=== PATIENT | male | born 1955 | race Caucasian/White ===

== ENCOUNTER 2023-08-02 19:08 | Emergency (ER) | payer MEDICARE, MEDICAID, SELFPAY ==
[2023-08-02 19:20] VITALS: BP 143/66; PULSE 67; O2SAT 97; BMI 25.7
[2023-08-02 19:24] VITALS: BP 115/59; PULSE 75; RESP 17; TEMP 36.8; O2SAT 98
--- NOTE | 2023-08-02 19:38 | ED.GENADULT ---
HPI - General Adult General Chief complaint: General Medical Stated complaint: DISLODGED G TUBE NON VERBAL Time Seen by Provider: 08/02/23 19:37 Source: EMS Mode of arrival: EMS Limitations: other ( nonverbal) History of Present Illness HPI narrative: patient comes to the emergency room from a assisted facility. Patient dislodged his G-tube. Patient has history of cerebral palsy, nonverbal at baseline. Related Data Allergies Allergy/AdvReac Type Severity Reaction Status Date / Time Cephalosporins Allergy Unknown UNKNOWN Unverified 06/10/20 14:53 nitrofurantoin Allergy Unknown UNKNOWN Unverified 06/10/20 14:53 [From MACROBID] NSAIDS (Non-Steroidal Allergy Unknown UNKNOWN Unverified 06/10/20 14:53 Anti-Inflamma [Nsaids] Penicillins Allergy Unknown UNKNOWN Unverified 06/10/20 14:53 pneumococcal vaccine Allergy Unknown UNKNOWN Unverified 06/10/20 14:53 [From PNEUMOVAX 23] From Augmentin Allergy Unknown UNKNOWN Uncoded 06/10/20 14:53 From Tricor Allergy Unknown UNKNOWN Uncoded 06/10/20 14:53 Review of Systems Review of Systems: Yes Unobtainable due to mental condition [facility] Past Medical History Medical History Cerebral palsy Social History Social History Advance Directives: No Advance Directives Information Provided: No Physical Exam ED Vital Signs: Vital Signs - 24 hr 08/02/23 19:24 Temperature 98.3 F Pulse Rate 75 Respiratory Rate 17 Blood Pressure 115/59 L Pulse Oximetry 98 Oxygen Delivery Method Room Air BMI result Body Mass Index 25.7 Const Other: Appearance: Alert. Eyes: Pupils equal, round and reactive to light. ENT: Pharynx normal. Neck: Normal inspection. Neck supple. No lymph nodes noted. No crepitus CVS: Normal heart rate and rhythm. Pulses normal. Normal S1 and S2 Respiratory: No respiratory distress. Breath sounds normal. No Wheezing. No rales Abdomen: Soft and nontender. No rigidity. No distention. G tube dislodged, colostomy bag in place, no obvious signs of infection /cellulitis Skin: Skin warm and dry. Normal skin color. Normal skin turgor. Extremities: No lower extremity edema. No Lacerations. No Rash Neuro: unable to participate in cranial nerve assessment Psych: calm, restless Course Course Course Narrative: - patient has a 16 [place]bour[place] G-tube which was pulled out. We will go ahead and look for a 6 Luxembour[place] and reinserted. Medical Decision Making Medical Decision Making MDM Narrative: - patient's G-tube was replaced with a 16 [place], same size as he had. Patient tolerated well the G-tube insertion. Critical Care Time Critical Care Time Critical Care Time: Yes Total Critical Care Time: 30 Attestation: I have personally provided critical care time. Time includes review of lab data, radiology results, discussion with consultants, and monitoring for potential decompensation. Intervention performed as documented. Discharge Plan Discharge Clinical Impression: Gastrojejunostomy tube dislodgement Patient Disposition: Home, Self-Care Additional Instructions: Please follow-up with your primary care physician tomorrow. If you have any worsening or new symptoms, please return to the emergency room or call 911
--- NOTE | 2023-08-03 00:18 | PC.NURSE ---
UNABLE TO COMPLETE FULL WORKLIST PT IS NON VERBAL
== END 2023-08-03 00:21 | disposition home or self-care (01) ==
PROVIDERS: Emergency Provider Emergency Medicine; PCP Internal Medicine
DX: K94.23 Gastrostomy malfunction (principal); G80.9 Cerebral palsy, unspecified
CPT/HCPCS: 43762; 99284

== ENCOUNTER 2025-01-01 12:03 | Observation (INO) | payer MEDICARE, MEDICAID, SELFPAY ==
--- NOTE | 2025-01-01 | ECG_ITS ---
Test Reason : weakness Blood Pressure : */* mmHG Vent. Rate : 76 BPM Atrial Rate : 76 BPM P-R Int : 142 ms QRS Dur : 76 ms QT Int : 370 ms P-R-T Axes : 61 8 73 degrees QTcB Int : 416 ms Normal sinus rhythm Normal ECG When compared with ECG of 30-Dec-2016 08:53, No significant change was found Referred By: Generic ED Physician Electronically Signed By: Issac Calvert
--- NOTE | ~2025-01-01 | XR_ITS ---
EXAMINATION: XR CHEST 1 VIEW HISTORY: sob COMPARISON: There are no prior studies for comparison. FINDINGS: A single AP portable view of the chest performed at 2:54 PM is submitted. The lungs are expanded and clear. There is no pleural effusion, pneumothorax, or pulmonary vascular congestion. The heart is normal in size. There is degenerative disc disease of the spine. XR/XR chest 1V IMPRESSION: Clear lungs. Electronically signed by: Clay Sung MD 01/01/2025 03:02 PM EDT
[2025-01-01 12:31] VITALS: BP 109/63; BP 70/50; PULSE 80; PULSE 83; RESP 17; TEMP 36.8; O2SAT 98; BMI 22.1
[2025-01-01 13:02] LABS: MANUAL DIFF FLAG NO
[2025-01-01 13:04] LABS: Basophils Percent Auto 0.3 % (0-2); Eosinophils Absolute Auto 0.1 X10*3/uL (0.0-0.4); Eosinophils Percent Auto 0.7 % (0-4); Hematocrit 26.6 % (42.0-52.0); Hemoglobin 9.4 g/dl (14.0-18.0); Imm Gran Abs Auto 0.01 X10*3/uL (0.00-0.03); Imm Gran Pct Auto 0.1 % (0.0-0.4); Lymphocytes Absolute Auto 2.6 X10*3/uL (1.2-4.9); Lymphocytes Percent Auto 34.4 % (20-40); Mean Corpuscular HGB Conc 35.3 g/dl (31.0-36.0); Mean Corpuscular Hemoglobin 28.7 pg (27.0-33.0); Mean Corpuscular Volume 81.1 fL (80.0-98.0); Mean Platelet Volume 8.2 fL (9.4-12.4); Monocytes Absolute Auto 1.1 X10*3/uL (0.1-1.2); Monocytes Percent Auto 14.6 % (2-11); Neutrophils Absolute Auto 3.8 x10*3/uL (2.0-8.3); Neutrophils Percent Auto 49.9 % (45-73); Platelet Count 232 X10*3/uL (160-400); Red Blood Count 3.28 X10*6/uL (4.60-5.80); Red Cell Distribution Width 14.8 % (11.0-16.0); White Blood Count 7.7 X10*3/uL (4.8-10.8)
[2025-01-01 13:26] LABS: Alanine Aminotransferase 7 U/L (0-40); Albumin Level 2.9 g/dL (3.5-5.0); Alkaline Phosphatase 89 U/L (39-117); Anion Gap 14 (12-20); Aspartate Amino Transferase 22 U/L (5-37); Bilirubin Total 0.2 mg/dL (0.0-1.0); Blood Urea Nitrogen 9 mg/dL (9-16); Carbon Dioxide 21 mmol/L (22-29); Chloride 98 mmol/L (96-108); Creatinine Clr Calc Pharmacy 54.7; Estimated Glomerular Filt Rate > 60; Glucose Random 167 mg/dL (60-115); Potassium 4.2 mmol/L (3.3-5.1); Sodium 129 mmol/L (135-145); Total Protein 7.6 g/dL (6.5-8.0)
[2025-01-01 13:45] LABS: Appearance Urine Turbid; Color Urine Yellow; Glucose Urine UA Negative (Negative); Nitrite Urine Negative (Negative); Specific Gravity - Urine >= 1.030 (1.005-1.025); UMIC TRIGGER UACC YES; Urine Blood Moderate (2+) (Negative); Urine Ketones Negative (Negative); Urine Protein 100 (2+) mg/dL (Neg-Trace)
[2025-01-01 13:46] LABS: Leukocyte Esterase Urine Moderate (2+) (Negative)
[2025-01-01 13:56] LABS: Bacteria Urine 4+ (None Seen); Hyaline Casts Urine 0-2 /LPF (0-2); RBC Urine 0-2 /HPF (0-2); UACC Culture Trigger YES; WBC Urine >50 /HPF (0-5)
--- NOTE | 2025-01-01 14:00 | ED.GENADULT ---
HPI - General Adult General Chief complaint: General Medical Stated complaint: LOW BP 80/50 PER EMS Time Seen by Provider: 01/01/25 13:33 History of Present Illness HPI narrative: patient is a 69-year-old male from a [facility]. Full code. History of being blind. Chronically nonverbal. Patient was noted to have a low blood pressure yesterday was in the 60s and 70s. Patient reports patient is slightly more pale than usual. Blood pressure EN route was 70s over 50s. Patient did not have any fever over the week. Did not have any change in behavior. [facility] from [facility]. As a history of psychogenic polydipsia causing low sodium and is on a fluid restriction of 1500 cc. Related Data Allergies Allergy/AdvReac Type Severity Reaction Status Date / Time Cephalosporins Allergy Unknown UNKNOWN Verified 01/01/25 12:34 nitrofurantoin Allergy Unknown UNKNOWN Verified 01/01/25 12:34 [From MACROBID] NSAIDS (Non-Steroidal Allergy Unknown UNKNOWN Verified 01/01/25 12:34 Anti-Inflamma [Nsaids] Penicillins Allergy Unknown UNKNOWN Verified 01/01/25 12:34 pneumococcal vaccine Allergy Unknown UNKNOWN Verified 01/01/25 12:34 [From PNEUMOVAX 23] From Augmentin Allergy Unknown UNKNOWN Uncoded 01/01/25 12:34 From Tricor Allergy Unknown UNKNOWN Uncoded 01/01/25 12:34 Review of Systems Review of Systems: unable to obtain review of systems secondary to patient's condition [facility] Past Medical History Medical History Neurogenic bladder Legally blind Cerebral palsy Surgical History S/P colostomy Social History Social History Unable to assess alcohol history related to: Unable to respond Patient Tobacco Use Status: Never used Tobacco Smoked in Last 30 Days: No Use of substances other than those prescribed or required for medical reasons: Unable to respond Advance Directives: No Advance Directives Information Provided: No Do you have a plan to hurt others: No Plan Nutrition Risks: No Nutritional Risk Physical Exam ED Vital Signs: Vital Signs - 24 hr 01/01/25 12:31 01/01/25 14:13 01/01/25 16:12 Temperature 98.2 F Pulse Rate 83 80 85 Respiratory Rate 17 16 18 Blood Pressure 109/63 96/54 L 139/73 Pulse Oximetry 98 99 97 Oxygen Delivery Method Room Air Room Air Room Air Oxygen Flow Rate 01/01/25 18:57 Temperature 98.2 F Pulse Rate 85 Respiratory Rate 18 Blood Pressure 156/86 H Pulse Oximetry 97 Oxygen Delivery Method Room Air Oxygen Flow Rate 98 BMI result Body Mass Index 22.1 Appearance: lethargic nonverbal Eyes: baseline blind ENT: Pharynx normal. Neck: Normal inspection. CVS: Normal heart rate and rhythm. Pulses normal. Normal S1 and S2 Respiratory: positive breath sounds bilaterally Abdomen: soft nontender nondistended. Good output from the ostomy site Skin: contracted skin has good turgor Extremities: No lower extremity edema. Neurovascular intact to all extremities. No Lacerations. No Rash Neuro: oriented times 0 contracted Medications Administered Discontinued Medications Generic Name Dose Route Start Last Admin Trade Name Freq PRN Reason Stop Dose Admin Sodium Chloride 1,000 mls @ 999 mls/hr 01/01/25 14:15 01/01/25 16:32 Ns IV 01/01/25 15:15 Infused .Q1H1M SHUBHAM Infusion Levofloxacin 500 mg in 100 mls @ 100 mls/hr 01/01/25 15:39 01/01/25 17:44 Levaquin IV 01/01/25 16:38 100 mls/hr ONCE ONE Administration Sodium Chloride 1,641 mls @ 1,641 mls/hr 01/01/25 17:36 01/01/25 17:45 Ns 30 ml/kg infuse over 1 hr (1641 ml) 01/01/25 18:35 1,641 mls/hr IV Administration .Q1H STA Medical Decision Making Medical Decision Making MDM Narrative: Patient is 69 years old presents today with having history of chronic suprapubic Graff. History of ostomy. Patient had episodes of [facility] at the [facility] but there was no fever. In the emergency department patient had a full workup including electrolytes. Patient's urine did show signs of colonization versus infection. Patient had a mildly elevated lactate. IV fluid was given. Will admit patient for further evaluation after IV fluids repeat exam showed patient well-appearing no distress. Patient given Levaquin as he had a question allergy to penicillin. Currently in stable condition hospitalist team was consulted will admit for further evaluation Differential Diagnosis Differential Diagnoses: The differential diagnosis associated with the presentation includes urinary tract infection, pneumonia, flu, RSV Admission/Observation Consideration of admission/observation: Escalation of care including admission/observation considered Consult Healthcare Provider Management of the patient was discussed with: Hospitalist Lab Data [facility] Lab Attestation statement: I reviewed the patient's lab results. 01/01/25 12:56 01/01/25 12:56 Labs: Lab Results 01/01/25 01/01/25 01/01/25 Range/Units 12:56 13:35 14:16 WBC 7.7 (4.8-10.8) X10*3/uL RBC 3.28 L (4.60-5.80) X10*6/uL Hgb 9.4 L (14.0-18.0) g/dl Hct 26.6 L (42.0-52.0) % MCV 81.1 (80.0-98.0) fL MCH 28.7 (27.0-33.0) pg MCHC 35.3 (31.0-36.0) g/dl RDW 14.8 (11.0-16.0) % Plt Count 232 (160-400) X10*3/uL MPV 8.2 L (9.4-12.4) fL Immature Gran % (Auto) 0.1 (0.0-0.4) % Neut % (Auto) 49.9 (45-73) % Lymph % (Auto) 34.4 (20-40) % Wise % (Auto) 14.6 H (2-11) % Eos % (Auto) 0.7 (0-4) % Baso % (Auto) 0.3 (0-2) % Lymph # (Auto) 2.6 (1.2-4.9) X10*3/uL Wise # (Auto) 1.1 (0.1-1.2) X10*3/uL Eos # (Auto) 0.1 (0.0-0.4) X10*3/uL Baso # (Auto) 0.0 (0.0-0.2) X10*3/uL Abs Immat Gran (auto) 0.01 (0.00-0.03) X10*3/uL Absolute Neuts (auto) 3.8 (2.0-8.3) x10*3/uL Absolute Nucleated RBC 0.000 (0.0-0.012) X10*3/uL Nucleated RBC % (auto) 0.0 (0.0-0.2) /100WBC Sodium 129 L (135-145) mmol/L Potassium 4.2 (3.3-5.1) mmol/L Chloride 98 (96-108) mmol/L Carbon Dioxide 21 L (22-29) mmol/L Anion Gap 14 (12-20) BUN 9 (9-16) mg/dL Creatinine 0.97 (0.5-1.4) mg/dL Estim Creat Clear Calc 54.7 Estimated GFR > 60 Random Glucose 167 H (60-115) mg/dL Lactic Acid (0.5-2.0) mmol/L Calcium 9.0 (8.4-10.2) mg/dL Total Bilirubin 0.2 (0.0-1.0) mg/dL AST 22 (5-37) U/L ALT 7 (0-40) U/L Alkaline Phosphatase 89 (39-117) U/L Total Protein 7.6 (6.5-8.0) g/dL Albumin 2.9 L (3.5-5.0) g/dL Urine Color Yellow Urine Appearance Turbid Urine pH 6.0 (5.0-9.0) Ur Specific [place] >= 1.030 H (1.005-1.025) Urine Protein 100 (2+) H (Neg-Trace) mg/dL Urine Glucose (UA) Negative (Negative) mg/dL Urine Ketones Negative (Negative) mg/dL Urine Blood Moderate (2+) H (Negative) Urine Nitrite Negative (Negative) Ur Leukocyte Esterase Moderate (2+) H (Negative) Urine RBC 0-2 (0-2) /HPF Urine WBC >50 H (0-5) /HPF Ur Squamous Epith Cells 6-10 (0-2) /HPF Urine Bacteria 4+ (None Seen) Hyaline Casts 0-2 (0-2) /LPF Influenza Type A (PCR) NEGATIVE (Negative) Influenza Type B (PCR) NEGATIVE (Negative) RSV RNA Qual (PCR) NEGATIVE (Negative) SARS-CoV-2 RNA (RT-PCR) NEGATIVE (Negative) 04/10/25 Range/Units 16:51 WBC (4.8-10.8) X10*3/uL RBC (4.60-5.80) X10*6/uL Hgb (14.0-18.0) g/dl Hct (42.0-52.0) % MCV (80.0-98.0) fL MCH (27.0-33.0) pg MCHC (31.0-36.0) g/dl RDW (11.0-16.0) % Plt Count (160-400) X10*3/uL MPV (9.4-12.4) fL Immature Gran % (Auto) (0.0-0.4) % Neut % (Auto) (45-73) % Lymph % (Auto) (20-40) % Wise % (Auto) (2-11) % Eos % (Auto) (0-4) % Baso % (Auto) (0-2) % Lymph # (Auto) (1.2-4.9) X10*3/uL Wise # (Auto) (0.1-1.2) X10*3/uL Eos # (Auto) (0.0-0.4) X10*3/uL Baso # (Auto) (0.0-0.2) X10*3/uL Abs Immat Gran (auto) (0.00-0.03) X10*3/uL Absolute Neuts (auto) (2.0-8.3) x10*3/uL Absolute Nucleated RBC (0.0-0.012) X10*3/uL Nucleated RBC % (auto) (0.0-0.2) /100WBC Sodium (135-145) mmol/L Potassium (3.3-5.1) mmol/L Chloride (96-108) mmol/L Carbon Dioxide (22-29) mmol/L Anion Gap (12-20) BUN (9-16) mg/dL Creatinine (0.5-1.4) mg/dL Estim Creat Clear Calc Estimated GFR Random Glucose (60-115) mg/dL Lactic Acid 2.6 H* (0.5-2.0) mmol/L Calcium (8.4-10.2) mg/dL Total Bilirubin (0.0-1.0) mg/dL AST (5-37) U/L ALT (0-40) U/L Alkaline Phosphatase (39-117) U/L Total Protein (6.5-8.0) g/dL Albumin (3.5-5.0) g/dL Urine Color Urine Appearance Urine pH (5.0-9.0) Ur Specific [place] (1.005-1.025) Urine Protein (Neg-Trace) mg/dL Urine Glucose (UA) (Negative) mg/dL Urine Ketones (Negative) mg/dL Urine Blood (Negative) Urine Nitrite (Negative) Ur Leukocyte Esterase (Negative) Urine RBC (0-2) /HPF Urine WBC (0-5) /HPF Ur Squamous Epith Cells (0-2) /HPF Urine Bacteria (None Seen) Hyaline Casts (0-2) /LPF Influenza Type A (PCR) (Negative) Influenza Type B (PCR) (Negative) RSV RNA Qual (PCR) (Negative) SARS-CoV-2 RNA (RT-PCR) (Negative) Radiology Impression Discussion of test interpretation with radiology: I have reviewed the radiologist's reading. External Record Review outpatient record reviewed Social Determinants Patient?s care significantly limited by Social Determinants of Health including: Problems related to primary support group Critical Care Time Critical Care Time Critical Care Time: Yes Total Critical Care Time: 40 Attestation: I have personally provided 40 minutes of critical care time exclusive of time spent on separately billable procedures. Time includes review of lab data, radiology results, discussion with consultants, and monitoring for potential decompensation. Interventions were performed as documented above Discharge Plan Discharge Clinical Impression: Urinary tract infection Patient Disposition: Admitted As Inpatient Print Language: Cymro
[2025-01-01] MEDS: 0.9 % Sodium Chloride 1,000 ML 999 ML IV (14:12)
[2025-01-01 14:13] VITALS: BP 96/54; PULSE 80; RESP 16; O2SAT 99
[2025-01-01 15:04] LABS: Influenza A PCR NEGATIVE (Negative); Influenza B PCR NEGATIVE (Negative); Resp Syncy Virus RNA Qual PCR NEGATIVE (Negative); SARS COV2 PCR INHOUSE NEGATIVE (Negative)
[2025-01-01 16:12] VITALS: BP 139/73; PULSE 85; RESP 18; O2SAT 97
--- OUTSIDE RECORDS SUMMARY | 2025-01-01 16:14 | XMS_ITS | Patient Health Record ---
Author Organization [facility] Address [address] [place] [address] Care Team Providers Care Industrial Cook Name Role Phone Oni Alvarez MD Primary Care Provider Viri Jack Unavailable [phone] Allergies Allergen (clinical drug ingredient) Drug/Non Drug Allergy documented on EMR Reaction Allergy Type Onset Date Status aspirin Aspirin Unknown Drug Allergy Active amoxicillin / clavulanate Augmentin Unknown Drug Allergy Active nitrofurantoin, macrocrystals / nitrofurantoin, monohydrate Macrobid Unknown Drug Allergy Active Streptococcus pneumoniae type 1 capsular polysaccharide antigen / Streptococcus pneumoniae type 10A capsular polysaccharide antigen / Streptococcus pneumoniae type 11A capsular polysaccharide antigen / Streptococcus pneumoniae type 12F capsular polysaccharide antigen / Streptococcus pneumoniae type 14 capsular polysaccharide antigen / Streptococcus pneumoniae type 15B capsular polysaccharide antigen / Streptococcus pneumoniae type 17F capsular polysaccharide antigen / Streptococcus pneumoniae type 18C capsular polysaccharide antigen / Streptococcus pneumoniae type 19A capsular polysaccharide antigen / Streptococcus pneumoniae type 19F capsular polysaccharide antigen / Streptococcus pneumoniae type 2 capsular polysaccharide antigen / Streptococcus pneumoniae type 20 capsular polysaccharide antigen / Streptococcus pneumoniae type 22F capsular polysaccharide antigen / Streptococcus pneumoniae type 23F capsular polysaccharide antigen / Streptococcus pneumoniae type 3 capsular polysaccharide antigen / Streptococcus pneumoniae type 33F capsular polysaccharide antigen / Streptococcus pneumoniae type 4 capsular polysaccharide antigen / Streptococcus pneumoniae type 5 capsular polysaccharide antigen / Streptococcus pneumoniae type 6B capsular polysaccharide antigen / Streptococcus pneumoniae type 7F capsular polysaccharide antigen / Streptococcus pneumoniae type 8 capsular polysaccharide antigen / Streptococcus pneumoniae type 9N capsular polysaccharide antigen / Streptococcus pneumoniae type 9V capsular polysaccharide antigen Pneumovax 23 Unknown Drug Allergy Active fenofibrate Tricor Unknown Drug Allergy Activ e Medicinal cephalosporin and acting as antibacterial agent (FN) Cephalosporins Unknown Drug Allergy Active Dog dander Dog Dander Unknown Allergy Active Mold Unknown Allergy Active Non-steroidal anti-inflammatory agent (FN) NSAIDs Unknown Drug Allergy Active Penicillin Unknown Drug Allergy Active Reason For Referral No Information Medications Medication SIG (Take, Route, Fr equency, Duration) Notes Start Date End Date Status Omeprazole 40 MG 1 capsule 1/2 to 1 h our before morning meal Orally Once a day Active Ketoconazole Active Zinc Oxide Active Glucosamine Active Loperamide HCl Activ e GNP Fish Oil Active Cetirizine HCl Activ e Tylenol Childrens Ac tive diazePAM Active QUEtiapine Fumarate Active LORazepam Active Cystex Active Tussin DM Active Vitamin D2 Active Pravastatin Sodium A ctive Valproic Acid Active Boost Smoothie Activ e tiZANidine HCl 4 MG 1 tablet at bedtime as needed Orally Once a day Active tiZANidine HCl 2 MG 1 tablet at bedtime as needed Orally Once a day Active Bacitracin Active Fluticasone Propionate Active Ear Drops Active Aspirin 81 MG 1 tablet Orally Once a day Active Social History Tobacco Use: Social History Observation Description Date Details (start date - stop date) Never Smoker NA - NA Tobacco Use/Smoking Question Answer Notes Are you a: nonsmoker Additional Findings: Tobacco Non-User Current no n-smoker Alcohol Screen Question Answer Notes Did you have a drink containing alcohol in the p ast year? No Points 0 Interpretation Negative Tobacco use other than smoking: Question Answer Notes Are you an other tobacco user? No Vital Signs Height 5 ft in 08/07/2024 Weight 131 lbs 08/07/2024 BMI 25.58 kg/m2 08/07/2024 Encounters Encounter Location Date Provider Diagnosis [facility] [address] 08/07/2024 Viri Landis Pain in right toe(s) M79.674 ; Onychomycosis B35.1 ; Pain in left toe(s) M79.675 ; Nonverbal R47.01 and Wheelchair dependent Z99.[address] [facility] [address] 07/17/2024 Viri Landis Assessments Encounter Date Diagnosis (ICD Code) Assessment Notes Treatment Notes Treatment Clinical Notes Section Notes 08/07/2024 Pain in right toe(s) (ICD-10 - M79.674) 08/07/2024 Onychomycosis (ICD-10 - B35.1) 08/07/2024 Pain in left toe(s) (ICD-10 - M79.675) 08/07/2024 Nonverbal (ICD-10 - R47.01) 08/07/2024 Wheelchair dependent (ICD-10 - Z99.3) Plan Of Treatment Next Appt Details Provider Name:Viri hollins, 01/22/2025 01:15:00 PM, [address] [place] [address], [id number], Insurance Providers Payer Name Payer Address Payer Phone Subscriber Number Group Number Insured Name Patient Relationship to Insured Coverage Start Date Coverage End Date Medicare [facility] Govt [facility] [address] [place] [address] [id number] Clay Ross Self - patient is the insured Medical (General) History Medical History History ICD Code cerebral palsey Cervical and Lumbar spondylosis S/P Posterior Cervical Decompression and Laminectomy Other- Venous Stasis Dysphagia 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
--- OUTSIDE RECORDS SUMMARY | 2025-01-01 16:14 | XMS_ITS | Encounter Summary ---
Author Organization [facility] Address [address] [place] [address] Phone Care Team Providers Care Insulation Mechanic Name Role Phone Jaime Navarro MD Primary Care Provider [phone] Encounter Details Date Type Department Care Team (Late st Contact Info) Description 01/25/2024 Orders Only [facility] [address] [place] [address] Jaime Navarro MD [address] [place] [address] Hypo-osmolality and hyponatremia Social History Tobacco Use Types Packs/Day Years Used Date Smoking Tobacco: Never Smokeless Tobacco: Never Sex and Gender Information Value Date Recorded Sex Assigned at Not on file Legal Sex Male 5:01 PM EST Gender Identity Not on file Sexual Orientation Not on file documented as of this encounter Progress Notes * Jaime Navarro MD - 01/25/2024 2:17 AM EDT Pls call retirement and ask them to decrease fluid restriction to 1000 ml daily and repeat labs next week thank you. If they need a written order, plsease ask them to fax an order to send back with above fluid restriction thank you documented in this encounter Plan of Treatment Not on file documented as of this encounter Procedures Procedure Name Priority Date/Time Associated Diagnosis Comments SODIUM, URINE, RANDOM Routine 01/29/2024 2:43 PM EDT Hypo-osmolality and hyponatremia OSMOLALITY, URINE Routine 01/29/2024 2:4 3 PM EDT Hypo-osmolality and hyponatremia OSMOLALITY (SERUM) STAT 01/29/2024 2: 43 PM EDT Hypo-osmolality and hyponatremia RENAL FUNCTION PANEL STAT 01/29/2024 2:43 PM EDT Hypo-osmolality and hyponatremia documented in this encounter Results * Urine, sodium,random (01/29/2024 2:43 PM EDT) Sodium, 24H Ur <20 Not Estab. mmol/L See order comments Urine (Urine, Clean Catch) 01/29/2024 2:43 PM EDT 01/29/2024 Narrative [facility] - 02/02/2024 7:06 PM EDT Performed at: ??01 - [facility] [address] ??[id number] Floor Care Specialist: Beatriz Cm MD, Phone: ??[phone] us Jaime Navarro MD LAB URINE ORDERABLES Final Resul t [facility] See order comments [place] [address] * Urine Osmolality (01/29/2024 2:43 PM EDT) Osmolality, Ur 348 mOsmol/kg See o rder comments Comment: ?24 hr : ?? 300 - ??900 ?Random: ?50 - 1400 ?After 12hr fluid ?restriction: ?>850 Urine (Urine, Clean Catch) 01/29/2024 2:43 PM EDT 01/29/2024 Narrative [facility] - 02/02/2024 7:06 PM EDT Performed at: ??02 - [facility] ??[id number] Floor Care Specialist: Fahad Pelletier MD, Phone: ??[phone] us Jaime Navarro MD LAB URINE ORDERABLES Final Resul t Performing Organization Address [facility] Phone Number [facility] See order comments [place] [address] * (ABNORMAL) Osmolality (01/29/2024 2:43 PM EDT) Pathologist [facility] Osmolality Calc 273(L) 280 - 301 mOsmol/kg See order comments Blood (Blood, Venous) 01/29/2024 2:43 PM EDT 01/29/2024 Narrative [facility] - 02/02/2024 7:06 PM EDT Performed at: ??[address] ??[id number] Floor Care Specialist: Fahad Pelletier MD, Phone: ??[phone] us Jaime Navarro MD LAB BLOOD ORDERABLES Final Resul t Performing Organization Address [facility] Phone Number [facility] See order comments [place] [address] * (ABNORMAL) Renal Function Panel (01/29/2024 2:43 PM EDT) Glucose 145(H) 70 - 99 mg/dL See order comments BUN 11 8 - 27 mg/dL See order comments Creatinine 0.87 0.76 - 1.27 mg/dL See order comments eGFR CKD-EPI CR 2020 93 >59 mL/min/1.7 3 See order comments BUN/Creatinine Ratio 13 10 - 24 See order comments Sodium 130(L) 134 - 144 mmol/L See order comments Potassium 3.9 3.5 - 5.2 mmol/L See order comments Chloride 95(L) 96 - 106 mmol/L See order comments Bicarbonate (CO2) 20 20 - 29 mmol/L See order comments Calcium 9.2 8.6 - 10.2 mg/dL See order comments Albumin 3.8(L) 3.9 - 4.9 g/dL See order comments Phosphorus 2.8 2.8 - 4.1 mg/dL See order comments Blood (Blood, Venous) 01/29/2024 2:43 PM EDT 01/29/2024 Narrative [facility] - 02/02/2024 7:06 PM EDT Performed at: ??01 - [facility] [address] ??[id number] Floor Care Specialist: Beatriz Cm MD, Phone: ??[phone] us Jaime Navarro MD LAB BLOOD ORDERABLES Final Resul t [facility] See order comments [place] [address] documented in this encounter Visit Diagnoses Diagnosis Hypo-osmolality and hyponatremia documented in this encounter Care Teams Insulation Mechanic Relationship Specialty Start Date End Date Jaime Navarro MD [address] [place] [address] [place] [address] PCP - General Nephrology 12/24/23 documented as of this encounter
--- OUTSIDE RECORDS SUMMARY | 2025-01-01 16:14 | XMS_ITS | Encounter Summary ---
Author Organization [facility] Address [address] [place] [address] Phone Care Team Providers Care Pyrotechnic Mixer Name Role Phone Jaime Navarro MD Primary Care Provider Encounter Details Date Type Department Care Team (Late st Contact Info) Description 12/28/2023 Orders Only [facility] [address] [place] [address] Jaime Navarro MD [address] [facility] [address] [place] [address] Hypo-osmolality and hyponatremia Social History Tobacco Use Types Packs/Day Years Used Date Smoking Tobacco: Never Smokeless Tobacco: Never Sex and Gender Information Value Date Recorded Sex Assigned at Not on file Legal Sex Male 5:01 PM EST Gender Identity Not on file Sexual Orientation Not on file documented as of this encounter Plan of Treatment Not on file documented as of this encounter Procedures Procedure Name Priority Date/Time Associated Diagnosis Comments SODIUM, URINE, RANDOM Routine 01/17/2024 10:05 AM EDT Hypo-osmolality and hyponatremia OSMOLALITY, URINE Routine 01/17/2024 10: 05 AM EDT Hypo-osmolality and hyponatremia documented in this encounter Results * Urine, sodium,random (01/17/2024 10:05 AM EDT) Sodium, 24H Ur 20 Not Estab. mmol/L See order comments Urine (Urine, Clean Catch) 01/17/2024 10:05 AM EDT 01/17/2024 Narrative [facility] - 01/20/2024 12:05 AM EDT Performed at: ??02 - [facility] [place] [address] [place], [place] ??[id number] Yarn Carrier: Beatriz Cm MD, Phone: ??[phone] Jaime Navarro MD LAB URINE ORDERABLES Final Resul t Performing Organization Address [facility] de Phone Number [facility] See order comments [place] [address] * Urine Osmolality (01/17/2024 10:05 AM EDT) Osmolality, Ur 270 mOsmol/kg See o rder comments Comment: ?24 hr : ?? 300 - ??900 ?Random: ?50 - 1400 ?After 12hr fluid ?restriction: ?>850 Urine (Urine, Clean Catch) 01/17/2024 10:05 AM EDT 01/17/2024 Narrative [facility] - 01/20/2024 12:05 AM EDT Performed at: ??01 - [facility] [address] ??[id number] Yarn Carrier: Fahad Pelletier MD, Phone: ??[phone] us Jaime Navarro MD LAB URINE ORDERABLES Final Resul t Performing Organization Address [facility] Co de Phone Number [facility] See order comments [place] [address] documented in this encounter Visit Diagnoses Diagnosis Hypo-osmolality and hyponatremia documented in this encounter Care Teams Pyrotechnic Mixer Relationship Specialty Start Date End Date Jaime Navarro MD [address] [place] [address] [place] [address] PCP - General Nephrology 12/24/23 documented as of this encounter
--- OUTSIDE RECORDS SUMMARY | 2025-01-01 16:14 | XMS_ITS | Encounter Summary ---
Author Organization [facility] Address [address] [place] [address] Phone Care Team Providers Care Senior Salesforce Developer Name Role Phone Jaime Navarro MD Primary Care Provider [phone] Encounter Details Date Type Department Care Team (Late st Contact Info) Description 01/11/2024 Orders Only [facility] [address] [place] [address] Jaime Navarro MD [address] [facility] [place] [address] Hypo-osmolality and hyponatremia Social History Tobacco Use Types Packs/Day Years Used Date Smoking Tobacco: Never Smokeless Tobacco: Never Sex and Gender Information Value Date Recorded Sex Assigned at Not on file Legal Sex Male 5:01 PM EST Gender Identity Not on file Sexual Orientation Not on file documented as of this encounter Plan of Treatment Pending Results Name Type Priority Associated Diagnoses Date /Time Urine Osmolality Lab Routine Hypo-osmolality and hyponatremia 01/16/2024 12:10 PM EDT Urine, sodium,random Lab Routine Hypo-osmolality and hyponatremia 01/16/2024 12:10 PM EDT documented as of this encounter Procedures Procedure Name Priority Date/Time Associated Diagnosis Comments SPECIMEN STATUS REPORT Routine 01/16/2024 12:10 PM EDT SODIUM, URINE, RANDOM Routine 01/16/2024 12:10 PM EDT Hypo-osmolality and hyponatremia OSMOLALITY, URINE Routine 01/16/2024 12: 10 PM EDT Hypo-osmolality and hyponatremia OSMOLALITY (SERUM) STAT 01/16/2024 12 :10 PM EDT Hypo-osmolality and hyponatremia RENAL FUNCTION PANEL STAT 01/16/2024 12:10 PM EDT Hypo-osmolality and hyponatremia documented in this encounter Results * SPECIMEN STATUS REPORT (01/16/2024 12:10 PM EDT) Specimen Status Comment See order comments Comment: No Urine Received No Urine Received Test not performed. No urine specimen received. ?TEST: ??[id number] ??Osmolality, Urine 01/16/2024 12:1 0 PM EDT 01/16/2024 Narrative [facility] - 01/21/2024 2:07 PM EDT Performed at: ??01 - [facility] [address] ??[id number] Etl Application Developer: Beatriz Cm MD, Phone: ??[phone] Jaime Navarro MD LAB BLOOD ORDERABLES Final Resul t Performing Organization Address [facility] [place] [facility] de Phone Number [facility] See order comments [place] [address] * Osmolality (01/16/2024 12:10 PM EDT) Pathologist [facility] Osmolality Calc 290 280 - 301 mOsmol/kg See order comments Blood (Blood, Venous) 01/16/2024 12:10 PM EDT 01/16/2024 Narrative [facility] - 01/21/2024 2:07 PM EDT Performed at: ??02 - [facility] [address] ??[id number] Etl Application Developer: Fahad Pelletier MD, Phone: ??[phone] us Jaime Navarro MD LAB BLOOD ORDERABLES Final Resul t Performing Organization Address [facility] de Phone Number [facility] See order comments [place] [address] * (ABNORMAL) Renal Function Panel (01/16/2024 12:10 PM EDT) Glucose 98 70 - 99 mg/dL See order comments BUN 18 8 - 27 mg/dL See order comments Creatinine 1.05 0.76 - 1.27 mg/dL See order comments eGFR CKD-EPI CR 2020 77 >59 mL/min/1.7 3 See order comments BUN/Creatinine Ratio 17 - See order comments Sodium 137 134 - 144 mmol/L See order comments Potassium 4.2 3.5 - 5.2 mmol/L See order comments Chloride 101 96 - 106 mmol/L See order comments Bicarbonate (CO2) 21 20 - 29 mmol/L See order comments Calcium 9.8 8.6 - 10.2 mg/dL See order comments Phosphorus 3.5 2.8 - 4.1 mg/dL See order comments Albumin 3.8(L) 3.9 - 4.9 g/dL See order comments Blood (Blood, Venous) 01/16/2024 12:10 PM EDT 01/16/2024 Narrative [facility] - 01/21/2024 2:07 PM EDT Performed at: ??01 - [facility] [address] ??[id number] Etl Application Developer: Beatriz Cm MD, Phone: ??[phone] us Jaime Navarro MD LAB BLOOD ORDERABLES Final Resul t [facility] See order comments [place] [address] documented in this encounter Visit Diagnoses Diagnosis Hypo-osmolality and hyponatremia documented in this encounter Care Teams Senior Salesforce Developer Relationship Specialty Start Date End Date Jaime Navarro MD [address] [place] [address] [place] [id number] PCP - General Nephrology 12/24/23 documented as of this encounter
--- OUTSIDE RECORDS SUMMARY | 2025-01-01 16:14 | XMS_ITS | Encounter Summary ---
Author Organization [facility] Address [address] [place] [address] Phone Care Team Providers Care Glass Belt Sander Name Role Phone Jaime Navarro MD Primary Care Provider [phone] Encounter Details Date Type Department Care Team (Late st Contact Info) Description 01/04/2024 Orders Only [facility] [address] [place] [address] Jaime aNvarro MD [address] [facility] [place] [address] Hypo-osmolality and hyponatremia Social History Tobacco Use Types Packs/Day Years Used Date Smoking Tobacco: Never Smokeless Tobacco: Never Sex and Gender Information Value Date Recorded Sex Assigned at Not on file Legal Sex Male 5:01 PM EST Gender Identity Not on file Sexual Orientation Not on file documented as of this encounter Progress Notes * Jaime Navarro MD - 01/04/2024 2:16 AM EDT Please ask staff at alf to make sure he has repeat labs again in 1 week, so far all good no change in fluid restriction order than kyou documented in this encounter Plan of Treatment Not on file documented as of this encounter Procedures Procedure Name Priority Date/Time Associated Diagnosis Comments SODIUM, URINE, RANDOM Routine 01/08/2024 12:25 PM EDT Hypo-osmolality and hyponatremia OSMOLALITY, URINE Routine 01/08/2024 12: 25 PM EDT Hypo-osmolality and hyponatremia OSMOLALITY (SERUM) STAT 01/08/2024 12 :25 PM EDT Hypo-osmolality and hyponatremia RENAL FUNCTION PANEL STAT 01/08/2024 12:25 PM EDT Hypo-osmolality and hyponatremia documented in this encounter Results * Urine, sodium,random (01/08/2024 12:25 PM EDT) Sodium, 24H Ur 25 Not Estab. mmol/L See order comments Urine (Urine, Clean Catch) 01/08/2024 12:25 PM EDT 01/08/2024 Narrative [facility] - 01/10/2024 2:08 PM EDT Performed at: ??01 - [facility] [address] ??[id number] Kindergarten Instructional Assistant: Beatriz Cm MD, Phone: ??[phone] us Jaime Navarro MD LAB URINE ORDERABLES Final Resul t [facility] See order comments [place] [address] * Urine Osmolality (01/08/2024 12:25 PM EDT) Osmolality, Ur 441 mOsmol/kg See o rder comments Comment: ?24 hr : ?? 300 - ??900 ?Random: ?50 - 1400 ?After 12hr fluid ?restriction: ?>850 Urine (Urine, Clean Catch) 01/08/2024 12:25 PM EDT 01/08/2024 Narrative [facility] - 01/10/2024 2:08 PM EDT Performed at: ??02 - [facility] ??[id number] Kindergarten Instructional Assistant: Fahad Pelletier MD, Phone: ??[phone] us Jaime Navarro MD LAB URINE ORDERABLES Final Resul t Performing Organization Address [facility] de Phone Number [facility] See order comments [place] [address] * Osmolality (01/08/2024 12:25 PM EDT) Osmolality Calc 285 280 - 301 mOsmol/kg See order comments Blood (Blood, Venous) 01/08/2024 12:25 PM EDT 01/08/2024 Narrative [facility] - 01/10/2024 2:08 PM EDT Performed at: ??02 - [facility] ??[id number] Kindergarten Instructional Assistant: Fahad Pelletier MD, Phone: ??[phone] us Jaime Navarro MD LAB BLOOD ORDERABLES Final Resul t Performing Organization Address [facility] Phone Number [facility] See order comments [place] [address] * (ABNORMAL) Renal Function Panel (01/08/2024 12:25 PM EDT) Glucose 217(H) 70 - 99 mg/dL See order comments BUN 14 8 - 27 mg/dL See order comments Creatinine 0.86 0.76 - 1.27 mg/dL See order comments eGFR CKD-EPI CR 2020 94 >59 mL/min/1.7 3 See order comments BUN/Creatinine Ratio 16 10 - 24 See order comments Sodium 135 134 - 144 mmol/L See order comments Potassium 3.9 3.5 - 5.2 mmol/L See order comments Chloride 101 96 - 106 mmol/L See order comments Bicarbonate (CO2) 19(L) 20 - 29 mmol/L See order comments Calcium 9.1 8.6 - 10.2 mg/dL See order comments Phosphorus 3.2 2.8 - 4.1 mg/dL See order comments Albumin 3.6(L) 3.9 - 4.9 g/dL See order comments Blood (Blood, Venous) 01/08/2024 12:25 PM EDT 01/08/2024 Narrative [facility] - 01/10/2024 2:08 PM EDT Performed at: ??01 - [facility] [address] ??[id number] Kindergarten Instructional Assistant: Beatriz Cm MD, Phone: ??[phone] us Jaime Navarro MD LAB BLOOD ORDERABLES Final Resul t [facility] See order comments [place] [address] documented in this encounter Visit Diagnoses Diagnosis Hypo-osmolality and hyponatremia documented in this encounter Care Teams Glass Belt Sander Relationship Specialty Start Date End Date Jaime Navarro MD [address] [place] [address] [place] [address] PCP - General Nephrology 12/24/23 documented as of this encounter
--- OUTSIDE RECORDS SUMMARY | 2025-01-01 16:14 | XMS_ITS ---
Author Organization [facility] Address [address] [facility] [place] [address] Care Team Providers Care Pharmacy Sales Representative Name Role Phone Oni Alvaerz MD Primary Care Provider Viri Jack Unavailable [phone] Allergies Allergen (clinical drug ingredient) Drug/Non Drug [...] Allergy Active Penicillin Unknown Drug Allergy Active REASON FOR VISIT PCP: 07/31/2024, Fungal Nails Medications Medication SIG (Take, Route, Fr equency, Duration) Notes Start Date End Date Status Loperamide HCl Activ e Zinc Oxide Active diazePAM Active Cetirizine HCl Activ e LORazepam Active Bacitracin Active Tussin DM Active Boost Smoothie Activ e Pravastatin Sodium A ctive Aspirin 81 MG 1 tablet Orally Once a day Active Ear Drops Active Glucosamine Active Ketoconazole Active Tylenol Childrens Ac tive GNP Fish Oil Active tiZANidine HCl 4 MG 1 tablet at bedtime as needed Orally Once a day Active Cystex Active QUEtiapine Fumarate Active Valproic Acid Active Vitamin D2 Active Fluticasone Propionate Active tiZANidine HCl 2 MG 1 tablet at bedtime as needed Orally Once a day Active Omeprazole 40 MG 1 capsule 1/2 to 1 h our before morning meal Orally Once a day Active Social History [...] 08/07/2024 Encounters Encounter Location Date Provider Diagnosis [facility] [address] [place] [address] 08/07/2024 Viri Landis Pain in right toe(s) M79.674 ; Onychomycosis B35.1 ; Pain in left toe(s) M79.675 ; Nonverbal R47.01 and Wheelchair dependent Z99.3 Assessments Encounter Date Diagnosis (ICD Code) Assessment Notes Treatment Notes Treatment Clinical Notes Section Notes 08/07/2024 Pain in right toe(s) (ICD-10 - M79.674) 08/07/2024 Onychomycosis (ICD-10 - B35.1) 08/07/2024 Pain in left toe(s) (ICD-10 - M79.675) 08/07/2024 Nonverbal (ICD-10 - R47.01) 08/07/2024 Wheelchair dependent (ICD-10 - Z99.3) Plan Of Treatment Next Appt Details Follow Up: 2-3 Months, Phan long: Provider Name:Viri Marivel hollins, 01/22/2025 01:15:00 PM, [address] [facility], [place], [address], Progress Notes * Clay ROSS MDOB: (68 yo M)Acc No.[id number]:08/07/2024 Progress Notes Patient:?Clay ROSS Provider:?Viri Landis DPM :1955???Age:68 Y???Sex:Male Lucio e:08/07/2024 Address:[address] [place], [place] [id number] Pcp:Oni Alvarez MD Subjective: * Chief Complaints: * ???PCP: 07/31/2024Fungal Nail s * HPI: ???Painful Nails:?Misc:?Patient is non verbal at baseline, he is accompanied by aide. He has reported history of pain with anyone touching toenails.? * ROS:?General/Constitutional:?Nausea?denies.?Vomiting?denies.?Hunger Thirst?denies.?Loss appetite?denies.?Chills?denies.?Fatigue?denies.?Fever?denies.?Night Sweats?denies.?Unexplained weight loss?denies.?Unexplained weight gain?denies.?HEENTM:?Dentures?denies.?Dizziness?denies.?Glasses/contacts?denies.?Retinopathy?de nies.?Blurred/double vision?denies.?TMJ?denies.?Discharge/drainage?denies.?Implants?denies.?Sore throat?denies.?Dental implants?denies.?Hard of hearing ?admits.?Difficulty chewing/swallowing/speaking?denies.?Nose bleeds?denies.?Sore mouth?denies.?Respiratory:?On Oxygen?denies.?Pneumonia/pleurisy?denies.?Bronchitis?denies.?Emphysema?denies.?C oughing?denies.?Cough blood?denies.?Shortness of breath?denies.?Wheezing?denies.?Cardiovascular:?Pacemaker?denies.?MVP?denies.?WPW?denies.?CHF?denies.?Heart attack?denies.?Septal defect?denies.?Rapid beat?denies.?Chest pain ?denies.?Atrial Fib.?denies.?Murmur/Palpitations?denies.?Gastrointestinal:?Hemorrhoids?denies.?Stomach/Abdominal pain?denies.?Dark blood stool?denies.?Irritable bowel ?denies.?Constipation?denies.?Diarrhea?denies.?Hematology:?Swelling?denies.?Clots?denies.?Varicose Veins?denies.?Bruising?denies.?Bleeding problem?denies.?Genitourinary:?Blood urine?denies.?Frequent/Painfu/urination/bladder control?denies.?Kidney stones?denies.?Infection (UTI)?denies.?Nephropathy?denies.?sex trans dis (STD)?denies.?Prostate?denies.?Musculoskeletal:?Hammertoes?denies.?Bunions?denies.?Back Pain?denies.?Muscle Cramps/ Resting?denies.?Muscle cramps / walking?denies.?Generalized aches and pains?denies.?Weakness?denies.?Integ.:?Nino?denies.?Scars?denies.?Corns/calluses?denies.?Ingrown nails?denies.?Painful nails?denies.?Open Sores?denies.?Rashes?denies.?Neurologic:?Difficulty sleeping?denies.?Brain disorder?denies.?Numbness?denies.?Balance trouble?denies.?Confusion?denies.?Fainting/blackouts?denies.?Tingling?denies.?Tr emors?denies.? * Medical History:? * Surgical History:?Denies Pas t Surgical History * Hospitalization/Major Diagno stic Procedure:?Denies Past Hospitalization * Family History:?Mother: dece ased.?Father: .? * Social History:?Tobacco Use:?Tobacco Use/Smoking?Are you a:?nonsmoker ?Additional Findings: Tobacco Non-User?Current non-smoker ?Tobacco use other than smoking?Are you an other tobacco user??No ???Drugs/Alcohol:?Drugs?Have you used drugs other than those for medical reasons in the past 12 months??No ?Alcohol Screen?Did you have a drink containing alcohol in the past year??No ?Points?0 ?Interpretation?Negative ???Miscellaneous:?Caffeine: yes. ?Children: no. ?Exercise: no. ?Marital status: single. * Medications:?TakingOmeprazol e 40 MG Capsule Delayed Release 1 capsule 1/2 to 1 hour before morning meal Orally Once a day Fluticasone Propionate tiZANidine HCl 2 MG Tablet 1 tablet at bedtime as needed Orally Once a day tiZANidine HCl 4 MG Tablet 1 tablet at bedtime as needed Orally Once a day Valproic Acid Vitamin D2 Cystex QUEtiapine Fumarate Tylenol Childrens GNP Fish Oil Glucosamine Ketoconazole Ear Drops Bacitracin Aspirin 81 MG Tablet Chewable 1 tablet Orally Once a day Boost Smoothie Pravastatin Sodium Tussin DM LORazepam diazePAM Cetirizine HCl Loperamide HCl Zinc Oxide Medication List reviewed and reconciled with the patientTaking Omeprazole 40 MG Capsule Delayed Release 1 capsule 1/2 to 1 hour before morning meal Orally Once a day Taking Fluticasone Propionate Taking tiZANidine HCl 2 MG Tablet 1 tablet at bedtime as needed Orally Once a day Taking tiZANidine HCl 4 MG Tablet 1 tablet at bedtime as needed Orally Once a day Taking Valproic Acid Taking Vitamin D2 Taking Cystex Taking QUEtiapine Fumarate Taking Tylenol Childrens Taking GNP Fish Oil Taking Glucosamine Taking Ketoconazole Taking Ear Drops Taking Bacitracin Taking Aspirin 81 MG Tablet Chewable 1 tablet Orally Once a day Taking Boost Smoothie Taking Pravastatin Sodium Taking Tussin DM Taking LORazepam Taking diazePAM Taking Cetirizine HCl Taking Loperamide HCl Taking Zinc Oxide Medication List reviewed and reconciled with the patient * Allergies:?PenicillinAspirin NSAIDsMacrobidPneumovax 23AugmentinMoldDog DanderTricorCephalosporinsyes[Allergies Verified] Objective: * Vitals:?Ht: 5 ft, Wt:131, BM I:25.58, Shoe size:8, Ht-cm: 152.4 cm, Wt-k.42 kg. * Examination: ???General Examination: ?GENERAL APPEARANCE:?in wheelchair, nonverbal.?Neurological: ?SENSORY:?unable to assess.?Vascular: ?DP PULSES(B):?2/4, B/L.?PT PULSES(B):?2/4, B/L.?CAPILLARY FILL TIME:?immediate, all digits, B/L.?TROPHIC CONDITION-TEXTURE/ELASTICITY/TURGOR/HAIR GROWTH(B):?normal, B/L.?TEMPERTURE GRADIENT(C):?warm to cool, proximal to distal, B/L.?PIGMENTATION:?normal, B/L.?EDEMA(C):?absent, B/L.?Dermatologic: ?SKIN FINDINGS:?Skin exam reveals normal texture, elasticity, and turgor. There are no masses. The interspaces are clear.?Nails: ?NAILS are:?Elongated, overgrown, dystrophic, lytic, greater than 3mm thick, discolored and friable with crumbly malodorous subungual debris, with pain on palpation, 1-5 B/L.?Orthopedic: ?MUSCLE STRENGTH:?unable to assess.? Assessment: * Assessment: 1.?Pain in right toe(s) - M7 9.674???2.?Onychomycosis - B35.1 (Primary)???3.?Pain in left toe(s) - M79.675???4.?Nonverbal - R47.01???5.?Wheelchair dependent - Z99.3??? Plan: * Treatment: * Procedure Codes:? * Preventive Medicine:? ??Counseling:?Discussion:?-03: Office or other outpatient visit for the evaluation and management of a new patient, which required a medically appropriate history and/or examination and LOW level of DECISION MAKING for: 1 STABLE ACUTE UNCOMPLICATED PROBLEM, 2 OR MORE MINOR PROBLEMS, OR 1 STABLE CHRONIC PROBLEM, THAT POSE(S) A LOW RISK FOR MORBIDITY/MORTALITY. The visit on the day of the encounter encompassed interpreting the data and educating the patient as to the nature of their condition, treatment options available according to their individual PMH, meds, allergies, and overall health/living conditions, as well as any potential risks or complications that may occur from a failure to adhere to, and participate in, the recommended course of therapy. I reviewed all paperwork from patient facility regarding PMH, previous podiatric care. I filled out paper work with my recommendations..?Fungal Nail Counseling:?Given patient PMH and aversion to manipulation of toenails. Recommend Onychomycosis be treated with podiatric debridement every 3 months rather than oral or topical antifugal treatment. Performance of this nail treatment by a nonprofessional would put this patients foot and overall health at risk. Therefore, debridement to affected nail(s), as described in exam, was performed extensively to reduce/remove overall nail length, girth, thickness, subungual debris, and necrotic tissue, by manual and/or electrical means through the use of a nail nipper and/or dremel-type cutlery grinder, to a more viable healthy nail plate or bed tissue. Silver nitrate used for any petechial bleeding as necessary.? * Follow Up:?2-3 Months * Images: * Sign off status: Completed true * Provider:?Viri Landis DPM Date:?10/07/2023 Generated for Augusta akbar/Remedios/eTransmitting on:?01/01/2025 04:14 PM EDT History and Physical Notes * HPI (History of Present Illness) Category Sub-Category Detail Notes Category Not es Painful Nails Misc: Patient is non v erbal at baseline, he is accompanied by aide. He has reported history of pain with anyone touching toenails Examination Category Sub-Category Detail Notes Category Not es Neurological SENSORY: unable to assess Dermatologic SKIN FINDINGS: Skin exam reveal s normal texture, elasticity, and turgor. There are no masses. The interspaces are clear Orthopedic MUSCLE STRENGTH: unable to assess General Examination GENERAL APPEARANCE: in wheelchair, nonverbal Vascular DP PULSES (B): 2/4, B/L PT PULSES (B): 2/4, B/L CAPILLARY FILL TIME: immediate, all digi ts, B/L TEMPERTURE GRADIENT (C): warm to cool, p roximal to distal, B/L TROPHIC CONDITION-TEXTURE/ELASTICITY/TURGOR/HAIR GROWTH (B): normal, B/L EDEMA (C): absent, B/L PIGMENTATION: normal, B/L Nails NAILS are: Elongated, overg rown, dystrophic, lytic, greater than 3mm thick, discolored and friable with crumbly malodorous subungual debris, with pain on palpation, 1-5 B/L
--- OUTSIDE RECORDS SUMMARY | 2025-01-01 16:14 | XMS_ITS | Encounter Summary ---
Author Organization [facility] Address [address] [place] [address] Phone Care Team Providers Care Gift Consultant Name Role Phone Jaime Navarro MD Primary Care Provider [phone] Encounter Details Date Type Department Care Team (Late st Contact Info) Description 01/18/2024 Orders Only [facility] [address] [place] [address] Jaime Navarro MD [address] [facility] [place] [address] Hypo-osmolality and hyponatremia Social History [...] Associated Diagnosis Comments SODIUM, URINE, RANDOM Routine 01/22/2024 1:31 PM EDT Hypo-osmolality and hyponatremia OSMOLALITY, URINE Routine 01/22/2024 1:3 1 PM EDT Hypo-osmolality and hyponatremia OSMOLALITY (SERUM) STAT 01/22/2024 1: 31 PM EDT Hypo-osmolality and hyponatremia RENAL FUNCTION PANEL STAT 01/22/2024 1:31 PM EDT Hypo-osmolality and hyponatremia documented in this encounter Results * Urine, sodium,random (01/22/2024 1:31 PM EDT) Pathologist [facility] Sodium, 24H Ur 42 Not Estab. mmol/L See order comments Urine (Urine, Clean Catch) 01/22/2024 1:31 PM EDT 01/22/2024 Narrative [facility] - 01/24/2024 11:06 PM EDT Performed at: ??01 - [facility] [address] ??[id number] Pellet Post Inspector: Beatriz Cm MD, Phone: ??[phone] us Jaime Navarro MD LAB URINE ORDERABLES Final Resul t [facility] See order comments [place] [address] * Urine Osmolality (01/22/2024 1:31 PM EDT) Pathologist [facility] Osmolality, Ur 315 mOsmol/kg See o rder comments Comment: ?24 hr : ?? 300 - ??900 ?Random: ?50 - 1400 ?After 12hr fluid ?restriction: ?>850 Urine (Urine, Clean Catch) 01/22/2024 1:31 PM EDT 01/22/2024 Narrative [facility] - 01/24/2024 11:06 PM EDT Performed at: ??02 - [facility] [address] ??[id number] Pellet Post Inspector: Fahad Pelletier MD, Phone: ??[phone] us Jaime Navarro MD LAB URINE ORDERABLES Final Resul t [facility] See order comments [place] [address] * Osmolality (01/22/2024 1:31 PM EDT) Osmolality Calc 286 280 - 301 mOsmol/kg See order comments Blood (Blood, Venous) 01/22/2024 1:31 PM EDT 01/22/2024 Narrative [facility] - 01/24/2024 11:06 PM EDT Performed at: ??02 - [facility] [address] ??[id number] Pellet Post Inspector: Fahad Pelletier MD, Phone: ??[phone] Jaime Navarro MD LAB BLOOD ORDERABLES Final Resul t Performing Organization Address [facility]/ZIP Co de Phone Number [facility] See order comments [place] [address] * (ABNORMAL) Renal Function Panel (01/22/2024 1:31 PM EDT) Glucose 155(H) 70 - 99 mg/dL See order comments BUN 10 8 - 27 mg/dL See order comments Sodium 137 134 - 144 mmol/L See order comments Potassium 4.3 3.5 - 5.2 mmol/L See order comments Chloride 102 96 - 106 mmol/L See order comments Bicarbonate (CO2) 20 20 - 29 mmol/L See order comments Calcium 9.1 8.6 - 10.2 mg/dL See order comments Albumin 3.7(L) 3.9 - 4.9 g/dL See order comments Creatinine 0.76 0.76 - 1.27 mg/dL See order comments eGFR CKD-EPI CR 2020 97 >59 mL/min/1.7 3 See order comments BUN/Creatinine Ratio 13 10 - 24 See order comments Phosphorus 3.3 2.8 - 4.1 mg/dL See order comments Blood (Blood, Venous) 01/22/2024 1:31 PM EDT 01/22/2024 Narrative [facility] - 01/24/2024 11:06 PM EDT Performed at: ??01 - [facility] [address] ??[id number] Pellet Post Inspector: Beatriz Cm MD, Phone: ??[phone] us Jaime Navarro MD LAB BLOOD ORDERABLES Final Resul t [facility] See order comments [place] [address] documented in this encounter Visit Diagnoses Diagnosis Hypo-osmolality and hyponatremia documented in this encounter Care Teams Gift Consultant Relationship Specialty Start Date End Date Jaime Navarro MD [address] [place] [address] [place] [address] PCP - General Nephrology 12/24/23 documented as of this encounter
--- OUTSIDE RECORDS SUMMARY | 2025-01-01 16:15 | XMS_ITS | Encounter Summary ---
Author Organization [facility] Address [address] [place] [address] Phone Care Team Providers Care Home Lighting Adviser Name Role Phone Jaime Navarro MD Primary Care Provider [phone] Encounter Details Date Type Department Care Team (Late st Contact Info) Description 02/08/2024 Orders Only [facility] [address] [place] [address] Jaime Navarro MD [address] [facility] [place] [address] Hypo-osmolality and hyponatremia Social History [...] Associated Diagnosis Comments SODIUM, URINE, RANDOM Routine 02/12/2024 2:57 PM EDT Hypo-osmolality and hyponatremia OSMOLALITY, URINE Routine 02/12/2024 2:5 7 PM EDT Hypo-osmolality and hyponatremia OSMOLALITY (SERUM) STAT 02/12/2024 2: 57 PM EDT Hypo-osmolality and hyponatremia RENAL FUNCTION PANEL STAT 02/12/2024 2:57 PM EDT Hypo-osmolality and hyponatremia documented in this encounter Results * Urine, sodium,random (02/12/2024 2:57 PM EDT) Pathologist [facility] Sodium, 24H Ur 39 Not Estab. mmol/L See order comments Urine (Urine, Clean Catch) 02/12/2024 2:57 PM EDT 02/12/2024 Narrative [facility] - 02/15/2024 4:08 PM EDT Performed at: ??01 - [facility] [address] ??[id number] Fish Housekeeper: Beatriz Cm MD, Phone: ??[phone] us Jaime Navarro MD LAB URINE ORDERABLES Final Resul t [facility] See order comments Contact performing [place] [address] * Urine Osmolality (02/12/2024 2:57 PM EDT) Pathologist [facility] Osmolality, Ur 402 mOsmol/kg See o rder comments Comment: ?24 hr : ?? 300 - ??900 ?Random: ?50 - 1400 ?After 12hr fluid ?restriction: ?>850 Urine (Urine, Clean Catch) 02/12/2024 2:57 PM EDT 02/12/2024 Narrative [facility] - 02/15/2024 4:08 PM EDT Performed at: ??02 - [facility] [address] ??[id number] Fish Housekeeper: Fahad Pelletier MD, Phone: ??[phone] us Jaime Navarro MD LAB URINE ORDERABLES Final Resul t [facility] See order comments [place] [address] * Osmolality (02/12/2024 2:57 PM EDT) Osmolality Calc 289 280 - 301 mOsmol/kg See order comments Blood (Blood, Venous) 02/12/2024 2:57 PM EDT 02/12/2024 Narrative [facility] - 02/15/2024 4:08 PM EDT Performed at: ??02 - [facility] [address] ??[id number] Fish Housekeeper: Fahad Pelletier MD, Phone: ??[phone] Jaime Navarro MD LAB BLOOD ORDERABLES Final Resul t Performing Organization Address [facility]/ZIP Co de Phone Number [facility] See order comments [place] [address] * (ABNORMAL) Renal Function Panel (02/12/2024 2:57 PM EDT) Glucose 145(H) 70 - 99 mg/dL See order comments BUN 13 8 - 27 mg/dL See order comments Sodium 136 134 - 144 mmol/L See order comments Potassium 4.4 3.5 - 5.2 mmol/L See order comments Chloride 101 96 - 106 mmol/L See order comments Bicarbonate (CO2) 20 20 - 29 mmol/L See order comments Calcium 9.0 8.6 - 10.2 mg/dL See order comments Phosphorus 3.1 2.8 - 4.1 mg/dL See order comments Albumin 3.7(L) 3.9 - 4.9 g/dL See order comments Creatinine 0.89 0.76 - 1.27 mg/dL See order comments eGFR CKD-EPI CR 2020 93 >59 mL/min/1.7 3 See order comments BUN/Creatinine Ratio 15 10 - 24 See order comments Blood (Blood, Venous) 02/12/2024 2:57 PM EDT 02/12/2024 Narrative [facility] - 02/15/2024 4:08 PM EDT Performed at: ??01 - [facility] [address] ??[id number] Fish Housekeeper: Beatriz Cm MD, Phone: ??[phone] us Jaime Navarro MD LAB BLOOD ORDERABLES Final Resul t [facility] See order comments [place] [address] documented in this encounter Visit Diagnoses Diagnosis Hypo-osmolality and hyponatremia documented in this encounter Care Teams Home Lighting Adviser Relationship Specialty Start Date End Date Jaime Navarro MD [address] [place] [address] [place] [address] PCP - General Nephrology 12/24/23 documented as of this encounter
--- OUTSIDE RECORDS SUMMARY | 2025-01-01 16:15 | XMS_ITS | Clinical Summary ---
Author Organization [facility], Address [address] [place] [address] [place] [address] Phone Care Team Providers Care Director Targeted Marketing Name Role Phone Jaime Navarro MD Primary Care Provider [phone] Allergies Active Allergy Reactions Criticality Noted Date Comments Amoxicillin-Pot Clavulanate Other (see comments) 12/20/2023 Tolerates piperacillin-tazoba ctam Cephalexin Other (see comments) 12/20/2023 Cephalosporins Other (see comments) 12/20/2023 Tolerates piperacillin-tazoba ctam Fenofibrate Other (see comments) 12/20/2023 Nitrofurantoin Other (see comments) 12/20/2023 Nsaids Other (see comments) 12/20/2023 Other Other (see comments) 12/20/2023 Penicillin G Other (see comments) 12/20/2023 Tolerates piperacillin-tazoba ctam Pneumococcal Vaccines 12/20/2023 Other Reaction(s): CELLULITIS Sulfamethoxazole-Trimeth oprim 12/20/2023 Medications valproic acid (DEPAKENE) 250 MG/5ML syrup 3 Active tiZANidine (ZANAFLEX) 2 MG tablet 3 Active QUEtiapine (SEROquel) 25 MG tablet 3 Active pravastatin (PRAVACHOL) 10 MG tablet 3 Active omeprazole (PriLOSEC) [address] capsule 3 Active nystatin (MYCOSTATIN) powder See Instructions, APPLY TO AFFECTED AREA TOPICALLY 3 TIMES A DAY FOR 7 DAYS NEEDED FOR FLAREUP OF RASH (FUNGAL RASH ON GROIN), # 30 Gm, 1 Refills, Maintenance, 08/09/23 16:32:00 [facility], [facility], 7, APPLY TO AFFECTED AREA TOPICALLY 3 TIMES A DA... 3 Active LORazepam (ATIVAN) 1 MG tablet 3 Active loperamide (IMODIUM A-D) 2 MG tablet See Instructions, TAKE 1 TABLET (2 MG) VIA G-TUBE TWICE DAILY NEEDED FOR DIARRHEA / STOP FOR CONSTIPATION OR IF STOOLS BECOME TOO FIRM / LOPERAMIDE 2 MG, # 60 tablet, 1 Refills, Maintenance, 05/10/23 10:37:00 EDT, [facility], 152, cm, 11/16/22... 3 Active ketoconazole (NIZORAL) 2 % cream 3 Active fluticasone (FLONASE) 50 MCG/ACT nasal spray 3 Active aspirin 81 MG chewable tablet 3 Active Nutritional Supplements (BOOST PO) Vanilla Boost Drink, See Instructions, # 30 each, Refills 11, Tot. Refills 11, Maintenance, Daily use at bedtime, via G-tube. DX: Gastrostomy tube in place ICD-10: Z93.1, 02/02/23 13:01:00 EDT, Supply 3 Active acetaminophen (TYLENOL) 160 MG/5ML solution Take by mouth every 4 (four) hours if needed for mild pain Active carbamide peroxide (DEBROX) 6.5 % otic solution 5 drops in the morning and 5 drops in the evening. Active bacitracin ointment Apply topically 2 (two) times a day Active glucosamine-cho ndroitin 500-400 MG tablet Take 1 tablet by mouth in the morning and 1 tablet in the evening and 1 tablet before bedtime. Active Methenamine-Sod ium Salicylate (CYSTEX PO) Take 200 mg by mouth in the morning and 200 mg in the evening. 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/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 Hypercholesterolemia 07/03/2013 Helicobacter pylori-associated gastritis 013 Cerebral palsy 07/03/2013 Bipolar disorder 07/03/2013 Bilateral hydronephrosis 07/03/2013 Anemia 07/03/2013 Immunizations Immunization Administration Dates Next Due Influenza Whole 06/27/2019, 2,06/19/2011,07/13/2010 ,06/29/2009,07/14/2008,07/26/2007 Pfizer SARS-COV-2 08/04/2021,10/28/2020,10/04/19 21 Pneumococcal Conjugate 13-Valent 05/18/2020 Pneumococcal Polysaccharide 11/22/2010, 1 Td, Unspecified 11/12/2002 Tdap 11/27/2012 Zoster 07/18/2019,05/15/2019 Family History Medical History Relation Comments Diabetes Mother Relation Status Comments Mother Social History Tobacco Use Types Packs/Day Years Used Date Smoking Tobacco: Never Smokeless Tobacco: Never Tobacco Cessation:Counseling Given: Not Answered Sex and Gender Information Value Date Recorded Sex Assigned at Not on file Legal Sex Male 5:01 PM EST Gender Identity Not on file Sexual Orientation Not on file Plan of Treatment Health Maintenance Due Date Last Done Comments Colorectal Cancer Screening: Annual FOBT 2003 Colorectal Cancer Screening: Colonoscopy 2003 Colorectal Cancer Screening: Sigmoidoscopy 2003 Pneumococcal Vaccine: 50+ Years (4 of 4 - PPSV23 or PCV20) 05/18/2021 05/18/2020, 11/22/2010, 10/23/2010 Influenza Vaccine (Season Ended) 2025 06/27/2019, 07/03/2012, 06/19/2011, Additional history exists Hepatitis B Vaccine Aged Out No longe r eligible based on patient's age to complete this topic Insurance Medicaid [place] Medicare Care Teams Director Targeted Marketing Relationship Specialty Start Date End Date Jaime Navarro MD [address] [place] [address] [place] [address] PCP - General Nephrology 12/24/23
--- OUTSIDE RECORDS SUMMARY | 2025-01-01 16:15 | XMS_ITS | Encounter Summary ---
Author Organization [facility] Address [address] [place] [address] Phone Care Team Providers Care Exhaust Equipment Operator Name Role Phone Jaime Navarro MD Primary Care Provider [phone] Encounter Details Date Type Department Care Team (Late st Contact Info) Description 02/22/2024 Orders Only [facility] [address] [place] [id number] Jaime Navarro MD [address] [facility] [place] [address] Hypo-osmolality and hyponatremia Social History [...] on file documented as of this encounter Visit Diagnoses Diagnosis Hypo-osmolality and hyponatremia documented in this encounter Care Teams Exhaust Equipment Operator Relationship Specialty Start Date End Date Jaime Navarro MD [address] [place] [address] [place] [phone] PCP - General Nephrology 12/24/23 documented as of this encounter
--- OUTSIDE RECORDS SUMMARY | 2025-01-01 16:15 | XMS_ITS ---
Author Organization [facility] Address [address] [place] [address] Care Team Providers Care Tool Keeper Name Role Phone Oni Alvarez MD Primary Care Provider Viri Jack [phone] REASON FOR VISIT ORACLE HRMS DEVELOPER PPWK Entered Encounters Encounter Location Date Provider Diagnosis [facility] [address] [place] [address] 07/17/2024 iVri Landis Plan Of Treatment Next Appt Details Provider Name:Viri hollins, 01/22/2025 01:15:00 PM, [address] [place], [address], Progress Notes * Clay ROSS MDOB: (68 yo M)Acc No.[id number]:07/17/2024 Patient:?Clay Ross :1955???Age:68 Y???Sex:Male Address:[address] [place], [address] * true * Date:? Generated for Printi ng/Faxing/eTransmitting on:?01/01/2025 04:15 PM EDT
--- OUTSIDE RECORDS SUMMARY | 2025-01-01 16:15 | XMS_ITS ---
Author Organization [facility] Address [address] [facility] [place] [address] Care Team Providers Care Casting Machine Adjuster Name Role Phone Oni Alvarez MD Primary Care Provider Viri Jack Unavailable [phone] Allergies Allergen (clinical drug ingredient) Drug/Non Drug [...] Unknown Drug Allergy Active REASON FOR VISIT Dr Fajardo Medications Medication SIG (Take, Route, Fr equency, Duration) Notes Start Date End Date Status Ketoconazole Active Glucosamine Active GNP Fish Oil Active Tylenol Childrens Ac tive QUEtiapine Fumarate Active Cystex Active Vitamin D2 Active Valproic Acid Active tiZANidine HCl 4 MG 1 tablet at bedtime as needed Orally Once a day Active tiZANidine HCl 2 MG 1 tablet at bedtime as needed Orally Once a day Active Omeprazole 40 MG 1 capsule 1/2 to 1 h our before morning meal Orally Once a day Active Zinc Oxide Active Loperamide HCl Activ e Cetirizine HCl Activ e Fluticasone Propionate Active diazePAM Active LORazepam Active Tussin DM Active Pravastatin Sodium A ctive Boost Smoothie Activ e Aspirin 81 MG 1 tablet Orally Once a day Active Bacitracin Active Ear Drops Active Encounters Encounter Location Date Provider Diagnosis [facility] [address] [address] 11/03/2024 Viri Landis Plan Of Treatment Next Appt Details Provider Name:Viri hollins, 01/22/2025 01:15:00 PM, [address] [place] [address], [address], Progress Notes * Clay ROSS MDOB: (69 yo M)Acc No.[id number]:11/03/2024 Progress Note Patient:?Clay ROSS Provider:?Viri Landis DPM :1955???Age:69 Y???Sex:Male Lucio e:11/03/2024 Address:[address] [place], [place] [id number] Pcp:Oni Alvarez MD Subjective: * Chief Complaints: * ???1. Dr Fajardo. * Medical History:?Cerebral pa lsey, Cervical and Lumbar spondylosis, S/P Posterior Cervical Decompression and Laminectomy, Other- Venous Stasis, Dysphagia, Chronic Atonic Megacolon, H/oh. pylori, Has g tube, Ileostomy with total colectomy, Renal Insufficiency/ Failure, Urinary Retention, Other - Supra Pubic Catheter, Neurogenic Bladder, Recurrent UTIS's, Chronic Urinary Colonization of Proteus Mirabilis, Testicular hydrocele, Hyperlipidemia, OCD, Mood Disorder, Bipolar, Fragile Skin Integrity, Vitamin D deficiency, Legally Blind, Reflux ( GERD), Hiatal hernia, Osteoarthritis, Osteoporosis, Anxiety, Anemia. * Medications:?Taking Omeprazo le 40 MG Capsule Delayed Release 1 capsule 1/2 to 1 hour before morning meal Orally Once a day , Taking Fluticasone Propionate , Taking tiZANidine HCl 2 MG Tablet 1 tablet at bedtime as needed Orally Once a day , Taking tiZANidine HCl 4 MG Tablet 1 tablet at bedtime as needed Orally Once a day , Taking Valproic Acid , Taking Vitamin D2 , Taking Cystex , Taking QUEtiapine Fumarate , Taking Tylenol Childrens , Taking GNP Fish Oil , Taking Glucosamine , Taking Ketoconazole , Taking Ear Drops , Taking Bacitracin , Taking Aspirin 81 MG Tablet Chewable 1 tablet Orally Once a day , Taking Boost Smoothie , Taking Pravastatin Sodium , Taking Tussin DM , Taking LORazepam , Taking diazePAM , Taking Cetirizine HCl , Taking Loperamide HCl , Taking Zinc Oxide * Allergies:?Penicillin, Aspir in, NSAIDs, Macrobid, Pneumovax 23, Augmentin, Mold, Dog Dander, Tricor, Cephalosporins. Objective: * Vitals:? Assessment: Plan: * Treatment: * Images: * The named appointment provid er may or may not be the originator of this progress note, and it is not deemed complete until electronically signed by the appointment provider. Sign off status: Pending * Provider:?Viri Landis DPM Date:?0 11/03/2024 Generated for Augusta akbar/Remedios/Guillermo on:?01/01/2025 04:14 PM EDT
--- OUTSIDE RECORDS SUMMARY | 2025-01-01 16:15 | XMS_ITS | Encounter Summary ---
Author Organization [facility] Address [address] [place] [address] Phone Care Team Providers Care Cryptologic Linguist Name Role Phone Jaime Navarro MD Primary Care Provider Encounter Details Date Type Department Care Team (Late st Contact Info) Description 02/29/2024 Orders Only [facility] [address] [facility] [place] [phone] Jaime Navarro MD [address] [facility] [place] [address] Hypo-osmolality and hyponatremia Social History [...] hyponatremia documented in this encounter Care Teams Cryptologic Linguist Relationship Specialty Start Date End Date Jaime Navarro MD [address] [place] [address] [place] [phone] PCP - General Nephrology 12/24/23 documented as of this encounter
--- OUTSIDE RECORDS SUMMARY | 2025-01-01 16:15 | XMS_ITS | Encounter Summary ---
Author Organization [facility] Address [address] [place] [address] Phone Care Team Providers Care Diversity Specialist Name Role Phone Jaime Navarro MD Primary Care Provider [phone] Encounter Details Date Type Department Care Team (Late st Contact Info) Description 02/15/2024 Orders Only [facility] [address] [place] [address] Jaime Navarro MD [address] [facility] [place] [address] Hypo-osmolality and hyponatremia Social History [...] Procedure Name Priority Date/Time Associated Diagnosis Comments OSMOLALITY, URINE Routine 02/19/2024 12: 57 PM EDT Hypo-osmolality and hyponatremia OSMOLALITY (SERUM) STAT 02/19/2024 12 :57 PM EDT Hypo-osmolality and hyponatremia RENAL FUNCTION PANEL STAT 02/19/2024 12:57 PM EDT Hypo-osmolality and hyponatremia documented in this encounter Results * Urine Osmolality (02/19/2024 12:57 PM EDT) Osmolality, Ur 372 mOsmol/kg See o rder comments Comment: ?24 hr : ?? 300 - ??900 ?Random: ?50 - 1400 ?After 12hr fluid ?restriction: ?>850 Urine (Urine, Clean Catch) 02/19/2024 12:57 PM EDT 02/19/2024 Narrative [facility] - 02/21/2024 4:06 AM EDT Performed at: ??02 - [facility] ??[id number] It Help Desk Technician: Fahad Pelletier MD, Phone: ??[phone] us Jaime Navarro MD LAB URINE ORDERABLES Final Resul t Performing Organization Address [facility] Phone Number [facility] See order comments [place] [address] * Osmolality (02/19/2024 12:57 PM EDT) Osmolality Calc 284 280 - 301 mOsmol/kg See order comments Blood (Blood, Venous) 02/19/2024 12:57 PM EDT 02/19/2024 Narrative [facility] - 02/21/2024 4:06 AM EDT Performed at: ??02 - [facility] ??[id number] It Help Desk Technician: Fahad Pelletier MD, Phone: ??[phone] us Jaime Navarro MD LAB BLOOD ORDERABLES Final Resul t Performing Organization Address [facility] de Phone Number [facility] See order comments [place] [address] * (ABNORMAL) Renal Function Panel (02/19/2024 12:57 PM EDT) Glucose 141(H) 70 - 99 mg/dL See order comments [...] - 5.2 mmol/L See order comments Chloride 100 96 - 106 mmol/L See order comments Bicarbonate (CO2) 19(L) 20 - 29 mmol/L See order comments Calcium 8.7 8.6 - 10.2 mg/dL See order comments Albumin 3.2(L) 3.9 - 4.9 g/dL See order comments Phosphorus 2.9 2.8 - 4.1 mg/dL See order comments Blood (Blood, Venous) 02/19/2024 12:57 PM EDT 02/19/2024 Narrative [facility] - 02/21/2024 4:06 AM EDT Performed at: ??01 - [facility] [address] ??[id number] It Help Desk Technician: Beatriz Cm MD, Phone: ??[phone] us Jaime Navarro MD LAB BLOOD ORDERABLES Final Resul t [facility] See order comments [place] [address] documented in this encounter Visit Diagnoses Diagnosis Hypo-osmolality and hyponatremia documented in this encounter Care Teams Diversity Specialist Relationship Specialty Start Date End Date Jaime Navarro MD [address] [place] [address] [place] [address] PCP - General Nephrology 12/24/23 documented as of this encounter
--- OUTSIDE RECORDS SUMMARY | 2025-01-01 16:15 | XMS_ITS | Encounter Summary ---
Author Organization [facility] Address [address] [place] [address] Phone Care Team Providers Care Public Health Social Worker Name Role Phone Jaime Navarro MD Primary Care Provider [phone] Encounter Details Date Type Department Care Team (Late st Contact Info) Description 02/01/2024 Orders Only [facility] [address] [place] [address] Jaime Navarro MD [address] [facility] [address] [place] [address] Hypo-osmolality and hyponatremia Social History [...] Procedure Name Priority Date/Time Associated Diagnosis Comments OSMOLALITY (SERUM) STAT 02/06/2024 11 :39 AM EDT Hypo-osmolality and hyponatremia RENAL FUNCTION PANEL STAT 02/06/2024 11:39 AM EDT Hypo-osmolality and hyponatremia documented in this encounter Results * Osmolality (02/06/2024 11:39 AM EDT) Osmolality Calc 296 280 - 301 mOsmol/kg See order comments Blood (Blood, Venous) 02/06/2024 11:39 AM EDT 02/06/2024 Narrative [facility] - 02/07/2024 11:06 PM EDT Performed at: ??02 - [facility] [address] ??[id number] Stucco Applicator: Fahad Pelletier MD, Phone: ??[phone] us Jaime Navarro MD LAB BLOOD ORDERABLES Final Resul t Performing Organization Address [facility] de Phone Number [facility] See order comments [place] [address] * (ABNORMAL) Renal Function Panel (02/06/2024 11:39 AM EDT) Glucose 186(H) 70 - 99 mg/dL See order comments BUN 16 8 - 27 mg/dL See order comments Creatinine 0.90 0.76 - 1.27 mg/dL See order comments eGFR CKD-EPI CR 2020 92 >59 mL/min/1.7 3 See order comments BUN/Creatinine Ratio 18 10 - 24 See order comments Sodium 135 134 - 144 mmol/L See order comments Potassium 4.1 3.5 - 5.2 mmol/L See order comments Chloride 101 96 - 106 mmol/L See order comments Bicarbonate (CO2) 21 20 - 29 mmol/L See order comments Calcium 9.3 8.6 - 10.2 mg/dL See order comments Albumin 3.5(L) 3.9 - 4.9 g/dL See order comments Phosphorus 2.8 2.8 - 4.1 mg/dL See order comments Blood (Blood, Venous) 02/06/2024 11:39 AM EDT 02/06/2024 Narrative [facility] - 02/07/2024 11:06 PM EDT Performed at: ??01 - [facility] [address] ??[id number] Stucco Applicator: Beatriz Cm MD, Phone: ??[phone] us Jaime Navarro MD LAB BLOOD ORDERABLES Final Resul t Performing Organization Address [facility]/ZIP Co de Phone Number [facility] See order comments [place] [address] documented in this encounter Visit Diagnoses Diagnosis Hypo-osmolality and hyponatremia documented in this encounter Care Teams Public Health Social Worker Relationship Specialty Start Date End Date Jaime Navarro MD [address] [place] [address] Dr. [place] [address] PCP - General Nephrology 12/24/23 documented as of this encounter
--- OUTSIDE RECORDS SUMMARY | 2025-01-01 16:15 | XMS_ITS | Encounter Summary ---
Author Organization [facility] Address [address] [place] [address] Phone Care Team Providers Care Principal Quality Engineer Name Role Phone Jaime Navarro MD Primary Care Provider [phone] Encounter Details Date Type Department Care Team (Late st Contact Info) Description 03/07/2024 Orders Only [facility] [address] [place] [address] Jaime Navarro MD [address] [facility] [place] [address] Hypo-osmolality and hyponatremia Social History [...] Date/Time Associated Diagnosis Comments OSMOLALITY, URINE Routine 08/08/2024 11: 10 AM EST documented in this encounter Results * Osmolality, urine (08/08/2024 11:10 AM EST) Osmolality, Ur 318 mOsmol/kg [facility] Comment: ?24 hr : ?? 300 - ??900 ?Random: ?50 - 1400 ?After 12hr fluid ?restriction: ?>850 08/08/2024 11:1 0 AM EST 08/08/2024 us Jaime Navarro MD LAB URINE ORDERABLES Final Resul t [facility] [address] [place] [address] documented in this encounter Visit Diagnoses Diagnosis Hypo-osmolality and hyponatremia documented in this encounter Care Teams Principal Quality Engineer Relationship Specialty Start Date End Date Jaime Navarro MD [address] [place] [address] [place] [id number] PCP - General Nephrology 12/24/23 documented as of this encounter
--- NOTE | 2025-01-01 16:33 | MHC.EDTECH ---
this tech and ming sarkar attempted to obtain blood work, unsuccessful at this time. phlebotomy called to see if they could attempt pt. will attempt shortly
[2025-01-01 17:33] LABS: Lactic Acid 2.6 mmol/L (0.5-2.0)
--- NOTE | 2025-01-01 17:40 | PM.IMHP ---
History of Present Illness Date of Service: 01/01/25 Attending physician on admission: Tavon Reinoso Chief Complaint: Hypotension Pt is a 69-year-old male with a PMH significant for cerebral palsy, chronic atonic megacolon with colostomy in place, neurogenic bladder with suprapubic catheter in place, chronic hyponatremia, blindness, nonverbal, and nonambulatory who presents to the ED from long-term for evaluation of hypotension. Staff is at bedside who provides HPI. Staff report pt was hypotensive yesterday with SBP as low as the 60s. BP apparently improved on its own and pt did not appear in any distress or altered from baseline. This morning, pt's BP again dropped and he appeared more lethargic than normal which prompted visit to the ED. patient's other vitals remained WNL. No fever. Staff also note pt is on fluid restriction of 1500 mL per day due to hyponatremia. Pt follows with [facility] in nephrology. Unclear how long pt has been on restrictions, but review of records indicates pt has been hyponatremic with sodium of 129 since at least 05/18/2020. In the ED pt with soft BP as low as 96/54, vitals otherwise stable and WNL. Labs were significant for H&H 9.4/26.6, sodium 129, lactic acid 2.6 and albumin 2.9. No leukocytosis. Renal function WNL. Hepatic function WNL. UA consistent with acute UTI. Tested negative for flu, COVID, RSV. CXR showed clear lungs. EKG demonstrated normal sinus rhythm without evidence of acute ST elevations or depressions. Pt was treated with 2.7L IVF. Pt will be admitted to the hospital under observation for treatment and further evaluation of hypotension. Review of Systems Review of Systems: Yes Unobtainable due to mental status [facility] Medical History Neurogenic bladder Legally blind Cerebral palsy Surgical History S/P colostomy Social History Unable to assess alcohol history related to: Unable to respond Patient Tobacco Use Status: Never used Tobacco Smoked in Last 30 Days: No Use of substances other than those prescribed or required for medical reasons: Unable to respond Advance Directives: No Advance Directives Information Provided: No Do you have a plan to hurt others: No Plan Nutrition Risks: No Nutritional Risk Meds Allergies Allergy/AdvReac Type Severity Reaction Status Date / Time Cephalosporins Allergy Unknown UNKNOWN Verified 01/01/25 12:34 nitrofurantoin Allergy Unknown UNKNOWN Verified 01/01/25 12:34 [From MACROBID] NSAIDS (Non-Steroidal Allergy Unknown UNKNOWN Verified 01/01/25 12:34 Anti-Inflamma [Nsaids] Penicillins Allergy Unknown UNKNOWN Verified 01/01/25 12:34 pneumococcal vaccine Allergy Unknown UNKNOWN Verified 01/01/25 12:34 [From PNEUMOVAX 23] From Augmentin Allergy Unknown UNKNOWN Uncoded 01/01/25 12:34 From Tricor Allergy Unknown UNKNOWN Uncoded 01/01/25 12:34 Active Medications: Current Medications Sodium Chloride (Ns) 1,641 mls @ 1,641 mls/hr 30 ml/kg infuse over 1 hr (1641 ml) IV .Q1H STA Stop: 01/01/25 18:35 Physical Exam Vital Signs and Narrative: Vital Signs: Last Vital Signs Temp 98.2 F 01/01/25 12:31 Pulse 85 01/01/25 16:12 Resp 18 01/01/25 16:12 BP 139/73 01/01/25 16:12 Pulse Ox 97 01/01/25 16:12 O2 Del Method Room Air 01/01/25 16:12 BMI result Body Mass Index 22.1 General: Awake, nonverbal. Unable to follow commands. In no acute distress Resp: CTA bilaterally CVS: S1, S2, RRR GI: +BS, NT, no distention. Ostomy and suprapubic catheter in place Skin: Warm, dry Neuro: Pt with involuntary twitching and moving roots of face and upper extremities bilaterally. Chronic upper extremity contracture. Extremities: No edema Results Labs 01/01/25 12:56 01/01/25 12:56 Labs: Laboratory Results - last 24 hr 01/01/25 01/01/25 01/01/25 12:56 13:35 14:16 MCV 81.1 MCH 28.7 MCHC 35.3 RDW 14.8 Plt Count 232 MPV 8.2 L Immature Gran % (Auto) 0.1 Neut % (Auto) 49.9 Lymph % (Auto) 34.4 Hayes % (Auto) 14.6 H Eos % (Auto) 0.7 Baso % (Auto) 0.3 Lymph # (Auto) 2.6 Hayes # (Auto) 1.1 Eos # (Auto) 0.1 Baso # (Auto) 0.0 Abs Immat Gran (auto) 0.01 Absolute Neuts (auto) 3.8 Absolute Nucleated RBC 0.000 Nucleated RBC % (auto) 0.0 Anion Gap 14 Estim Creat Clear Calc 54.7 Estimated GFR > 60 Random Glucose 167 H Lactic Acid Calcium 9.0 Total Bilirubin 0.2 AST 22 ALT 7 Alkaline Phosphatase 89 Total Protein 7.6 Albumin 2.9 L Urine Color Yellow Urine Appearance Turbid Urine pH 6.0 Ur Specific [place] >= 1.030 H Urine Protein 100 (2+) H Urine Glucose (UA) Negative Urine Ketones Negative Urine Blood Moderate (2+) H Urine Nitrite Negative Ur Leukocyte Esterase Moderate (2+) H Urine RBC 0-2 Urine WBC >50 H Ur Squamous Epith Cells 6-10 Urine Bacteria 4+ Hyaline Casts 0-2 Influenza Type A (PCR) NEGATIVE Influenza Type B (PCR) NEGATIVE RSV RNA Qual (PCR) NEGATIVE SARS-CoV-2 RNA (RT-PCR) NEGATIVE 01/01/25 16:51 MCV MCH MCHC RDW Plt Count MPV Immature Gran % (Auto) Neut % (Auto) Lymph % (Auto) Hayes % (Auto) Eos % (Auto) Baso % (Auto) Lymph # (Auto) Hayes # (Auto) Eos # (Auto) Baso # (Auto) Abs Immat Gran (auto) Absolute Neuts (auto) Absolute Nucleated RBC Nucleated RBC % (auto) Anion Gap Estim Creat Clear Calc Estimated GFR Random Glucose Lactic Acid 2.6 H* Calcium Total Bilirubin AST ALT Alkaline Phosphatase Total Protein Albumin Urine Color Urine Appearance Urine pH Ur Specific [place] Urine Protein Urine Glucose (UA) Urine Ketones Urine Blood Urine Nitrite Ur Leukocyte Esterase Urine RBC Urine WBC Ur Squamous Epith Cells Urine Bacteria Hyaline Casts Influenza Type A (PCR) Influenza Type B (PCR) RSV RNA Qual (PCR) SARS-CoV-2 RNA (RT-PCR) Imaging Radiologist's Impressions: Impressions Chest X-Ray 01/01/25 14:07 IMPRESSION: Clear lungs. Electronically signed by: Clay Sung MD 01/01/2025 03:02 PM EDT Assessment and Plan (1) Hypotension: Status: Acute Plan Pt is a 69-year-old male with a PMH significant for cerebral palsy, chronic atonic megacolon with colostomy in place, neurogenic bladder with suprapubic catheter in place, chronic hyponatremia, blindness, nonverbal, and nonambulatory who presents to the ED from long-term for evaluation of hypotension. Pt will be admitted to the hospital under observation for treatment and further evaluation of hypotension. Hypotension [facility] staff report pt's SBP in the 60s Patient's BP has been labile in the ED, as low as 96/54 and as high as 156/86 Likely secondary to hypovolemia from reduced p.o. intake Pt received 2.7 L IVF in the ED Will hold on additional fluids for now Consider albumin if BP remains low Monitor BP Chronic Hyponatremia, mild Sodium 129 at time of presentation Chronically hyponatremic since at least 05/18/2020 Likely iatrogenic from home medications Has been following a 1500 mL fluid restriction for an unknown period of time Follows with [facility] in nephrology Continued fluid restriction Follow sodium tomorrow Acute lactic acidosis Patient's lactic acid 2.6 at time of presentation Secondary to hypovolemia and hypotension, not sepsis Treat hypovolemia as above Question of acute UTI UA with moderate leukocyte esterase, >50 WBCs, 4+ bacteria, and 6-10 squamous epithelial cells Pt chronically colonized with Proteus mirabilis secondary to suprapubic catheter No sepsis: No fever, tachycardia, tachypnea, or leukocytosis Will empirically treat with levofloxacin due to antibiotic allergies, started 01/01/2025 Follow urine cultures Cerebral palsy Continue tizanidine GERD Continue PPI Mood disorder Continue quetiapine, valproic acid Full Code Attending:?Dr. Reinoso DVT Prophylaxis: Lovenox Pt will be admitted to the hospital under observation for treatment and further evaluation of hypotension likely secondary to hypovolemia requiring IVF and close monitoring of vital signs. Quality Stroke Does the patient have a stroke diagnosis?: No VTE Prior VTE?: No VTE Risk Level:: Medical - moderate - high VTE Device Contraindication: Treatment Not Indicated VTE Drug Contraindication: N/A - Med Ordered
[2025-01-01] MEDS: levoFLOXacin/D5W 500 MG/100 ML PIGGYBACK 100 MG IV (17:44)
[2025-01-01 18:54] LABS: Reflex Lactate? Lactic Acid Added
[2025-01-01 18:57] VITALS: BP 156/86; PULSE 85; RESP 18; TEMP 36.8; O2SAT 97
[2025-01-01 19:54] LABS: Cancel Lactic Acid Canceled
[2025-01-01] MEDS: Enoxaparin Sodium 40 MG/0.4 ML SYRINGE SUBCUT (20:06)
--- NOTE | 2025-01-01 21:17 | PC.NURSE ---
Patient resting on stretcher bed, no s/s of pain discomfort noted. VSS. Suprapubic catheter is patent, draining yellow, clear urine. residential staff at bedside, plan of car ongoing.
[2025-01-01 22:09] VITALS: BP 142/76; PULSE 82; RESP 17; TEMP 36.4; O2SAT 95
[2025-01-01 23:22] VITALS: BP 159/84; PULSE 88; RESP 18; O2SAT 97
[2025-01-02 06:14] VITALS: BP 151/94; PULSE 97; RESP 18; TEMP 36.7; O2SAT 96
--- NOTE | 2025-01-02 07:59 | PC.NURSE ---
Pt is seemingly unable to communicate. Isn't following commands. when offered food to lips blows it away. ST on monitor. skin pwd. has a facial twitch.
--- NOTE | 2025-01-02 08:16 | PC.NURSE ---
conversation with Karyn at retirement. Communication is limited at baseline. Doesn't speak. No communication devices. He likes sweets (yogurts, fruits). baseline is WC, recliner or bed.
[2025-01-02 09:54] VITALS: BP 128/85; PULSE 101; RESP 18; O2SAT 98
[2025-01-02] MEDS: 0.9 % Sodium Chloride Flush 3 ML SYRINGE IVFLUSH ×2 (09:58)
--- NOTE | 2025-01-02 09:59 | PC.NURSE ---
detention staff at bedside, [facility] sat patient up in bed and patient was able to eat 2 yogurts with help of [facility] staff.
[2025-01-02 10:14] LABS: Hematocrit 30.3 % (42.0-52.0); Hemoglobin 10.2 g/dl (14.0-18.0); Mean Corpuscular HGB Conc 33.7 g/dl (31.0-36.0); Mean Corpuscular Volume 83.2 fL (80.0-98.0); Mean Platelet Volume 8.1 fL (9.4-12.4); Platelet Count 259 X10*3/uL (160-400); Red Blood Count 3.64 X10*6/uL (4.60-5.80); Red Cell Distribution Width 14.7 % (11.0-16.0); White Blood Count 7.2 X10*3/uL (4.8-10.8)
[2025-01-02 10:31] LABS: Anion Gap 13 (12-20); Blood Urea Nitrogen 6 mg/dL (9-16); Calcium 9.3 mg/dL (8.4-10.2); Carbon Dioxide 20 mmol/L (22-29); Chloride 107 mmol/L (96-108); Creatinine Clr Calc Pharmacy 68.9; Estimated Glomerular Filt Rate > 60; Glucose Random 101 mg/dL (60-115); Potassium 4.6 mmol/L (3.3-5.1); Sodium 135 mmol/L (135-145)
--- NOTE | 2025-01-02 10:58 | PHA.MEDREC ---
Pharmacy Consult ? Medication Reconciliation Pharmacy has completed the medication reconciliation, utilized list from [facility] and claims that matched.
[2025-01-02 12:29] VITALS: BP 168/77; PULSE 112; RESP 18; TEMP 36.7; O2SAT 97
[2025-01-02] MEDS: Valproic Acid Liquid 250 MG/5 ML SOLUTION 1000 MG PO (13:17)
--- NOTE | 2025-01-02 13:17 | HO.PM.IMPN ---
Subjective Subjective Date of Service: 01/02/25 Physical Exam Vital Signs: Vital Signs: Last Vital Signs Temp 98.0 F 01/02/25 12:29 Pulse 112 H 01/02/25 12:29 Resp 18 01/02/25 12:29 BP 168/77 H 01/02/25 12:29 Pulse Ox 97 01/02/25 12:29 O2 Del Method Room Air 01/02/25 12:29 O2 Flow Rate 98 01/01/25 18:57 BMI result Body Mass Index 22.1 Objective Data Active Medications Acetaminophen (Acetaminophen 325 Mg Tablet) 650 mg PO Q6H PRN PRN Reason: Pain, Mild 1-3,fever,headache Aspirin (Aspirin 81 Mg Tab.Chew) 81 mg PO DAILY [facility] Calcium Carbonate (Calcium Carbonate 750 Mg Tab.Chew) 750 mg PO Q4H PRN PRN Reason: Heartburn Enoxaparin Sodium (Enoxaparin Sodium 40 Mg/0.4 Ml Syringe) 40 mg SUBCUT Q24H [facility] Last Admin: 01/01/25 20:06 Dose: 40 mg Documented By: LUCIEN Levofloxacin (Levaquin) 750 mg in 150 mls @ 100 mls/hr IV Q24H [facility] Stop: 01/06/25 15:59 Magnesium Hydroxide (Milk Of Magnesia 30 Ml Oral.Susp) 30 ml PO DAILY PRN PRN Reason: Constipation Melatonin (Melatonin 3 Mg Tablet) 6 mg PO BEDTIME PRN PRN Reason: Insomnia Omeprazole (Omeprazole 40 Mg Capsule.Dr) 40 mg PO BEDTIME [facility] Ondansetron HCl (Ondansetron Hcl 4 Mg/2 Ml Vial) 4 mg IVPUSH Q8H PRN PRN Reason: Nausea and Vomiting Pravastatin Sodium (Pravastatin Sodium 10 Mg Tablet) 10 mg PO BEDTIME [facility] Quetiapine Fumarate (Quetiapine Fumarate 25 Mg Tablet) 25 mg PO BID [facility] Sodium Chloride (0.9 % Sodium Chloride Flush 3 Ml Syringe) 3 ml IVFLUSH QSHIFT [facility] Last Admin: 01/02/25 09:58 Dose: 3 ml Documented By: BEN Tizanidine HCl (Tizanidine Hcl 4 Mg Tablet) 2 mg PO DAILY [facility] Tizanidine HCl (Tizanidine Hcl 4 Mg Tablet) 4 mg PO BEDTIME [facility] Valproic Acid (Valproic Acid Liquid 250 Mg/5 Ml Solution) 1,000 mg PO BID [facility] Labs 01/02/25 10:01 01/02/25 10:01 Labs: Laboratory Results - last 24 hr 01/01/25 01/01/25 01/01/25 12:56 13:35 14:16 MCV MCH MCHC RDW Plt Count MPV Absolute Nucleated RBC Nucleated RBC % (auto) Anion Gap 14 Estim Creat Clear Calc 54.7 Estimated GFR > 60 Random Glucose 167 H Lactic Acid Calcium 9.0 Total Bilirubin 0.2 AST 22 ALT 7 Alkaline Phosphatase 89 Total Protein 7.6 Albumin 2.9 L Urine Color Yellow Urine Appearance Turbid Urine pH 6.0 Ur Specific [place] >= 1.030 H Urine Protein 100 (2+) H Urine Glucose (UA) Negative Urine Ketones Negative Urine Blood Moderate (2+) H Urine Nitrite Negative Ur Leukocyte Esterase Moderate (2+) H Urine RBC 0-2 Urine WBC >50 H Ur Squamous Epith Cells 6-10 Urine Bacteria 4+ Hyaline Casts 0-2 Influenza Type A (PCR) NEGATIVE Influenza Type B (PCR) NEGATIVE RSV RNA Qual (PCR) NEGATIVE SARS-CoV-2 RNA (RT-PCR) NEGATIVE 01/01/25 01/02/25 16:51 10:01 MCV 83.2 MCH 28.0 MCHC 33.7 RDW 14.7 Plt Count 259 MPV 8.1 L Absolute Nucleated RBC 0.000 Nucleated RBC % (auto) 0.0 Anion Gap 13 Estim Creat Clear Calc 68.9 Estimated GFR > 60 Random Glucose 101 Lactic Acid 2.6 H* Calcium 9.3 Total Bilirubin AST ALT Alkaline Phosphatase Total Protein Albumin Urine Color Urine Appearance Urine pH Ur Specific [place] Urine Protein Urine Glucose (UA) Urine Ketones Urine Blood Urine Nitrite Ur Leukocyte Esterase Urine RBC Urine WBC Ur Squamous Epith Cells Urine Bacteria Hyaline Casts Influenza Type A (PCR) Influenza Type B (PCR) RSV RNA Qual (PCR) SARS-CoV-2 RNA (RT-PCR) Microbiology Microbiology Results: Microbiology 01/01/25 Unknown Urine Culture - Preliminary Urine Other - Suprapubic Gram negative bea Strep agalactiae (Grp B) Quality Stroke Does the patient have a stroke diagnosis?: No VTE Prior VTE?: No VTE Risk Level:: Medical - moderate - high VTE Device Contraindication: Treatment Not Indicated VTE Drug Contraindication: N/A - Med Ordered
--- NOTE | 2025-01-02 13:32 | P.DS_ITS ---
DS: Providers Provider Date of Service: 01/02/25 Date of admission: 01/01/25 18:27 Date of discharge: 01/02/25 Primary care physician: Oni Alvarez MD Consults: 01/02/25 12:28 Consult to Infectious Diseases Routine Consulting Provider: [facility] Reason for consultation: uti ? 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 Staff is at bedside who provides HPI. Staff report pt was hypotensive yesterday with SBP as low as the 60s. BP apparently improved on its own and pt did not appear in any distress or altered from baseline. This morning, pt's BP again dropped and he appeared more lethargic than normal which prompted visit to the ED. patient's other vitals remained WNL. No fever. Staff also note pt is on fluid restriction of 1500 mL per day due to hyponatremia. Pt follows with [facility] in nephrology. Unclear how long pt has been on restrictions, but review of records indicates pt has been hyponatremic with sodium of 129 since at least 05/18/2020. In the ED pt with soft BP as low as 96/54, vitals otherwise stable and WNL. Labs were significant for H&H 9.4/26.6, sodium 129, lactic acid 2.6 and albumin 2.9. No leukocytosis. Renal function WNL. Hepatic function WNL. UA consistent with acute UTI. Tested negative for flu, COVID, RSV. CXR showed clear lungs. EKG demonstrated normal sinus rhythm without evidence of acute ST elevations or depressions. Pt was treated with 2.7L IVF. Pt will be admitted to the hospital under observation for treatment and further evaluation of hypotension. 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 Pt will be admitted to the hospital under observation for treatment and further evaluation of hypotension. Hypotension as per intermediate patient's systolic BP was in 60s, patient treated aggressively in ED with 2.7 L of IV fluid blood pressure improved and remained stable, hypotension likely multifactorial due to Tizinidine, Seroquel Decreased by mouth intake, recommend 1500 ml fluids daily, monitor fluid status, acute lactic acidosis likely due to hypotension and not due to sepsis. Chronic Hyponatremia, mild sodium 129 on presentation improved to 134, chronic hyponatremia likely due to Depakote continue outpatient follow-up nephrology Chronic urine colonization with Proteus mirabilis infection likely secondary to suprapubic catheter since patient has no fever, no tachycardia no tachypnea no leukocytosis no antibiotic recommended, case discussed with ID. Cerebral palsy Continue tizanidine, continue boost t.i.d. due to low albumin GERD Continue PPI Mood disorder Continue quetiapine, valproic acid. Time Attestation Discharge Coordination Time (in mins): 40 Quality: Safe Use of Opioids Does Pt have an Active Cancer Diagnosis on the Problem List?: No Quality: Stroke Does the patient have a stroke diagnosis?: No Physical Exam Vital Signs: Vital Signs: Last Vital Signs Temp 98.0 F 01/02/25 12:29 Pulse 112 H 01/02/25 12:29 Resp 18 01/02/25 12:29 BP 168/77 H 01/02/25 12:29 Pulse Ox 97 01/02/25 12:29 O2 Del Method Room Air 01/02/25 12:29 O2 Flow Rate 98 01/01/25 18:57 BMI result Body Mass Index 22.1 Const: Other: General: Awake, nonverbal. Unable to follow commands. In no acute distress Resp: CTA bilaterally CVS: S1, S2, RRR GI: +BS, NT, no distention. Ostomy and suprapubic catheter in place Skin: Warm, dry Neuro: involuntary twitching and movement of face and upper extremities bilaterally. Chronic upper extremity contracture. Extremities: No edema DS: Data Data Completed and Pending Labs on day of discharge: Laboratory Results - last 24 hr 01/01/25 01/01/25 01/01/25 13:35 14:16 16:51 WBC RBC Hgb Hct MCV MCH MCHC RDW Plt Count MPV Absolute Nucleated RBC Nucleated RBC % (auto) Sodium Potassium Chloride Carbon Dioxide Anion Gap BUN Creatinine Estim Creat Clear Calc Estimated GFR Random Glucose Lactic Acid 2.6 H* Calcium Urine Color Yellow Urine Appearance Turbid Urine pH 6.0 Ur Specific [place] >= 1.030 H Urine Protein 100 (2+) H Urine Glucose (UA) Negative Urine Ketones Negative Urine Blood Moderate (2+) H Urine Nitrite Negative Ur Leukocyte Esterase Moderate (2+) H Urine RBC 0-2 Urine WBC >50 H Ur Squamous Epith Cells 6-10 Urine Bacteria 4+ Hyaline Casts 0-2 Influenza Type A (PCR) NEGATIVE Influenza Type B (PCR) NEGATIVE RSV RNA Qual (PCR) NEGATIVE SARS-CoV-2 RNA (RT-PCR) NEGATIVE 01/02/25 10:01 WBC 7.2 RBC 3.64 L Hgb 10.2 L Hct 30.3 L MCV 83.2 MCH 28.0 MCHC 33.7 RDW 14.7 Plt Count 259 MPV 8.1 L Absolute Nucleated RBC 0.000 Nucleated RBC % (auto) 0.0 Sodium 135 Potassium 4.6 Chloride 107 Carbon Dioxide 20 L Anion Gap 13 BUN 6 L Creatinine 0.77 Estim Creat Clear Calc 68.9 Estimated GFR > 60 Random Glucose 101 Lactic Acid Calcium 9.3 Urine Color Urine Appearance Urine pH Ur Specific [place] Urine Protein Urine Glucose (UA) Urine Ketones Urine Blood Urine Nitrite Ur Leukocyte Esterase Urine RBC Urine WBC Ur Squamous Epith Cells Urine Bacteria Hyaline Casts Influenza Type A (PCR) Influenza Type B (PCR) RSV RNA Qual (PCR) SARS-CoV-2 RNA (RT-PCR) Preliminary micro results at discharge 01/01/25 Unknown Urine Culture - Preliminary Urine Other - Suprapubic Gram negative bea Strep agalactiae (Grp B) Discharge Plan Discharge Patient Disposition: Xfer Other Discharge Diagnosis: Hypotension Chronic hyponatremia Referrals: Oni Alvarez MD [Primary Care Provider] - 1 Week Discharge Medications: Continued quetiapine 25 mg tablet 25 mg PO BID acetaminophen [Children's Acetaminophen] 160 mg/5 mL suspension 640 mg feeding tube Q6H PRN (Reason: pain/fever) tizanidine 2 mg tablet 2 mg PO DAILY tizanidine 2 mg tablet 4 mg PO BEDTIME cetirizine 10 mg tablet 10 mg PO DAILY dextromethorphan-guaifenesin [Tussin DM] 10-100 mg/5 mL Liquid 10 ml PO Q6H PRN (Reason: Cough) pediatric multivitamin Tablet,Chewable 1 tab PO DAILY bacitracin zinc 500 unit/gram Ointment 1 appl TOPICAL BID PRN (Reason: abrasions, GT irritated skin) Rx Instructions: do not use on ileostomy site omeprazole 40 mg capsule,delayed release(DR/EC) 40 mg PO BEDTIME pravastatin 10 mg tablet 10 mg PO BEDTIME valproic acid (as sodium salt) 250 mg/5 mL solution 1,000 mg PO Q12H Ear Wax Removal Drops 6.5 % drops 4 drp otic (ears) BID PRN (Reason: for 5 days monthly) simethicone [Infants Simethicone] 40 mg/0.6 mL drops,suspension 160 mg feeding tube TID aspirin 81 mg tablet,chewable 1 tab PO DAILY ergocalciferol (vitamin D2) 1,250 mcg (50,000 unit) capsule 1,250 mcg PO FR@2100 lorazepam 1 mg Tablet 1 mg PO DAILY PRN (Reason: 2 hours prior to podiatry foot care) lorazepam 1 mg Tablet 1 mg PO DAILY PRN (Reason: 2 hours prior to GT changes) fluticasone propionate 50 mcg/actuation [place],Suspension 1 spray INTRANASAL DAILY Rx Instructions: administer into each nostril diazepam 5 mg Tablet 5 mg PO DAILY PRN (Reason: 1 hour prior to dental appointment) bwmanofsvsj-oysqluwqb-oam C-Mn [Glucosamine Chondroitin MaxStr] 500-400 mg Capsule 1 cap PO TID omega-3 fatty acids-vitamin E 1,000 mg Capsule 3 cap PO BID axxr-xirY-vovfavj-FOS-bromeln 1,937-188 mg/15 mL Liquid 3 ml PO BID Discharge Orders: Discharge Order (Routine); Ordered 01/02/25 Ordered By: Tavon Reinoso Diet: Advance to usual diet Activity on Discharge: As tolerated Stand Alone Forms: Patient Portal Discharge page Print Language: Divehi Care Plan Goals: Hypotension multifactorial due to Seroquel, tizanidine and decreased by mouth intake/treated aggressively with IV fluid hypotension resolved, continue 1500 mL fluid daily Chronic hyponatremia likely due to Depakote continue outpatient follow-up with Nephrology, sodium 135 Suprapubic catheter with colonization of urine no acute UTI Continue all home medications as before Health Concerns: Cerebral palsy Recurrent UTI Chronic hyponatremia Continue all home medications as before Plan of Treatment: Outpatient follow-up with primary care physician Assessment: As above
--- NOTE | 2025-01-02 13:43 | MHC.CM.PN ---
Addendum entered by Scarlet Argueta 01/02/25 16:06: [facility] NOTIFIED OF ADMISSION AND DC VIA T/C CM SPOKE TO OLIVER [phone] WHO WAS MADE AWARE PT WAS CLEARED TO DC SHE CAME IN AND HAD MD SIGN REQUIRED MED FORMS BLS TRANSPORT ARRANGED VIA [facility] FOR 1430 HOURS Original Note: FROM [facility], VIA [facility] DEPENDENT W/ CARE USES-W/C, KASHIF, G TUBE, SUPER PUBIC CATHETER, COLOSTOMY [facility]-SREEKANTH AGARWAL-[phone] PCP-LEILA FUENTES DCP- RETURN TO [facility] VIA AMBULANCE
--- NOTE | 2025-01-02 13:51 | W.PM.IDCN ---
History of Present Illness Data of Consult Service Date: 01/02/25 Requesting physician: Tavon Reinoso Primary Care Provider: Oni Alvarez MD [facility] Reason for consult: fatigue ?infection He presents with fatigue last several days not as active. He has had proteus in urine before. He has no hematuria or fever Review of Systems Review of Systems: Yes Unobtainable due to mental condition PMFSH Past Medical History Medical History (Updated 01/02/25 @ 13:53 by Elizabeth Wade MD) Bacteriuria Neurogenic bladder Legally blind Cerebral palsy Family History Family history: reviewed and not pertinent Surgical History Surgical History S/P colostomy Social History Social History Household Members: Caregiver Housing: Other Housing Other:: intermediate Do you presently have visiting nurse or other home services: Yes Unable to assess alcohol history related to: Unable to respond Patient Tobacco Use Status: Never used Tobacco Meds Allergies Allergy/AdvReac Type Severity Reaction Status Date / Time Cephalosporins Allergy Unknown UNKNOWN Verified 01/01/25 12:34 nitrofurantoin Allergy Unknown UNKNOWN Verified 01/01/25 12:34 [From MACROBID] NSAIDS (Non-Steroidal Allergy Unknown UNKNOWN Verified 01/01/25 12:34 Anti-Inflamma [Nsaids] Penicillins Allergy Unknown UNKNOWN Verified 01/01/25 12:34 pneumococcal vaccine Allergy Unknown UNKNOWN Verified 01/01/25 12:34 [From PNEUMOVAX 23] From Augmentin Allergy Unknown UNKNOWN Uncoded 01/01/25 12:34 From Tricor Allergy Unknown UNKNOWN Uncoded 01/01/25 12:34 Active Medications: Current Medications Acetaminophen (Acetaminophen 325 Mg Tablet) 650 mg PO Q6H PRN PRN Reason: Pain, Mild 1-3,fever,headache Aspirin (Aspirin 81 Mg Tab.Chew) 81 mg PO DAILY [place] Calcium Carbonate (Calcium Carbonate 750 Mg Tab.Chew) 750 mg PO Q4H PRN PRN Reason: Heartburn Enoxaparin Sodium (Enoxaparin Sodium 40 Mg/0.4 Ml Syringe) 40 mg SUBCUT Q24H [place] Last Admin: 01/01/25 20:06 Dose: 40 mg Levofloxacin (Levaquin) 750 mg in 150 mls @ 100 mls/hr IV Q24H [facility] Stop: 01/06/25 15:59 Magnesium Hydroxide (Milk Of Magnesia 30 Ml Oral.Susp) 30 ml PO DAILY PRN PRN Reason: Constipation Melatonin (Melatonin 3 Mg Tablet) 6 mg PO BEDTIME PRN PRN Reason: Insomnia Omeprazole (Omeprazole 40 Mg Capsule.Dr) 40 mg PO BEDTIME [place] Ondansetron HCl (Ondansetron Hcl 4 Mg/2 Ml Vial) 4 mg IVPUSH Q8H PRN PRN Reason: Nausea and Vomiting Pravastatin Sodium (Pravastatin Sodium 10 Mg Tablet) 10 mg PO BEDTIME [place] Quetiapine Fumarate (Quetiapine Fumarate 25 Mg Tablet) 25 mg PO BID [facility] Sodium Chloride (0.9 % Sodium Chloride Flush 3 Ml Syringe) 3 ml IVFLUSH QSHIFT [facility] Last Admin: 01/02/25 09:58 Dose: 3 ml Tizanidine HCl (Tizanidine Hcl 4 Mg Tablet) 2 mg PO DAILY [facility] Tizanidine HCl (Tizanidine Hcl 4 Mg Tablet) 4 mg PO BEDTIME [facility] Valproic Acid (Valproic Acid Liquid 250 Mg/5 Ml Solution) 1,000 mg PO BID [facility] Last Admin: 01/02/25 13:17 Dose: 1,000 mg Home Medications ?Medication ?Instructions ?Recorded ?Confirmed ?Last Taken ?Type acetaminophen 160 mg/5 mL oral 640 mg feeding tube Q6H PRN 01/02/25 01/02/25 Unknown History suspension (Children's pain/fever Acetaminophen) aspirin 81 mg chewable tablet 1 tab PO DAILY 01/02/25 01/02/25 Unknown History bacitracin zinc 500 unit/gram 1 appl topical BID PRN abrasions, 01/02/25 01/02/25 Unknown History topical ointment GT irritated skin carbamide peroxide 6.5 % ear drops 4 drp otic (ears) BID PRN for 5 01/02/25 01/02/25 Unknown History (Ear Wax Removal Drops) days monthly cetirizine 10 mg tablet 10 mg PO DAILY 01/02/25 01/02/25 Unknown History ouhcanvil-fysQ-jntnwac-FOS-bromelain 3 ml PO BID 01/02/25 01/02/25 Unknown History 1,937 mg-188 mg/15 mL oral liquid dextromethorphan-guaifenesin 10 10 ml PO Q6H PRN Cough 01/02/25 01/02/25 Unknown History mg-100 mg/5 mL oral liquid (Tussin DM) diazepam 5 mg tablet 5 mg PO DAILY PRN 1 hour prior to 01/02/25 01/02/25 Unknown History dental appointment ergocalciferol (vitamin D2) 1,250 1,250 mcg PO FR@2100 01/02/25 01/02/25 Unknown History mcg (50,000 unit) capsule fluticasone propionate 50 1 spray intranasal DAILY 01/02/25 01/02/25 Unknown History mcg/actuation nasal spray,suspension rkykqhtfgec-emplpqsjy-xhl C-Mn 500 1 cap PO TID 01/02/25 01/02/25 Unknown History mg-400 mg capsule (Glucosamine Chondroitin Maximum Strength) lorazepam 1 mg tablet 1 mg PO DAILY PRN 2 hours prior to 01/02/25 01/02/25 Unknown History GT changes lorazepam 1 mg tablet 1 mg PO DAILY PRN 2 hours prior to 01/02/25 01/02/25 Unknown History podiatry foot care omega-3 fatty acids-vitamin E 3 cap PO BID 01/02/25 01/02/25 Unknown History 1,000 mg capsule omeprazole 40 mg capsule,delayed 40 mg PO BEDTIME 01/02/25 01/02/25 Unknown History release pediatric multivitamin 1 tab PO DAILY 01/02/25 01/02/25 Unknown History pravastatin 10 mg tablet 10 mg PO BEDTIME 01/02/25 01/02/25 Unknown History quetiapine 25 mg tablet 25 mg PO BID 01/02/25 01/02/25 Unknown History simethicone 40 mg/0.6 mL oral 160 mg feeding tube TID 01/02/25 01/02/25 Unknown History drops,suspension (Infants Simethicone) tizanidine 2 mg tablet 2 mg PO DAILY 01/02/25 01/02/25 Unknown History tizanidine 2 mg tablet 4 mg PO BEDTIME 01/02/25 01/02/25 Unknown History valproic acid (as sodium salt) 250 1,000 mg PO Q12H 01/02/25 01/02/25 Unknown History mg/5 mL oral solution Physical Exam Vital Signs: Vital Signs: Last Vital Signs Temp 98.0 F 01/02/25 12:29 Pulse 112 H 01/02/25 12:29 Resp 18 01/02/25 12:29 BP 168/77 H 01/02/25 12:29 Pulse Ox 97 01/02/25 12:29 O2 Del Method Room Air 01/02/25 12:29 O2 Flow Rate 98 01/01/25 18:57 BMI result Body Mass Index 22.1 Const: General: cooperative HEENT: Head: Yes normal to inspection Face and sinus: Yes normal facial exam Mouth: Normal oral and palatal mucosa present Teeth and gingiva: dentition normal Eyes: General: appearance normal, both eyes and all related structures Pupils: Equal, round and reactive pupils present Resp: Effort & Inspection: normal respiratory effort Cardio: Rate: regular rate Rhythm: regular rhythm GI: Palpation (GI): Soft to palpation and nontender : General: Yes no CVA tenderness Back/Spine/Pelvis: Back: no CVA tenderness Skin: General skin exam: no rashes or lesions noted Neuro: Other: didnt speak General: moves all extremities Cranial nerves: Yes Equal, round and reactive pupils present Extrem: General: Yes normal to inspection Psych: Appearance: grossly normal Results Labs 01/02/25 10:01 01/02/25 10:01 Labs: Short CBC 01/02/25 Range/Units 10:01 WBC 7.2 (4.8-10.8) X10*3/uL Hgb 10.2 L (14.0-18.0) g/dl Hct 30.3 L (42.0-52.0) % Plt Count 259 (160-400) X10*3/uL BMP 01/02/25 10:01 Sodium 135 Potassium 4.6 Chloride 107 Carbon Dioxide 20 L BUN 6 L Creatinine 0.77 Calcium 9.3 Microbiology Microbiology Results: Microbiology 01/01/25 Unknown Urine Other - Suprapubic Urine Culture - Preliminary Gram negative bea Strep agalactiae (Grp B) Assessment and Plan (1) Bacteriuria: Status: Acute Plan He has no objective signs of urine infection,colonization Hold antibiotics for now.
[2025-01-02 14:26] VITALS: BP 141/78; PULSE 99; RESP 17; TEMP 36.7; O2SAT 97
[2025-01-02 15:18] VITALS: BP 131/72; PULSE 99; RESP 20; TEMP 36.3; O2SAT 96
== END 2025-01-02 15:34 | disposition other institution (70) ==
LOC: HO.ED 19:45 → HO.EDOVER 01-02 02:40 → HO.S3 01-02 11:36
PROVIDERS: Admitting Provider Student in an Organized Health Care Education/Training Program; Emergency Provider Emergency Medicine Emergency Medical Services; PCP Internal Medicine; Visit Provider Hospitalist
DX: I95.9 Hypotension, unspecified (principal); R82.71 Bacteriuria; N39.0 Urinary tract infection, site not specified; R53.1 Weakness; G80.9 Cerebral palsy, unspecified; N31.9 Neuromuscular dysfunction of bladder, unspecified; H54.8 Legal blindness, as defined in USA; K59.39 Other megacolon; E87.1 Hypo-osmolality and hyponatremia; R06.02 Shortness of breath; E86.1 Hypovolemia; E87.20 Acidosis, unspecified; K21.9 Gastro-esophageal reflux disease without esophagitis; F39 Unspecified mood [affective] disorder; Z93.3 Colostomy status; Z79.899 Other long term (current) drug therapy
CPT/HCPCS: 0241U; 36415; 71045; 80048; 80053; 81001; 83605; 85025; 85027; 87040; 87086; 87088; 87147; 87186; 93005; 99285; J1650; J1956

== ENCOUNTER → 2025-01-01 12:52 | Outpatient (BNV) | payer MEDICARE, MEDICAID, SELFPAY | PROVIDERS: Emergency Provider Emergency Medicine Emergency Medical Services; PCP Internal Medicine; Visit Provider Internal Medicine Cardiovascular Disease | DX: R53.1 Weakness (principal) | CPT/HCPCS: 93010 ==

== ENCOUNTER → 2025-01-01 14:07 | Outpatient (BNV) | payer MEDICARE, MEDICAID, SELFPAY | PROVIDERS: Emergency Provider Emergency Medicine Emergency Medical Services; PCP Internal Medicine; Visit Provider Radiology Diagnostic Radiology | DX: R06.02 Shortness of breath (principal) | CPT/HCPCS: 71045 ==

== ENCOUNTER → 2025-01-01 18:27 | Outpatient (BNV) | payer MEDICARE, MEDICAID, SELFPAY | PROVIDERS: Admitting Provider Student in an Organized Health Care Education/Training Program; Emergency Provider Emergency Medicine Emergency Medical Services; PCP Internal Medicine; Visit Provider Student in an Organized Health Care Education/Training Program | DX: I95.9 Hypotension, unspecified (principal) | CPT/HCPCS: 99222; 99239 ==

== ENCOUNTER → 2025-01-01 18:27 | Outpatient (BNV) | payer MEDICARE, MEDICAID, SELFPAY | PROVIDERS: Admitting Provider Student in an Organized Health Care Education/Training Program; Emergency Provider Emergency Medicine Emergency Medical Services; PCP Internal Medicine; Visit Provider Internal Medicine | DX: R82.71 Bacteriuria (principal) | CPT/HCPCS: 99222 ==

== ENCOUNTER 2025-01-03 09:09 | Inpatient (IN) | payer MEDICARE, MEDICAID, SELFPAY ==
[2025-01-03] VITALS (16 sets, daily range): BP systolic 61–147; BP diastolic 39–89; PULSE 76–110; RESP 16–20; TEMP 36.5–36.8; O2SAT 87–100; BMI 20.7
--- NOTE | ~2025-01-03 | XR_ITS ---
CLINICAL HISTORY: SOB 1 view chest Comparison: CR/SR - XR CHEST 1V - 01/01/25 14:54 EDT Findings: Low inspiration. Resultant mild vascular crowding centrally with subsegmental atelectasis. No consolidation or pneumothorax/effusion. Borderline cardiomegaly.No evidence of heart failure No acute fractures. Impression: 1. Low inspiration with central vascular crowding and subsegmental atelectasis. 2. No acute cardiopulmonary disease. This document has been electronically signed by: [place] MD on 01/03/2025 10:38:22
--- NOTE | 2025-01-03 09:13 | ECG_ITS ---
Test Reason : AMS Blood Pressure : */* mmHG Vent. Rate : 78 BPM Atrial Rate : 78 BPM P-R Int : 142 ms QRS Dur : 74 ms QT Int : 400 ms P-R-T Axes : 45 19 79 degrees QTcB Int : 456 ms Normal sinus rhythm Normal ECG When compared with ECG of 01-Jan-2025 12:52, No significant change was found Referred By: Mckayla Felix Electronically Signed By: Issac Calvert
--- NOTE | 2025-01-03 09:18 | ED.GENADULT ---
HPI - General Adult General Chief complaint: Recheck/Abnormal Lab/Rx Stated complaint: HYPOTENSIVE Time Seen by Provider: 01/03/25 09:14 Source: EMS Mode of arrival: EMS Limitations: other (nonverbal) History of Present Illness ED Provider: SANTINO PAIGE PA-C HPI narrative: 69 year old male with pmhx significant for cerebral palsy, chronic atonic megalon s/p colostomy, neurogenic bladder with suprapubic cetheter in place, chronic hyponatremia, blindness, nonverbal and nonambulatory presents to the ED today via EMS from alf for evaluation of low blood pressures 60s/30s this morning. Per EMS, patient noted to be more lethargic than baseline, responding to painful, not verbal stimuli. Per EMS, BP en route 90s/60s. On arrival, BP 60s/30s. Patient was admitted to our facility from 01/01-01/03 for management of hypotension, discharged yesterday. Hypotension was thought to be secondary to Tizinidine and Seroquel. These medications were reportedly supposed to be adjusted however patient was given his full dose of both this morning prior to hypotension. During ED visit, urine culture grew k pneumonia and group b strep. Infectious disease was consulted with suspicion for colonization. Related Data Home Medications ?Medication ?Instructions ?Recorded ?Confirmed acetaminophen 160 mg/5 mL oral 640 mg feeding tube Q6H PRN 01/02/25 01/03/25 suspension (Children's pain/fever Acetaminophen) aspirin 81 mg chewable tablet 1 tab PO DAILY 01/02/25 01/03/25 bacitracin zinc 500 unit/gram 1 appl topical BID PRN abrasions, 01/02/25 01/03/25 topical ointment GT irritated skin carbamide peroxide 6.5 % ear drops 4 drp otic (ears) BID PRN for 5 01/02/25 01/03/25 (Ear Wax Removal Drops) days monthly cetirizine 10 mg tablet 10 mg PO DAILY 01/02/25 01/03/25 kqvxezhmq-wktD-zmdpjgz-FOS-bromelain 3 ml PO BID 01/02/25 01/03/25 1,937 mg-188 mg/15 mL oral liquid dextromethorphan-guaifenesin 10 10 ml PO Q6H PRN Cough 01/02/25 01/03/25 mg-100 mg/5 mL oral liquid (Tussin DM) diazepam 5 mg tablet 5 mg PO DAILY PRN 1 hour prior to 01/02/25 01/03/25 dental appointment ergocalciferol (vitamin D2) 1,250 1,250 mcg PO FR@2100 01/02/25 01/03/25 mcg (50,000 unit) capsule fluticasone propionate 50 1 spray intranasal DAILY 01/02/25 01/03/25 mcg/actuation nasal spray,suspension zquttwywyyw-bjxiyxawz-rbk C-Mn 500 1 cap PO TID 01/02/25 01/03/25 mg-400 mg capsule (Glucosamine Chondroitin Maximum Strength) lorazepam 1 mg tablet 1 mg PO DAILY PRN 2 hours prior to 01/02/25 01/03/25 GT changes lorazepam 1 mg tablet 1 mg PO DAILY PRN 2 hours prior to 01/02/25 01/03/25 podiatry foot care omega-3 fatty acids-vitamin E 3 cap PO BID 01/02/25 01/03/25 1,000 mg capsule omeprazole 40 mg capsule,delayed 40 mg PO BEDTIME 01/02/25 01/03/25 release pediatric multivitamin 1 tab PO DAILY 01/02/25 01/03/25 pravastatin 10 mg tablet 10 mg PO BEDTIME 01/02/25 01/03/25 quetiapine 25 mg tablet 25 mg PO BID 01/02/25 01/03/25 simethicone 40 mg/0.6 mL oral 160 mg feeding tube TID 01/02/25 01/03/25 drops,suspension (Infants Simethicone) tizanidine 2 mg tablet 2 mg PO DAILY 01/02/25 01/03/25 tizanidine 2 mg tablet 4 mg PO BEDTIME 01/02/25 01/03/25 valproic acid (as sodium salt) 250 1,000 mg PO Q12H 01/02/25 01/03/25 mg/5 mL oral solution Allergies Allergy/AdvReac Type Severity Reaction Status Date / Time Cephalosporins Allergy Unknown UNKNOWN Verified 01/03/25 09:12 nitrofurantoin Allergy Unknown UNKNOWN Verified 01/03/25 09:12 [From MACROBID] NSAIDS (Non-Steroidal Allergy Unknown UNKNOWN Verified 01/03/25 09:12 Anti-Inflamma [Nsaids] Penicillins Allergy Unknown UNKNOWN Verified 01/03/25 09:12 pneumococcal vaccine Allergy Unknown UNKNOWN Verified 01/03/25 09:12 [From PNEUMOVAX 23] From Augmentin Allergy Unknown UNKNOWN Uncoded 01/03/25 09:12 From Tricor Allergy Unknown UNKNOWN Uncoded 01/03/25 09:12 Review of Systems Review of Systems: Yes Unobtainable due to mental status PMFSH Past Medical History Source: old records reviewed and nursing notes reviewed Medical History Bacteriuria Neurogenic bladder Legally blind Cerebral palsy Surgical History S/P colostomy Social History Social History Household Members: Caregiver Housing: Other Housing Other:: alf Do you presently have visiting nurse or other home services: Yes Unable to assess alcohol history related to: Unable to respond Patient Tobacco Use Status: Never used Tobacco Advance Directives: No Advance Directives Information Provided: No Do you have a plan to hurt others: No Plan service: No Physical Exam ED Vital Signs: Vital Signs - 24 hr 01/03/25 09:10 01/03/25 09:14 01/03/25 09:29 Temperature Pulse Rate 90 Respiratory Rate 16 Blood Pressure 61/39 L 68/52 L Pulse Oximetry Oxygen Delivery Method Room Air Room Air Oxygen Flow Rate 01/03/25 09:30 01/03/25 09:33 01/03/25 09:45 Temperature 97.9 F Pulse Rate 76 82 92 Respiratory Rate 16 16 16 Blood Pressure 84/47 L 90/54 L 119/47 L Pulse Oximetry 94 97 97 Oxygen Delivery Method Room Air Room Air Room Air Oxygen Flow Rate 01/03/25 09:56 01/03/25 09:56 01/03/25 09:57 Temperature Pulse Rate 81 Respiratory Rate 16 Blood Pressure 89/53 L Pulse Oximetry 87 L 89 L 92 Oxygen Delivery Method Room Air Nasal Cannula Nasal Cannula Oxygen Flow Rate 2 4 01/03/25 10:06 01/03/25 10:23 01/03/25 10:38 Temperature Pulse Rate 88 86 86 Respiratory Rate 18 18 18 Blood Pressure 107/58 L 104/69 110/60 Pulse Oximetry 100 100 100 Oxygen Delivery Method Oxymask Oxymask Oxymask Oxygen Flow Rate 4 4 4 01/03/25 10:52 01/03/25 12:23 Temperature 98.3 F Pulse Rate 91 92 Respiratory Rate 18 20 Blood Pressure 113/89 115/67 Pulse Oximetry 100 100 Oxygen Delivery Method Oxymask Oxymask Oxygen Flow Rate 4 3 BMI result Body Mass Index 20.7 hypotensive General: chronically ill appearing, lethargic, nonverbal Skin: pale, contracted. No rashes or lesions. Head: normocephalic, atraumatic EENT: Hearing is intact b/l. blind (baseline) Neck: Supple without LAD Cardiac: Chest wall symmetric. RRR Lungs: Normal respiratory effort without accessory muscle use. no adeventitious breath sounds Abdomen: Soft, non-tender, non-distended. good output from ostomy Ext: no LE edema. +pedal pulses Neuro: nonambulatory, not oriented. contracted Course Course Course Narrative: 1030 -- delay in lab results > lab contacted. chem showing hypomag at 1.4 > IV repletion ordered. potassium wnl. chronic hyponatremia, appears to be around patient's baseline. random glucose 126. troponin undetectable. CRP elevated to 5.8. TSH wnl. CBC showing a drop in H&H to 7.7/22.6, down trending from 10.2/30.3 yesterday. concern for ?GI bleed. type and screen/ OBS ordered. Protonix ordered. lactic 3.1. at this time patient meets criteria for sepsis. ABX and IVF are already running. BP improving to 104/69 however patient began desatting to 87% on RA. placed on 4L oxymask with improvement to 4L. 1300 -- OBS negative. repeat CBC showing improvement in H&H to 8.4/25.3. viral serology negative. CXR does not demonstrate infiltrate or consolidation. no effusion. UA pending. BP has remained stable for >2 hours. last BP 115/67. anticipate admission to medicine for further observation and evaluation into hypotension and hypoxia. Medications Administered Discontinued Medications Generic Name Dose Route Start Last Admin Trade Name Freq PRN Reason Stop Dose Admin Sodium Chloride 1,851 mls @ 1,851 mls/hr 01/03/25 09:15 01/03/25 10:29 Ns 30 ml/kg infuse over 1 hr (1851 ml) 01/03/25 10:14 Infused IV Infusion .Q1H STA Levofloxacin 750 mg in 150 mls @ 100 mls/hr 01/03/25 09:32 01/03/25 11:08 Levaquin IV 01/03/25 11:01 Infused ONCE ONE Infusion Magnesium Sulfate 2 gm in 50 mls @ 150 mls/hr 01/03/25 10:17 01/03/25 10:50 Magnesium Sulfate/H2o IV 01/03/25 10:36 Infused ONCE ONE Infusion Pantoprazole Sodium 40 mg 01/03/25 10:43 01/03/25 10:53 Pantoprazole Sodium 40 Mg/10 Ml Vial IVPUSH 01/03/25 10:44 40 mg ONCE ONE Administration Medical Decision Making Medical Decision Making [facility] Narrative: 69 year old male with pmhx significant for cerebral palsy, chronic atonic megalon s/p colostomy, neurogenic bladder with suprapubic cetheter in place, chronic hyponatremia, blindness, nonverbal and nonambulatory presents to the ED today via EMS from alf for evaluation of low blood pressures 60s/30s this morning. vitals notable for hypotension to 61/39 on arrival. patient began desatting to 87% on RA, placed on 4L NC with improvement to 100%. he is chronically ill appearing, lethargic, grunts to painful stimuli. contracted which is his baseline. appears pale. positive pedal pulses. lungs without adventitious breath sounds. no pitting edema. Differential diagnosis includes anemia, electrolyte abnormality, dehydration, FTT, urinary tract infection, pneumonia, viral syndrome Plan for labs, ekg, UA, viral swabs, CXR. 30 cc IVF ordered. Levaquin ordered. Differential Diagnosis Differential Diagnoses: The differential diagnosis associated with the presentation includes as above Admission/Observation Consideration of admission/observation: Escalation of care including admission/observation considered Patient admitted for observation and further management of hypotension, hypoxic respiratory failure Consult Healthcare Provider Management of the patient was discussed with: Hospitalist Lab Data [facility] Lab Attestation statement: I reviewed the patient's lab results. as above. 01/03/25 11:46 01/03/25 09:27 Labs: Lab Results 01/03/25 01/03/25 01/03/25 Range/Units 09:23 09:27 09:28 WBC 7.5 (4.8-10.8) X10*3/uL RBC 2.69 L D (4.60-5.80) X10*6/uL Hgb 7.7 L D (14.0-18.0) g/dl Hct 22.6 L D (42.0-52.0) % MCV 84.0 (80.0-98.0) fL MCH 28.6 (27.0-33.0) pg MCHC 34.1 (31.0-36.0) g/dl RDW 15.0 (11.0-16.0) % Plt Count 188 D (160-400) X10*3/uL MPV 8.3 L (9.4-12.4) fL Immature Gran % (Auto) 0.3 (0.0-0.4) % Neut % (Auto) 54.5 (45-73) % Lymph % (Auto) 32.5 (20-40) % Lucas % (Auto) 11.5 H (2-11) % Eos % (Auto) 0.9 (0-4) % Baso % (Auto) 0.3 (0-2) % Lymph # (Auto) 2.4 (1.2-4.9) X10*3/uL Lucas # (Auto) 0.9 (0.1-1.2) X10*3/uL Eos # (Auto) 0.1 (0.0-0.4) X10*3/uL Baso # (Auto) 0.0 (0.0-0.2) X10*3/uL Abs Immat Gran (auto) 0.02 (0.00-0.03) X10*3/uL Absolute Neuts (auto) 4.1 (2.0-8.3) x10*3/uL Absolute Nucleated RBC 0.000 (0.0-0.012) X10*3/uL Nucleated RBC % (auto) 0.0 (0.0-0.2) /100WBC Hold Blue Top SEE NOTE VBG pH VBG pCO2 VBG pO2 VBG HCO3 VBG O2 Saturation VBG Base Excess Sodium 132 L (135-145) mmol/L Potassium 4.1 (3.3-5.1) mmol/L Chloride 106 (96-108) mmol/L Carbon Dioxide 18 L (22-29) mmol/L Anion Gap 12 (12-20) BUN 10 (9-16) mg/dL Creatinine 1.10 (0.5-1.4) mg/dL Estim Creat Clear Calc 54.5 Estimated GFR > 60 Random Glucose 126 H (60-115) mg/dL Lactic Acid 3.2 H* (0.5-2.0) mmol/L Lactic Acid F/U @ 2Hr (0.5-2.0) mmol/L Calcium 8.2 L D (8.4-10.2) mg/dL Magnesium 1.4 L* (1.6-2.6) mg/dL Total Bilirubin 0.4 (0.0-1.0) mg/dL Direct Bilirubin 0.1 (0.0-0.5) mg/dL AST 13 (5-37) U/L ALT < 6 (0-40) U/L Alkaline Phosphatase 74 (39-117) U/L Troponin I High Sens < 2.7 (<3.5-35.0) ng/L C-Reactive Protein 5.80 H (< or = 0.50) mg/dL Total Protein 6.5 (6.5-8.0) g/dL Albumin 2.6 L (3.5-5.0) g/dL Lipase 42 (8-78) U/L Procalcitonin 0.05 ng/mL TSH 1.91 (0.32-4.0) uIU/mL Hold Green Top See Note Stool Occult Blood (NEGATIVE) Influenza Type A (PCR) (Negative) Influenza Type B (PCR) (Negative) RSV RNA Qual (PCR) (Negative) SARS-CoV-2 RNA (RT-PCR) (Negative) Blood Type Antibody Screen 01/03/25 01/03/25 01/03/25 Range/Units 09:34 10:51 11:46 WBC 6.6 (4.8-10.8) X10*3/uL RBC 2.99 L (4.60-5.80) X10*6/uL Hgb 8.4 L (14.0-18.0) g/dl Hct 25.3 L (42.0-52.0) % MCV 84.6 (80.0-98.0) fL MCH 28.1 (27.0-33.0) pg MCHC 33.2 (31.0-36.0) g/dl RDW 15.2 (11.0-16.0) % Plt Count 193 (160-400) X10*3/uL MPV 8.3 L (9.4-12.4) fL Immature Gran % (Auto) 0.3 (0.0-0.4) % Neut % (Auto) 51.9 (45-73) % Lymph % (Auto) 34.6 (20-40) % Lucas % (Auto) 11.9 H (2-11) % Eos % (Auto) 1.1 (0-4) % Baso % (Auto) 0.2 (0-2) % Lymph # (Auto) 2.3 (1.2-4.9) X10*3/uL Lucas # (Auto) 0.8 (0.1-1.2) X10*3/uL Eos # (Auto) 0.1 (0.0-0.4) X10*3/uL Baso # (Auto) 0.0 (0.0-0.2) X10*3/uL Abs Immat Gran (auto) 0.02 (0.00-0.03) X10*3/uL Absolute Neuts (auto) 3.4 (2.0-8.3) x10*3/uL Absolute Nucleated RBC 0.000 (0.0-0.012) X10*3/uL Nucleated RBC % (auto) 0.0 (0.0-0.2) /100WBC Hold Blue Top VBG pH TNP VBG pCO2 TNP VBG pO2 TNP VBG HCO3 TNP VBG O2 Saturation TNP VBG Base Excess TNP Sodium (135-145) mmol/L Potassium (3.3-5.1) mmol/L Chloride (96-108) mmol/L Carbon Dioxide (22-29) mmol/L Anion Gap (12-20) BUN (9-16) mg/dL Creatinine (0.5-1.4) mg/dL Estim Creat Clear Calc Estimated GFR Random Glucose (60-115) mg/dL Lactic Acid (0.5-2.0) mmol/L Lactic Acid F/U @ 2Hr 1.9 (0.5-2.0) mmol/L Calcium (8.4-10.2) mg/dL Magnesium (1.6-2.6) mg/dL Total Bilirubin (0.0-1.0) mg/dL Direct Bilirubin (0.0-0.5) mg/dL AST (5-37) U/L ALT (0-40) U/L Alkaline Phosphatase (39-117) U/L Troponin I High Sens (<3.5-35.0) ng/L C-Reactive Protein (< or = 0.50) mg/dL Total Protein (6.5-8.0) g/dL Albumin (3.5-5.0) g/dL Lipase (8-78) U/L Procalcitonin ng/mL TSH (0.32-4.0) uIU/mL Hold Green Top Stool Occult Blood NEGATIVE (NEGATIVE) Influenza Type A (PCR) NEGATIVE (Negative) Influenza Type B (PCR) NEGATIVE (Negative) RSV RNA Qual (PCR) NEGATIVE (Negative) SARS-CoV-2 RNA (RT-PCR) NEGATIVE (Negative) Blood Type B Negative Antibody Screen NEGATIVE Independent Interpretation I performed an independent interpretation of an: EKG and Plain X-Ray Interpretation: EKG showing NSR rate of 78 bpm, no acute ischemic changes or st elevations. CXR without infiltrate or consolidation Radiology Impression Discussion of test interpretation with radiology: I have reviewed the radiologist's reading. Radiologist Impression: Procedure(s): XR chest 1V Accession Number(s): [id number] cc: LEILA FUENTES MD; Santino Paige~ CLINICAL HISTORY: SOB 1 view chest Comparison: CR/SR - XR CHEST 1V - 01/01/25 14:54 EDT Findings: Low inspiration. Resultant mild vascular crowding centrally with subsegmental atelectasis. No consolidation or pneumothorax/effusion. Borderline cardiomegaly.No evidence of heart failure No acute fractures. Impression: 1. Low inspiration with central vascular crowding and subsegmental atelectasis. 2. No acute cardiopulmonary disease. Independent Historian Clinical information obtained from an independent historian. History obtained from or confirmed by: Other (customer care coordinator - ED) External Record Review External record reviewed: Inpatient record, Office record, Outpatient record, Prior outpatient labs, Prior outpatient radiology, Primary care record and Outside ED record Prescription Management I considered prescription management with: Antibiotic Social Determinants Patient?s care significantly limited by Social Determinants of Health including: Other Social Determinant of Health Critical Care Time Critical Care Time Critical Care Time: No Discharge Plan Discharge Clinical Impression: Hypotension, Anemia, Acute hypoxic respiratory failure, Lactic acidosis Patient Disposition: Admitted As Inpatient Print Language: South African
[2025-01-03] MEDS: SODIUM CHLORIDE 1851 ML IV (09:29)
[2025-01-03 09:33] LABS: MANUAL DIFF FLAG NO
--- NOTE | 2025-01-03 09:35 | PC.NURSE ---
pt rachela from correction s/p d/t concern of hypotension. correction staff member states that they went to do their morning rounds and noted patient to be hypotensive 60/30 - otherwise vital signs stable. pt recently admitted for hypotension/hyponatremia x 2 days ago. hyponatremic/hypotensive x 2 days ago. per correction staff members, pt is nonverbal but responsive to verbal stimuli baseline. upon pt awakening, pt noted to be responsive to physical stimuli only which is not his baseline. upon EMS arrival - pt noted to be responsive to physical stimuli only. vss and up to date aside from being hypotensive. BP confirmed w/ manual pressure. nsr on the wash and greaser. pt on RA baseline as well as currently w/o difficulty. no sob/wob noted. respirations even/unlabored. 20gIV placed in the right AC. additional 18gIV placed in the left hand - labs obtained/sent to lab. IVF/abx administered per provider order. ekg completed by tech. pt noted to have chronic suprapubic catheter - draining clear/dark yellow/non-foul smelling urine. G-tube in place. colostomy bag displays light brown soft stool. correction member bedside for support. plan of care ongoing. call lu placed within reach.
[2025-01-03] MEDS: levoFLOXacin/D5W 750 MG/150 ML PIGGYBACK 100 MG IV (09:36)
[2025-01-03 09:38] LABS: Basophils Percent Auto 0.3 % (0-2); Eosinophils Absolute Auto 0.1 X10*3/uL (0.0-0.4); Eosinophils Percent Auto 0.9 % (0-4); Hematocrit 22.6 % (42.0-52.0); Hemoglobin 7.7 g/dl (14.0-18.0); Imm Gran Abs Auto 0.02 X10*3/uL (0.00-0.03); Imm Gran Pct Auto 0.3 % (0.0-0.4); Lymphocytes Absolute Auto 2.4 X10*3/uL (1.2-4.9); Lymphocytes Percent Auto 32.5 % (20-40); Mean Corpuscular HGB Conc 34.1 g/dl (31.0-36.0); Mean Corpuscular Hemoglobin 28.6 pg (27.0-33.0); Mean Platelet Volume 8.3 fL (9.4-12.4); Monocytes Absolute Auto 0.9 X10*3/uL (0.1-1.2); Monocytes Percent Auto 11.5 % (2-11); Neutrophils Absolute Auto 4.1 x10*3/uL (2.0-8.3); Neutrophils Percent Auto 54.5 % (45-73); Platelet Count 188 X10*3/uL (160-400); Red Blood Count 2.69 X10*6/uL (4.60-5.80); White Blood Count 7.5 X10*3/uL (4.8-10.8)
--- NOTE | 2025-01-03 09:57 | PC.NURSE ---
pt noted to desat to 87% on RA - pt placed on 2L via NC w/ little to no effect. pt currently on 4L via NC at this time - SPO2 @ 92%. pt remains in upright position to promote patent airway. no sob/wob noted. respirations even/unlabored. pt also remains hypotensive. otherwise vss and up to date. nsr on the shelter monitor. IVF/abx continues to infuse at this time. provider notified/aware of all results. residential staff member remains bedside for support. plan of care ongoing. call lu placed within reach.
--- OUTSIDE RECORDS SUMMARY | 2025-01-03 10:06 | XMS_ITS | Encounter Summary ---
Author Organization [facility] Address [address] [place] [address] Phone Care Team Providers Care Campus Ambassador Name Role Phone Jaime Navarro MD Primary Care Provider [phone] Encounter Details Date Type Department Care Team (Late st Contact Info) Description 12/28/2023 Orders Only [facility] [address] [place] [address] Jaime Navarro MD [address] [place] [address] Dr. Amanda [place] [address] Hypo-osmolality and hyponatremia Social History Tobacco Use Types Packs/Day Years Used Date Smoking Tobacco: Never Smokeless Tobacco: Never Sex and Gender Information Value Date Recorded Sex Assigned at Not on file Legal Sex Male 5:01 PM EST Gender Identity Not on file Sexual Orientation Not on file documented as of this encounter Plan of Treatment Upcoming Encounters Date Type Department Care Team (Late st Contact Info) Description 02/17/2025 3:15 PM EDT Office Visit [facility] [address] [place] [phone] Jaime Navarro MD [address] [place] [address] Dr. Amanda [place] [address] documented as of this encounter Procedures Procedure [...] AM EDT Performed at: ??02 - [facility] [address] ??[id number] Meat Washer: Beatriz Cm MD, Phone: ??[phone] us Jaime Navarro MD LAB URINE ORDERABLES Final Resul t [facility] See order comments [place] [address] * Urine Osmolality (01/17/2024 10:05 AM EDT) Osmolality, Ur 270 mOsmol/kg See o rder comments Comment: ?24 hr : ?? 300 - ??900 ?Random: ?50 - 1400 ?After 12hr fluid ?restriction: ?>850 Urine (Urine, Clean Catch) 01/17/2024 10:05 AM EDT 01/17/2024 Narrative [facility] - 01/20/2024 12:05 AM EDT Performed at: ??01 - [facility] [address] ??[id number] Meat Washer: Fahad Pelletier MD, Phone: ??[phone] us Jaime Navarro MD LAB URINE ORDERABLES Final Resul t [facility] See order comments [place] [address] documented in this encounter Visit Diagnoses Diagnosis Hypo-osmolality and hyponatremia documented in this encounter Care Teams Campus Ambassador Relationship Specialty Start Date End Date Jaime Navarro MD [address] [place] [address] Dr. [place] [address] PCP - General Nephrology 12/24/23 documented as of this encounter
--- OUTSIDE RECORDS SUMMARY | 2025-01-03 10:06 | XMS_ITS | Encounter Summary ---
Author Organization [facility] Address [address] [place] [address] Phone Care Team Providers Care Recorder Helper [employer] Name Role Phone Jaime Navarro MD Primary Care Provider [phone] Encounter Details Date Type Department Care Team (Late st Contact Info) Description 01/04/2024 Orders Only [facility] [address] [place] [address] Jaime Navarro MD [address] [place] [address] [place] [address] Hypo-osmolality and hyponatremia Social History [...] 2:16 AM EDT Please ask staff at custodial to make sure he has repeat labs again in 1 week, so far all good no change in fluid restriction order than kyou documented in this encounter Plan of Treatment Upcoming Encounters Date Type Department Care Team (Late st Contact Info) Description 02/17/2025 3:15 PM EDT Office Visit [facility] [place] [address] [place] [phone] Jaime Navarro MD [address] [place] [address] [place] [address] documented as of this encounter [...] PM EDT Performed at: ??01 - [facility] [address] ??[id number] Third Rail Installer: Beatriz Cm MD, Phone: ??[phone] us Jaime Navarro MD LAB URINE ORDERABLES Final Resul t [facility] See order comments [place] [address] * Urine Osmolality (01/08/2024 12:25 PM EDT) Osmolality, Ur 441 mOsmol/kg See o rder comments Comment: ?24 hr : ?? 300 - ??900 ?Random: ?50 - 1400 ?After 12hr fluid ?restriction: ?>850 Urine (Urine, Clean Catch) 01/08/2024 12:25 PM EDT 01/08/2024 Narrative [facility] - 01/10/2024 2:08 PM EDT Performed at: ??02 - [facility] ??[id number] Third Rail Installer: Fahad Pelletier MD, Phone: ??[phone] Jaime Navarro MD LAB URINE ORDERABLES Final Resul t Performing Organization Address [facility] Phone Number [email or web address] See order comments [place] [address] * Osmolality (01/08/2024 12:25 PM EDT) Pathologist [facility] Osmolality Calc 285 280 - 301 mOsmol/kg See order comments Blood (Blood, Venous) 01/08/2024 12:25 PM EDT 01/08/2024 Narrative [facility] - 01/10/2024 2:08 PM EDT Performed at: ??02 - [facility] ??[id number] Third Rail Installer: Fahad Pelletier MD, Phone: ??[phone] us Jaime Navarro MD LAB BLOOD ORDERABLES Final Resul t Performing Organization Address [facility] de Phone Number [email or web address] See order comments [place] [address] * (ABNORMAL) Renal Function Panel (01/08/2024 12:25 [...] PM EDT Performed at: ??01 - [facility] [address] ??[id number] Third Rail Installer: Beatriz Cm MD, Phone: ??[phone] us Jaime Navarro MD LAB BLOOD ORDERABLES Final Resul t [facility] See order comments [place] [address] documented in this encounter Visit Diagnoses Diagnosis Hypo-osmolality and hyponatremia documented in this encounter Care Teams Recorder Helper [employer] Relationship Specialty Start Date End Date Jaime Navarro MD [address] [place] [address] [place] [phone] PCP - General Nephrology 12/24/23 documented as of this encounter
--- OUTSIDE RECORDS SUMMARY | 2025-01-03 10:06 | XMS_ITS | Encounter Summary ---
Author Organization [facility] Address [address] [place] [address] Phone Care Team Providers Care Rags Laborer Name Role Phone Jaime Navarro MD Primary Care Provider Encounter Details Date Type Department Care Team (Late st Contact Info) Description 01/11/2024 Orders Only [facility] [address] [place] [address] Jaime Navarro MD [address] [place] [address] [place] [address] Hypo-osmolality and hyponatremia Social History [...] Visit [facility] [place] [address] [place] [phone] Jaime Navarro MD [address] [facility] [place] [address] Pending Results Name Type Priority Associated Diagnoses [...] not performed. No urine specimen received. ?TEST: ??[id number] ??Osmolality, Urine 01/16/2024 12:1 0 PM EDT 01/16/2024 Narrative [facility] - 01/21/2024 2:07 PM EDT Performed at: ??01 - [facility] [address] ??[id number] Bit Grinder: Beatriz Cm MD, Phone: ??[phone] Jaime Navarro MD LAB BLOOD ORDERABLES Final Resul t [facility] See order comments [place] [address] * Osmolality (01/16/2024 12:10 PM EDT) Osmolality Calc 290 280 - 301 mOsmol/kg See order comments Blood (Blood, Venous) 01/16/2024 12:10 PM EDT 01/16/2024 Narrative [facility] - 01/21/2024 2:07 PM EDT Performed at: ??02 - [facility] [address] ??[id number] Bit Grinder: Fahad Pelletier MD, Phone: ??[phone] us Jaime Navarro MD LAB BLOOD ORDERABLES Final Resul t Performing Organization Address [facility] Co de Phone Number [facility] See order comments [place] [address] * (ABNORMAL) Renal Function Panel (01/16/2024 12:10 PM EDT) Glucose 98 70 - 99 mg/dL See order comments BUN 18 8 - 27 mg/dL See order comments Creatinine 1.05 0.76 - 1.27 mg/dL See order comments eGFR CKD-EPI CR 2020 77 >59 mL/min/1.7 3 See order comments BUN/Creatinine Ratio 17 10 - 24 See order comments Sodium 137 134 - [...] PM EDT Performed at: ??01 - [facility] [address] ??[id number] Bit Grinder: Beatriz Cm MD, Phone: ??[phone] us Jaime Navarro MD LAB BLOOD ORDERABLES Final Resul t Performing Organization Address [facility]/ZIP Co de Phone Number [facility] See order comments [place] [address] documented in this encounter Visit Diagnoses Diagnosis Hypo-osmolality and hyponatremia documented in this encounter Care Teams Rags Laborer Relationship Specialty Start Date End Date Jaime Navarro MD [address] [place] [address] [place] [address] PCP - General Nephrology 12/24/23 documented as of this encounter
--- OUTSIDE RECORDS SUMMARY | 2025-01-03 10:07 | XMS_ITS | Encounter Summary ---
Author Organization [facility] Address [address] [place] [address] Phone Care Team Providers Care Photoengraving Proofer Name Role Phone Jaime Navarro MD Primary Care Provider Encounter Details Date Type Department Care Team (Late st Contact Info) Description 02/29/2024 Orders Only [facility] [address] [place] [address] Jaime aNvarro MD [address] [place] [address] [place] [address] Hypo-osmolality and hyponatremia Social History [...] Office Visit [facility] [place] [address] [address] [place] [phone] Jaime Navarro MD [address] [facility] [place] [address] documented as of this encounter Visit Diagnoses Diagnosis Hypo-osmolality and hyponatremia documented in this encounter Care Teams Photoengraving Proofer Relationship Specialty Start Date End Date Jaime Navarro MD [address] [facility] [place] [address] PCP - General Nephrology 12/24/23 documented as of this encounter
--- OUTSIDE RECORDS SUMMARY | 2025-01-03 10:07 | XMS_ITS ---
Author Organization [facility] Address [address] [facility] [place] [address] Care Team Providers Care Nutrition Program Instructor Name Role Phone Oni Alvarez MD Primary Care Provider Viri Jack Unavailable [phone] Allergies Allergen (clinical drug ingredient) Drug/Non Drug [...] 08/07/2024 Encounters Encounter Location Date Provider Diagnosis [facility] [address] [place] [address] 08/07/2024 Viri Landis Pain in right toe(s) [...] Name:Viri Marivel hollins, 01/22/2025 01:15:00 PM, [address] [facility], [place], [address], Progress Notes * Clay ROSS MDOB: (68 yo M)Acc No.[id number]:08/07/2024 Progress Notes Patient:?Clay ROSS Provider:?Viri Landis DPM :1955???Age:68 Y???Sex:Male Lucio e:08/07/2024 Address:[address] [place], [place] [phone] Pcp:Oni Alvarez MD Subjective: * Chief Complaints: [...] use of a nail nipper and/or dremel-type feed grinder, to a more viable healthy nail plate or bed tissue. Silver nitrate used for any petechial bleeding as necessary.? * Follow Up:?2-3 Months * Images: * Sign off status: Completed true * Provider:?Viri Landis DPM Date:?10/07/2023 Generated for Augusta akbar/Remedios/eTransmitting on:?01/03/2025 10:06 AM EDT History and Physical Notes * HPI [...]
--- OUTSIDE RECORDS SUMMARY | 2025-01-03 10:07 | XMS_ITS | Encounter Summary ---
Author Organization [facility] Address [address] [place] [address] Phone Care Team Providers Care Insulation Board Coater Operator Name Role Phone Jaime Navarro MD Primary Care Provider [phone] Encounter Details Date Type Department Care Team (Late st Contact Info) Description 02/01/2024 Orders Only [facility] [address] [place] [address] Jaime Navarro MD [address] [place] [address] [place] [address] Hypo-osmolality and hyponatremia Social History [...] Office Visit [facility] [place] [address] [place] [phone] Jaime Navarro MD [address] [facility] [place] [address] documented as of this encounter [...] PM EDT Performed at: ??02 - [facility] [address] ??[id number] Campus Police Officer: Fahad Pelletier MD, Phone: ??[phone] us Jaime Navarro MD LAB BLOOD ORDERABLES Final Resul t [facility] See order comments [place] [address] * (ABNORMAL) Renal Function Panel (02/06/2024 11:39 [...] PM EDT Performed at: ??01 - [facility] [address] ??[id number] Campus Police Officer: Beatriz Cm MD, Phone: ??[phone] us Jaime Navarro MD LAB BLOOD ORDERABLES Final Resul t [facility] See order comments [place] [address] documented in this encounter Visit Diagnoses Diagnosis Hypo-osmolality and hyponatremia documented in this encounter Care Teams Insulation Board Coater Operator Relationship Specialty Start Date End Date Jaime Navarro MD [address] [place] [address] [place] [address] PCP - General Nephrology 12/24/23 documented as of this encounter
--- OUTSIDE RECORDS SUMMARY | 2025-01-03 10:07 | XMS_ITS | Data Portability ---
Author Organization [place] - [facility], [facility] Address [address] [place] [address] Care Team Providers Care Hunting Sales Leader Name Role Phone LEILA FUENTES Primary Care Provider [phone] Assessment No assessment recorded. Plan of Treatment Reminders Order Date Submit Date Provider Last Modified By Organization Details Last Modified Time Details Appointments None recorded . Lab None recorded . Referral None recorded . Procedures None recorded . Surgeries None recorded . Imaging US, abdomen, limited - [facility] staff number [phone] formerly [facility] [employer] ([facility] [employer] [facility] [address] [place] [address], [address], 14:43:26 Medication Orders None recorded . Patient TargetsNo targets recorded. Patient Instructions Encounter Date Encounter Id Patient Instructions Last Modified By Organization Details Last Modified Time 12/14/2021 [id number] Thank you for yo ur visit with Critical access hospital today. You were seen today for abdominal pain, nausea, vomiting and/or diarrhea. Medications may have been administered and lab tests may have been performed. At this time, we do not see evidence of a serious surgical or infectious cause of your symptoms. However, lab tests and an evaluation cannot always exclude appendicitis or other serious causes of abdominal pain. Please see a medical professional in 12-24 hours to be re-examined. Seek immediate medical attention for increased pain, vomiting or fever. If you develop any new or worsening symptoms and need after hours care, please go to nearest ER and/or call 911. If you have additional concerns or develop a change in your condition between 8am-10pm, please call Critical access hospital at [phone] to help navigate your care. Not available 12/14/2021 15:09:04 Reason for Referral None Reported. Medical Equipment None Reported. Allergies Allergen ID Allergen Name Allergen Category Reaction Reaction Severity Criticality Documentation Date Start Date Code Code System Note Provider Name and Address Organization Details Recorded Time 937986 Product containin g penicilli n (product) medicatio n Not available Not available Not available 12/14/2021 00333 8001 SNOMED NADEEN Roper [address], [place], [address], [place] [facility] 2 15:07:58 772032 Tricor medicatio n Not available Not available Not available 12/14/2021 78022 6 RxNorm NADEEN Roper [address], [place], [address], [place] [facility] 2 15:08:10 911001 Macrobid medicatio n Not available Not available Not available 12/14/2021 99344 1 RxNoNADEEN Michel [address], [facility] [place], [address], [place] [facility] 2 15:08:16 993513 cephalexi n medicatio n Not available Not available Not available 12/14/2021 2231 RxNorm NADEEN Roper [address], [place], [address], [place] [facility] 2 15:08:24 Medications Name Sig Start Date Stop Date Status Note LastModified by Organization Details LastModified Time childrens chew multivitamin active Not Available Not Available Not Available quetiapine 25 mg tablet active Not Available Not Available Not Available tizanidine 2 mg tablet active Not Available Not Available Not Available bacitracin zinc 500 unit/gram topical ointment active Not Available Not Avail able Not Available omeprazole 40 mg capsule,delayed release active Not Available Not Available Not Available pravastatin 10 mg tablet active Not Available Not Available No t Available valproic acid (as sodium salt) 250 mg/5 mL oral solution active Not Available Not Available Not Available Ear Drops (carbamide peroxide) 6.5 % active Not Available Not Availa ble Not Available aspirin 81 mg chewable tablet active Not Available Not Availa ble Not Available ergocalciferol (vitamin D2) 1,250 mcg (50,000 unit) capsule active Not Available Not Available Not Available lorazepam 1 mg tablet active Not Available Not Available Not Available ketoconazole 2 % topical cream active Not Available Not Availabl e Not Available fluticasone propionate 50 mcg/actuation nasal spray,suspension active Not Available Not Avail able Not Available Infants Simethicone 40 mg/0.6 mL oral drops,suspension active Not Available Not Avail able Not Available Children's Pain and Fever Relief 160 mg/5 mL oral suspension active Not Available Not Available N ot Available Animal Shapes chewable tablet active Not Available Not Availa ble Not Available Vitals Date Recorded Heart rate Respiratory rate Oxygen saturation Oxygen saturation in Arterial blood by Pulse oximetry Body temperature Systolic blood pressure Diastolic blood pressure Provider Name and Address Organization Details Last Updated DateTime 2 106 /min 18 /min 97 % 97 % 96.7 [degF] 152 mm[Hg] 74 mm[Hg] Not Available [facility] 15:12:40 Social History None recorded. Functional Status None recorded. Mental Status None recorded. Family History Nothing Reported. Medical History No medical history recorded. Past Encounters Encounter ID Performer Location Encounter Start Date Encounter Closed Date Diagnosis/Indication Diagnosis SNOMED-CT Code Diagnosis ICD10 Code Diagnosis Note [id number] NADEEN Roper [facility] [address] [place] [phone] 12/14/2021 15:06:38 12/18/2021 19:09:38 Swelling of scrotum 670648240 N50.89 Proper Personal Protective Equipment (PPE), including {{gloves, eye protection , masks, and gowns, shoe covers nini ves, eye protection and masks* nini ves, eye protection gloves, eye protection , N95 mask, gown, and shoe covers david gical mask with face-shiel d, gloves, gown and shoe covers david gical mask with face-shiel d, gloves}} were donned and doffed brody rosen and all equipment cleaned using approved technique with germicidal disposable wipes prior to and after care of this patient according to [facility]'s infection prevention protocols. Overview/H istory: 66 yo male [facility] with long hx (6yr) of scrotal enlargemen t with cystocele dx by a urologist is seen for report of increased swelling and tenderness from a night staff member of the house. Pt nonverbal could not provide hx engage in ROS or participat e in exam. The staff denies fevers, outward signs of pain, change from baseline, or change in ostomy/sup rapubic output. Multiple staff members report that his scrotum appears just as it has for the past 6 years. Exam: MALE GENITOURIN GLORIA:penis- wnl no lesions or erythema or discharge inguinal canal- palpated briefly as patient would not allow for extending inguinal exam but no mass felt within these areas. Pt nonverbal and would not follow command to bear down in the abdomen during this portion of the exam. scrotum- appears uniformly mildly enlarged. no erythema no increased warmth no grimacing or changes to presentati on when palpating. no lesions no masses protruding DDx considered , but not limited to:1. cystocele - active problem2. testicular torsion - current enlargeme nt is 2+ week and there is no outward pain on palpation - very low suspicion3 . 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 hydrocele - possible dx Work up/Results :abd u/s (scrotal) ultrasound ordered Plan/Discu ssion:-it appears that his scrotal enlargemen t is chronic and unchanged- there was a report of pain x1 from a night staffer-th is prompted a call to the PCP who referred to -there is no acute issues appreciabl e on exam-AVSS- nontoxic appearing- NAD-orderi ng scrotal U/S-the assistant housekeeping manager is going to speak with Dr Fuentes (PCP)-the plan is for PCP followup with referral to urology-U/ S results will be sent to the PCP-if fever begins, signs of pain develops, urine or stool output decrease, they will call 911-eduardo arnett written on the house paperwork state to check temps and report >100.4 to a medical profession al Health Concerns Section Related Observation LastModified by Organization Detai ls LastModified Time None Recorded Concern Status LastModified by Organization Details LastModified Time None Recorded Advance Directives Directive None Recorded Payers Encounter Date Sequence Insurance Name Policy Number Policy Mtz Covered Member ID Mtz Member ID Guarantor Name 12/14/2021 1 MEDICARE B-[place]: [facility] [employer] Clay Ross [id number] Clay Ross 12/14/2021 2 [place] [facility] Clay Ross [id number] Clay Ross Notes Date Note Type Note Provider Name and Address Organization Details Recorded Time 12/14/2021 text/html 66 yo male new t o DH and to providerlives in group homestaff reports two week of scrotal enlargementthey report its always mildly swollenJess the staff states its looked like this for 6 years another staff member agrees that there is no changethe direct support staff member reported this to the PCP who referred to uspt has chronic urinary catheterthe output has been normal per the staffhe has an ostomy with normal output per staffthe RN says it was reported as tender but the pt is non verbalshe is unsure how it was qualified/quantified as tender she states she was then compelled to have it looked at by a provider NADEEN Roper [address], [place], [address], [place] [facility] 12/14/2021 16:10:28
--- OUTSIDE RECORDS SUMMARY | 2025-01-03 10:07 | XMS_ITS | Encounter Summary ---
Author Organization [facility] Address [address] [place] [address] Phone Care Team Providers Care Measuring Clerk Name Role Phone Jaime Navarro MD Primary Care Provider [phone] Encounter Details Date Type Department Care Team (Late st Contact Info) Description 02/15/2024 Orders Only [facility] [address] [place] [address] Jaime Navarro MD [address] [place] [address] [place] [address] Hypo-osmolality and hyponatremia Social History [...] Office Visit [facility] [place] [address] [place] [phone] Jaime Navarro MD [address] [place] [address] [place] [address] documented as of this encounter [...] 4:06 AM EDT Performed at: ??02 - [facility] [address] ??[id number] Ultrasound Supervisor: Fahad Pelletier MD, Phone: ??[phone] us Jaime Navarro MD LAB URINE ORDERABLES Final Resul t [facility] See order comments [place] [address] * Osmolality (02/19/2024 12:57 PM EDT) Osmolality Calc 284 280 - 301 mOsmol/kg See order comments Blood (Blood, Venous) 02/19/2024 12:57 PM EDT 02/19/2024 Narrative [facility] - 02/21/2024 4:06 AM EDT Performed at: ??02 - [facility] [address] ??[id number] Ultrasound Supervisor: Fahad Pelletier MD, Phone: ??[phone] us Jaime Navarro MD LAB BLOOD ORDERABLES Final Resul t Performing Organization Address [facility] de Phone Number [facility] See order comments [place] [address] * (ABNORMAL) Renal Function Panel (02/19/2024 12:57 [...] AM EDT Performed at: ??01 - [facility] [address] ??[id number] Ultrasound Supervisor: Beatriz Cm MD, Phone: ??[phone] us Jaime Navarro MD LAB BLOOD ORDERABLES Final Resul t Performing Organization Address [facility] Co de Phone Number [facility] See order comments [place] [address] documented in this encounter Visit Diagnoses Diagnosis Hypo-osmolality and hyponatremia documented in this encounter Care Teams Measuring Clerk Relationship Specialty Start Date End Date Jaime Navarro MD [address] [place] [address] Dr. [place] [address] PCP - General Nephrology 12/24/23 documented as of this encounter
--- OUTSIDE RECORDS SUMMARY | 2025-01-03 10:07 | XMS_ITS ---
Author Organization [facility] Address [address] [facility] [place] [address] Care Team Providers Care Combine Mechanic Name Role Phone Oni Alvarez MD Primary Care Provider Viri Jack Unavailable [phone] Allergies Allergen (clinical drug ingredient) Drug/Non Drug [...] Active Encounters Encounter Location Date Provider Diagnosis [facility] [address] [address] 11/03/2024 Viri Landis Plan Of Treatment Next Appt Details Provider Name:Viri hollins, 01/22/2025 01:15:00 PM, [address] [place] [address], [address], Progress Notes * Clay ROSS MDOB: (69 yo M)Acc No.[id number]:11/03/2024 Progress Note Patient:?Clay ROSS Provider:?Viri Landis DPM :1955???Age:69 Y???Sex:Male Lucio e:11/03/2024 Address:[address] [place], [place] [phone] Pcp:Oni Alvarez MD Subjective: * Chief Complaints: [...] Landis DPM Date:?0 11/03/2024 Generated for Augusta akbar/Remedios/Jakyitting on:?01/03/2025 10:07 AM EDT
--- OUTSIDE RECORDS SUMMARY | 2025-01-03 10:07 | XMS_ITS | Clinical Summary ---
Author Organization [facility], Address [address] [place] [address] [place] [address] Phone Care Team Providers Care Overhead Cleaner Name Role Phone Jaime Navarro MD Primary Care Provider [phone] Allergies Active Allergy Reactions Criticality Noted Date [...] 30 Gm, 1 Refills, Maintenance, 08/09/23 16:32:00 [facility], [facility], 7, APPLY TO AFFECTED AREA TOPICALLY 3 TIMES A DA... 3 Active LORazepam (ATIVAN) 1 MG tablet 3 Active loperamide (IMODIUM A-D) 2 MG tablet See Instructions, TAKE 1 TABLET (2 MG) VIA G-TUBE TWICE DAILY NEEDED FOR DIARRHEA / STOP FOR CONSTIPATION OR IF STOOLS BECOME TOO FIRM / LOPERAMIDE 2 MG, # 60 tablet, 1 Refills, Maintenance, 05/10/23 10:37:00 EDT, [facility], 152, cm, 11/16/22... 3 Active ketoconazole [...] in the evening. Active ergocalciferol 1.25 MG (39610 UT) capsule Take 50,000 Units by mouth [...] Orientation Not on file Plan of Treatment Upcoming Encounters Date Type Department Care Team (Late st Contact Info) Description 02/17/2025 3:15 PM EDT Office Visit [facility] [address] [address] [facility] [address] Jaime Navarro MD [address] [place] [address] Health Maintenance Due Date Last Done Comments Colorectal Cancer Screening: Annual FOBT 2003 Colorectal Cancer Screening: Colonoscopy 2003 Colorectal Cancer Screening: Sigmoidoscopy 2003 Pneumococcal Vaccine: 50+ Years (4 of 4 - PCV20 or PCV21) 05/18/2025 05/18/2020, 11/22/2010, 10/23/2010 Influenza Vaccine (Season Ended) 2025 06/27/2019, 07/03/2012, 06/19/2011, Additional history exists Pneumococcal Vaccine: Peds (0 to 5 Years) and At-Risk Patients (6 to 49 Years) Discontinued 05/18/2020, 11/22/2010, 10/23/2010 Hepatitis B Vaccine Aged Out No longe r eligible based on patient's age to complete this topic Insurance Medicaid [place] Medicare Care Teams Overhead Cleaner Relationship Specialty Start Date End Date Jaime Navarro MD [address] [place] [address] [place] [address] PCP - General Nephrology 12/24/23
--- OUTSIDE RECORDS SUMMARY | 2025-01-03 10:07 | XMS_ITS | Encounter Summary ---
Author Organization [facility] Address [address] [place] [address] Phone Care Team Providers Care Director Of Business Development Name Role Phone Jaime Navarro MD Primary Care Provider [phone] Encounter Details Date Type Department Care Team (Late st Contact Info) Description 03/07/2024 Orders Only [facility] Of [address] [place] [address] Jaime Nvaarro MD [address] [place] [address] [place] [address] Hypo-osmolality and hyponatremia Social History [...] Office Visit [facility] [address] [place] [phone] Jaime Navarro MD [address] [place] [address] [place] [address] documented as of this encounter Procedures Procedure Name Priority Date/Time Associated Diagnosis Comments OSMOLALITY, URINE Routine 08/08/2024 11: 10 AM EST documented in this encounter Results * Osmolality, urine (08/08/2024 11:10 AM EST) Osmolality, Ur 318 mOsmol/kg [facility] [place] Comment: ?24 hr : ?? 300 - ??900 ?Random: ?50 - 1400 ?After 12hr fluid ?restriction: ?>850 08/08/2024 11:1 0 AM EST 08/08/2024 us Jaime Navarro MD LAB URINE ORDERABLES Final Resul t [facility] [place] [address] documented in this encounter Visit Diagnoses Diagnosis Hypo-osmolality and hyponatremia documented in this encounter Care Teams Director Of Business Development Relationship Specialty Start Date End Date Jaime Navarro MD [address] [facility] [place] [address] PCP - General Nephrology 12/24/23 documented as of this encounter
--- OUTSIDE RECORDS SUMMARY | 2025-01-03 10:07 | XMS_ITS | Encounter Summary ---
Author Organization [facility] Address [address] [place] [address] Phone Care Team Providers Care Loom Changer Name Role Phone Jaime Navarro MD Primary Care Provider [phone] Encounter Details Date Type Department Care Team (Late st Contact Info) Description 01/25/2024 Orders Only [facility] [address] [place] [address] Jaime Navarro MD [address] [place] [address] [place] [address] Hypo-osmolality and hyponatremia Social History [...] - 01/25/2024 2:17 AM EDT Pls call half-way and ask them to decrease fluid restriction [...] Office Visit [facility] [address] [facility] [place] [address] Jaime Navarro MD [address] [place] [address] [place] [address] documented as of this encounter Procedures Procedure [...] PM EDT Performed at: ??01 - [facility] [address] ??[id number] Microelectronics Engineer: Beatriz Cm MD, Phone: ??[phone] us Jaime Navarro MD LAB URINE ORDERABLES Final Resul t [facility] See order comments [place] [address] * Urine Osmolality (01/29/2024 2:43 PM EDT) Osmolality, Ur 348 mOsmol/kg See o rder comments Comment: ?24 hr : ?? 300 - ??900 ?Random: ?50 - 1400 ?After 12hr fluid ?restriction: ?>850 Urine (Urine, Clean Catch) 01/29/2024 2:43 PM EDT 01/29/2024 Narrative [facility] - 02/02/2024 7:06 PM EDT Performed at: ??02 - [facility] ??[id number] Microelectronics Engineer: Fahad Pelletier MD, Phone: ??[phone] Jaime Navarro MD LAB URINE ORDERABLES Final Resul t Performing Organization Address [facility] de Phone Number [facility] See order comments [place] [address] * (ABNORMAL) Osmolality (01/29/2024 2:43 PM EDT) Osmolality Calc 273(L) 280 - 301 mOsmol/kg See order comments Blood (Blood, Venous) 01/29/2024 2:43 PM EDT 01/29/2024 Narrative [facility] - 02/02/2024 7:06 PM EDT Performed at: ??02 - [facility] ??[id number] Microelectronics Engineer: Fahad Pelletier MD, Phone: ??[phone] us Jaime Navarro MD LAB BLOOD ORDERABLES Final Resul t Performing Organization Address [facility] de Phone Number [facility] See order comments [place] [address] * (ABNORMAL) Renal Function Panel (01/29/2024 2:43 [...] PM EDT Performed at: ??01 - [facility] [address] ??[id number] Microelectronics Engineer: Beatriz Cm MD, Phone: ??[phone] us Jaime Navarro MD LAB BLOOD ORDERABLES Final Resul t [facility] See order comments [place] [address] documented in this encounter Visit Diagnoses Diagnosis Hypo-osmolality and hyponatremia documented in this encounter Care Teams Loom Changer Relationship Specialty Start Date End Date Jaime Navarro MD [address] [place] [address] [place] [address] PCP - General Nephrology 12/24/23 documented as of this encounter
--- OUTSIDE RECORDS SUMMARY | 2025-01-03 10:07 | XMS_ITS | Encounter Summary ---
Author Organization [facility] Address [address] [place] [address] Phone Care Team Providers Care Dental Surgery Doctor Name Role Phone Jaime Navarro MD Primary Care Provider [phone] Encounter Details Date Type Department Care Team (Late st Contact Info) Description 02/08/2024 Orders Only [facility] Of [address] [place] [address] Jaime Navarro MD [address] [place] [address] [place] [address] Hypo-osmolality and hyponatremia Social History [...] Office Visit [facility] [place] [address] [place] [phone] Jaime Navarro MD [address] [place] [address] [place] [address] documented as of this encounter [...] * Urine, sodium,random (02/12/2024 2:57 PM EDT) Sodium, 24H Ur 39 Not Estab. mmol/L See order comments Urine (Urine, Clean Catch) 02/12/2024 2:57 PM EDT 02/12/2024 Narrative [facility] - 02/15/2024 4:08 PM EDT Performed at: ??01 - [facility] [address] ??[id number] Chief Unit Forester: Beatriz Cm MD, Phone: ??[phone] us Jaime Navarro MD LAB URINE ORDERABLES Final Resul t [facility] See order comments [place] [address] * Urine Osmolality (02/12/2024 2:57 PM EDT) Osmolality, Ur 402 mOsmol/kg See o rder comments Comment: ?24 hr : ?? 300 - ??900 ?Random: ?50 - 1400 ?After 12hr fluid ?restriction: ?>850 Urine (Urine, Clean Catch) 02/12/2024 2:57 PM EDT 02/12/2024 Narrative [facility] - 02/15/2024 4:08 PM EDT Performed at: ??[address] ??[id number] Chief Unit Forester: Fahad Pelletier MD, Phone: ??[phone] us Jaime Navarro MD LAB URINE ORDERABLES Final Resul t Performing Organization Address [facility] de Phone Number [facility] See order comments [place] [address] * Osmolality (02/12/2024 2:57 PM EDT) Osmolality Calc 289 280 - 301 mOsmol/kg See order comments Blood (Blood, Venous) 02/12/2024 2:57 PM EDT 02/12/2024 Narrative [facility] - 02/15/2024 4:08 PM EDT Performed at: ??02 - [facility] ??[id number] Chief Unit Forester: Fahad Pelletier MD, Phone: ??[phone] us Jaime Navarro MD LAB BLOOD ORDERABLES Final Resul t Performing Organization Address [facility] Phone Number [facility] See order comments [place] [address] * (ABNORMAL) Renal Function Panel (02/12/2024 2:57 [...] 3 See order comments BUN/Creatinine Ratio 15 - See order comments Blood (Blood, Venous) 02/12/2024 2:57 PM EDT 02/12/2024 Narrative [facility] - 02/15/2024 4:08 PM EDT Performed at: ??01 - [facility] [address] ??[id number] Chief Unit Forester: Beatriz Cm MD, Phone: ??[phone] us Jaime Navarro MD LAB BLOOD ORDERABLES Final Resul t [facility] See order comments [place] [address] documented in this encounter Visit Diagnoses Diagnosis Hypo-osmolality and hyponatremia documented in this encounter Care Teams Dental Surgery Doctor Relationship Specialty Start Date End Date Jaime Navarro MD [address] [place] [address] [place] [address] PCP - General Nephrology 12/24/23 documented as of this encounter
--- OUTSIDE RECORDS SUMMARY | 2025-01-03 10:07 | XMS_ITS ---
Author Organization [facility] Address [address] [place] [address] Care Team Providers Care Camp Nurse Name Role Phone Oni Alvarez MD Primary Care Provider Viri Jack [phone] REASON FOR VISIT DIRECTOR HR COMMUNICATIONS PPWK Entered Encounters Encounter Location Date Provider Diagnosis [facility] [address] [place] [address] 07/17/2024 Viri Landis Plan Of Treatment Next Appt Details Provider Name:Viri hollins, 01/22/2025 01:15:00 PM, [address] [place], [address], Progress Notes * Clay ROSS MDOB: (68 yo M)Acc No.[id number]:07/17/2024 Patient:?Clay Ross :1955???Age:68 Y???Sex:Male Address:[address] [place], [address] * true * Date:? Generated for Printi ng/Faxing/eTransmitting on:?01/03/2025 10:07 AM EDT
--- OUTSIDE RECORDS SUMMARY | 2025-01-03 10:07 | XMS_ITS | Encounter Summary ---
Author Organization [facility] Address [address] [place] [address] Phone Care Team Providers Care Cloth Shrinking Tester Name Role Phone Jaime Navarro MD Primary Care Provider Encounter Details Date Type Department Care Team (Late st Contact Info) Description 02/22/2024 Orders Only [facility] [address] [place] [address] Jaime Navarro MD [address] [place] [address] [place] [address] Hypo-osmolality and hyponatremia Social [...] Visit [facility] [place] [address] [address] [place] [phone] Jaime Navarro MD [address] [place] [address] documented as of this encounter Visit Diagnoses Diagnosis Hypo-osmolality and hyponatremia documented in this encounter Care Teams Cloth Shrinking Tester Relationship Specialty Start Date End Date Jaime Navarro MD [address] [place] [address] PCP - General Nephrology 12/24/23 documented as of this encounter
--- OUTSIDE RECORDS SUMMARY | 2025-01-03 10:07 | XMS_ITS | Encounter Summary ---
Author Organization [facility] Address [address] [place] [address] Phone Care Team Providers Care Middleware Architect Name Role Phone Jaime Navarro MD Primary Care Provider [phone] Encounter Details Date Type Department Care Team (Late st Contact Info) Description 01/18/2024 Orders Only [facility] Of [address] [place] [address] Jaime Navarro MD [address] [place] [address] [place] [address] Hypo-osmolality and hyponatremia Social History [...] Office Visit [facility] [address] [place] [phone] Jaime Navarro MD [address] [place] [address] [place] [address] documented as of this encounter [...] * Urine, sodium,random (01/22/2024 1:31 PM EDT) Sodium, 24H Ur 42 Not Estab. mmol/L See order comments Urine (Urine, Clean Catch) 01/22/2024 1:31 PM EDT 01/22/2024 Narrative [facility] - 01/24/2024 11:06 PM EDT Performed at: ??01 - [facility] [address] ??[id number] Vp Securities: Beatriz Cm MD, Phone: ??[phone] us Jaime Navarro MD LAB URINE ORDERABLES Final Resul t [facility] See order comments [place] [address] * Urine Osmolality (01/22/2024 1:31 PM EDT) Osmolality, Ur 315 mOsmol/kg See o rder comments Comment: ?24 hr : ?? 300 - ??900 ?Random: ?50 - 1400 ?After 12hr fluid ?restriction: ?>850 Urine (Urine, Clean Catch) 01/22/2024 1:31 PM EDT 01/22/2024 Narrative [facility] - 01/24/2024 11:06 PM EDT Performed at: ??[address] ??[id number] Vp Securities: Fahad Pelletier MD, Phone: ??[phone] us Jaime Navarro MD LAB URINE ORDERABLES Final Resul t Performing Organization Address [facility] de Phone Number [facility] See order comments [place] [address] * Osmolality (01/22/2024 1:31 PM EDT) Osmolality Calc 286 280 - 301 mOsmol/kg See order comments Blood (Blood, Venous) 01/22/2024 1:31 PM EDT 01/22/2024 Narrative [facility] - 01/24/2024 11:06 PM EDT Performed at: ??02 - [address] ??[id number] Vp Securities: Fahad Pelletier MD, Phone: ??[phone] us Jaime Navarro MD LAB BLOOD ORDERABLES Final Resul t Performing Organization Address [facility] [place] Phone Number [facility] See order comments [place] [address] * (ABNORMAL) Renal Function Panel (01/22/2024 1:31 [...] PM EDT Performed at: ??01 - [facility] [address] ??[id number] Vp Securities: Beatriz Cm MD, Phone: ??[phone] us Jaime Navarro MD LAB BLOOD ORDERABLES Final Resul t [facility] See order comments [place] [address] documented in this encounter Visit Diagnoses Diagnosis Hypo-osmolality and hyponatremia documented in this encounter Care Teams Middleware Architect Relationship Specialty Start Date End Date Jaime Navarro MD [address] [place] [address] [place] [address] PCP - General Nephrology 12/24/23 documented as of this encounter
--- OUTSIDE RECORDS SUMMARY | 2025-01-03 10:07 | XMS_ITS | Patient Health Record ---
Author Organization [facility] [place] Address [address] [facility] [place] [address] Care Team Providers Care Machine Stuffer Name Role Phone Oni Alvarez MD Primary Care Provider Viri Jack Unavailable [phone] Allergies Allergen (clinical drug ingredient) Drug/Non Drug [...] 08/07/2024 Encounters Encounter Location Date Provider Diagnosis [facility] [address] 08/07/2024 Viri Landis Pain in right toe(s) M79.674 ; Onychomycosis B35.1 ; Pain in left toe(s) M79.675 ; Nonverbal R47.01 and Wheelchair dependent Z99.[address] [facility] [address] 07/17/2024 Viri Landis Assessments Encounter Date Diagnosis (ICD Code) Assessment Notes Treatment Notes Treatment Clinical Notes Section Notes 08/07/2024 Pain in right toe(s) (ICD-10 - M79.674) 08/07/2024 Onychomycosis (ICD-10 - B35.1) 08/07/2024 Pain in left toe(s) (ICD-10 - M79.675) 08/07/2024 Nonverbal (ICD-10 - R47.01) 08/07/2024 Wheelchair dependent (ICD-10 - Z99.3) Plan Of Treatment Next Appt Details Provider Name:Viri hollins, 01/22/2025 01:15:00 PM, [address] [place] [address], [phone], Insurance Providers Payer Name Payer Address Payer Phone Subscriber Number Group Number Insured Name Patient Relationship to Insured Coverage Start Date Coverage End Date Medicare National [employer]t [facility] [address] [place] [address] [id number] Clay Ross Self - patient is the [...]
[2025-01-03 10:14] LABS: Troponin-I High Sensitivity < 2.7 ng/L (<3.5-35.0)
[2025-01-03 10:15] LABS: Alanine Aminotransferase < 6 U/L (0-40); Albumin Level 2.6 g/dL (3.5-5.0); Alkaline Phosphatase 74 U/L (39-117); Anion Gap 12 (12-20); Aspartate Amino Transferase 13 U/L (5-37); Bilirubin Direct 0.1 mg/dL (0.0-0.5); Bilirubin Total 0.4 mg/dL (0.0-1.0); Blood Urea Nitrogen 10 mg/dL (9-16); Calcium 8.2 mg/dL (8.4-10.2); Carbon Dioxide 18 mmol/L (22-29); Chloride 106 mmol/L (96-108); Creatinine Clr Calc Pharmacy 54.5; Estimated Glomerular Filt Rate > 60; Glucose Random 126 mg/dL (60-115); Lipase 42 U/L (8-78); Magnesium 1.4 mg/dL (1.6-2.6); Potassium 4.1 mmol/L (3.3-5.1); Procalcitonin 0.05 ng/mL; Sodium 132 mmol/L (135-145); Total Protein 6.5 g/dL (6.5-8.0)
[2025-01-03 10:16] LABS: Lactic Acid 3.2 mmol/L (0.5-2.0)
[2025-01-03 10:16] LABS: TSH reflex Free T4 1.91 uIU/mL (0.32-4.0)
[2025-01-03] MEDS: Magnesium Sulfate/H2O 2 GM/50 ML PIGGYBACK IV (10:29)
--- NOTE | 2025-01-03 10:41 | PC.NURSE ---
pt currently remains on 4L via oxymask in an upright position to promote patent airway. no sob/wob noted. respirations even/unlabored. BP continues to improve s/p IVF boluses. otherwise vss and up to date. nsr on the threat monitoring analyst. lab levels processed - stool occult, type and screen, swabs obtained/sent to lab. medication administered per provider order. snf staff member remains bedside. plan of care ongoing. call lu placed within reach.
[2025-01-03] MEDS: Pantoprazole Sodium 40 MG/10 ML VIAL IVPUSH (10:53)
[2025-01-03 11:00] LABS: OBS Int Ctl Valid YES; OBS1 NEGATIVE (NEGATIVE)
[2025-01-03 11:26] LABS: Reflex Lactate? Lactic Acid Added
[2025-01-03 11:56] LABS: MANUAL DIFF FLAG NO
[2025-01-03 12:07] LABS: Basophils Percent Auto 0.2 % (0-2); Eosinophils Absolute Auto 0.1 X10*3/uL (0.0-0.4); Eosinophils Percent Auto 1.1 % (0-4); Hematocrit 25.3 % (42.0-52.0); Hemoglobin 8.4 g/dl (14.0-18.0); Imm Gran Abs Auto 0.02 X10*3/uL (0.00-0.03); Imm Gran Pct Auto 0.3 % (0.0-0.4); Lymphocytes Absolute Auto 2.3 X10*3/uL (1.2-4.9); Lymphocytes Percent Auto 34.6 % (20-40); Mean Corpuscular HGB Conc 33.2 g/dl (31.0-36.0); Mean Corpuscular Hemoglobin 28.1 pg (27.0-33.0); Mean Corpuscular Volume 84.6 fL (80.0-98.0); Mean Platelet Volume 8.3 fL (9.4-12.4); Monocytes Absolute Auto 0.8 X10*3/uL (0.1-1.2); Monocytes Percent Auto 11.9 % (2-11); Neutrophils Absolute Auto 3.4 x10*3/uL (2.0-8.3); Neutrophils Percent Auto 51.9 % (45-73); Platelet Count 193 X10*3/uL (160-400); Red Blood Count 2.99 X10*6/uL (4.60-5.80); Red Cell Distribution Width 15.2 % (11.0-16.0); White Blood Count 6.6 X10*3/uL (4.8-10.8)
[2025-01-03 12:11] LABS: ~Lactic Acid-LAB USE ONLY 1.9 mmol/L (0.5-2.0)
--- NOTE | 2025-01-03 12:30 | PC.NURSE ---
urinary leg bag changed to 3L collection bag
[2025-01-03 12:36] LABS: Influenza A PCR NEGATIVE (Negative); Influenza B PCR NEGATIVE (Negative); Resp Syncy Virus RNA Qual PCR NEGATIVE (Negative); SARS COV2 PCR INHOUSE NEGATIVE (Negative)
--- NOTE | 2025-01-03 13:33 | P.HPHOSP_ITS ---
History of Present Illness Date of Service: 01/03/25 Chief Complaint: Hypotension 69-year-old male with history of cerebral palsy chronic atonic megacolon colostomy neurogenic brown with super cute catheter in place chronic hyponatremia returns to the hospital with episode of unresponsiveness and hypotension. Patient recently hospitalized at [facility] for the similar presentation; workup essentially unremarkable and meds adjusted. Urine culture grew out Klebsiella however ID felt at that time colonization. residential states this morning patient was given routine meds and then blood pressure dropped into the 60s. Patient was unarousable and ambulance was called and transported to ER. In the emergency room patient more awake and responded to volume. He was given a single dose of Levaquin and will be admitted for further workup and treatment Review of Systems 2 Review of Systems: Unable to obtain [facility] Medical History Bacteriuria Neurogenic bladder Legally blind Cerebral palsy Surgical History S/P colostomy Social History Household Members: Caregiver Housing: Other Housing Other:: alf Do you presently have visiting nurse or other home services: Yes Unable to assess alcohol history related to: Unable to respond Patient Tobacco Use Status: Never used Tobacco Advance Directives: No Advance Directives Information Provided: No Do you have a plan to hurt others: No Plan service: No Meds Allergies Allergy/AdvReac Type Severity Reaction Status Date / Time Cephalosporins Allergy Unknown UNKNOWN Verified 01/03/25 09:12 nitrofurantoin Allergy Unknown UNKNOWN Verified 01/03/25 09:12 [From MACROBID] NSAIDS (Non-Steroidal Allergy Unknown UNKNOWN Verified 01/03/25 09:12 Anti-Inflamma [Nsaids] Penicillins Allergy Unknown UNKNOWN Verified 01/03/25 09:12 pneumococcal vaccine Allergy Unknown UNKNOWN Verified 01/03/25 09:12 [From PNEUMOVAX 23] From Augmentin Allergy Unknown UNKNOWN Uncoded 01/03/25 09:12 From Tricor Allergy Unknown UNKNOWN Uncoded 01/03/25 09:12 Active Medications: Current Medications Acetaminophen (Acetaminophen 325 Mg Tablet) 650 mg PO Q6H PRN PRN Reason: Pain, Mild 1-3,fever,headache Calcium Carbonate (Calcium Carbonate 750 Mg Tab.Chew) 750 mg PO Q4H PRN PRN Reason: Heartburn Enoxaparin Sodium (Enoxaparin Sodium 40 Mg/0.4 Ml Syringe) 40 mg SUBCUT Q24H [place] Lactated Ringer's (Lr) 1,000 mls @ 125 mls/hr IVCONT .Q8H [place] Magnesium Hydroxide (Milk Of Magnesia 30 Ml Oral.Susp) 30 ml PO DAILY PRN PRN Reason: Constipation Ondansetron HCl (Ondansetron Hcl 4 Mg/2 Ml Vial) 4 mg IVPUSH Q8H PRN PRN Reason: Nausea and Vomiting Sodium Chloride (0.9 % Sodium Chloride Flush 3 Ml Syringe) 3 ml IVFLUSH Q[facility] Home Medications ?Medication ?Instructions ?Recorded ?Confirmed ?Last Taken ?Type acetaminophen 160 mg/5 mL oral 640 mg feeding tube Q6H PRN 01/02/25 01/02/25 Unknown History suspension (Children's pain/fever Acetaminophen) aspirin 81 mg chewable tablet 1 tab PO DAILY 01/02/25 01/02/25 Unknown History bacitracin zinc 500 unit/gram 1 appl topical BID PRN abrasions, 01/02/25 01/02/25 Unknown History topical ointment GT irritated skin carbamide peroxide 6.5 % ear drops 4 drp otic (ears) BID PRN for 5 01/02/25 01/02/25 Unknown History (Ear Wax Removal Drops) days monthly cetirizine 10 mg tablet 10 mg PO DAILY 01/02/25 01/02/25 Unknown History zkgxbmlyg-odoE-jxymvpw-FOS-bromelain 3 ml PO BID 01/02/25 01/02/25 Unknown History 1,937 mg-188 mg/15 mL oral liquid dextromethorphan-guaifenesin 10 10 ml PO Q6H PRN Cough 01/02/25 01/02/25 Unknown History mg-100 mg/5 mL oral liquid (Tussin DM) diazepam 5 mg tablet 5 mg PO DAILY PRN 1 hour prior to 01/02/25 01/02/25 Unknown History dental appointment ergocalciferol (vitamin D2) 1,250 1,250 mcg PO FR@2100 01/02/25 01/02/25 Unknown History mcg (50,000 unit) capsule fluticasone propionate 50 1 spray intranasal DAILY 01/02/25 01/02/25 Unknown History mcg/actuation nasal spray,suspension moiywpgaogs-spvccbtsg-rro C-Mn 500 1 cap PO TID 01/02/25 01/02/25 Unknown History mg-400 mg capsule (Glucosamine Chondroitin Maximum Strength) lorazepam 1 mg tablet 1 mg PO DAILY PRN 2 hours prior to 01/02/25 01/02/25 Unknown History GT changes lorazepam 1 mg tablet 1 mg PO DAILY PRN 2 hours prior to 01/02/25 01/02/25 Unknown History podiatry foot care omega-3 fatty acids-vitamin E 3 cap PO BID 01/02/25 01/02/25 Unknown History 1,000 mg capsule omeprazole 40 mg capsule,delayed 40 mg PO BEDTIME 01/02/25 01/02/25 Unknown History release pediatric multivitamin 1 tab PO DAILY 01/02/25 01/02/25 Unknown History pravastatin 10 mg tablet 10 mg PO BEDTIME 01/02/25 01/02/25 Unknown History quetiapine 25 mg tablet 25 mg PO BID 01/02/25 01/02/25 Unknown History simethicone 40 mg/0.6 mL oral 160 mg feeding tube TID 01/02/25 01/02/25 Unknown History drops,suspension (Infants Simethicone) tizanidine 2 mg tablet 2 mg PO DAILY 01/02/25 01/02/25 Unknown History tizanidine 2 mg tablet 4 mg PO BEDTIME 01/02/25 01/02/25 Unknown History valproic acid (as sodium salt) 250 1,000 mg PO Q12H 01/02/25 01/02/25 Unknown History mg/5 mL oral solution Physical Exam 2 Vital Signs and Narrative: Vital Signs: Last Vital Signs Temp 98.3 F 01/03/25 12:23 Pulse 92 01/03/25 12:23 Resp 20 01/03/25 12:23 BP 115/67 01/03/25 12:23 Pulse Ox 100 01/03/25 12:23 O2 Del Method Oxymask 01/03/25 12:23 O2 Flow Rate 3 01/03/25 12:23 BMI result Body Mass Index 20.7 Const: Other: Opens eyes to verbal stimuli otherwise nonverbal at baseline Resp: Other: Clear to auscultation bilaterally no rales rhonchi or wheezes Cardio: Other: No S4; positive S1-S2; no S3 murmurs rubs or gallops GI: Other: Soft nontender nondistended normoactive bowel sounds Results Labs 01/03/25 11:46 01/03/25 09:27 Labs: Laboratory Results - last 24 hr 01/03/25 01/03/25 01/03/25 09:23 09:27 09:28 MCV 84.0 MCH 28.6 MCHC 34.1 RDW 15.0 Plt Count 188 D MPV 8.3 L Immature Gran % (Auto) 0.3 Neut % (Auto) 54.5 Lymph % (Auto) 32.5 [place] % (Auto) 11.5 H Eos % (Auto) 0.9 Baso % (Auto) 0.3 Lymph # (Auto) 2.4 [place] # (Auto) 0.9 Eos # (Auto) 0.1 Baso # (Auto) 0.0 Abs Immat Gran (auto) 0.02 Absolute Neuts (auto) 4.1 Absolute Nucleated RBC 0.000 Nucleated RBC % (auto) 0.0 Hold Blue Top SEE NOTE VBG pH VBG pCO2 VBG pO2 VBG HCO3 VBG O2 Saturation VBG Base Excess Anion Gap 12 Estim Creat Clear Calc 54.5 Estimated GFR > 60 Random Glucose 126 H Lactic Acid 3.2 H* Lactic Acid F/U @ 2Hr Calcium 8.2 L D Magnesium 1.4 L* Total Bilirubin 0.4 Direct Bilirubin 0.1 AST 13 ALT < 6 Alkaline Phosphatase 74 C-Reactive Protein 5.80 H Total Protein 6.5 Albumin 2.6 L Lipase 42 Procalcitonin 0.05 TSH 1.91 Hold Green Top See Note Stool Occult Blood Influenza Type A (PCR) Influenza Type B (PCR) RSV RNA Qual (PCR) SARS-CoV-2 RNA (RT-PCR) Blood Type Antibody Screen 01/03/25 01/03/25 01/03/25 09:34 10:51 11:46 MCV 84.6 MCH 28.1 MCHC 33.2 RDW 15.2 Plt Count 193 MPV 8.3 L Immature Gran % (Auto) 0.3 Neut % (Auto) 51.9 Lymph % (Auto) 34.6 [place] % (Auto) 11.9 H Eos % (Auto) 1.1 Baso % (Auto) 0.2 Lymph # (Auto) 2.3 [place] # (Auto) 0.8 Eos # (Auto) 0.1 Baso # (Auto) 0.0 Abs Immat Gran (auto) 0.02 Absolute Neuts (auto) 3.4 Absolute Nucleated RBC 0.000 Nucleated RBC % (auto) 0.0 Hold Blue Top VBG pH TNP VBG pCO2 TNP VBG pO2 TNP VBG HCO3 TNP VBG O2 Saturation TNP VBG Base Excess TNP Anion Gap Estim Creat Clear Calc Estimated GFR Random Glucose Lactic Acid Lactic Acid F/U @ 2Hr 1.9 Calcium Magnesium Total Bilirubin Direct Bilirubin AST ALT Alkaline Phosphatase C-Reactive Protein Total Protein Albumin Lipase Procalcitonin TSH Hold Green Top Stool Occult Blood NEGATIVE Influenza Type A (PCR) NEGATIVE Influenza Type B (PCR) NEGATIVE RSV RNA Qual (PCR) NEGATIVE SARS-CoV-2 RNA (RT-PCR) NEGATIVE Blood Type B Negative Antibody Screen NEGATIVE Assessment and Plan (1) Bacteriuria: Status: Acute (2) Hypotension: Qualifiers: Hypotension type: unspecified hypotension type Qualified Code(s): I95.9 - Hypotension, unspecified Status: Acute Plan 69-year-old male with past medical history significant for cerebral palsy, chronic atonic megacolon with colostomy in place, neurogenic bladder with suprapubic catheter in place, chronic hyponatremia blindness and nonverbal presents to the emergency room after being discharged from [facility] on 01/02/2025. Patient's BP did normalize in-house and he was deemed acceptable for discharge back to alf. This a.m., morning meds were given and staff noted patient pale and pressures in the 70s. EMS called the patient's transported to the emergency room where he responded to a fluid bolus of proximally 2 L. patient will be admitted to the floor for treatment of same 1. Acute hypotension question related to Klebsiella UTI -although suspicious for colonization given recurrent hypotension we will continue Levaquin daily as ordered initially in ER -await blood and urine cultures -continue volume repletion 2. Chronic hyponatremia -continue IV fluids as ordered -follow renals/divalents 3. GERD -continue PPI as ordered Full code Lovenox Will require at least 2 midnights going forward of inpatient hospitalization for IV antibiotics to treat presumed UTI awaiting cultures. This can not be achieved a lesser acute setting Quality Stroke Does the patient have a stroke diagnosis?: No VTE Prior VTE?: No VTE Risk Level:: Medical - moderate - high VTE Device Contraindication: Treatment Not Indicated VTE Drug Contraindication: N/A - Med Ordered
--- NOTE | 2025-01-03 13:44 | PHA.MEDREC ---
Addendum entered by Tracy Hood RPh 01/03/25 14:09: Of note, the providers noted upon readmission that the patient was supposed to have a change in the seroquel and tizanidine dosing but that was not documented in the discharge papers that I'm able to see. Dr Felix was notified that the home doses for those 2 medications may not be current and might need adjusting. Addendum entered by Tracy Hood RPh 01/03/25 13:54: med rec reviewed by [facility] Original Note: Pharmacy Consult ? Medication Reconciliation Pharmacy has completed the medication reconciliation. Med rec completed yesterday. Family member at bedside confirmed no changes. He reports patient received evening medications last night. He also had morning medications today.
[2025-01-03] MEDS: Lactated Ringers 1,000 ML 125 ML IVCONT ×2 (14:05→22:16)
[2025-01-03] MEDS: Enoxaparin Sodium 40 MG/0.4 ML SYRINGE SUBCUT (14:05)
[2025-01-03] MEDS: Albumin Human 25 % 100 ML IV ×2 (14:05→20:55)
[2025-01-03 14:22] LABS: Appearance Urine Clear; Color Urine Yellow; Glucose Urine UA Negative (Negative); Leukocyte Esterase Urine Large (3+) (Negative); Nitrite Urine Negative (Negative); PH 5.5 (5.0-9.0); UMIC TRIGGER UACC YES; Urine Blood Negative (Negative); Urine Ketones Negative (Negative); Urine Protein Negative (Neg-Trace)
[2025-01-03 14:27] LABS: Bacteria Urine None Seen (None Seen); Hyaline Casts Urine 0-2 /LPF (0-2); RBC Urine 0-2 /HPF (0-2); Squamous Epithelial Cell Urine 0-2 /HPF (0-2); UACC Culture Trigger YES; WBC Urine >50 /HPF (0-5)
[2025-01-04] VITALS (15 sets, daily range): BP systolic 61–182; BP diastolic 45–92; PULSE 69–197; RESP 17–26; TEMP 36.3–37.5; O2SAT 92–99
--- NOTE | 2025-01-04 | ECG_ITS ---
Test Reason : CP Blood Pressure : */* mmHG Vent. Rate : 190 BPM Atrial Rate : * BPM P-R Int : * ms QRS Dur : 162 ms QT Int : 262 ms P-R-T Axes : * 17 98 degrees QTcB Int : 465 ms Poor data quality, interpretation may be adversely affected Atrial fibrillation with rapid ventricular response with premature ventricular or aberrantly conducted complexes ST depression, consider subendocardial injury or digitalis effect Abnormal ECG When compared with ECG of 04-Jan-2025 08:05, No significant changes seen Referred By: Alejo Mccann Electronically Signed By: MEG WILCOX MD
--- NOTE | 2025-01-04 | ECG_ITS ---
Test Reason : Tachy Blood Pressure : */* mmHG Vent. Rate : 182 BPM Atrial Rate : * BPM P-R Int : * ms QRS Dur : 162 ms QT Int : 276 ms P-R-T Axes : * 6 22 degrees QTcB Int : 480 ms Atrial fibrillation with RVR ST depresion-diffuse ischemic changes Abnormal ECG When compared with ECG of 03-Jan-2025 09:30, Vent. rate has increased by 104 bpm Atrial fibrillation and diffuse ST depressions Referred By: Inder Mehta Electronically Signed By: Issac Calvert
[2025-01-04] MEDS: 0.9 % Sodium Chloride Flush 3 ML SYRINGE IVFLUSH ×3 (00:20→15:00)
[2025-01-04] MEDS: Albumin Human 25 % 100 ML IV (01:57)
[2025-01-04 07:33] LABS: MANUAL DIFF FLAG NO
[2025-01-04 07:45] LABS: Basophils Percent Auto 0.2 % (0-2); Eosinophils Percent Auto 0.4 % (0-4); Hematocrit 21.7 % (42.0-52.0); Hemoglobin 7.3 g/dl (14.0-18.0); Imm Gran Abs Auto 0.02 X10*3/uL (0.00-0.03); Imm Gran Pct Auto 0.4 % (0.0-0.4); Lymphocytes Absolute Auto 1.3 X10*3/uL (1.2-4.9); Lymphocytes Percent Auto 24.3 % (20-40); Mean Corpuscular HGB Conc 33.6 g/dl (31.0-36.0); Mean Corpuscular Hemoglobin 28.1 pg (27.0-33.0); Mean Corpuscular Volume 83.5 fL (80.0-98.0); Mean Platelet Volume 8.1 fL (9.4-12.4); Monocytes Absolute Auto 0.8 X10*3/uL (0.1-1.2); Monocytes Percent Auto 15.4 % (2-11); Neutrophils Absolute Auto 3.1 x10*3/uL (2.0-8.3); Neutrophils Percent Auto 59.3 % (45-73); Platelet Count 174 X10*3/uL (160-400); Red Cell Distribution Width 14.8 % (11.0-16.0); White Blood Count 5.3 X10*3/uL (4.8-10.8)
[2025-01-04 07:57] LABS: Alanine Aminotransferase 6 U/L (0-40); Albumin Level 3.9 g/dL (3.5-5.0); Alkaline Phosphatase 65 U/L (39-117); Anion Gap 13 (12-20); Aspartate Amino Transferase 16 U/L (5-37); Bilirubin Total 0.6 mg/dL (0.0-1.0); Blood Urea Nitrogen 5 mg/dL (9-16); Calcium 9.1 mg/dL (8.4-10.2); Carbon Dioxide 21 mmol/L (22-29); Chloride 107 mmol/L (96-108); Creatinine Clr Calc Pharmacy 83.3; Estimated Glomerular Filt Rate > 60; Glucose Random 95 mg/dL (60-115); Sodium 137 mmol/L (135-145); Total Protein 7.2 g/dL (6.5-8.0)
[2025-01-04] MEDS: Metoprolol Tartrate 5 MG/5 ML VIAL IVPUSH (08:16)
[2025-01-04] MEDS: levoFLOXacin/D5W 500 MG/100 ML PIGGYBACK 100 MG IV (08:58)
[2025-01-04] MEDS: Amiodarone/Dextrose 150 MG/100 ML PLAST..BAG 600 MG IV (09:35)
[2025-01-04] MEDS: Amiodarone HCL 900 MG in 0.9 % Sodium Chloride 500 ML 34.53 MG IVCONT (09:45)
[2025-01-04] MEDS: Magnesium Sulfate/H2O 2 GM/50 ML PIGGYBACK IV (10:00)
--- NOTE | 2025-01-04 10:59 | P.PNCC_ITS ---
Subjective Subjective Date of Service: 01/04/25 Interval History: 69-year-old gentleman with underlying history of cerebral palsy, atonic megacolon status post colostomy, neurogenic bladder status post suprapubic catheter, chronic hyponatremia readmitted on 01/03/2025 with hypotension initially responsive to IV fluids. Patient was started on IV Levaquin secondary to his underlying allergies and admitted to telemetry [facility]. Hospital course significant for development of AFib with RVR with significant hypotension requiring amiodarone bolus and drip and transfer to the intensive care unit. Critical Care Time (minutes): 60 Physical Exam 2 Vital Signs: Vital Signs: Last Vital Signs Temp 99.5 F 01/04/25 07:35 Pulse 197 H 01/04/25 07:35 Resp 20 01/04/25 07:35 BP 61/45 L 01/04/25 09:28 Pulse Ox 97 01/04/25 07:35 O2 Del Method Nasal Cannula 01/04/25 07:35 O2 Flow Rate 1 01/04/25 07:35 BMI result Body Mass Index 20.7 Const: General: no acute distress, alert and awake Eyes: Sclerae: sclerae normal EOM: EOMs intact bilaterally Neck: Neck: Yes no lymphadenopathy, Yes trachea midline and Yes supple Resp: Effort & Inspection: normal respiratory effort and no respiratory distress Auscultation: clear to auscultation bilaterally Cardio: Rate: tachycardic Rhythm: abnormal rhythm irregularly irregular Heart sounds: no gallops, no murmurs and no rubs GI: Palpation (GI): Soft to palpation and Other GI palpation findings present ( Nontender) Auscultation: normal bowel sounds Extrem: General: Yes no pedal edema, No clubbing and No cyanosis Objective Data Labs 01/04/25 07:21 01/04/25 07:21 Labs: Laboratory Results - last 24 hr 01/03/25 01/03/25 01/03/25 10:51 11:46 14:13 WBC 6.6 RBC 2.99 L Hgb 8.4 L Hct 25.3 L MCV 84.6 MCH 28.1 MCHC 33.2 RDW 15.2 Plt Count 193 MPV 8.3 L Immature Gran % (Auto) 0.3 Neut % (Auto) 51.9 Lymph % (Auto) 34.6 [place] % (Auto) 11.9 H Eos % (Auto) 1.1 Baso % (Auto) 0.2 Lymph # (Auto) 2.3 [place] # (Auto) 0.8 Eos # (Auto) 0.1 Baso # (Auto) 0.0 Abs Immat Gran (auto) 0.02 Absolute Neuts (auto) 3.4 Absolute Nucleated RBC 0.000 Nucleated RBC % (auto) 0.0 Sodium Potassium Chloride Carbon Dioxide Anion Gap BUN Creatinine Estim Creat Clear Calc Estimated GFR Random Glucose Lactic Acid F/U @ 2Hr 1.9 Calcium Total Bilirubin AST ALT Alkaline Phosphatase Total Protein Albumin Urine Color Yellow Urine Appearance Clear Urine pH 5.5 Ur Specific [place] 1.010 Urine Protein Negative Urine Glucose (UA) Negative Urine Ketones Negative Urine Blood Negative Urine Nitrite Negative Ur Leukocyte Esterase Large (3+) H Urine RBC 0-2 Urine WBC >50 H Ur Squamous Epith Cells 0-2 Urine Bacteria None Seen Hyaline Casts 0-2 Stool Occult Blood NEGATIVE Influenza Type A (PCR) NEGATIVE Influenza Type B (PCR) NEGATIVE RSV RNA Qual (PCR) NEGATIVE SARS-CoV-2 RNA (RT-PCR) NEGATIVE Blood Type B Negative Antibody Screen NEGATIVE 01/04/25 07:21 WBC 5.3 RBC 2.60 L Hgb 7.3 L Hct 21.7 L MCV 83.5 MCH 28.1 MCHC 33.6 RDW 14.8 Plt Count 174 MPV 8.1 L Immature Gran % (Auto) 0.4 Neut % (Auto) 59.3 Lymph % (Auto) 24.3 [place] % (Auto) 15.4 H Eos % (Auto) 0.4 Baso % (Auto) 0.2 Lymph # (Auto) 1.3 [place] # (Auto) 0.8 Eos # (Auto) 0.0 Baso # (Auto) 0.0 Abs Immat Gran (auto) 0.02 Absolute Neuts (auto) 3.1 Absolute Nucleated RBC 0.000 Nucleated RBC % (auto) 0.0 Sodium 137 Potassium 4.0 Chloride 107 Carbon Dioxide 21 L Anion Gap 13 BUN 5 L Creatinine 0.72 Estim Creat Clear Calc 83.3 Estimated GFR > 60 Random Glucose 95 Lactic Acid F/U @ 2Hr Calcium 9.1 D Total Bilirubin 0.6 AST 16 ALT 6 Alkaline Phosphatase 65 Total Protein 7.2 Albumin 3.9 Urine Color Urine Appearance Urine pH Ur Specific [place] Urine Protein Urine Glucose (UA) Urine Ketones Urine Blood Urine Nitrite Ur Leukocyte Esterase Urine RBC Urine WBC Ur Squamous Epith Cells Urine Bacteria Hyaline Casts Stool Occult Blood Influenza Type A (PCR) Influenza Type B (PCR) RSV RNA Qual (PCR) SARS-CoV-2 RNA (RT-PCR) Blood Type Antibody Screen Progress Note: A&P Assessment and plan (1) Hypotension: Status: Acute (2) Urinary tract infection: Status: Acute (3) Atrial fibrillation with RVR: Status: Acute (4) Legally blind: Status: Acute (5) Cerebral palsy: Status: Acute (6) S/P colostomy: Status: Acute Plan Assessment: 69-year-old gentleman with underlying cerebral palsy admitted with sepsis with likely urinary source further complicated by AFib with RVR. Plan: Neuro: No acute issues. Cardiac: AFib with RVR with related hypotension, loaded with amiodarone. Continue to titrate off pressor support as tolerated. At this time hypotension appears to be related to AFib with RVR and not underlying sepsis. Pulmonary: No acute issues. Renal: No acute issues. Endo: No acute issues. GI: No acute issues. ID: UTI, cultures are pending. Continue empiric antibiotics. Heme/Onc: No acute issues. Psych: No acute issues. Miscellaneous: No acute issues. Prophylaxis: Lovenox Diet: Regular Critical care time spent: 60 minutes Quality Stroke Does the patient have a stroke diagnosis?: No VTE Prior VTE?: No VTE Risk Level:: Medical - moderate - high VTE Device Contraindication: Treatment Not Indicated VTE Drug Contraindication: N/A - Med Ordered
--- NOTE | 2025-01-04 11:09 | PC.NURSE ---
INSIDE TECHNICAL SALES REPRESENTATIVE reporting HR of 190s while checking VS in AM. This RN at bedside, HR 150s-160s sustaining with as high as 200, all other VSS. Dr. steven notifed. tele monitor placed on pt and EKG obtained. medicated per NOV. 4th bag of albumin held per MD. per group sales representative pt is at baseline mentation crain. MD at bedside. ENGLISH FACULTY MEMBER called at [phone].
--- NOTE | 2025-01-04 11:29 | PM.CNCAR ---
History of Present Illness History of Present Illness Date of Service: 01/04/25 Requesting physician: Inder Mehta Chief complaint: Hypotension, Afib Narrative: 69-year-old gentleman with cerebral palsy, legal blindness, colostomy and who is nonverbal at baseline presenting with hypotension and AFib with RVR. Recent admission and was discharged back to facility. Apparently was noticed to be hypotensive and sent back. Was noticed to be in AFib with RVR with diffuse ST depressions. Also noticed to be anemic. She is currently in the ICU on amiodarone drip. He was given some IV fluid boluses earlier. Nonverbal and no history is possible. Labs showing hemoglobin 7.3, WBC is 5.3 and platelet count of 174. BUN 5, creatinine 0.72, lactic acid 1.9. High sensitive troponin level less than 2.7. [facility] Past Medical History Medical History (Updated 01/04/25 @ 11:04 by Alejo Mccann MD) Bacteriuria Neurogenic bladder Legally blind Cerebral palsy Surgical History Surgical History (Updated 01/04/25 @ 11:04 by Alejo Mccann MD) S/P colostomy Social History Social History Household Members: Caregiver Housing: Other Housing Other:: [facility] Do you presently have visiting nurse or other home services: Yes (lives in alf with staff.) Unable to assess alcohol history related to: Unable to respond Patient Tobacco Use Status: Never used Tobacco Use of substances other than those prescribed or required for medical reasons: Unable to respond Currently Displaying Signs/Symptoms of Drug Intoxication Withdrawal: No Advance Directives: No Advance Directives Information Provided: No Do you have a plan to hurt others: No Plan Recently lost weight without trying: Unsure Nutrition Risks: On aspiration precautions and Receiving home tube feeding or CPN service: No Meds Allergies Allergy/AdvReac Type Severity Reaction Status Date / Time Cephalosporins Allergy Unknown UNKNOWN Verified 01/03/25 09:12 nitrofurantoin Allergy Unknown UNKNOWN Verified 01/03/25 09:12 [From MACROBID] NSAIDS (Non-Steroidal Allergy Unknown UNKNOWN Verified 01/03/25 09:12 Anti-Inflamma [Nsaids] Penicillins Allergy Unknown UNKNOWN Verified 01/03/25 09:12 pneumococcal vaccine Allergy Unknown UNKNOWN Verified 01/03/25 09:12 [From PNEUMOVAX 23] From Augmentin Allergy Unknown UNKNOWN Uncoded 01/03/25 09:12 From Tricor Allergy Unknown UNKNOWN Uncoded 01/03/25 09:12 Active Medications: Current Medications Acetaminophen (Acetaminophen 325 Mg Tablet) 650 mg PO Q6H PRN PRN Reason: Pain, Mild 1-3,fever,headache Enoxaparin Sodium (Enoxaparin Sodium 40 Mg/0.4 Ml Syringe) 40 mg SUBCUT Q24H [facility] Last Admin: 01/03/25 14:05 Dose: 40 mg Levofloxacin (Levaquin) 500 mg in 100 mls @ 100 mls/hr IV Q24H [facility] Last Infusion: 01/04/25 10:21 Dose: Infused Amiodarone HCl 900 mg/ Sodium (Chloride) 518 mls @ 34.533 mls/hr IVCONT .Q15H1M [facility]; Protocol Last Admin: 01/04/25 09:45 Dose: 1 mg/min, 34.53 mls/hr Phenylephrine HCl 20 mg/ (Sodium Chloride) 252 mls @ 0 mls/hr IVCONT .Q0M [facility]; Protocol Ondansetron HCl (Ondansetron Hcl 4 Mg/2 Ml Vial) 4 mg IVPUSH Q8H PRN PRN Reason: Nausea and Vomiting Sodium Chloride (0.9 % Sodium Chloride Flush 3 Ml Syringe) 3 ml IVFLUSH QSHIFT [facility] Last Admin: 01/04/25 08:58 Dose: 3 ml Home Medications ?Medication ?Instructions ?Recorded ?Confirmed ?Last Taken ?Type acetaminophen 160 mg/5 mL oral 640 mg feeding tube Q6H PRN 01/02/25 01/03/25 Unknown History suspension (Children's pain/fever Acetaminophen) aspirin 81 mg chewable tablet 1 tab PO DAILY 01/02/25 01/03/25 Unknown History bacitracin zinc 500 unit/gram 1 appl topical BID PRN abrasions, 01/02/25 01/03/25 Unknown History topical ointment GT irritated skin carbamide peroxide 6.5 % ear drops 4 drp otic (ears) BID PRN for 5 01/02/25 01/03/25 Unknown History (Ear Wax Removal Drops) days monthly cetirizine 10 mg tablet 10 mg PO DAILY 01/02/25 01/03/25 Unknown History qtgrllspe-spxH-jvhlukx-FOS-bromelain 3 ml PO BID 01/02/25 01/03/25 Unknown History 1,937 mg-188 mg/15 mL oral liquid dextromethorphan-guaifenesin 10 10 ml PO Q6H PRN Cough 01/02/25 01/03/25 Unknown History mg-100 mg/5 mL oral liquid (Tussin DM) diazepam 5 mg tablet 5 mg PO DAILY PRN 1 hour prior to 01/02/25 01/03/25 Unknown History dental appointment ergocalciferol (vitamin D2) 1,250 1,250 mcg PO FR@2100 01/02/25 01/03/25 01/02/25 History mcg (50,000 unit) capsule fluticasone propionate 50 1 spray intranasal DAILY 01/02/25 01/03/25 Unknown History mcg/actuation nasal spray,suspension kikjuxqfmrr-dlzyyixos-eoe C-Mn 500 1 cap PO TID 01/02/25 01/03/25 Unknown History mg-400 mg capsule (Glucosamine Chondroitin Maximum Strength) lorazepam 1 mg tablet 1 mg PO DAILY PRN 2 hours prior to 01/02/25 01/03/25 Unknown History GT changes lorazepam 1 mg tablet 1 mg PO DAILY PRN 2 hours prior to 01/02/25 01/03/25 Unknown History podiatry foot care omega-3 fatty acids-vitamin E 3 cap PO BID 01/02/25 01/03/25 Unknown History 1,000 mg capsule omeprazole 40 mg capsule,delayed 40 mg PO BEDTIME 01/02/25 01/03/25 Unknown History release pediatric multivitamin 1 tab PO DAILY 01/02/25 01/03/25 Unknown History pravastatin 10 mg tablet 10 mg PO BEDTIME 01/02/25 01/03/25 Unknown History quetiapine 25 mg tablet 25 mg PO BID 01/02/25 01/03/25 Unknown History simethicone 40 mg/0.6 mL oral 160 mg feeding tube TID 01/02/25 01/03/25 Unknown History drops,suspension (Infants Simethicone) tizanidine 2 mg tablet 2 mg PO DAILY 01/02/25 01/03/25 Unknown History tizanidine 2 mg tablet 4 mg PO BEDTIME 01/02/25 01/03/25 Unknown History valproic acid (as sodium salt) 250 1,000 mg PO Q12H 01/02/25 01/03/25 01/03/25 History mg/5 mL oral solution Physical Exam Vital Signs: Vital Signs: Last Vital Signs Temp 99.5 F 01/04/25 07:35 Pulse 140 H 01/04/25 10:00 Resp 20 01/04/25 07:35 BP 70/57 L 01/04/25 10:00 Pulse Ox 97 01/04/25 07:35 O2 Del Method Nasal Cannula 01/04/25 07:35 O2 Flow Rate 1 01/04/25 07:35 BMI result Body Mass Index 20.7 GENERAL APPEARANCE: Nonverbal. Does not appear to be distress. NECK: no jugular venous distention. HEART: no murmurs, irregular rate and rhythm. Tachycardic. LUNGS: Crackles left lung anteriorly. ABDOMEN: soft, nontender. Colostomy in place. NEUROLOGIC: Nonverbal. Repetitive hand movements. Objective Labs and Meds 01/04/25 07:21 01/04/25 07:21 Lab results: Laboratory Results - last 24 hr 01/03/25 01/03/25 01/03/25 10:51 11:46 14:13 WBC 6.6 RBC 2.99 L Hgb 8.4 L Hct 25.3 L MCV 84.6 MCH 28.1 MCHC 33.2 RDW 15.2 Plt Count 193 MPV 8.3 L Immature Gran % (Auto) 0.3 Neut % (Auto) 51.9 Lymph % (Auto) 34.6 [place] % (Auto) 11.9 H Eos % (Auto) 1.1 Baso % (Auto) 0.2 Lymph # (Auto) 2.3 [place] # (Auto) 0.8 Eos # (Auto) 0.1 Baso # (Auto) 0.0 Abs Immat Gran (auto) 0.02 Absolute Neuts (auto) 3.4 Absolute Nucleated RBC 0.000 Nucleated RBC % (auto) 0.0 Sodium Potassium Chloride Carbon Dioxide Anion Gap BUN Creatinine Estim Creat Clear Calc Estimated GFR Random Glucose Lactic Acid F/U @ 2Hr 1.9 Calcium Total Bilirubin AST ALT Alkaline Phosphatase Total Protein Albumin Urine Color Yellow Urine Appearance Clear Urine pH 5.5 Ur Specific [place] 1.010 Urine Protein Negative Urine Glucose (UA) Negative Urine Ketones Negative Urine Blood Negative Urine Nitrite Negative Ur Leukocyte Esterase Large (3+) H Urine RBC 0-2 Urine WBC >50 H Ur Squamous Epith Cells 0-2 Urine Bacteria None Seen Hyaline Casts 0-2 Influenza Type A (PCR) NEGATIVE Influenza Type B (PCR) NEGATIVE RSV RNA Qual (PCR) NEGATIVE SARS-CoV-2 RNA (RT-PCR) NEGATIVE Blood Type B Negative Antibody Screen NEGATIVE 01/04/25 07:21 WBC 5.3 RBC 2.60 L Hgb 7.3 L Hct 21.7 L MCV 83.5 MCH 28.1 MCHC 33.6 RDW 14.8 Plt Count 174 MPV 8.1 L Immature Gran % (Auto) 0.4 Neut % (Auto) 59.3 Lymph % (Auto) 24.3 [place] % (Auto) 15.4 H Eos % (Auto) 0.4 Baso % (Auto) 0.2 Lymph # (Auto) 1.3 [place] # (Auto) 0.8 Eos # (Auto) 0.0 Baso # (Auto) 0.0 Abs Immat Gran (auto) 0.02 Absolute Neuts (auto) 3.1 Absolute Nucleated RBC 0.000 Nucleated RBC % (auto) 0.0 Sodium 137 Potassium 4.0 Chloride 107 Carbon Dioxide 21 L Anion Gap 13 BUN 5 L Creatinine 0.72 Estim Creat Clear Calc 83.3 Estimated GFR > 60 Random Glucose 95 Lactic Acid F/U @ 2Hr Calcium 9.1 D Total Bilirubin 0.6 AST 16 ALT 6 Alkaline Phosphatase 65 Total Protein 7.2 Albumin 3.9 Urine Color Urine Appearance Urine pH Ur Specific [place] Urine Protein Urine Glucose (UA) Urine Ketones Urine Blood Urine Nitrite Ur Leukocyte Esterase Urine RBC Urine WBC Ur Squamous Epith Cells Urine Bacteria Hyaline Casts Influenza Type A (PCR) Influenza Type B (PCR) RSV RNA Qual (PCR) SARS-CoV-2 RNA (RT-PCR) Blood Type Antibody Screen Assessment and Plan (1) Atrial fibrillation with RVR: Status: Acute Plan AFib with RVR in 69-year-old gentleman with cerebral palsy and potentially UTI. Agree with amiodarone IV given hypotension. May need support with some phenylephrine or vasopressin. AFib rarely is a cause for hypotension in patients. In any case currently if no other cause is found then AFib can be the cause and if it is difficult to control then cardioversion can be a possibility but we have to consider overall risk and benefit in this 69-year-old gentleman with cerebral palsy and poor neurological status at baseline. Supportive care with antibiotics and potentially transfusion. Continue amiodarone for now. Thank you for allowing me to participate in the care of your patient. Please feel free to contact me if you have any questions. Procedures Date of Service Date of Service: 01/04/25
[2025-01-04 14:16] LABS: MANUAL DIFF FLAG NO
[2025-01-04 14:19] LABS: Basophils Percent Auto 0.2 % (0-2); Eosinophils Percent Auto 0.2 % (0-4); Hematocrit 24.8 % (42.0-52.0); Hemoglobin 8.2 g/dl (14.0-18.0); Imm Gran Abs Auto 0.02 X10*3/uL (0.00-0.03); Imm Gran Pct Auto 0.3 % (0.0-0.4); Lymphocytes Absolute Auto 1.5 X10*3/uL (1.2-4.9); Lymphocytes Percent Auto 22.6 % (20-40); Mean Corpuscular HGB Conc 33.1 g/dl (31.0-36.0); Mean Corpuscular Hemoglobin 28.6 pg (27.0-33.0); Mean Corpuscular Volume 86.4 fL (80.0-98.0); Mean Platelet Volume 8.4 fL (9.4-12.4); Monocytes Absolute Auto 1.1 X10*3/uL (0.1-1.2); Monocytes Percent Auto 16.6 % (2-11); Neutrophils Absolute Auto 3.9 x10*3/uL (2.0-8.3); Neutrophils Percent Auto 60.1 % (45-73); Platelet Count 182 X10*3/uL (160-400); Red Blood Count 2.87 X10*6/uL (4.60-5.80); Red Cell Distribution Width 15.2 % (11.0-16.0); White Blood Count 6.6 X10*3/uL (4.8-10.8)
--- NOTE | 2025-01-04 16:47 | PC.NURSE ---
Responded to MATTRESS INSPECTOR in room 460 at approx. 0925- Pt. afib on tele, HR 150s-170s, SBPs 60s-80s with MAPs <65. Pt. placed in trendelenburg position, 1 L IVF bolus started. Amio load dose given per NOV, maintenance amio gtt started immediately after completion of load dose. ICU transfer orders placed. Pt. transported to ICU by this RN at approx 1000. on arrival to ICU, pt. HR 100s-140s, SBPs 80s-100s with MAPs >60- MAP goal >60 per [employer]. Pt. non-verbal at baseline, legally blind, +cough, gag, and pain response. Does not follow commands. long-term staff at bedside, states that patient is at baseline mentation. Additional IV access obtained. Amio gtt running per NOV. Pt. on RA with 02 sats >92%. +BS, passing flatus and stool via ostomy. Gtube clamped. Pt on pureed diet, 1:1 feed, spitting out food. Suprapubic cath in place, draining dark yellow urine. Hovermat system put into place, Q2hr repositioning performed. Currently VSS- HR 106, BP 126/74, RR 20, O2 92%. Pt. has not required vasopressors since transfer to ICU. Plan of care ongoing.
[2025-01-05] VITALS (18 sets, daily range): BP systolic 98–168; BP diastolic 52–89; PULSE 78–100; RESP 15–31; TEMP 36–37.4; O2SAT 89–98; BMI 20.7
[2025-01-05] MEDS: Amiodarone HCL 200 MG TABLET 400 MG PO ×3 (01:53→21:19)
[2025-01-05 05:52] LABS: VBG Base Excess -1.7 mmol/L; VBG HCO3 19 mmol/L (22-26); VBG pCO2 21 mmHg; VBG pH 7.56 (7.32-7.43); VBG pO2 93 mmHg
[2025-01-05 05:55] LABS: MANUAL DIFF FLAG NO
[2025-01-05 05:58] LABS: Basophils Percent Auto 0.2 % (0-2); Eosinophils Percent Auto 0.1 % (0-4); Hematocrit 25.1 % (42.0-52.0); Hemoglobin 8.2 g/dl (14.0-18.0); Imm Gran Abs Auto 0.04 X10*3/uL (0.00-0.03); Imm Gran Pct Auto 0.4 % (0.0-0.4); Lymphocytes Absolute Auto 1.7 X10*3/uL (1.2-4.9); Lymphocytes Percent Auto 18.7 % (20-40); Mean Corpuscular HGB Conc 32.7 g/dl (31.0-36.0); Mean Corpuscular Volume 85.7 fL (80.0-98.0); Mean Platelet Volume 8.4 fL (9.4-12.4); Monocytes Absolute Auto 1.2 X10*3/uL (0.1-1.2); Monocytes Percent Auto 12.8 % (2-11); Neutrophils Absolute Auto 6.3 x10*3/uL (2.0-8.3); Neutrophils Percent Auto 67.8 % (45-73); Platelet Count 221 X10*3/uL (160-400); Red Blood Count 2.93 X10*6/uL (4.60-5.80); Red Cell Distribution Width 14.9 % (11.0-16.0); White Blood Count 9.3 X10*3/uL (4.8-10.8)
[2025-01-05 05:59] LABS: Venous Blood Gas Refer to POC result
[2025-01-05 06:14] LABS: Alanine Aminotransferase 17 U/L (0-40); Albumin Level 3.6 g/dL (3.5-5.0); Alkaline Phosphatase 76 U/L (39-117); Anion Gap 14 (12-20); Aspartate Amino Transferase 30 U/L (5-37); Bilirubin Total 0.5 mg/dL (0.0-1.0); Blood Urea Nitrogen 12 mg/dL (9-16); Calcium 9.2 mg/dL (8.4-10.2); Carbon Dioxide 17 mmol/L (22-29); Chloride 110 mmol/L (96-108); Creatinine Clr Calc Pharmacy 65.2; Estimated Glomerular Filt Rate > 60; Glucose Random 121 mg/dL (60-115); Phosphorus 3.3 mg/dL (2.7-4.5); Potassium 4.2 mmol/L (3.3-5.1); Sodium 137 mmol/L (135-145); Total Protein 7.5 g/dL (6.5-8.0)
--- NOTE | 2025-01-05 07:00 | PC.NURSE ---
Critical Care Nursing Note? Assumed care of the patient at 1900, patient?s caregiver from [facility] at bedside until 2229. Patient with minimal urine output,Heidy Leblanc NP notified.? Patient placed on 1LNC to maintain oxygen saturation above 90%. Amiodarone gtt discontinued, transitioned to PO amiodarone, administered via G-tube.
[2025-01-05] MEDS: 0.9 % Sodium Chloride Flush 3 ML SYRINGE IVFLUSH ×3 (07:50→21:19)
[2025-01-05] MEDS: levoFLOXacin/D5W 500 MG/100 ML PIGGYBACK 100 MG IV (07:59)
--- NOTE | 2025-01-05 10:20 | PM.PNCARD ---
Subjective Subjective Date of Service: 01/05/25 Principal diagnosis: Atrial fibrillation Interval history: Patient as per the caretakers from his shelter to his baseline status. Hemodynamically stable at this point time. Patient was multiple other non cardiac issues Review of Systems Review of Systems Yes Unobtainable due to mental status Physical Exam Vital Signs: Last Vital Signs Temp 96.8 F 01/05/25 08:00 Pulse 78 01/05/25 10:00 Resp 16 01/05/25 10:00 BP 122/58 L 01/05/25 10:00 Pulse Ox 95 01/05/25 10:00 O2 Del Method Nasal Cannula 01/05/25 10:00 O2 Flow Rate 1 01/05/25 10:00 BMI result Body Mass Index 20.7 Const Nutritional Appearance: cachectic Neck Neck: Yes trachea midline, Yes supple and Yes no JVD Resp Effort & Inspection: decreased respiratory effort Auscultation: diminished lung sounds Cardio Rate: regular rate Rhythm: regular rhythm Heart sounds: S1 normal heart sound present, S2 normal heart sound present, no click, no gallops and no murmurs GI Auscultation: normal bowel sounds Neuro General: moves all extremities Extrem General: Yes no clubbing, cyanosis or edema Objective Labs and Meds 01/05/25 05:47 01/05/25 05:47 Lab results: Laboratory Results - last 24 hr 01/04/25 01/05/25 14:12 05:47 WBC 6.6 9.3 RBC 2.87 L 2.93 L Hgb 8.2 L 8.2 L Hct 24.8 L 25.1 L MCV 86.4 85.7 MCH 28.6 28.0 MCHC 33.1 32.7 RDW 15.2 14.9 Plt Count 182 221 MPV 8.4 L 8.4 L Immature Gran % (Auto) 0.3 0.4 Neut % (Auto) 60.1 67.8 Lymph % (Auto) 22.6 18.7 L [place] % (Auto) 16.6 H 12.8 H Eos % (Auto) 0.2 0.1 Baso % (Auto) 0.2 0.2 Lymph # (Auto) 1.5 1.7 [place] # (Auto) 1.1 1.2 Eos # (Auto) 0.0 0.0 Baso # (Auto) 0.0 0.0 Abs Immat Gran (auto) 0.02 0.04 H Absolute Neuts (auto) 3.9 6.3 Absolute Nucleated RBC 0.000 0.000 Nucleated RBC % (auto) 0.0 0.0 VBG pH 7.56 H VBG pCO2 21 VBG pO2 93 VBG HCO3 19 L VBG O2 Saturation 99.0 VBG Base Excess -1.7 Sodium 137 Potassium 4.2 Chloride 110 H Carbon Dioxide 17 L Anion Gap 14 BUN 12 Creatinine 0.92 Estim Creat Clear Calc 65.2 Estimated GFR > 60 Random Glucose 121 H Calcium 9.2 Phosphorus 3.3 Magnesium 2.0 Total Bilirubin 0.5 AST 30 ALT 17 Alkaline Phosphatase 76 Total Protein 7.5 Albumin 3.6 Progress Note: A&P Assessment and plan (1) Atrial fibrillation with RVR: Status: Acute Assessment and Plan: Symptomatic atrial fibrillation in lieu of significant hypotension with atrial fibrillation. This usually suggest probably either autonomic dysfunction given his prior history of labile blood pressures as well as possible hypovolemia. His atrial fibrillation resolved in his blood pressures improved. We will pursue to maintain rhythm to prevent future episodes of hypotension. Continue with amiodarone loading 400 mg b.i.d. for 2 weeks and then followed by 200 mg daily. Overall his prognosis is limited given his multiple noncardiac issues. At this point time I do not think he is a candidate for anticoagulation he was no other risk factors. Will sign of the case. Thank you for allowing me to partake in his care Time Spent With Patient Time: Total time managing care of this patient today ____ minutes. Progress Note: Quality Stroke Does the patient have a stroke diagnosis?: No Procedures Date of Service Date of Service: 01/05/25
--- NOTE | 2025-01-05 11:39 | P.PNCC_ITS ---
Subjective Subjective Date of Service: 01/05/25 Interval History: Currently in sinus rhythm, off amiodarone drip Critical Care Time (minutes): 30 Physical Exam 2 Vital Signs: Vital Signs: Last Vital Signs Temp 96.8 F 01/05/25 08:00 Pulse 94 01/05/25 11:00 Resp 24 H 01/05/25 11:00 BP 98/52 L 01/05/25 11:00 Pulse Ox 97 01/05/25 11:00 O2 Del Method Room Air 01/05/25 11:00 O2 Flow Rate 1 01/05/25 10:00 BMI result Body Mass Index 20.7 General: Elderly male with significant neuro deficits, sitting in the bed comfortable Nutritional Appearance: well nourished and overweight Eyes: appearance normal, both eyes and all related structures; Alignment and Position: alignment normal and position normal Neck: No lymphadenopathy, no thyromegaly Resp: bilateral air entry equal, occasional added sounds present Cardio: Regular rate, regular rhythm; Heart sounds: S1 normal heart sound present and S2 normal heart sound present GI: soft, nontender, no guarding, no hepatosplenomegaly , PEG tube present : bladder normal to inspection, bladder normal to palpation, no renal angle tenderness Skin: no rashes or lesions noted and elasticity normal Neuro: Significant baseline neuro deficit, no new changes Objective Data Labs 01/05/25 05:47 01/05/25 05:47 Labs: Laboratory Results - last 24 hr 01/04/25 01/05/25 14:12 05:47 WBC 6.6 9.3 RBC 2.87 L 2.93 L Hgb 8.2 L 8.2 L Hct 24.8 L 25.1 L MCV 86.4 85.7 MCH 28.6 28.0 MCHC 33.1 32.7 RDW 15.2 14.9 Plt Count 182 221 MPV 8.4 L 8.4 L Immature Gran % (Auto) 0.3 0.4 Neut % (Auto) 60.1 67.8 Lymph % (Auto) 22.6 18.7 L [place] % (Auto) 16.6 H 12.8 H Eos % (Auto) 0.2 0.1 Baso % (Auto) 0.2 0.2 Lymph # (Auto) 1.5 1.7 [place] # (Auto) 1.1 1.2 Eos # (Auto) 0.0 0.0 Baso # (Auto) 0.0 0.0 Abs Immat Gran (auto) 0.02 0.04 H Absolute Neuts (auto) 3.9 6.3 Absolute Nucleated RBC 0.000 0.000 Nucleated RBC % (auto) 0.0 0.0 VBG pH 7.56 H VBG pCO2 21 VBG pO2 93 VBG HCO3 19 L VBG O2 Saturation 99.0 VBG Base Excess -1.7 Sodium 137 Potassium 4.2 Chloride 110 H Carbon Dioxide 17 L Anion Gap 14 BUN 12 Creatinine 0.92 Estim Creat Clear Calc 65.2 Estimated GFR > 60 Random Glucose 121 H Calcium 9.2 Phosphorus 3.3 Magnesium 2.0 Total Bilirubin 0.5 AST 30 ALT 17 Alkaline Phosphatase 76 Total Protein 7.5 Albumin 3.6 Microbiology Microbiology Results: Microbiology 01/03/25 09:23 Blood - Venous Blood Culture - Preliminary No growth after 48 hours. 01/03/25 09:21 Blood - Venous Blood Culture - Preliminary No growth after 48 hours. 01/03/25 Unknown Urine Catheterized - Graff Catheter Urine Culture - Final No growth. Progress Note: A&P Assessment and plan (1) Hypotension: Status: Acute (2) Atrial fibrillation with RVR: Status: Acute (3) Cerebral palsy: Status: Acute (4) Acute hypoxic respiratory failure: Status: Acute (5) Anemia: Status: Acute (6) Urinary tract infection: Status: Acute Plan 69-year-old gentleman with underlying history of cerebral palsy, atonic megacolon status post colostomy, neurogenic bladder status post suprapubic catheter, chronic hyponatremia readmitted on 01/03/2025 with hypotension initially responsive to IV fluids. Patient was started on IV Levaquin secondary to his underlying allergies and admitted to telemetry [facility]. Hospital course significant for development of AFib with RVR with significant hypotension requiring amiodarone bolus and drip and transfer to the intensive care unit. Here in the intensive care unit patient did not require any vasopressor support, does not have a history of atrial fibrillation this is the 1st episode of atrial fibrillation that reverted back to sinus rhythm with amiodarone drip. Amiodarone has been switched to p.o., currently patient is in sinus rhythm with blood pressure stable. Not placing the patient on anticoagulation as this was the 1st episode of AFib, currently in sinus rhythm and we he has a very high- risk for bleeding. We will transfer him to the floor. Quality Stroke Does the patient have a stroke diagnosis?: No VTE Prior VTE?: No VTE Risk Level:: Medical - moderate - high VTE Device Contraindication: Treatment Not Indicated VTE Drug Contraindication: N/A - Med Ordered
--- NOTE | 2025-01-05 12:07 | MHC.CLN ---
PT WITH INCREASED NUTRITION NEEDS R/T CP DX. 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 PT WITH G-TUBE TO SUPPLEMENT NUTRITION NEEDS WHEN PO INTAKE IS LOW DIET RX: PUREED WILL ADD ENSURE FOR SUPPLEMENTATION VIA G-TUBE WHEN PO INTAKE <75% SUPPLEMENT TO PROVIDE 1050KCALS, 60G PROTEIN WITH 100% ACCEPTANCE MONITOR PO INTAKE CLOSELY SEE ALSO CLINICAL NUTRITION ASSESSMENT
--- NOTE | 2025-01-05 13:31 | MHC.CM.PN ---
Pt is not able to communicate: information obtained from EMR and ICU care team. [facility] at a [facility] where he is totally dependent for all care needs including feeding, bathing dressing and elimination. He has a legal guardian, Sammie LupeYaa ([phone]): message left requesting callback. Pt transfers via BLS. Message also left for supervisor wet end, Elver at [phone]. IMM in chart: guardianship on file. Pt is expected to return to [facility]: will discuss home needs re: meds/paperwork/forms when Elver returns call. CM to follow
[2025-01-05] MEDS: Enoxaparin Sodium 40 MG/0.4 ML SYRINGE SUBCUT (13:42)
[2025-01-06 03:50] VITALS: BP 173/114; PULSE 97; RESP 18; TEMP 36.4; O2SAT 94
[2025-01-06] MEDS: 0.9 % Sodium Chloride Flush 3 ML SYRINGE IVFLUSH ×3 (07:54→20:21)
[2025-01-06] MEDS: Amiodarone HCL 200 MG TABLET 400 MG PO ×2 (07:54→20:20)
[2025-01-06] MEDS: levoFLOXacin/D5W 500 MG/100 ML PIGGYBACK 100 MG IV (07:54)
[2025-01-06] MEDS: Acetaminophen 325 MG TABLET 650 MG PO (07:54)
[2025-01-06 07:57] VITALS: BP 161/72; PULSE 73; RESP 18; TEMP 36.2; O2SAT 97
[2025-01-06 11:46] VITALS: BP 152/76; PULSE 74; RESP 18; TEMP 36.3; O2SAT 96
[2025-01-06] MEDS: Enoxaparin Sodium 40 MG/0.4 ML SYRINGE SUBCUT (13:17)
--- NOTE | 2025-01-06 15:26 | HO.PM.IMPN ---
Subjective Subjective Date of Service: 01/06/25 Interval History: No acute issues since transfer out from ICU. Remains in sinus rhythm Review of Systems Unable to obtain Physical Exam Vital Signs: Vital Signs: Last Vital Signs Temp 97.3 F 01/06/25 11:46 Pulse 74 01/06/25 11:46 Resp 18 01/06/25 11:46 BP 152/76 H 01/06/25 11:46 Pulse Ox 96 01/06/25 11:46 O2 Del Method Room Air 01/06/25 11:46 O2 Flow Rate 2 01/05/25 20:00 BMI result Body Mass Index 20.7 Const: Other: Opens eyes to verbal stimuli otherwise nonverbal at baseline Resp: Other: Clear to auscultation bilaterally no rales rhonchi or wheezes Cardio: Other: No S4; positive S1-S2; no S3 murmurs rubs or gallops GI: Other: Soft nontender nondistended normoactive bowel sounds Objective Data Active Medications Acetaminophen (Acetaminophen 325 Mg Tablet) 650 mg PO Q6H PRN PRN Reason: Pain, Mild 1-3,fever,headache Last Admin: 01/06/25 07:54 Dose: 650 mg Documented By: MINH Amiodarone HCl (Amiodarone Hcl 200 Mg Tablet) 400 mg PO BID [facility] Last Admin: 01/06/25 07:54 Dose: 400 mg Documented By: MINH Enoxaparin Sodium (Enoxaparin Sodium 40 Mg/0.4 Ml Syringe) 40 mg SUBCUT Q24H [facility] Last Admin: 01/06/25 13:17 Dose: 40 mg Documented By: MINH Levofloxacin (Levaquin) 500 mg in 100 mls @ 100 mls/hr IV Q24H [facility] Last Infusion: 01/06/25 09:29 Dose: Infused Documented By: MINH Ondansetron HCl (Ondansetron Hcl 4 Mg/2 Ml Vial) 4 mg IVPUSH Q8H PRN PRN Reason: Nausea and Vomiting Sodium Chloride (0.9 % Sodium Chloride Flush 3 Ml Syringe) 3 ml IVFLUSH QSHIFT [facility] Last Admin: 01/06/25 13:18 Dose: 3 ml Documented By: MINH Labs 01/05/25 05:47 01/05/25 05:47 Microbiology Microbiology Results: Microbiology 01/03/25 09:23 Blood Culture - Preliminary Blood - Venous No growth after 48 hours. 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 Patient's BP did normalize in-house and he was deemed acceptable for discharge back to shelter. This a.m., morning meds were given and staff noted patient pale and pressures in the 70s. EMS called the patient's transported to the emergency room where he responded to a fluid bolus of proximally 2 L. patient will be admitted to the floor for treatment of same 1.PAF with RVR (likely the culprit of presenting complaint) -now in sinus rhythm and hemodynamically stable -continue amiodarone load and then maintenance dose amiodarone -outpatient cardiology follow up 2.Question Klebsiella UTI -cultures negative -we will DC antibiotics 2. Chronic hyponatremia -continue IV fluids as ordered -follow renals/divalents 3. GERD -continue PPI as ordered Full code Lovenox Quality Stroke Does the patient have a stroke diagnosis?: No VTE Prior VTE?: No VTE Risk Level:: Medical - moderate - high VTE Device Contraindication: Treatment Not Indicated VTE Drug Contraindication: N/A - Med Ordered
[2025-01-06 15:56] VITALS: BP 144/70; PULSE 97; RESP 18; TEMP 36.8; O2SAT 94
[2025-01-06 20:00] VITALS: BP 191/98; PULSE 102; RESP 16; TEMP 36; O2SAT 97
[2025-01-06 20:40] VITALS: BP 162/85; PULSE 98
[2025-01-07] VITALS: BP 190/110; PULSE 98; RESP 16; TEMP 36.9; O2SAT 95
[2025-01-07 04:00] VITALS: BP 200/115; PULSE 93; RESP 16; TEMP 36; O2SAT 95
[2025-01-07] MEDS: Labetalol HCL 100 MG/20 ML VIAL 10 MG IVPUSH (04:54)
[2025-01-07 05:35] VITALS: BP 173/76; PULSE 84
--- NOTE | 2025-01-07 06:22 | PC.NURSE ---
Patient had elevated BP throughout the shift, though some discrepancies were noted due to patient constantly moving and twitching during the measurement. Assessment was also limited due to his cognitive impairment and physical disabilities. It was noticeably increased when 0400 vital was taken - 10mg Labetalol was administered with some improvement.
[2025-01-07 07:25] VITALS: BP 183/93; PULSE 90; RESP 19; TEMP 36.4; O2SAT 95
[2025-01-07] MEDS: levoFLOXacin/D5W 500 MG/100 ML PIGGYBACK 100 MG IV (09:46)
[2025-01-07] MEDS: 0.9 % Sodium Chloride Flush 3 ML SYRINGE IVFLUSH (09:47)
[2025-01-07] MEDS: Amiodarone HCL 200 MG TABLET 400 MG PO (09:47)
[2025-01-07 11:05] VITALS: BP 126/68; PULSE 100; RESP 18; TEMP 36.1; O2SAT 93
--- NOTE | 2025-01-07 11:28 | PM.DS ---
DS: Providers Provider Date of Service: 01/07/25 Date of admission: 01/03/25 13:29 Date of discharge: 01/07/25 Primary care physician: Oni Alvarez MD Consults: 01/04/25 09:13 Consult to Cardiology Routine Consulting Provider: [facility] Reason for consultation: AFIB/RVR Has provider been notified: Yes DS: Diagnosis Discharge Diagnosis (1) Atrial fibrillation with RVR: Status: Acute (2) Cerebral palsy: Status: Acute (3) Hypotension: Status: Acute DS: Summary Hospital Course Hospital Course: 69-year-old male with history of cerebral palsy chronic atonic megacolon colostomy neurogenic brown with super cute catheter in place chronic hyponatremia returns to the hospital with episode of unresponsiveness and hypotension. Patient recently hospitalized at [facility] for the similar presentation; workup essentially unremarkable and meds adjusted. Urine culture grew out Klebsiella however ID felt at that time colonization. nursing home states this morning patient was given routine meds and then blood pressure dropped into the 60s. Patient was unarousable and ambulance was called and transported to ER. In the emergency room patient more awake and responded to volume. He was given a single dose of Levaquin and will be admitted for further workup and treatment. Hospital Course Patient admitted to telemetry and empirically covered for Levaquin awaiting repeat urine cultures. On 01/04 in a.m. patient developed atrial fibrillation with a rapid ventricular response rate of 160-170 became pale diaphoretic and unresponsive. He was volume resuscitated with lactated Ringer's and albumin. His AFib was refractory to 2 doses of IV Lopressor; amiodarone bolus was administered followed by drip. He was transferred to ICU with did not require pressors. He spontaneously converted within the next 24 hours. He was transferred out to telemetry where he has remained in sinus rhythm. Staff has been present at all times and states on the morning of discharge he is back to his baseline without issues. His monitor has not shown a recurrence of atrial fibrillation. At this point in time he is medically acceptable for discharge back to senior care to complete the oral amiodarone load followed by daily dosing. He will follow up with Cardiology and his PCP next available Time Attestation Discharge Coordination Time (in mins): 35 Quality: Safe Use of Opioids Does Pt have an Active Cancer Diagnosis on the Problem List?: No Quality: Stroke Does the patient have a stroke diagnosis?: No Physical Exam Vital Signs: Vital Signs: Last Vital Signs Temp 97.0 F 01/07/25 11:05 Pulse 100 01/07/25 11:05 Resp 18 01/07/25 11:05 BP 126/68 01/07/25 11:05 Pulse Ox 93 01/07/25 11:05 O2 Del Method Room Air 01/07/25 11:05 O2 Flow Rate 2 01/05/25 20:00 BMI result Body Mass Index 20.7 Const: Other: Opens eyes to verbal stimuli otherwise nonverbal at baseline Resp: Other: Clear to auscultation bilaterally no rales rhonchi or wheezes Cardio: Other: No S4; positive S1-S2; no S3 murmurs rubs or gallops GI: Other: Soft nontender nondistended normoactive bowel sounds DS: Data Data Completed and Pending Labs on day of discharge: Preliminary micro results at discharge 01/03/25 09:23 Blood Culture - Preliminary Blood - Venous No growth after 48 hours. 01/03/25 09:21 Blood Culture - Preliminary Blood - Venous No growth after 48 hours. Discharge Plan Discharge Anticipated Discharge Date/Time: 01/07/25 11:18 Patient Disposition: Xfer Other Discharge Diagnosis: Atrial fibrillation with rapid ventricular response Referrals: Oni Alvarez MD [Primary Care Provider] - 1 Week Discharge Medications: New amiodarone 200 mg tablet See Rx Instructions .ROUTE .COMPLEX Qty: 60 0RF Rx Instructions: 200 mg orally; 2 tabs BID x 10 days.. then 200 mg daily Continued quetiapine 25 mg tablet 25 mg PO BID acetaminophen [Children's Acetaminophen] 160 mg/5 mL suspension 640 mg feeding tube Q6H PRN (Reason: pain/fever) tizanidine 2 mg tablet 2 mg PO DAILY tizanidine 2 mg tablet 4 mg PO BEDTIME cetirizine 10 mg tablet 10 mg PO DAILY dextromethorphan-guaifenesin [Tussin DM] 10-100 mg/5 mL Liquid 10 ml PO Q6H PRN (Reason: Cough) pediatric multivitamin Tablet,Chewable 1 tab PO DAILY bacitracin zinc 500 unit/gram Ointment 1 appl TOPICAL BID PRN (Reason: abrasions, GT irritated skin) Rx Instructions: do not use on ileostomy site omeprazole 40 mg capsule,delayed release(DR/EC) 40 mg PO BEDTIME pravastatin 10 mg tablet 10 mg PO BEDTIME valproic acid (as sodium salt) 250 mg/5 mL solution 1,000 mg PO Q12H Ear Wax Removal Drops 6.5 % drops 4 drp otic (ears) BID PRN (Reason: for 5 days monthly) simethicone [Infants Simethicone] 40 mg/0.6 mL drops,suspension 160 mg feeding tube TID aspirin 81 mg tablet,chewable 1 tab PO DAILY ergocalciferol (vitamin D2) 1,250 mcg (50,000 unit) capsule 1,250 mcg PO FR@2100 lorazepam 1 mg Tablet 1 mg PO DAILY PRN (Reason: 2 hours prior to podiatry foot care) lorazepam 1 mg Tablet 1 mg PO DAILY PRN (Reason: 2 hours prior to GT changes) fluticasone propionate 50 mcg/actuation Jackson,Suspension 1 spray INTRANASAL DAILY Rx Instructions: administer into each nostril diazepam 5 mg Tablet 5 mg PO DAILY PRN (Reason: 1 hour prior to dental appointment) [id number] C-Mn [Glucosamine Chondroitin MaxStr] 500-400 mg Capsule 1 cap PO TID omega-3 fatty acids-vitamin E 1,000 mg Capsule 3 cap PO BID [id number] 1,937-188 mg/15 mL Liquid 3 ml PO BID Discharge Orders: Discharge Order (Routine); Ordered 01/07/25 Ordered By: Inder Mehta Diet: Advance to usual diet Activity on Discharge: As tolerated Stand Alone Forms: Patient Portal Discharge page Print Language: Argentine Care Plan Goals: Continue all meds as taken prior to hospitalization Health Concerns: Take amiodarone 400 mg twice daily for 10 days then 200 mg daily. Follow up with PCP and Cardiology as scheduled Plan of Treatment: Resume plan of care as instituted by senior care Assessment: See discharge summary
--- NOTE | 2025-01-07 13:36 | MHC.CLN ---
F/U PT WITH INCREASED NUTRITION NEEDS R/T CP DX. 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 PT WITH G-TUBE TO SUPPLEMENT NUTRITION NEEDS WHEN PO INTAKE IS LOW PO INTAKE 50,75% X2 MEALS DIET RX: PUREED RECEIVING ENSURE FOR SUPPLEMENTATION VIA G-TUBE WHEN PO INTAKE <75% SUPPLEMENT TO PROVIDE 1050KCALS, 60G PROTEIN WITH 100% ACCEPTANCE MONITOR PO INTAKE CLOSELY
[2025-01-07] MEDS: Enoxaparin Sodium 40 MG/0.4 ML SYRINGE SUBCUT (14:02)
--- NOTE | 2025-01-07 15:43 | MHC.CM.PN ---
Pt has been medically cleared for DC, [facility]
--- NOTE | 2025-01-13 07:44 | P.CDIM_ITS ---
PROVIDER RESPONSE TEXT: To clarify, the appropriate diagnosis supported by the clinical indicators: Paroxysmal atrial fibrillation QUERY TEXT: PHYSICIAN'S DOCUMENTATION REQUEST Date of Query: 01/07/2025 09:03 AM EDT Patient Name: Clay Ross Admit Date: 01/03/2025 Dear Inder Mehta DO, A review of the medical record indicates additional documentation may be needed. Please review below and update the documentation accordingly. Clinical Indicators: Progress note dated 01/06/25 - PAF with RVR Now in sinus rhythm and hemodynamically stable. Continue Amiodarone load and then maintenance dose amiodarone. Outpatient cardiology follow up. If possible, please provide further specificity regarding atrial fibrillation, such as: Paroxysmal atrial fibrillation Persistent atrial fibrillation Permanent atrial fibrillation Other (explain) Clinically unable to determine (explain) Thank you, Emma Caruso, CCS, CDIS Use of terms such as suspected, likely, concern for, or probable (associated with a specific diagnosi s that is being evaluated, monitored, or treated as if it exists) are acceptable and can be coded in the inpatient se tting, when documented at the time of discharge. Please use your independent medical judgment in providing your response. THIS QUERY IS PART OF THE PERMANENT MEDICAL RECORD
--- NOTE | 2025-01-13 07:44 | P.CDIM_ITS ---
PROVIDER RESPONSE TEXT: To clarify, the appropriate diagnosis supported by the clinical indicators: After study Sepsis has been ruled out QUERY TEXT: PHYSICIAN'S DOCUMENTATION REQUEST Date of Query: 01/06/2025 08:42 AM EDT Patient Name: Clay Ross Admit Date: 01/03/2025 Dear Inder Mehta DO, A review of the medical record indicates additional documentation may be needed. Please review below and update the documentation accordingly. Clinical indicators: ICU Event note 01/04 - Patient with underlying cerebral palsy admitted with sepsis with likely urinary source further complicated by Afib. WBC 6.6 LA 3.2 HR 90 RR 16 BP 61/32 L Levaquin, IV fluids ICU progress note 01/05 - ICU patient did not require any vasopressor support, development of Afib and RVR with significant hypotension. Transfer to medical floor. Sepsis Systemic manifestations of infection, with 2 or more SIRS criteria which include: Fever > 100.4?F or hypothermia < 96.8?F Leukocytosis - WBC > 12,000 or leukopenia, WBC < 4,000, or > 10% bands Tachycardia- > 90 beats/minute Tachypnea- RR > 20 breaths/minute or PaCO2 < 32mmHg Based on the above information and the recognized standard for sepsis, could you please clarify if th is diagnoses is still accurate and reflective of the patient's condition to ensure quality of the medical record. Sepsis is/was present and is a clinical diagnosis based on After study Sepsis has been ruled out Other (explain) Clinically unable to determine (explain) Thank you, Emma Caruso, CCS, CDIS Use of terms such as suspected, likely, concern for, or probable (associated with a specific diagnosi s that is being evaluated, monitored, or treated as if it exists) are acceptable and can be coded in the inpatient se tting, when documented at the time of discharge. Please use your independent medical judgment in providing your response. THIS QUERY IS PART OF THE PERMANENT MEDICAL RECORD
== END 2025-01-07 14:56 | disposition other institution (70) | DRG 308 ==
LOC: HO.ED 13:31 → HO.EDOVER 14:11 → HO.S3 16:03 → HO.IMC 01-04 02:41 → HO.ICU 01-04 09:56 → HO.IMC 01-05 14:06
PROVIDERS: Internal Medicine Pulmonary Disease; Physician Assistant Medical; Admitting Provider Hospitalist; Emergency Provider Emergency Medicine; PCP Internal Medicine; Visit Provider Hospitalist
DX: I48.0 Paroxysmal atrial fibrillation (principal); J96.01 Acute respiratory failure with hypoxia; E87.1 Hypo-osmolality and hyponatremia; G80.9 Cerebral palsy, unspecified; H54.8 Legal blindness, as defined in USA; G90.9 Disorder of the autonomic nervous system, unspecified; N31.9 Neuromuscular dysfunction of bladder, unspecified; E86.1 Hypovolemia; Z93.50 Unspecified cystostomy status; K21.9 Gastro-esophageal reflux disease without esophagitis; I95.9 Hypotension, unspecified; Z93.3 Colostomy status; Z20.822 Contact with and (suspected) exposure to COVID-19; Z79.51 Long term (current) use of inhaled steroids; Z79.82 Long term (current) use of aspirin; Z79.899 Other long term (current) drug therapy
CPT/HCPCS: 0241U; 36415; 71045; 80048; 80053; 80076; 81001; 82272; 82803; 83605; 83690; 83735; 84100; 84145; 84443; 84484; 85025; 85027; 86140; 86850; 86900; 86901; 87040; 87086; 87088; 87147; 87186; 93005; 94799; 99285; J0282; J0283; J1650; J1920; J1956; J2470; J3475; J7120; P9047

== ENCOUNTER → 2025-01-03 09:13 | Outpatient (BNV) | payer MEDICARE, MEDICAID, SELFPAY | PROVIDERS: Emergency Provider Emergency Medicine; PCP Internal Medicine; Visit Provider Internal Medicine Cardiovascular Disease | DX: R41.82 Altered mental status, unspecified (principal) | CPT/HCPCS: 93010 ==

== ENCOUNTER → 2025-01-03 10:02 | Outpatient (BNV) | payer MEDICARE, MEDICAID, SELFPAY | PROVIDERS: Emergency Provider Emergency Medicine; PCP Internal Medicine; Visit Provider Hospitalist | DX: R82.71 Bacteriuria (principal); I95.9 Hypotension, unspecified | CPT/HCPCS: 99223 ==

== ENCOUNTER → 2025-01-03 10:20 | Outpatient (BNV) | payer MEDICARE, MEDICAID, SELFPAY | PROVIDERS: Emergency Provider Emergency Medicine; PCP Internal Medicine; Visit Provider Radiology Diagnostic Radiology | DX: J98.11 Atelectasis (principal) | CPT/HCPCS: 71045 ==

== ENCOUNTER 2025-01-03 13:29 | Outpatient (BNV) | payer MEDICARE, MEDICAID, SELFPAY | END 2025-01-04 08:05 | PROVIDERS: Admitting Provider Hospitalist; Emergency Provider Emergency Medicine; PCP Internal Medicine; Visit Provider Internal Medicine Cardiovascular Disease | DX: I48.91 Unspecified atrial fibrillation (principal) | CPT/HCPCS: 93010 ==

== ENCOUNTER → 2025-01-03 13:29 | Outpatient (BNV) | payer MEDICARE, MEDICAID, SELFPAY | PROVIDERS: Admitting Provider Hospitalist; Emergency Provider Emergency Medicine; PCP Internal Medicine; Visit Provider Internal Medicine Pulmonary Disease | DX: I95.9 Hypotension, unspecified (principal); N39.0 Urinary tract infection, site not specified; I48.91 Unspecified atrial fibrillation; H54.8 Legal blindness, as defined in USA; G80.9 Cerebral palsy, unspecified; Z93.3 Colostomy status | CPT/HCPCS: 99291 ==

== ENCOUNTER → 2025-01-03 13:29 | Outpatient (BNV) | payer MEDICARE, MEDICAID, SELFPAY | PROVIDERS: Admitting Provider Hospitalist; Emergency Provider Emergency Medicine; PCP Internal Medicine; Visit Provider Internal Medicine Cardiovascular Disease | DX: I48.91 Unspecified atrial fibrillation (principal) | CPT/HCPCS: 99223 ==

== ENCOUNTER → 2025-01-03 13:29 | Outpatient (BNV) | payer MEDICARE, MEDICAID, SELFPAY | PROVIDERS: Admitting Provider Hospitalist; Emergency Provider Emergency Medicine; PCP Internal Medicine; Visit Provider Internal Medicine Critical Care Medicine | DX: I48.91 Unspecified atrial fibrillation (principal); J96.01 Acute respiratory failure with hypoxia; G80.9 Cerebral palsy, unspecified; I95.9 Hypotension, unspecified; D64.9 Anemia, unspecified; N39.0 Urinary tract infection, site not specified | CPT/HCPCS: 99232 ==

== ENCOUNTER 2025-04-01 10:13 | Inpatient (IN) | payer MEDICARE, MEDICAID, SELFPAY ==
--- OUTSIDE RECORDS SUMMARY | 2025-03-30 23:59 | XMS_ITS | Continuity of Care Document ---
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 Associate Name Role Phone Oni Alvarez MD Primary Care Physician [phone] Encounter [facility] Date(s): 03/23/25 - 03/30/25 [facility] Adult [address] [place] [address]- Encounter Diagnosis Atrial fibrillation(Discharge Diagnosis) - 03/23/25 Anemia(Discharge Diagnosis) - 03/23/25 Attending Physician: Oni Alvarez MD Encounter Type: Office Visit Allergies, Adverse Reactions, Alerts Substance Criticality Severity Reaction Reaction Severity Status penicillin 1 Unknown Resolve d cephalosporins 2 Unknown Act evie penicillins Skin rash Active Tricor Unknown Active Macrobid rash Active Augmentin 3 Unknown Resolved Other Environmental Allergy Unknown Active pneumococcal vaccines CELLULITIS Active NSAIDs Unknown Active 1Tolerates piperacillin-tazobactam 2Tolerates piperacillin-tazobactam 3Tolerates piperacillin-tazobactam Immunizations Given and Recorded Vaccine Date Status Refusal Reason SARS-CoV-2(COVID-19)mRNA-LNP vac([id number]) 08/18/24 Recorded influenza virus vaccine, inactivated 07/23/24 Arun rded influenza virus vaccine, inactivated 07/17/22 Arun rded influenza virus vaccine, inactivated 06/21/21 Arun rded influenza virus vaccine, inactivated 06/18/20 Arun rded influenza virus vaccine, inactivated 06/12/17 Give n influenza virus vaccine, inactivated 07/12/16 Give n influenza virus vaccine, inactivated 06/26/15 Arun rded influenza virus vaccine, inactivated 08/09/14 Give n influenza virus vaccine, inactivated 1 06/25/13 Gi shahab SARS-CoV-2 (COVID-19) mRNA BNT-162b2 vac 08/04/21 Recorded SARS-CoV-2 (COVID-19) mRNA BNT-162b2 vac 10/28/20 Recorded SARS-CoV-2 (COVID-19) mRNA BNT-162b2 vac 10/04/20 Recorded pneumococcal 13-valent vaccine 05/18/20 Given Zoster Vaccine Live 07/18/19 Recorded Zoster Vaccine Live 05/15/19 Recorded Influenza Virus Vaccine (oldterm) 2 06/27/19 Recor ded Influenza Virus Vaccine (oldterm) 07/14/08 Given tetanus/diphtheria/pertussis, acel(Tdap) 11/27/12 Given FluLaval (oldterm) 07/03/12 Given FluLaval (oldterm) 3 06/19/11 Given FluLaval (oldterm) 4 07/13/10 Given FluLaval (oldterm) 5 06/29/09 Given Pneumococcal Vacc (oldterm) 11/22/10 Given pneumococcal 23-valent vaccine 10/23/10 Given Influenza Inactive (IM) (oldterm) 07/26/07 Given tetanus-diphtheria toxoids (Td) 6 11/12/02 Given 1Admin Note: [facility] 2Result Comment: [facility] [place] 3Admin Note: [employer] 4Admin Note: [employer] VIS [id number] given 5Admin Note: [employer] 6Admin Note: historical data Medications 18 moroccan catheter 18 moroccan catheter, See Instructions, # 1 each, Refills 11, Tot. Refills 11, Maintenance, Dx: Neurogenic bladder, 02/11/20 1:43:00 PM EDT, Compound Start Date: 02/11/20 Status: Ordered Quantity: 1.0 Unit: each Repeat number: 12 acetaminophen 160 mg/5 mL oral liquid See Instructions, TAKE 20 ML(640 MG) VIA GT EVERY 6HR NEEDED FEVER>101/JOYA/MINOR DISCOMFORT/NTE 4 DOSES/24HR/CALL MD IF PAIN NOT GONE AFTER 48 HRS IC MAPAP/TYLENOL CHILD PAIN RLF, # 118 mL, 5 Refills, Maintenance, 09/11/24 1:25:00 PM EST, [facility], 161, cm, 07/31/24 10:55:00 EST, Height, 59, kg, 06/04/24 9:13:00 EDT, Dry Weight Start Date: 09/11/24 Status: Ordered Quantity: 118.0 Unit: mL Repeat number: 1 Anterior Support, Chest strap. Anterior Support, Chest strap., See Instructions, # 1 each, Refills 0, Tot. Refills 0, Maintenance,[id number] chest strap. TheraFit Dynamic w/Ring adj. Medium, 07/04/23 3:40:00 PM EDT, Supply Start Date: 07/04/23 Status: Ordered Quantity: 1.0 Unit: each Repeat number: 1 bacitracin zinc 500 units/g topical ointment See Instructions, APPLY THIN LAYER TOPICALLY 2X DAILY X 7 DAYS PRN INFECTION PREVENTION / TO ABRASION/RED, IRRITATED SKIN, G/T OR S/P STOMA SITES / SEE ANCILLARY, # 28.4 Gm, 11 Refills, Maintenance, 03/06/24 4:22:00 PM EDT, [facility], 7, APPLY THIN LAYER TOPICALLY 2X DAILY X 7 DAYS PRN INFECTION PREVENTION / TO ABRASION/RED, IRRITATED SKIN, G/T OR S/P STOMA SITES / SEE ANCILLARY, 161, cm, 02/04/24 13:08:00 EDT, Height, 57.5, kg, 01/15/24 10:19:00 EDT, Dry Weight Start Date: 03/06/24 Status: Ordered Quantity: 28.4 Unit: g Repeat number: 1 baclofen 10 mg oral tablet 5 mg, 0.5, tablet, By Mouth, 3 times a day, # 45 tablet, Refills 0, Tot. Refills 0, Maintenance, 03/13/25 11:37:00 AM EDT, Route to Pharmacy Electronically, [facility], Partial fill upon patient request if the prescription is for a schedule II opioid drug., 152.4, cm, 03/13/25 8:22:00 EDT, Height, 60.2, kg, 02/20/25 16:50:00 EDT, Dry Weight Start Date: 03/13/25 Stop Date: 04/12/25 Status: Ordered Quantity: 45.0 Unit: tablet Repeat number: 1 Boost supplement via bolus tube Boost supplement via bolus tube, See Instructions, # 30 each, Refills 11, Tot. Refills 11, Maintenance, Dx: Z90.49 lifetime Daily at night, 02/24/22 11:11:00 AM EDT, Supply Start Date: 02/24/22 Status: Ordered Quantity: 30.0 Unit: each Repeat number: 12 carbamide peroxide 6.5% otic solution See Instructions, INSTILL 4 DROPS INTO EACH EAR TWICE DAILY FOR 5 DAYS EACH MONTH FOR EXCESS CERUMEN IC: CARBAMIDE PEROXIDE 6.5%, # 15 mL, 10 Refills, Maintenance, 01/10/24 3:14:00 PM EDT, [facility], 30, INSTILL 4 DROPS INTO EACH EAR TWICE DAILY FOR 5 DAYS EACH MONTH FOR EXCESS CERUMEN IC: CARBAMIDE PEROXIDE 6.5%, 152, cm, 06/28/23 10:13:00 EDT, Height, 62.5, kg, 05/28/23 12:08:00 EDT, Dry Weight Start Date: 01/10/24 Status: Ordered Quantity: 15.0 Unit: mL Repeat number: 1 catheter bags for bed catheter bags for bed, See Instructions, # 2 each, Refills 11, Tot. Refills 11, Maintenance, 2 OVERNIGHT DRAINAGE COLLECTION URINARY BAGS dx neurogenic bladder dx:indwelling delatorre catheter, 04/12/21 2:41:00 PM EDT, Compound Start Date: 04/12/21 Status: Ordered Quantity: 2.0 Unit: each Repeat number: 12 cetirizine 10 mg oral tablet 1 tablet, G Tube, Daily, FROM December 15 - June FOR SEASONAL ALLERGIES., # 30 tablet, 5 Refills, Maintenance, 12/15/24 3:20:00 PM EDT, [facility], 152, cm, 12/15/24 14:55:00 EDT, Height, 60, kg, 10/10/24 10:46:00 EST, Dry Weight Start Date: 12/15/24 Status: Ordered Quantity: 30.0 Unit: tablet Repeat number: 6 Children's Chewable Multivitamins oral tablet, chewable See Instructions, TAKE 1 TABLET BY G-TUBE DAILY IN AM SUPPLEMENT / CRUSH, # 30 tablet, 5 Refills, Maintenance, 02/05/25 2:53:00 PM EDT, [facility], 30, TAKE 1 TABLET BY G-TUBE DAILY IN AM SUPPLEMENT / CRUSH, 153, cm, 01/20/25 14:10:00 EDT, Height, 60, kg, 12/18/24 3:02:00 EDT, Dry Weight Start Date: 02/05/25 Status: Ordered Quantity: 30.0 Unit: tablet Repeat number: 1 Chondroitin-Glucosamine 400 mg-500 mg oral capsule See Instructions, TAKE 1 CAPSULE BY G-TUBE 3 TIMES A DAY, FOR ARTHRITIS 6AM, 4PM, 8PM (500/400 MG) OPEN CAP AND DISSOLVE, # 90 capsule, 3 Refills, Soft Stop, 06/08/23 8:45:00 AM EDT, [facility], TAKE 1 CAPSULE BY G-TUBE 3 TIMES A DAY, FOR ARTHRITIS 6AM, 4PM, 8PM (500/400 MG) OPEN CAP AND DISSOLVE, 152, cm, 06/07/23 13:01:00 EDT, Height, 62.5, kg, 05/28/23 12:08:00 EDT, Dry Weight Start Date: 06/08/23 Status: Ordered Quantity: 90.0 Unit: capsule Repeat number: 4 Cystex 0 Refills, Maintenance, 03/17/25 3:47:00 PM EDT, Partial fill upon patient request if the prescription is for a schedule II opioid drug. Start Date: 03/17/25 Status: Ordered Repeat number: 1 cystex cranberry liquid cystex cranberry liquid, 200mg/3ml, G Tube, 2 times a day, # 100 mL, Refills 1, Tot. Refills 1, Maintenance, 06/10/24 6:52:00 AM EDT, Supply, 161, cm, 06/04/24 9:18:00 EDT, Height, 59, kg, 06/04/24 9:13:00 EDT, Dry Weight Start Date: 06/10/24 Status: Ordered Quantity: 100.0 Unit: mL Repeat number: 2 CYSTEX CRANBERRY LIQUID Liquid CYSTEX CRANBERRY LIQUID Liquid, 200 mg, G Tube, 2 times a day, # 225 mL, 1 Refills, Maintenance, 02/23/25 8:42:00 AM EDT, 152.4, cm, 02/20/25 16:50:00 EDT, Height, 60.2, kg, 02/20/25 16:50:00 EDT, Dry Weight Start Date: 02/23/25 Status: Ordered Quantity: 225.0 Unit: mL Repeat number: 1 diazepam 5 mg oral tablet 5 mg, 1, tablet, G Tube, 1 hour PRIOR TO DENTAL PROCEDURES, Refills 0, Maintenance, 02/04/24 1:21:00PM EDT, Partial fill upon patient request if the prescription is for a schedule II opioid drug. Start Date: 02/04/24 Status: Ordered Repeat number: 1 sin seal #[id number] sin seal #[id number], See Instructions, # 20 each, Refills 11, Tot. Refills 11, Maintenance, use as needed for ostomy care dx = ileostomy, 12/04/23 12:49:00 PM EDT, Compound Start Date: 12/04/23 Status: Ordered Quantity: 20.0 Unit: each Repeat number: 12 Eliquis 5 mg oral tablet 1 tablet = 5 mg, G Tube, 2 times a day, # 180 tablet, 3 Refills, Maintenance, 03/17/25 4:30:00 PM EDT, Tablet, [facility], Partial fill upon patient request if the prescription is for a schedule II opioid drug., 152.4, cm, 03/17/25 15:42:00 EDT, Height, 60.2, kg, 02/20/25 16:50:00 EDT, Dry Weight Start Date: 03/17/25 Stop Date: 03/12/26 Status: Ordered Quantity: 180.0 Unit: tablet Repeat number: 4 ergocalciferol 47274 iu oral capsule See Instructions, TAKE 1 CAPSULE (50,000 UNITS) BY G-TUBE EVERY WEEK FOR BONE HEALTH IN PM / AND SQUEEZE CONTENTS INTO LIQUID (SUNDAY), # 4 capsule, Refills 12, Maintenance, 02/09/25 7:28:00 AM EDT, Instructions Replace Required Details, Route to Pharmacy Electronically, [facility], 153, cm, 04/29/25 14:10:00 EDT, Height, 60, kg, 12/18/24 3:02:00 EDT, Dry Weight Start Date: 02/09/25 Status: Ordered Quantity: 4.0 Unit: capsule Repeat number: 1 Fish Oil 1000 mg oral capsule 3 capsules, G Tube, 2 times a day, [place] capsule & give via G tube, # 60 capsule, 5 Refills, Maintenance, 08/13/20 4:13:00 PM EST, Capsule, [facility], 152, cm, 05/18/20 14:01:00 EDT, Height, 46.5, kg, 11/06/19 11:41:00 EST, Dry Weight Start Date: 08/13/20 Status: Ordered Quantity: 60.0 Unit: capsule Repeat number: 6 Fleet enema Fleet enema, See Instructions, # 2 each, Refills 0, Tot. Refills 0, Maintenance, 4.5 fl oz 133ml 1 before bedtime and 2 hours before procedure, 10/01/24 1:20:00 PM EST, Supply, 161, cm, 07/31/24 10:55:00 EST, Height, 59, kg, 06/04/24 9:13:00 EDT, Dry Weight Start Date: 10/01/24 Status: Ordered Quantity: 2.0 Unit: each Repeat number: 1 fluticasone 50 mcg/inh nasal spray See Instructions, 2 SPRAYS TO EACH NOSTRIL DAILY IN THE MORNING FOR ALLERGIES [id number] EACH NOSTRIL, # 16 Gm, 5 Refills, Maintenance, 10/17/24 7:14:00 AM EST, [facility], 30, 2 SPRAYS TO EACH NOSTRIL DAILY IN THE MORNING FOR ALLERGIES [id number] EACH NOSTRIL, 152, cm, 10/10/24 10:46:00 EST, Height, 60, kg, 10/10/24 10:46:00 EST, Dry Weight Start Date: 10/17/24 Status: Ordered Quantity: 16.0 Unit: g Repeat number: 1 Tory-Tussin DM 20 mg-200 mg/10 mL oral liquid 4 Doses, G Tube, Every 4 hours, PRN NEEDED FOR COUGH / NTE, / IC EXTRA ACTION COUGH 10-100MG/5ML., # 100 mL, 1 Refills, Maintenance, 12/26/24 9:01:00 AM EDT, [facility], 2, TAKE 10 ML BY G-TUBEEVERY 4 HOURS NEEDED FOR COUGH / NTE 4 DOSES IN 24 HRS / NOTIFY MD IF COUGH LASTS > 48 HRS / IC EXTRA ACTION COUGH 10-100MG/5ML, 153, cm, 12/18/24 3:02:00 EDT, Height, 60, kg, 12/18/24 3:02:00 E DT, Dry Weight Start Date: 12/26/24 Status: Ordered Quantity: 100.0 Unit: mL Repeat number: 1 insertion tray insertion tray, See Instructions, # 1 each, Refills 11, Tot. Refills 11, Maintenance, Dx: neurogenic bladder., 02/11/20 1:43:00 PM EDT, Compound Start Date: 02/11/20 Status: Ordered Quantity: 1.0 Unit: each Repeat number: 12 ketoconazole 2% topical cream See Instructions, APPLY A DIME SIZE AMOUNT TOPICALLY TWICE DAILY NEEDED FOR RED, IRRITATED SKIN AROUND GROIN X 7 DAYS/SEE ANCILLARY ORDER, # 60 Gm, 1 Refills, Maintenance, 03/12/24 8:45:00 AM EDT, [facility], 30, APPLY A DIME SIZE AMOUNT TOPICALLY TWICE DAILY NEEDED FOR RED, IRRITATED SKIN AROUND GROIN X 7 DAYS/SEE ANCILLARY ORDER, 161, cm, 02/04/24 13:08:00 EDT, Height, 57.5, kg, 01/15/24 10:19:00 EDT, Dry Weight Start Date: 03/12/24 Status: Ordered Quantity: 60.0 Unit: g Repeat number: 1 leg bag with tubing leg bag with tubing, See Instructions, # 2 each, Refills 11, Tot. Refills 11, Maintenance, Dx: neourgenic bladder Lifetime, 11/22/22 2:39:00 PM EST, Compound Start Date: 11/22/22 Status: Ordered Quantity: 2.0 Unit: each Repeat number: 12 loperamide 2 mg oral tablet See Instructions, TAKE 1 TABLET (2 MG) VIA G-TUBE TWICE DAILY NEEDED FOR DIARRHEA / STOP FOR CONSTIPATION OR IF STOOLS BECOME TOO FIRM / LOPERAMIDE 2 MG, # 60 tablet, 1 Refills, Maintenance, 05/10/23 10:37:00 AM EDT, [facility], 152, cm, 11/16/22 11:33:00 EST, Height, 60, kg, 05/31/22 12:04:00 EDT, Dry Weight Start Date: 05/10/23 Status: Ordered Quantity: 60.0 Unit: tablet Repeat number: 1 LORazepam 1 mg oral tablet See Instructions, TAKE 1 TABLET VIA G-TUBE TWO HOURS PRIOR TO G-TUBE CHANGE, # 1 tablet, 5 Refills,Maintenance, 03/11/25 1:50:00 PM EDT, [facility], 152.4, cm, 03/11/25 8:21:00 EDT, Height, 60.2, kg, 02/20/25 16:50:00 EDT, Dry Weight Start Date: 03/11/25 Status: Ordered Quantity: 1.0 Unit: tablet Repeat number: 6 LORazepam 1 mg oral tablet See Instructions, TAKE 1 TABLET VIA G-TUBE TWO HOURS PRIOR TO LICENSED REACTOR OPERATOR, # 1 tablet, 5 Refills, Maintenance, 05/19/24 7:16:00 AM EDT, [facility], 161, cm, 04/11/24 11:18:00 EDT, Height, 57.5, kg, 01/15/24 10:19:00 EDT, Dry Weight Start Date: 05/19/24 Status: Ordered Quantity: 1.0 Unit: tablet Repeat number: 6 mepilex foam dressing mepilex foam dressing, See Instructions, # 50 each, Refills 5, Tot. Refills 5, Maintenance, mepilexfoam dressing placed at needed, 03/25/25 2:43:00 PM EDT, Supply, 152.4, cm, 03/23/25 15:29:00 EDT, Height, 60.2, kg, 02/20/25 16:50:00 EDT, Dry Weight Start Date: 03/25/25 Status: Ordered Quantity: 50.0 Unit: each Repeat number: 6 metFORMIN 500 mg oral tablet 1 tablet = 500 mg, By Mouth, 2 times a day, # 180 tablet, 3 Refills, Maintenance, 03/23/25 3:49:00 PM EDT, Tablet, [facility], Partial fill upon patient request if the prescription is for a schedule II opioid drug., 152.4, cm, 03/23/25 15:29:00 EDT, Height, 60.2, kg, 02/20/25 16:50:00 EDT, Dry Weight Start Date: 03/23/25 Status: Ordered Quantity: 180.0 Unit: tablet Repeat number: 4 metoprolol 25 mg oral tablet 25 mg, 1, tablet, G Tube, 2 times a day, Hold for HR < 60, # 180 tablet, Refills 3, Tot. Refills3, Maintenance, 03/17/25 4:31:00 PM EDT, Route to Pharmacy Electronically, [facility], Partial fill upon patient request if the prescription is for a schedule II opioid drug., 152.4, cm, 03/17/2515:42:00 EDT, Height, 60.2, kg, 02/20/25 16:50:00 EDT, Dry Weight Start Date: 03/17/25 Stop Date: 03/12/26 Status: Ordered Quantity: 180.0 Unit: tablet Repeat number: 4 nystatin topical 926846 u/gm powder See Instructions, APPLY TO AFFECTED AREA TOPICALLY 3 TIMES A DAY FOR 7 DAYS NEEDED FOR FLAREUP OF RASH (FUNGAL RASH ON GROIN), # 30 Gm, 1 Refills, Maintenance, 08/09/23 4:32:00 PM EST, [facility], 7, APPLY TO AFFECTED AREA TOPICALLY 3 TIMES A DAY FOR 7 DAYS NEEDED FOR FLAREUP OF RASH (FUNGAL RASH ON GROIN), 152, cm, 06/28/23 10:13:00 EDT, Height, 62.5, kg, 05/28/23 12:08:00 EDT, Dry Weight Start Date: 08/09/23 Status: Ordered Quantity: 30.0 Unit: g Repeat number: 1 omeprazole 40 mg oral enteric coated capsule See Instructions, TAKE 1 CAPSULE (40MG) BY G-TUBE DAILY IN PM FOR GERD / OPEN CAPSULE, CRUSH, DISSOLVE IN WATER, # 30 capsule, 5 Refills, Maintenance, 03/26/25 7:33:00 PM EDT, [facility], 152.4, cm, 03/23/25 15:29:00 EDT, Height, 60.2, kg, 02/20/25 16:50:00 EDT, Dry Weight Start Date: 03/26/25 Status: Ordered Quantity: 30.0 Unit: capsule Repeat number: 1 ostomu pouch #[id number] ostomu pouch #[id number], See Instructions, # 20 each, Refills 11, Tot. Refills 11, Maintenance, use as needed for ostomy care dx = ileostomy, 12/04/23 12:49:00 PM EDT, Compound Start Date: 12/04/23 Status: Ordered Quantity: 20.0 Unit: each Repeat number: 12 pravastatin 10 mg oral tablet See Instructions, TAKE 1 TABLET (10MG) BY G-TUBE DAILY IN PM / TAB MAY BE CRUSHED AND DISSOLVED FORHYPERLIPIDEMIA, # 30 tablet, 5 Refills, Maintenance, 11/08/24 7:02:00 AM EST, [facility], 152, cm, 10/10/24 10:46:00 EST, Height, 60, kg, 10/10/24 10:46:00 EST, Dry Weight Start Date: 11/08/24 Status: Ordered Quantity: 30.0 Unit: tablet Repeat number: 1 shingrix vaccine shingrix vaccine, See Instructions, # 1 each, Refills 1, Tot. Refills 1, Maintenance, shingrix vaccine, 05/13/19 4:08:59 PM EDT, Compound Start Date: 05/13/19 Status: Ordered Quantity: 1.0 Unit: each Repeat number: 2 simethicone 20 mg/0.3 mL oral suspension 2.4 mL = 160 mg, G Tube, 3 times a day, Maintenance, 02/19/25 6:26:00 PM EDT, Partial fill upon patient request if the prescription is for a schedule II opioid drug. Start Date: 02/19/25 Status: Ordered Repeat number: 1 Skin Barrier Powder See Instructions, # 30 each, Refills 11, Tot. Refills 11, Maintenance, Please use as instructed by ostomy nurse, 12/04/23 12:49:00 PM EDT, Compound Start Date: 12/04/23 Status: Ordered Quantity: 30.0 Unit: each Repeat number: 12 Skin Prep Pads See Instructions, # 30 each, Maintenance, Please prep as instructed by ostomy nurse, 12/04/23 12:49:00 PM EDT, Compound Start Date: 12/04/23 Status: Ordered Quantity: 30.0 Unit: each Repeat number: 1 stoma powder stoma powder, See Instructions, # 30 each, Refills 11, Tot. Refills 11, Maintenance, use as needed for ostomy care dx = ileostomy, 12/04/23 12:49:00 PM EDT, Compound Start Date: 12/04/23 Status: Ordered Quantity: 30.0 Unit: each Repeat number: 12 Strap for leg bag Strap for leg bag, See Instructions, # 2 each, Refills 11, Tot. Refills 11, Maintenance, Use daily Dx: Cerebral Palsy G80.9, 12/01/22 8:29:00 AM EST, Supply Start Date: 12/01/22 Status: Ordered Quantity: 2.0 Unit: each Repeat number: 12 True Metrix Glucose Monitor True Metrix Glucose Monitor, See Instructions, # 1 each, Refills 0, Tot. Refills 0, Maintenance, Dx: Diabetic type 2 (E11.9) Use to check blood sugars once daily, 03/25/25 9:24:00 AM EDT, Supply, 152.4, cm, 03/23/25 15:29:00 EDT, Height, 60.2, kg, 02/20/25 16:50:00 EDT, Dry Weight Start Date: 03/25/25 Status: Ordered Quantity: 1.0 Unit: each Repeat number: 1 True Metrix Test Strips True Metrix Test Strips, See Instructions, # 100 each, Refills 11, Tot. Refills 11, Maintenance, Dx: Diabetic type 2 (E11.9) Use to check blood sugars once daily, 03/25/25 9:24:00 AM EDT, Supply, 152.4, cm, 03/23/25 15:29:00 EDT, Height, 60.2, kg, 02/20/25 16:50:00 EDT, Dry Weight Start Date: 03/25/25 Status: Ordered Quantity: 100.0 Unit: each Repeat number: 12 True Plus Lancets & Lancing Device True Plus Lancets & Lancing Device, See Instructions, # 100 each, Refills 11, Tot. Refills 11, Maintenance, Dx: Diabetic type 2 (E11.9) Use to check blood sugars once daily, 03/25/25 9:24:00 AM EDT, Supply, 152.4, cm, 03/23/25 15:29:00 EDT, Height, 60.2, kg, 02/20/25 16:50:00 EDT, Dry Weight Start Date: 03/25/25 Status: Ordered Quantity: 100.0 Unit: each Repeat number: 12 valproic acid 250 mg/5 mL oral syrup 20 mL = 1,000 mg, G Tube, 2 times a day, for 30 days, # 1,200 mL, 6 Refills, Hard Stop 06/08/26 5:00:00 PM EDT, 11/10/25 5:00:00 PM EST, Syrup, [facility], 153, cm, 01/20/25 14:10:00 EDT, Height, 60, kg, 12/18/24 3:02:00 EDT, Dry Weight Start Date: 11/10/25 Stop Date: 06/08/26 Status: Ordered Quantity: 1200.0 Unit: mL Repeat number: 7 Vanilla Boost Drink Vanilla Boost Drink, See Instructions, # 30 each, Refills 11, Tot. Refills 11, Maintenance, Daily use at bedtime, via G-tube. DX: Gastrostomy tube in place ICD-10: Z93.1, 02/02/23 1:01:00 PM EDT, Supply Start Date: 02/02/23 Status: Ordered Quantity: 30.0 Unit: each Repeat number: 12 Vitamin D2 1.25 mg/66862 units, By Mouth, once weekly on sunday, 0 Refills, Maintenance, 03/17/25 3:46:00 PM EDT, Partial fill upon patient request if the prescription is for a schedule II opioid drug. Start Date: 03/17/25 Status: Ordered Repeat number: 1 zinc oxide 22% topical cream See Instructions, Use topically twice daily for 7 days to affected areas until healed., # 1 each, 5Refills, Maintenance, 03/12/24 1:19:00 PM EDT, [facility], Partial fill upon patient request ifthe prescription is for a schedule II opioid drug., Use topically twice daily for 7 days to affected areas until healed., 161, cm, 02/04/24 13:08:00 EDT, Height, 57.5, kg, 01/15/24 10:19:00 EDT, Dry Weight Start Date: 03/12/24 Status: Ordered Quantity: 1.0 Unit: each Repeat number: 6 Problem List Condition Confirmation Course Effective Dates Status Health Status Informant Anemia Confirmed Active Atrial fibrillation Confirmed Active Bipolar disorder Confirmed Active Blindness, legal Confirmed Active Cerebral palsy Confirmed Active 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 Chronic hyponatremia Confirmed Active Colonoscopy 1, 2, 3, 4 Confirmed Active Dietary restriction 5 Confirmed Active Glucose intolerance Confirmed Active Hydrocele, right Confirmed Active Dysphagia Confirmed Active Gastrostomy tube in place Confirmed Active History of SIADH Confirmed Active H/O ileostomy Confirmed Active History of TIA (transient ischemic attack) 6 Confirmed Active Helicobacter pylori gastritis Confirmed Active Hiatal hernia 7 Confirmed Active History of weight loss Confirmed Active H/O total colectomy Confirmed Active Hydronephrosis, bilateral Confirmed Active Hypercholesterolemia Confirmed Active Hyperglycemia Confirmed Active Hyponatremia Confirmed Active Ileostomy in place Confirmed Active Intellectual disability Confirmed Active Nephrolithiasis Confirmed Active Lumbar spondylosis Confirmed Active Neurogenic bladder Confirmed Active Osteoporosis Confirmed Active Presence of indwelling urinary catheter Confirmed Active Decubitus ulcer, stage III Confirmed Active Renal insufficiency syndrome Confirmed Active Spondylosis, cervical Confirmed Active Subclinical hypothyroidism Confirmed Active Suprapubic catheter Confirmed Active Venous stasis Confirmed Active Vitamin D deficiency Confirmed Active Wheelchair dependent Confirmed Active 1History of colectomy and therefore no further colonoscopies needed. ; repeat 2023 3Colonoscopy January 2009 melanosis coli, repeat 2018. 4colo 2005 nl, repeat 2014 [id number] daily 6[facility] 2016 7EGD 2015 Diagnosis Diagnosis Type Effective Dates Health Status Clinical Service Informant Atrial fibrillation Discharge Diagnosis 03/23/25 Anemia Discharge Diagnosis 03/23/25 Social History Social History Type Response Smoking Status Never smoker entered on: 12/13/16 Sex Sex Representation Male (finding) Note * More [place]: PERFORM Event Display: Patient Education/Instruction Authored Date: [id number] Ambulatory Adult Visit Summary [facility] [address] [address] Name: WILBERT CARRERO : 1955?? Visit: 03/23/2025 15:23?? Ambulatory Visit Instructions ?? Your Care Team Primary Care Provider Oni Alvarez MD? This Visit Provider Oni Alvarez MD Your Diagnosis Atrial fibrillation Glucose intolerance Decubitus ulcer, stage III Anemia History of weight loss Vitals Signs Pulse Rate: 76 bpm Height: 152.4 cm Systolic Blood Pressure: 114 mm Hg ?? Diastolic Blood Pressure: 61 mm Hg ?? Oxygen Saturation: 99 % ?? What to do next Scheduled Follow-Up Appointments Sunday 10:00 AM EDT ?? With: Etienne TRUJILLO, [place] Where: [facility] [address] [place] [address]- Status: Pending Sunday 10:30 AM EDT ?? Where: [facility] [address] [place] [address]- Status: Pending Follow-Up Appointments Follow Up with??Kim FERRERA, Oni Acosta Why: As scheduled Where: ?? Medications The list below reflects the information in our records and provided by you today along with any changes made during this visit. Please continue your medications until treatment is completed or stopped by your provider. If this is different from the information you have or there are other questions,please contact the prescribing provider. What How Much When Instructions New Metformin (metFORMIN 500 mg oral tablet) 1 tab(s) Oral Twice a day Refills: 3 Pickup at [facility] Unchanged Acetaminophen (acetaminophen 160 mg/ 5 mL oral liquid) See instructions TAKE 20 ML(640 MG) VIA GT EVERY 6HR NEEDED FEVER>101/ JOYA/ MINOR DISCOMFORT/ NTE 4 DOSES/ 24HR/ CALL MD IF PAIN NOT GONE AFTER 48 HRS IC MAPAP/ TYLENOL CHILD PAIN RLF ?? Unchanged apixaban (Eliquis 5 mg oral tablet) 1 tab(s) Gastrostomy/PEG Tube Twice a day Duration: 90 Days Unchanged Bacitracin Topical (bacitracin zinc 500 units/ g topical ointment) See instructions APPLY THIN LAYER TOPICALLY 2X DAILY X 7 DAYS PRN INFECTION PREVENTION / ??TO ABRASION/ RED, IRRITATED SKIN, G/ T OR S/ P STOMA SITES / ??SEE ANCILLARY ?? Unchanged Baclofen (baclofen 10 mg oral tablet) 0.5 tab(s) Oral 3 times a day Duration: 30 Days Unchanged Benzoic Acid/ Methenamine/ Sodium Salicylate (Cystex) Unchanged Carbamide Peroxide Otic (carbamide peroxide 6.5% otic solution) See instructions INSTILL 4 DROPS INTO EACH EAR TWICE DAILY FOR 5 DAYS EACH MONTH FOR EXCESS CERUMEN IC: CARBAMIDE PEROXIDE 6.5% ?? Unchanged Cetirizine (cetirizine 10 mg oral tablet) 1 tab(s) Gastrostomy/PEG Tube Daily FROM December 15 - June FOR SEASONAL ALLERGIES. ?? Unchanged Chondroitin-Glucosamine (Chondroitin-Glucosamine 400 mg-500 mg oral capsule) See instructions TAKE 1 CAPSULE BY G-TUBE 3 TIMES A DAY, FOR ARTHRITIS 6AM, 4PM, 8PM (500/ 400 MG) OPEN CAP AND DISSOLVE ?? Unchanged Diazepam (diazepam 5 mg oral tablet) 1 tab(s) Gastrostomy/PEG Tube 1 hour PRIOR TO DENTAL PROCEDURES ?? Unchanged Durable Medical Equipment (Anterior Support, Chest strap.) See instructions Therafin-[id number]- chest strap. ??TheraFit Dynamic ??w/ Ring adj. Medium ?? Unchanged Durable Medical Equipment (catheter bags for bed) See instructions 2 OVERNIGHT DRAINAGE COLLECTION URINARY BAGS dx neurogenic bladder dx:indwelling delatorre catheter ?? Unchanged Durable Medical Equipment (sin seal #[id number]) See instructions use as needed for ostomy care dx = ileostomy ?? Unchanged Durable Medical Equipment (ostomu pouch #[id number]) See instructions use as needed for ostomy care dx = ileostomy ?? Unchanged Durable Medical Equipment (Skin Barrier Powder) See instructions Please use as instructed by ostomy nurse ?? Unchanged Durable Medical Equipment (Skin Prep Pads) See instructions Please prep as instructed by ostomy nurse ?? Unchanged Durable Medical Equipment (stoma powder) See instructions use as needed for ostomy care dx = ileostomy ?? Unchanged Ergocalciferol (ergocalciferol 59239 iu oral capsule) See instructions TAKE 1 CAPSULE (50,000 UNITS) BY G-TUBE EVERY WEEK FOR BONE HEALTH IN PM / ??[place] CAPSULE AND SQUEEZE CONTENTS INTO LIQUID (SUNDAY) ?? Unchanged Ergocalciferol (Vitamin D2) 1.25 mg/75503 units Oral once weekly on sunday ?? Unchanged Fluticasone Nasal (fluticasone 50 mcg/ inh nasal spray) See instructions 2 SPRAYS TO EACH NOSTRIL DAILY IN THE MORNING FOR ALLERGIES EN=750MIP EACH NOSTRIL ?? Unchanged Guaifenesin/ Dextromethorphan (Tory-Tussin DM 20 mg-200 mg/ 10 mL oral liquid) 4 Doses Gastrostomy/PEG Tube Every 4 hours as needed for NEEDED FOR COUGH / NTE / ??IC EXTRA ACTION COUGH 10-100MG/ 5ML. ?? Unchanged Ketoconazole (ketoconazole 2% topical cream) See instructions APPLY A DIME SIZE AMOUNT TOPICALLY TWICE DAILY NEEDED FOR RED, IRRITATED SKIN AROUND GROIN X 7 DAYS/ SEE ANCILLARY ORDER ?? Unchanged Loperamide (loperamide 2 mg oral tablet) See instructions TAKE 1 TABLET (2 MG) VIA G-TUBE TWICE DAILY NEEDED FOR DIARRHEA / ??STOP FOR CONSTIPATION OR IF STOOLS BECOME TOO FIRM / ??LOPERAMIDE 2 MG ?? Unchanged Lorazepam (LORazepam 1 mg oral tablet) See instructions TAKE 1 TABLET VIA G-TUBE TWO HOURS PRIOR TO G-TUBE CHANGE ?? 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 Unchanged Metoprolol (metoprolol 25 mg oral tablet) 1 tab(s) Gastrostomy/PEG Tube Twice a day Duration: 90 Days Hold for HR < 60 Unchanged Miscellaneous Rx (18 moroccan catheter) See instructions Dx: ??Neurogenic bladder ?? Unchanged Miscellaneous Rx (Boost supplement via bolus tube) See instructions Dx: ??Z90.49 lifetime Daily at night ?? Unchanged Miscellaneous Rx (CYSTEX CRANBERRY LIQUID Liquid) 200 Milligram Gastrostomy/PEG Tube Twice a day Unchanged Miscellaneous Rx (cystex cranberry liquid) 200mg/3ml Gastrostomy/PEG Tube Twice a day Unchanged Miscellaneous Rx (Fleet enema) See instructions 4.5 fl oz 133ml ?? 1 before bedtime and 2 hours before procedure ?? Unchanged Miscellaneous Rx (insertion tray) See instructions Dx: ??neurogenic bladder. ?? Unchanged Miscellaneous Rx (leg bag with tubing) See instructions Dx: ??neourgenic bladder Lifetime ?? Unchanged Miscellaneous Rx (shingrix vaccine) See instructions shingrix vaccine ?? Unchanged Miscellaneous Rx (Strap for leg bag) See instructions Use daily Dx: Cerebral Palsy G80.9 ?? Unchanged Miscellaneous Rx (Vanilla Boost Drink) See instructions Daily use at bedtime, via G-tube. DX: Gastrostomy tube in place ICD-10: Z93.1 ?? Unchanged Multivitamin (Children's Chewable Multivitamins oral tablet, chewable) See instructions TAKE 1 TABLET BY G-TUBE DAILY IN AM SUPPLEMENT / ??CRUSH ?? Unchanged Nystatin Topical (nystatin topical 587668 u/ gm powder) See instructions APPLY TO AFFECTED AREA TOPICALLY 3 TIMES A DAY FOR 7 DAYS NEEDED FOR FLAREUP OF RASH (FUNGAL RASH ON GROIN) ?? Unchanged [place]-3 Polyunsaturated Fatty Acids (Fish Oil 1000 mg oral capsule) 3 capsules Gastrostomy/PEG Tube Twice a day [place] capsule & give via G tube Unchanged Omeprazole (omeprazole 40 mg oral enteric coated capsule) See instructions TAKE 1 CAPSULE (40MG) BY G-TUBE DAILY IN PM FOR GERD / ??OPEN CAPSULE, CRUSH, DISSOLVE IN WATER ?? Unchanged Pravastatin (pravastatin 10 mg oral tablet) See instructions TAKE 1 TABLET (10MG) BY G-TUBE DAILY IN PM / ??TAB MAY BE CRUSHED AND DISSOLVED FOR HYPERLIPIDEMIA ?? Unchanged Simethicone (simethicone 20 mg/ 0.3 mL oral suspension) 2.4 Milliliter Gastrostomy/PEG Tube 3 times a day Unchanged Valproic Acid (valproic acid 250 mg/ 5 mL oral syrup) 20 Milliliter Gastrostomy/PEG Tube Twice a day Duration: 30 Days Unchanged Zinc Oxide Topical (zinc oxide 22% topical cream) See instructions Use topically twice daily for 7 days to affected areas until healed. ?? Pharmacy Information Center Pharmacy: [address] [place] [address] [phone] ?? What How Much When Comments Stop Taking Aspirin (Aspirin Low Dose 81 mg oral tablet, chewable) 1 tab(s) Gastrostomy/PEG Tube Daily CRUSH. ?? Medications and Immunizations Administered Medications Given During Visit No medications given during this visit.?? Allergies (NKA means No Known Allergies) Macrobid??(rash) NSAIDs??(Unknown) Other Environmental Allergy??(Unknown) Tricor??(Unknown) cephalosporins??(Unknown) penicillins??(Skin rash) pneumococcal vaccines??(CELLULITIS) Common Emergency Awareness Tips IS IT A STROKE? Act FAST and Check for these signs: FACE Does the face look uneven? ARM Does one arm drift down? SPEECH Does their speech sound strange? TIME Call at any sign of stroke ?? Heart Attack Signs Chest discomfort: Most heart attacks involve discomfort in the center of the chest and lasts more than a few minutes, or goes away and comes back. It can feel like uncomfortable pressure, squeezing, fullness or pain. Discomfort in upper body: Symptoms can include pain or discomfort in one or both arms, back, neck, jaw or stomach. Shortness of breath: With or without discomfort. Other signs: Breaking out in a cold sweat, nausea, or lightheaded. Remember, MINUTES DO MATTER. If you experience any of these heart attack warning signs, call to get immediate medical attention! ?? Smoking can increase your chances of developing chronic health problems and can cause harmful effects to other family members in your house. If you smoke, you are strongly encouraged to quit. Please call [facility] at [phone] or [phone]) or log in to [email or web address] for referrals to smoking cessation programs. ?? The National Suicide Prevention Hotline is available 16/04 if you or someone you know needs to find a reason to keep living. By calling 1-039-080-Crowdpac (9149) you'll be connected to a skilled, trained counselor at a crisis center in your area. [facility] You can view and manage your care through the patient portal or by using a health care gio of your choosing. [employer] is a website that allows you to securely view your medical information including your hospital discharge summary, office visit summaries, medications and follow-up visits. You can also request appointments, renew medications, and request access to your medical information using a health care gio of your choosing, or just ask a question. You can enroll at [email or web address] or register during your next office visit. [facility], in keeping with [facility] guidance, no longer requires face masks for staff, patientsor visitors in most situations. Similiar to time spent indoors at other locations, there is the chance that you were exposed to repiratory viruses during your time with us (such as flu or COVID-19). If you develop symptoms concerning for a viral respiratory infection, please seek testing (and treatment if indicated) from your medical provider or home test kit. ?? Disclaimer: The information provided is of a general nature and is intended to be used in conjunction with the recommendations and advice of your health care practitioner. Every effort has been made to ensure that the information provided is accurate and complete at the time it is provided to you however, as your needs change, or, as new information becomes available, different or additional instructions may be required. ?? If you have questions, please consult with your primary care provider or pharmacist, as appropriate. This information is not intended to serve as substitution for assessment and evaluation by a qualified health care provider. If you do not have a primary care provider, you may find a [facility] provider by calling [facility] at [phone]. Patient Care team information Care Team Personnel Name: Maria G Lord RN Position: [facility] RN Member Role: Primary Care Nurse Name: Marilia Yeager RN Position: [facility] RN Member Role: Primary Care Nurse Name: Rama Jaquez RN Position: [facility] RN Member Role: Primary Care Nurse Name: Leo Hernandez RN Position: [facility] RN Member Role: Primary Care Nurse Name: Fortino Esquivel RN Position: [facility] ED RN W/OE and Tasks Member Role: Primary Care Nurse Name: Brigid Eldridge RN Position: [facility] RN Member Role: Primary Care Nurse Name: Tish Downey RN Position: [facility] RN Member Role: Primary Care Nurse Name: Loree Avalos RN Position: [facility] RN Member Role: Primary Care Nurse Name: Krysta Lewis RN Position: [facility] RN Member Role: Primary Care Nurse Name: Angy Flowers Position: [facility] RN Member Role: Primary Care Nurse Name: Luis Enrique Alfredo MD Position: [facility] PCO w/OE and EZ Script Member Role: Lifetime Consulting Physician Name: Jennifer Olvera RN Position: [facility] RN Member Role: Primary Care Nurse Name: Nahed Salazar RN Position: [facility] RN Member Role: Primary Care Nurse Name: Jeanette Lindsay RN Position: [facility] RN Member Role: Primary Care Nurse Name: Kashmir Henriquez RN Position: [facility] RN Member Role: Primary Care Nurse Name: Steph Amin RN Position: [facility] RN Member Role: Primary Care Nurse Name: Julia Hooper RN Position: [facility] RN Member Role: Primary Care Nurse Name: Janice Garg RN Position: [facility] RN Member Role: Primary Care Nurse Name: Cat Salinas MD Position: [facility] Physician - Primary Care Member Role: Lifetime Consulting Physician Address: [address] [place] [address] [facility] [place] [address]- [place] Telecom: Name: Asiya Stein RN Position: [facility] [place] Insulator Helper Member Role: Primary Care Nurse Name: Veronica Naranjo RN Position: [facility] RN Member Role: Primary Care Nurse Name: Oni Alvarez MD Position: [facility] Physician - Primary Care Member Role: PCP Address: [address] [place] [address]- Telecom: Name: Tatiana Chamorro RN Position: [facility] RN Member Role: Primary Care Nurse Name: Adry Lopes RN Position: [facility] Onco RN Member Role: Primary Care Nurse Name: Inderjit Estrada RN Position: [facility] RN Member Role: Primary Care Nurse Name: Katheryn Mata RN Position: [facility] SN RN Member Role: Primary Care Nurse Name: Alisa Pena RN Position: [facility] RN Member Role: Primary Care Nurse Name: Ashwin Finney RN Position: [facility] SN RN Member Role: Primary Care Nurse Name: Ángela Arthur RN Position: [facility] ED RN W/OE and Tasks Member Role: Primary Care Nurse Name: Emily Paul RN Position: [facility] RN Member Role: Primary Care Nurse Name: Celia Mane RN Position: [facility] RN Member Role: Primary Care Nurse Name: Tran Arriola [place] Position: [facility] Office Staff Member Role: Primary Care Nurse Name: Sasha Jacob MA Position: [facility] Amb Office Staff Member Role: Primary Care Nurse Name: Celia Avila RN Position: [facility] RN Member Role: Primary Care Nurse Name: Hillary Lindsay RN Position: [facility] RN Member Role: Primary Care Nurse Name: Saad Lombardo RN Position: [facility] ED RN W/OE and Tasks Member Role: Primary Care Nurse Name: Barbara Silva RN Position: [facility] RN Member Role: Primary Care Nurse Name: Jnenifer Cruz Position: [facility] RN Member Role: Primary Care Nurse Name: Xiomy Conde RN Position: [facility] AMB Nurse Member Role: Primary Care Nurse Name: Alejo Long RN Position: [facility] RN Member Role: Primary Care Nurse Name: Kavitha Villasenor RN Position: [facility] JEANA Office Staff Member Role: Primary Care Nurse Name: Lexus Livingston RN Position: [facility] RN Member Role: Primary Care Nurse Name: Yudy Gomez RN Position: [facility] RN Member Role: Primary Care Nurse Name: Anihsa Crook RN Position: [facility] RN Member Role: Primary Care Nurse Name: Majo Hancock RN Position: [facility] Outreach Member Role: Primary Care Nurse Name: Wil Herrera RN Position: [facility] RN Member Role: Primary Care Nurse Name: Janie Mead RN Position: [facility] RN Supv Member Role: Primary Care Nurse Name: Madelin Steven RN Position: [facility] RN Member Role: Primary Care Nurse Name: Desirae Santos RN Position: [facility] RN Member Role: Primary Care Nurse Name: Jolene Mcclellan RN Position: [facility] RN Member Role: Primary Care Nurse Name: Faviola Del Cid RN Position: [facility] [place] Insulator Helper Member Role: Primary Care Nurse Name: Marcelle Dow RN Position: [facility] [place] Insulator Helper Member Role: Primary Care Nurse Name: Rene RNAlexander Position: [facility] SN RN Member Role: Primary Care Nurse Name: Michael Nieves RN Position: [facility] RN Member Role: Primary Care Nurse Care Team Related Persons Name: SIMS YAMILETH Name: KYLAH BROWNE Name: SREEKANTH NO Name: 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 Name: WILBERT CARRERO Name: WILBERT CARRERO SR Name: WILBERT CARRERO SR Insurance Providers Guarantor name: WILBERT ALSIE Health Plan Information #: 1 Payer: MEDICARE B Payer Identifier: Member Number: [id number] Group Number: Subscriber Identifier: [id number] Relationship to Subscriber: self Coverage Type: NA Coverage Verification Date: Telecom: Address: [facility] Information #: 2 Payer: [employer] Payer Identifier: Member Number: [id number] Group Number: Subscriber Identifier: [id number] Relationship to Subscriber: self Coverage Type: MEDICAID Coverage Verification Date: Telecom: Address:
[2025-04-01] VITALS (17 sets, daily range): BP systolic 67–130; BP diastolic 39–77; PULSE 70–87; RESP 16–30; TEMP 36.1–37.1; O2SAT 92–100; BMI 22.6
--- NOTE | ~2025-04-01 | XR_ITS ---
EXAMINATION: XR CHEST CLINICAL INFORMATION: hypoxia COMPARISON: April 08, 2025 TECHNIQUE: Frontal view of the chest was obtained. FINDINGS: Left IJ central line terminates in superior cavoatrial junction, unchanged. Pigtail catheter previously demonstrated projecting over the right heart margin has been removed. Cardiac enlargement is noted. There are increasing bilateral pleural effusions, right greater than left, and moderately sized. There is associated compressive atelectasis. Obscured airspace disease is not ruled out. XR/XR chest 1V IMPRESSION: Moderate bilateral pleural effusions, larger on the right, with compressive atelectasis. Underlying pneumonia is not ruled out, especially in the left lower lobe. Electronically signed by: Ronak Solo MD 04/09/2025 04:17 PM EDT
--- NOTE | ~2025-04-01 | XR_ITS ---
EXAMINATION: XR CHEST CLINICAL INFORMATION: difficulty breathing COMPARISON: 01/03/2025, 01/01/2025. TECHNIQUE: Frontal view of the chest was obtained. FINDINGS: The patient is rightward rotated. Moderate cardiomegaly. Mediastinal and hilar contours are normal. There is a small layering right pleural effusion with associated passive atelectasis. No left effusion. No perceptible pneumothorax. There are right greater than left basilar consolidative opacities present. No overt CHF. No focal osseous or soft tissue abnormality. XR/XR chest 1V IMPRESSION: 1. Moderate cardiomegaly. 2. Small right pleural effusion. 3. Bibasilar parenchymal opacities, atelectasis versus pneumonia in the appropriate clinical setting. Electronically signed by: Eddi Ferreira MD 04/01/2025 10:56 AM EDT
--- NOTE | ~2025-04-01 | CT_ITS ---
CLINICAL HISTORY: Pericardial effusion with tamponade PROCEDURES: 1. Limited preprocedure CT of the chest. Permanent images saved in PACS. 2. CT-guided drainage of pericardial effusion 3. Limited post procedure CT of the chest. Permanent images saved in PACS. CLINICIANS: Nikolay Hubbard NP Preprocedural imaging reviewed with Wil Cortez M.D. MEDICATIONS: -Lidocaine 1% 8 mL SQ -Antibiotics: None -For additional details, please see nursing flowsheet. COMPLICATIONS: None ESTIMATED BLOOD LOSS: < 5 ml CONTRAST: None SPECIMENS: None MODERATE SEDATION TIME: n/a PROCEDURE NOTE: The procedure, risks, benefits, and alternatives were carefully explained to the patient's proxy and written informed consent was obtained. The patient was placed supine on the CT table. A timeout was performed. A limited CT of the chest was performed to localize the fluid collection and choose appropriate needle entry and trajectory. The patient was prepped and draped in usual sterile fashion. The skin and subcutaneous tissues on the right upper chest were anesthetized with lidocaine. Under CT guidance, a 5 F Yueh was advanced to the fluid collection. Yellow fluid was immediately aspirated. A 0.035 J wire was inserted through the the Yueh catheter and coiled in the fluid collection. The Yueh catheter was then removed over the wire. Over the wire, an 10 fr all-purpose drainage catheter was advanced and coiled into the fluid collection under CT guidance. The wire was then removed. A total of 250 ml of yellow fluid was removed and sent for culture. The catheter was secured to the skin with a 2-0 Surgipro suture. The catheter was maintained to DMITRI bulb drainage. A limited postprocedure CT was then obtained. The patient was stable after the procedure and was transferred to the intensive care unit. CT/CT Drain Pericardiocentesis Impression: CT guided placement of pericardial drainage catheter. This procedure was performed by Nikolay Hubbard NP and supervised by Wil Cortez MD. Electronically signed by: Wil Cortez MD 04/02/2025 04:56 PM EDT
--- NOTE | ~2025-04-01 | XR_ITS ---
CLINICAL HISTORY: Left TLC Placement Chest X-ray, 1 View COMPARISON: CR - XR CHEST 1V - 04/04/25 21:12 EDT FINDINGS: Similar right upper lung consolidation and/or loculated pleural effusion. Similar left lower lung atelectasis or infiltrate. No visible pneumothorax. Unchanged cardiac silhouette size. No acute fracture. Endotracheal tube in place with tip 3.8 cm above the tiffany. Lower right chest tube or pericardial drain remains in place. Left internal jugular central line in place with tip projecting over the lower SVC. IMPRESSION: Similar right upper lung consolidation and/or loculated pleural effusion. Similar left lower lung atelectasis or infiltrate. Support devices as above. This document has been electronically signed by: Maurisio Polanco MD on 04/04/2025 22:30:32
--- NOTE | ~2025-04-01 | CT_ITS ---
EXAMINATION: CT CHEST WITHOUT IV CONTRAST INDICATION: Dyspnea, pericardial effusion COMPARISON: Comparison is made with the prior examination dated 04/02/2025. TECHNIQUE: Helical CT scan of the chest was performed without intravenous contrast. Coronal and sagittal reformatted images were generated and reviewed. This CT exam was performed with one or more of the following dose reduction techniques: automated exposure control, adjustment of the mA and/or kV according to patient size, use of iterative reconstruction technique. DLP: 287 mGy-cm CHEST: Endotracheal and orogastric tubes is seen in place. A left internal jugular central venous catheter is also noted. THYROID: The thyroid is unremarkable. LUNGS: Again seen is moderate compressive atelectasis of the lower lobes secondary to moderate bilateral pleural effusions. MEDIASTINUM: There is no mediastinal lymphadenopathy. TOVA: Evaluation of the hilar regions is limited by lack of intravenous contrast material. CARDIOVASCULATURE: The heart is normal in size. There has been interval placement of a right sided pericardial catheter the prior study. The pericardial effusion is decreased in size, particularly on the right. There is a moderate amount of residual fluid on the left measuring up to 3 cm in thickness. The thoracic aorta is normal in caliber. DEGREE OF CORONARY CALCIFICATION: mild PLEURA: There are moderate to large bilateral pleural effusions. The left pleural effusion is larger than on the prior study. No pneumothorax. MAIN AIRWAYS: The mainstem bronchi and proximal branches are patent. AXILLA: There is no axillary lymphadenopathy. BONES AND SOFT TISSUES: There is degenerative disc disease of the spine. UPPER ABDOMEN: Again seen is a 1.9 cm probable cyst in the right lobe of the liver. The visualized portions of the spleen and adrenals have an unremarkable unenhanced appearance. A gastrostomy tube is seen in place. CT/CT chest wo IV con IMPRESSION: 1. The previously seen pericardial effusion is smaller in size, especially on the right, after placement of a pericardial catheter. A moderate amount of pericardial fluid is again seen on the left measuring up to 3 cm in thickness. 2. Moderate to large bilateral pleural effusions. The left pleural effusion is larger than on the prior study. 3. Endotracheal tube, orogastric tube, left internal jugular central venous catheter, and gastrostomy tube in place. Electronically signed by: Clay Sung MD 04/06/2025 11:51 AM EDT RP
--- NOTE | ~2025-04-01 | CT_ITS ---
EXAMINATION: Limited CT CHEST WITHOUT CONTRAST CLINICAL INFORMATION: Pericardial effusion. Patient is status post placement of pericardial drainage catheter. There is concern that there is decreased output from the tube and persistent pericardial effusion. Pericardial drain check and possible replacement was requested COMPARISON: CT chest 04/06/[address] chest 04/02/2025 TECHNIQUE: CT scan of the chest without contrast. This CT examination was performed using dose optimization techniques as appropriate, variously including the following: *Automated exposure control *Adjustment of mA and/or kV according to patient size (this includes techniques or standardized protocols for targeted exams where dose is matched to indication/reason for exam; i.e. extremities or head) *Use of iterative reconstruction technique FINDINGS: There is a small pericardial effusion which is markedly decreased from 04/02 examination. There is a right approach pericardial drainage catheter which is in satisfactory position. The pericardial fluid along the right side is minimal. There is a pocket of pericardial fluid on the left side which is also markedly decreased from 04/02 examination.. Additional findings including bilateral pleural effusion and atelectasis similar to 04/[address]/CT chest wo IV con IMPRESSION: Pericardial effusion is markedly decreased as compared to 04/02 examination with right-sided pericardial drainage catheter in satisfactory position. The fluid along the anterior and right aspect is trace which would explain why the output from the catheter is minimal. There is a small pocket of fluid on the left side of the pericardium which will likely not drain via current catheter position. However, no indication to separately drain it at this time. Therefore, we elected to not proceed with any intervention. Electronically signed by: Wil Cortez MD 04/07/2025 03:46 PM EDT
--- NOTE | ~2025-04-01 | XR_ITS ---
EXAMINATION: XR CHEST CLINICAL INFORMATION: Hypoxia COMPARISON: April 05, 2025. TECHNIQUE: Frontal view of the chest was obtained. FINDINGS: Haziness in the mid to lower hemithoraces. Indistinct margins in the diaphragm and inferior cardiomediastinal silhouette. Cardiomediastinal silhouette size enlarged. Prominence of the interstitial markings. No gross pneumothorax. Endotracheal tube ends 4 cm above tiffany. Left-sided central venous line inserted via left internal jugular vein remains at the innominate region. There is a pigtail catheter overlapping the lower cardiomediastinal silhouette and vein on the right lower cardiomediastinal silhouette region. XR/XR chest 1V IMPRESSION: Pulmonary edema and bilateral pleural effusions, worsened since prior examination. Cardiomegaly versus pericardial effusion. Pigtail catheter remains in unchanged position possibly on the right lower pericardium. No gross pneumothorax. Electronically signed by: Fuentes Hu MD 04/08/2025 10:12 AM EDT
--- NOTE | ~2025-04-01 | XR_ITS ---
EXAMINATION: XR CHEST 1 VIEW HISTORY: dyspnea COMPARISON: Comparison is made with the prior examination dated 04/01/2025. FINDINGS: A single AP portable view of the chest performed at 11:14 AM is submitted. There is been interval insertion of a pigtail catheter in the pericardium. There is complete opacification of the right upper hemithorax with shift of the trachea to the right consistent with atelectasis and likely pleural fluid. No pneumothorax. The cardiac silhouette is smaller in size after insertion of the pericardial drainage catheter. There is degenerative disc disease of the spine. XR/XR chest 1V IMPRESSION: 1. Status post insertion of a pericardial drainage catheter with interval decrease in size of the cardiac silhouette. 2. Complete opacification of the right upper lung with associated volume loss, consistent with atelectasis. There may also be a small amount of pleural fluid. Electronically signed by: Clay Sung MD 04/03/2025 11:42 AM EDT
--- NOTE | ~2025-04-01 | XR_ITS ---
CLINICAL HISTORY: ETT placement 1 view chest x-ray. Comparison: CR/SR - XR CHEST 1 VIEW - 04/09/25 15:45 EDT no prior report provided. Findings: Endotracheal tube in place with the distal tip 2.5 cm above the tiffany. Stable positioning of the left internal jugular central venous catheter. There are ill-defined bibasilar opacities with obscuration of the bilateral hemidiaphragms and blunting of the bilateral costophrenic angles. No pneumothorax appreciated. Heart size is borderline enlarged. Impression: 1. Endotracheal tube and left internal jugular central venous catheter in place as described above with ill-defined bibasilar opacities, obscuring both of the bilateral hemidiaphragms, suggesting layering bilateral pleural effusions. Underlying atelectasis and/or infiltrates of the mid to lower lungs bilaterally are not excluded. 2. Borderline cardiomegaly. This document has been electronically signed by: Mook Prieto MD on 04/10/2025 03:49:42
--- NOTE | ~2025-04-01 | XR_ITS ---
CLINICAL HISTORY: right lung atelectasis 1 view chest x-ray. Comparison: 04/03/2025, 04/01/2025, CT 04/02/2025 Findings: The cardiac silhouette is enlarged but is decreased when compared prior CT. A small bore pigtail drainage catheter is unchanged in position in the right pericardium. Loculated non gravity dependent pleural fluid is located in the right lung base and right upper chest. A small left pleural effusion and retrocardiac atelectasis are also present. No acute fracture. Impression: The appearance of the chest is not markedly changed from 04/03/2025. There is incomplete expansion of the right lung with compressive atelectasis 2 to loculated pleural fluid in the right lung base and right upper chest. No pneumothorax. Status post pericardial centesis the cardiac silhouette has decreased in size compared to 04/01/2025. This document has been electronically signed by: Francis Vivar MD on 04/04/2025 13:22:02
--- NOTE | ~2025-04-01 | XR_ITS ---
EXAMINATION: XR CHEST CLINICAL INFORMATION: intubated COMPARISON: 04/10/2025, 04/09/2025. CT chest 04/12/2025. TECHNIQUE: Frontal view of the chest was obtained. FINDINGS: Endotracheal tube remains in good position. Temperature probe is located in the esophagus, tip at the region of the tiffany. Left IJ central venous catheter is in place, tip terminating in the mid SVC, unchanged. G-tube is identified in the left upper quadrant of the abdomen. Cardiac silhouette is partially obscured. Hilar silhouettes are partially obscured. Mediastinal contours are normal/stable. Moderate right and [id number] left pleural effusions present, both enlarging. Diffuse hazy opacity throughout the aerated bilateral lungs in keeping with moderate alveolar and interstitial pulmonary edema, also worsened. No perceptible pneumothorax. No focal osseous or soft tissue abnormality. XR/XR chest 1V IMPRESSION: 1. Lines and tubes in acceptable position. 2. Worsening diffuse pulmonary edema pattern. 3. Enlarging pleural effusions bilaterally. Electronically signed by: Eddi Ferreira MD 04/20/2025 02:53 PM EDT
--- NOTE | ~2025-04-01 | CT_ITS ---
CLINICAL HISTORY: Hypoxia CT chest without contrast Comparison: CT/GA/SR - CT CHEST WITHOUT IV CONTRAST - 04/07/25 14:14 EDT Findings: There is a large pericardial effusion, slightly increased from prior. A few borderline lymph nodes are present within the mediastinum. The endotracheal tube is well-positioned. The enteric tube terminates in the midesophagus. Large bilateral effusions with near-complete atelectasis of the lower lobes. There is also near-complete atelectasis of the right middle lobe and right upper lobe. Additional patchy multifocal ground-glass density, within the left upper lobe. The visualized upper abdomen demonstrates ascites about the liver. No acute osseous finding. Impression: Large pericardial effusion, slightly increased. Large bilateral effusions with extensive atelectasis as detailed. Patchy left upper lobe airspace density suggestive of superimposed pneumonia. This document has been electronically signed by: Eliud Macario MD on 04/12/2025 09:07:51
--- NOTE | ~2025-04-01 | XR_ITS ---
CLINICAL HISTORY: intubation Chest X-ray, 1 View COMPARISON: CR - XR CHEST 1V - 04/04/25 11:40 EDT FINDINGS: Similar right upper lung consolidation and/or loculated pleural effusion. Left lower lung atelectasis or infiltrate. No visible pneumothorax. Similar cardiac silhouette size. No acute fracture. Endotracheal tube in place with tip 3.1 cm above the tiffany. Lower right chest tube or pericardial drain remains in place. IMPRESSION: Similar right upper lung consolidation and/or loculated pleural effusion. Left lower lung atelectasis or infiltrate. Support devices as above. This document has been electronically signed by: Maurisio Polanco MD on 04/04/2025 22:27:21
--- NOTE | ~2025-04-01 | CT_ITS ---
EXAMINATION: CT CHEST WITH IV CONTRAST, CT ABDOMEN PELVIS WITH IV CONTRAST INDICATION: Pericardial effusion. Evaluate for cancer COMPARISON: Correlation is made with an AP portable view of the chest dated 04/01/[address] of the abdomen and pelvis dated 12/28/2016.. TECHNIQUE: CT scan of the chest, abdomen and pelvis was performed following administration of 85 mL Omnipaque 350 using standard departmental protocol. Coronal and sagittal reformatted images were generated and reviewed. Oral contrast material was not administered at the request of the referring physician. This CT exam was performed with one or more of the following dose reduction techniques: automated exposure control, adjustment of the mA and/or kV according to patient size, use of iterative reconstruction technique. DLP: 1395 mGy-cm CHEST: THYROID: The thyroid is unremarkable. LUNGS: There is subtotal atelectasis of the right middle and lower lobes and compressive atelectasis of the left lower lobe. MEDIASTINUM: There is no mediastinal lymphadenopathy. TOVA: There is no hilar lymphadenopathy. CARDIOVASCULATURE: The heart is normal in size. There is a large pericardial effusion measuring up to 4.5 cm in thickness. The thoracic aorta is normal in caliber. DEGREE OF CORONARY CALCIFICATION: mild PLEURA: There are moderate bilateral pleural effusions. No pneumothorax. MAIN AIRWAYS: The mainstem bronchi and proximal branches are patent. AXILLA: There is no axillary lymphadenopathy. SOFT TISSUES: Unremarkable. BONES: There is degenerative disc disease of the spine. ABDOMEN: LIVER: The liver is normal in size and contour. Again seen is a 1.9 cm cyst in the left lobe. Additional smaller cysts are also noted. The hepatic and portal veins are patent. GALLBLADDER / BILE DUCTS: The gallbladder is contracted. No calcified stones are identified.. There is no intra or extrahepatic biliary ductal dilatation. SPLEEN: The spleen is normal in size. No focal splenic lesion is identified. PANCREAS: The pancreas is unremarkable in appearance. ADRENAL GLANDS: Within normal limits. KIDNEYS/RETROPERITONEUM: The kidneys are atrophic. No renal calculi are identified. There is no hydronephrosis. No renal masses are identified. LYMPH NODES: No abdominal or pelvic lymphadenopathy. VASCULATURE: The abdominal aorta demonstrates atherosclerotic calcification, but is normal in caliber. MESENTERY/PERITONEUM: No free fluid. No masses. There is no free intraperitoneal gas. STOMACH: A gastrostomy tube is seen in place. SMALL BOWEL: There is an ileostomy in the right midabdomen. COLON: The patient is status post colectomy. APPENDIX: The appendix is surgically absent. URINARY BLADDER/PELVIC ORGANS: The urinary bladder is collapsed with a Graff catheter. The prostate is normal in size. BONES / SOFT TISSUES: There is degenerative disc disease of the spine. CT/CT abdomen pelvis w IV con IMPRESSION: 1. Large pericardial effusion. 2. Moderate bilateral pleural effusions with compressive atelectasis of both lungs. 3. No evidence of neoplasm. Electronically signed by: Clay Sung MD 04/02/2025 02:05 PM EDT
--- NOTE | ~2025-04-01 | XR_ITS ---
CLINICAL HISTORY: thoracentesis 1 view chest x-ray Comparison: CR - XR CHEST 1V - 04/04/25 21:43 EDT Findings: There are small to moderate bilateral pleural effusions with significant improvement on the right. Mild airspace opacities within the bilateral lower lungs. Significantly improved aeration within the right lung. No pneumothorax. Lines and tubes are unchanged. The endotracheal tube is 4.3 cm above the tiffany. Borderline size heart. No acute fracture. IMPRESSION: 1. Small to moderate bilateral pleural effusions with significant interval improvement on the right. 2. Mild bibasilar atelectasis. Aeration within the right lung is significantly improved. This document has been electronically signed by: Lilly Dewitt MD on 04/05/2025 16:17:11
--- NOTE | 2025-04-01 10:28 | ED_ITS ---
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 Staff states that the patient was recently hospitalized at [facility] for sepsis and ever since being home he has been lethargic and generally unwell. Today they put a pulse ox on him and saw that it was 90% so they sent him to the ER. Staff states that the patient has not been eating or drinking well and they have not been putting boost in his G-tube consistently. Related Data Home Medications ?Medication ?Instructions ?Recorded ?Confirmed acetaminophen 160 mg/5 mL oral 640 mg feeding tube Q6H PRN 01/02/25 04/01/25 suspension (Children's pain/fever Acetaminophen) aspirin 81 mg chewable tablet 1 tab feeding tube DAILY 01/02/25 04/01/25 bacitracin zinc 500 unit/gram 1 appl topical BID PRN a brasions, 01/02/25 04/01/25 topical ointment GT irritated skin carbamide peroxide 6.5 % ear drops 4 drp otic (ears) B ID PRN for 5 01/02/25 04/01/25 (Ear Wax Removal Drops) days monthly cetirizine 10 mg tablet 10 mg feeding tube DAILY 08/1804/01/25 bsqmxnnlp-pmmX-gabdryw-FOS-bromelain 3 ml PO BID 01/0204/01/25 1,937 mg-188 mg/15 mL oral liquid dextromethorphan-guaifenesin 10 10 ml feeding tube Q6H PRN Cough 01/02/25 04/01/25 mg-100 mg/5 mL oral liquid (Tussin DM) diazepam 5 mg tablet 5 mg feeding tube DAILY PRN 1 hour 01/02/25 04/01/25 prior to dental appointment ergocalciferol (vitamin D2) 1,250 1,250 mcg feeding tu be FR@2100 01/02/25 04/01/25 mcg (50,000 unit) capsule fluticasone propionate 50 2 spray intranasal DAILY 08/1804/01/25 mcg/actuation nasal spray,suspension icpxijnclne-mfxaapkqd-gvq C-Mn 500 1 cap PO TID 04/01/25 mg-400 mg capsule (Glucosamine Chondroitin Maximum Strength) lorazepam 1 mg tablet 1 mg feeding tube DAILY PRN 2 01/02/25 04/01/25 hours prior to GT changes lorazepam 1 mg tablet 1 mg feeding tube DAILY PRN 2 01/02/25 04/01/25 hours prior to podiatry foot care omeprazole 40 mg capsule,delayed 40 mg feeding tube BE DTIME 01/02/25 04/01/25 release pravastatin 10 mg tablet 10 mg feeding tube BEDTIME 0 01/02/25 04/01/25 simethicone 40 mg/0.6 mL oral 160 mg feeding tube TID 01/02/25 04/01/25 drops,suspension (Infants Simethicone) valproic acid (as sodium salt) 250 1,000 mg feeding tu be Q12H 01/02/25 04/01/25 mg/5 mL oral solution apixaban 5 mg tablet (Eliquis) 5 mg feeding tube BID 0 04/01/25 04/01/25 baclofen 10 mg tablet 5 mg feeding tube TID 04/01/25 ketoconazole 2 % topical cream 1 appl topical BID 06/1804/01/25 loperamide 2 mg tablet 2 mg feeding tube BID PRN Lo ose 04/01/25 04/01/25 Stool metformin 500 mg tablet 500 mg feeding tube BID 06/1804/01/25 metoprolol tartrate 25 mg tablet 12.5 mg feeding tube BID 04/01/25 04/01/25 nystatin 100,000 unit/gram topical 1 appl topical TID PRN Flare Up or 04/01/25 04/01/25 ointment Rash omega-3 fatty acids 1,000 mg 1,000 mg feeding tube DAVE LY 04/01/25 04/01/25 capsule pediatric multivitamin 1 tab feeding tube DAILY 06/1804/01/25 zinc oxide 20 % topical ointment 1 appl topical 7XD 04/01/25 Allergies Allergy/AdvReac Type Severity Reaction Status Date / Time Cephalosporins Allergy Unknown UNKNOWN Verified 04/01/25 10:27 nitrofurantoin (From Allergy Unknown UNKNOWN Verified 04/01/25 10:27 MACROBID) NSAIDS (Non-Steroidal Allergy Unknown UNKNOWN Verified 04/01/25 10:27 Anti-Inflamma (Nsaids) Penicillins Allergy Unknown UNKNOWN Verified 04/01/25 10:27 pneumococcal vaccine (From Allergy Unknown UNKNOWN Verified 04/01/25 10:27 PNEUMOVAX 23) From Augmentin Allergy Unknown UNKNOWN Uncoded 01/03/25 09:12 From Tricor Allergy Unknown UNKNOWN Uncoded 01/03/25 09:12 Review of Systems 2 Review of Systems: Yes Other ([facility] staff provided all HPI and ROS given the patient's status) Constitutional: Constitutional: Reports as per HPI Eyes: Eyes: Reports as per HPI ENT: Reports as per HPI Cardiovascular: Cardiovascular: Reports as per HPI Respiratory: Respiratory: Reports as per HPI Gastrointestinal: Gastrointestinal: Reports as per HPI Genitourinary: Genitourinary: Reports as per HPI Musculoskeletal: Musculoskeletal: Reports as per HPI Integumentary/Breasts: Skin/Breast: Reports as per HPI Neurologic: Reports as per HPI Psychiatric: Psychiatric: Reports as per HPI Endocrine: Endocrine: Reports as per HPI Hematologic/Lymphatic: Hematologic/Lymphatic: Reports as per HPI Allergic/Immunologic: Allergic/Immunologic: Reports as per HPI PMF Past Medical History Attestation statement: The following information was validated with the patient. (all information validated with the patient's [facility] staff) Source: old records reviewed, nursing notes reviewed and other ([facility] staff provided all HPI and ROS given patient's status.) Medical History Bacteriuria Neurogenic bladder Legally blind Cerebral palsy Surgical History S/P colostomy Social History Social History Household Members: Caregiver Housing: Other Housing Other:: [facility] Do you presently have visiting nurse or other home services: Yes (lives in [facility] with staff.) Unable to assess alcohol history related to: Unable to respond Patient Tobacco Use Status: Never used Tobacco Use of substances other than those prescribed or required for medical reasons: Unable to respond Advance Directives: No Advance Directives Information Provided: Yes Do you have a plan to hurt others: No Plan Nutrition Risks: Poor intake 0-25% >4 days and Receiving home tube feeding or CPN service: No Physical Exam ED Vital Signs: Vital Signs - 24 hr 04/01/25 10:18 04/01/25 12:09 04/01/25 12:10 Temperature 97.6 F 98.8 F 97.5 F Pulse Rate 84 74 Respiratory Rate 16 29 H Blood Pressure 97/77 88/49 L Pulse Oximetry 97 96 Oxygen Delivery Method Room Air Room Air BMI result Body Mass Index 22.6 Const General: awake HENMT Head: Yes normal to inspection and Yes atraumatic Ears: external ears normal General nose exam: Normal external nose present, no nasal discharge noted and no epistaxis Face and sinus: Yes normal facial exam, No abrasion and No laceration Eyes General: appearance normal, both eyes and all related structures Periorbital: periorbital findings normal Eyelids: Yes eyelids normal Conjunctivae: conjunctivae normal Pupils: Equal, round and reactive pupils present Neck Neck: Yes normal visual inspection and Yes no lymphadenopathy Resp Effort & Inspection: normal respiratory effort and able to speak in complete sentences GI Other: ostomy in place in RLQ - brown stool in bag, operational. G tube in place in LUQ Suprapubic catheter in place - draining well / appropriately Neuro Cranial nerves: Yes Equal, round and reactive pupils present Extrem General: Yes normal to inspection, Yes full ROM and Yes capillary refill normal Psych Appearance: grossly normal Mental Status: mental status grossly normal Affect: normal affect Attitude: cooperative Thought process: Normal thought process present Thought content: Normal thought content present Insight: Good insight present (Psych) Medications Administered Generic Name Dose Route Start Last Admin Trade Name Freq PRN Reason Stop Dose Admin Sodium Chloride 1,000 mls @ 42 mls/hr 04/01/25 12:30 04/01/25 13:39 Sodium Chloride 0.45 % IVCONT Infused .[id number] SHUBHAM Infusion Sodium Chloride 1,000 mls @ 100 mls/hr 04/01/25 13:15 04/01/25 13:40 Ns IVCONT 100 mls/hr .Q10H SHUBHAM Administration Discontinued Medications Generic Name Dose Route Start Last Admin Trade Name Rosie PRN Reason Stop Dose Admin Cefepime HCl 2 gm in 50 mls @ 100 mls/hr 04/01/25 11:40 04/01/25 12:26 Maxipime IV 04/01/25 12:09 Infused ONCE ONE Infusion Medical Decision Making Medical Decision Making [facility] Narrative: Patient is a 69 year old assigned male at with a history of blindness, cerebral palsy, lumbar and cervical spondylosis, 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 Patient's physical exam was as noted in the physical exam portion of this note. Patient's blood work showed WBC of 13.5, sodium 116, lactic acid of 2.7, BUN of 36, and albumin of 2.8. Patient's urine showed evidence of UTI however, this may be chronic colonization. Patient's EKG showed mild QTC prolongation. Patient's chest x-ray showed evidence of PNA. I consulted with my attending physician, Dr. Ingram, who confirmed this patient met ICU level of care given his sodium and probable hospital acquired pneumonia. I spoke with the back roll lathe operator, Dr. Valdes, who agreed to admission to the ICU. Patient was given IV cefepime and I began considering sepsis in this patient at 1140. At 12:10pm the patient had a low blood pressure which I do not consider to be attritubted to severe sepsis at this time (12:15pm). I explained my physical exam findings as well as all test results to the patient's [facility] staff and guardian Sammie Rodriguez. I answered all questions asked by the patient's [facility] staff and guardian Sammie Rodriguez. Patient's [facility] staff and guardian Sammie Rodriguez verbalized agreement and understanding with this treatment plan and admission to the ICU. Differential Diagnosis Differential Diagnoses: The differential diagnosis associated with the presentation includes Hyponatremia Pneumonia Sepsis Admission/Observation Consideration of admission/observation: Escalation of care including admission/observation considered Patient admitted as noted in the MDM Rationale portion of this note. Consult Healthcare Provider Management of the patient was discussed with: Exhauster (spoke with the back roll lathe operator who agreed admission as noted in the MDM Rationale portion of this note.) Lab Data [facility] Lab Attestation statement: I reviewed the patient's lab results. My interpretation of these results are in the MDM Rationale portion of this note. 04/01/25 11:09 04/01/25 13:59 Labs: Lab Results 04/01/25 04/01/25 04/01/25 Range/Units 11:09 11:56 13:01 WBC 13.5 H (4.8-10.8) X10*3/uL RBC 3.08 L (4.60-5.80) X10*6/uL Hgb 8.2 L (14.0-18.0) g/dl Hct 24.6 L (42.0-52.0) % MCV 79.9 L (80.0-98.0) fL MCH 26.6 L (27.0-33.0) pg MCHC 33.3 (31.0-36.0) g/dl RDW 15.4 (11.0-16.0) % Plt Count 271 (160-400) X10*3/uL MPV 8.9 L (9.4-12.4) fL Immature Gran % (Auto) 0.7 H (0.0-0.4) % Neut % (Auto) 69.6 (45-73) % Lymph % (Auto) 9.7 L (20-40) % Dixon % (Auto) 19.6 H (2-11) % Eos % (Auto) 0.3 (0-4) % Baso % (Auto) 0.1 (0-2) % Lymph # (Auto) 1.3 (1.2-4.9) X10*3/uL Dixon # (Auto) 2.7 H (0.1-1.2) X10*3/uL Eos # (Auto) 0.0 (0.0-0.4) X10*3/uL Baso # (Auto) 0.0 (0.0-0.2) X10*3/uL Abs Immat Gran (auto) 0.09 H (0.00-0.03) X10*3/uL Absolute Neuts (auto) 9.4 H (2.0-8.3) x10*3/uL Absolute Nucleated RBC 0.000 (0.0-0.012) X10*3/uL Nucleated RBC % (auto) 0.0 (0.0-0.2) /100WBC Smear Tech's Comments VERIFIED PT 14.1 H (10.9-12.4) SEC INR 1.2 H (0.9-1.1) Sodium 116 L* (135-145) mmol/L Potassium 5.1 D (3.3-5.1) mmol/L Chloride 87 L D (96-108) mmol/L Carbon Dioxide 22 (22-29) mmol/L Anion Gap 12 (12-20) BUN 36 H (9-16) mg/dL Creatinine 0.86 (0.5-1.4) mg/dL Estim Creat Clear Calc 56.5 Estimated GFR > 60 Random Glucose 227 H (60-115) mg/dL Osmolality 265 L (281-305) mosm/kg Lactic Acid 2.7 H* (0.5-2.0) mmol/L Calcium 8.8 (8.4-10.2) mg/dL Magnesium 2.0 (1.6-2.6) mg/dL Total Bilirubin 0.3 (0.0-1.0) mg/dL AST 15 (5-37) U/L ALT < 6 (0-40) U/L Alkaline Phosphatase 86 (39-117) U/L Troponin I High Sens < 2.7 (<3.5-35.0) ng/L Total Protein 7.8 (6.5-8.0) g/dL Albumin 2.8 L (3.5-5.0) g/dL Urine Color Yellow Urine Appearance Turbid Urine pH 6.5 (5.0-9.0) Ur Specific Briscoe 1.015 (1.005-1.025) Urine Protein 100 (2+) H (Neg-Trace) mg/dL Urine Glucose (UA) Negative (Negative) mg/dL Urine Ketones Trace (Negative) mg/dL Urine Blood Moderate (2+) H (Negative) Urine Nitrite Negative (Negative) Ur Leukocyte Esterase Large (3+) H (Negative) Urine RBC 3-5 H (0-2) /HPF Urine WBC >50 H (0-5) /HPF Ur Squamous Epith Cells 0-2 (0-2) /HPF Urine Bacteria 4+ (None Seen) Hyaline Casts 0-2 (0-2) /LPF Urine Yeast Present Urine Osmolality 421 (373-1093) mosm/kg Ur Random Sodium < 20.0 mmol/L Influenza Type A (PCR) NEGATIVE (Negative) Influenza Type B (PCR) NEGATIVE (Negative) RSV RNA Qual (PCR) NEGATIVE (Negative) SARS-CoV-2 RNA (RT-PCR) NEGATIVE (Negative) Independent Interpretation I performed an independent interpretation of an: EKG and Plain X-Ray Interpretation: My interpretation is in agreement with the radiologist's impression of this imaging study. L EXAMINATION: XR CHEST CLINICAL INFORMATION: difficulty breathing COMPARISON: 01/03/2025, 01/01/2025. TECHNIQUE: Frontal view of the chest was obtained. FINDINGS: The patient is rightward rotated. Moderate cardiomegaly. Mediastinal and hilar contours are normal. There is a small layering right pleural effusion with associated passive atelectasis. No left effusion. No perceptible pneumothorax. There are right greater than left basilar consolidative opacities present. No overt CHF. No focal osseous or soft tissue abnormality. XR/XR chest 1V IMPRESSION: 1. Moderate cardiomegaly. 2. Small right pleural effusion. 3. Bibasilar parenchymal opacities, atelectasis versus pneumonia in the appropriate clinical setting. Electronically signed by: Eddi Ferreira MD 04/01/2025 10:56 AM EDT Dictated By: Eddi Ferreira MD Signed By: Electronically signed by Eddi Ferreira MD 04/01/25 1056 I independently interpreted this EKG and am in agreement with the below findings: Vent. Rate: 88 BPM Atrial Rate: 88 BPM P-R Int: 112 ms QRS Dur: 80 ms QT Int: 426 ms P-R-T Axes: 31 16 66 degrees QTcB Int: 515 ms Poor data quality, interpretation may be adversely affected Sinus rhythm with Premature supraventricular complexes Prolonged QT When compared with ECG of 04-Jan-2025 08:14, Significant changes have occurred DD/ 1048 Radiology Impression Discussion of test interpretation with radiology: I have reviewed the radiologist's reading. Independent Historian Clinical information obtained from an independent historian. History obtained from or confirmed by: EMS (EMS provided additional history and confirmed the history provided by the [facility] staff) and Other (patient's guardian Sammie provided additional history and confirmed the history provided by the [facility] staff.) Critical Care Time Critical Care Time Critical Care Time: Yes Total Critical Care Time: 49 Attestation: I spent 49 minutes of Critical Care Time with this patient. This does not include time spent on separately reported billable procedures. Discharge Plan Discharge Clinical Impression: Acute hyponatremia, Pneumonia, Sepsis Patient Disposition: Still a Patient Discharge Date/Time: 04/01/25 15:21
--- NOTE | 2025-04-01 10:33 | ECG_ITS ---
Test Reason : DYSPNEA Blood Pressure : */* mmHG Vent. Rate : 88 BPM Atrial Rate : 88 BPM P-R Int : 112 ms QRS Dur : 80 ms QT Int : 426 ms P-R-T Axes : 31 16 66 degrees QTcB Int : 515 ms Poor data quality, interpretation may be adversely affected Sinus rhythm with Premature supraventricular complexes Prolonged QT Abnormal ECG When compared with ECG of 04-Jan-2025 08:14, Sinus rhythm has replaced Afib Referred By: Jazmin Shaw Electronically Signed By: Issac Calvert
[2025-04-01 11:24] LABS: Hematocrit 24.6 % (42.0-52.0); Hemoglobin 8.2 g/dl (14.0-18.0); INTERNATIONAL NORM RATIO 1.2 (0.9-1.1); Imm Gran Abs Auto 0.09 X10*3/uL (0.00-0.03); Imm Gran Pct Auto 0.7 % (0.0-0.4); Lymphocytes Absolute Auto 1.3 X10*3/uL (1.2-4.9); MANUAL DIFF FLAG SCAN; Mean Corpuscular HGB Conc 33.3 g/dl (31.0-36.0); Mean Corpuscular Hemoglobin 26.6 pg (27.0-33.0); Mean Corpuscular Volume 79.9 fL (80.0-98.0); NRBC Abs Auto 0.000 X10*3/uL (0.0-0.012); NRBC Pct Auto 0.0 /100WBC (0.0-0.2); Platelet Count 271 X10*3/uL (160-400); Prothrombin Time 14.1 SEC (10.9-12.4); Red Blood Count 3.08 X10*6/uL (4.60-5.80); SCAN SMEAR FLAG 1; White Blood Count 13.5 X10*3/uL (4.8-10.8)
[2025-04-01 11:36] LABS: Alanine Aminotransferase < 6 U/L (0-40); Albumin Level 2.8 g/dL (3.5-5.0); Alkaline Phosphatase 86 U/L (39-117); Anion Gap 12 (12-20); Aspartate Amino Transferase 15 U/L (5-37); Blood Urea Nitrogen 36 mg/dL (9-16); Calcium 8.8 mg/dL (8.4-10.2); Carbon Dioxide 22 mmol/L (22-29); Chloride 87 mmol/L (96-108); Creatinine Clr Calc Pharmacy 56.5; Estimated Glomerular Filt Rate > 60; Magnesium 2.0 mg/dL (1.6-2.6); Potassium 5.1 mmol/L (3.3-5.1); Sodium 116 mmol/L (135-145); Total Protein 7.8 g/dL (6.5-8.0)
[2025-04-01 11:42] LABS: Troponin-I High Sensitivity < 2.7 ng/L (<3.5-35.0)
[2025-04-01] MEDS: cefEPime HCl/D5W 2 GM/50 ML PIGGYBACK IV (11:52)
[2025-04-01 11:58] LABS: Resp Syncy Virus RNA Qual PCR NEGATIVE (Negative); SARS COV2 PCR INHOUSE NEGATIVE (Negative)
[2025-04-01 12:07] LABS: Appearance Urine Turbid; Glucose Urine UA Negative (Negative); PH 6.5 (5.0-9.0); Specific Gravity - Urine 1.015 (1.005-1.025); UMIC TRIGGER UACC YES
--- NOTE | 2025-04-01 12:09 | PC.NURSE ---
patient presented to the ED from [facility] after shaking/shivering episode that caused him to desat. patient is non verbal at baseline and blind. patient has g tube for meds/prn feeding, suprapubic cath and colostomy. patient staff states that patient has not been eating lately, staff states that patient will eat by mouth with pureed diet and thin liquids, and supplement him with ensures prn if he does not eat. patient suprapubic in place with leg bag, changed to larger bag while in hospital. g tube supplies at bedside. staff at bedside states he is at his baseline mentation at this time, patient placed on tele monitor, has IV in left FA.
[2025-04-01 12:16] LABS: UACC Culture Trigger YES
--- OUTSIDE RECORDS SUMMARY | 2025-04-01 12:20 | XMS_ITS | Patient Health Record ---
Author Organization [facility] Address [address] [place] [id number] Care Team Providers Care Hoe Worker Name Role Phone Oni Alvarez MD Primary Care Provider Arden Smith Jr Unavailable Allergies Allergen (clinical drug ingredient) Drug/Non Drug Allergy documented on EMR Reaction Allergy Type Onset Date Status nitrofurantoin, macrocrystals / nitrofurantoin, monohydrate Macrobid Unknown Drug Allergy Active cephalexin Cephalexin Unknown Drug Allergy Activ e amoxicillin / clavulanate Augmentin Unknown Drug Allergy Active Non-steroidal anti-inflammatory agent (FN) NSAIDS (uncoded) Unknown Allergy Active fenofibrate Tricor Unknown Drug Allergy Activ e Streptococcus pneumoniae type 1 capsular polysaccharide antigen [...] polysaccharide antigen Pneumovax 23 Unknown Drug Allergy Activ e penicillin G Penicillin G Sodium Unknown Drug Allergy Active Reason For Referral No Information Medications Medication SIG (Take, Route, Frequency, Duration) Notes Start Date End Date Status Enema 7-19 GM/118ML as directed Rectal a s directed Active Bisacodyl Laxative 10 MG 1 suppository a s needed Rectal Once a day Active Glucosamine 1500 Complex - as directed g t three times daily Active [place] 3 1000 MG as directed gt twice a day Active Mapap Childrens 160 MG/5ML as directed/6 40 mg gt prn q6 Active LORazepam 2 MG 1 tablet at bedtime as needed Orally Once a day Active Boost Plus - as directed Orally Active Robafen DM 100-10 MG/5ML 10 ml as needed Orally every 4 hrs Active Boost - ml Orally once a day Active Cystex - 3 ml via gt twice a day Active Senna S syrup 10 ml gt twice a day Active Vitamin D2 1.25 1 CAPSULE VIA GT Onc e weekly in pm Active Valproic Acid 250 MG/5ML 5 ml Orally Twice a day Active Fluticasone Propionate 50 MCG/ACT 1 spray in each nostril Nasally Once a day Active GlycoLax - 1 packet mixed with 8 ounces of fluid Orally TWICE A DAY Active NexIUM I.V. 40 MG as directed Intravenous Active Pravastatin Sodium 10 MG 1 tablet Orally Once a day for 30 day(s) Active QUEtiapine Fumarate 300 MG 1 tablet via gt at bedtime Active Gas Relief 180 MG 1 capsule after meal s and at bedtime as needed Orally three times a day Active Aspir-81 81 MG 1 tablet Orally Once a day for 30 day(s) Active Child Chewable Vitamins/Iron - 1 tablet Orally Once a day Active Bactericin 500 UNIT/GM 1 application to affected area Externally Once a day Active Ear Wax Drops 6.5 % 5 drops into affecte d ear Otic Twice a day Active tiZANidine HCl 4 MG 1 tablet as needed O rally in the evening Active Ketoconazole 2 % 1 application to aff ected area Externally Once a day Active Immunizations Vaccine Route Administration Date Status Comme nts Influenza Unknown 07/30/2018 Administered Social History Tobacco Use: Social History Observation Description Date Details (start date - stop date) Never Smoker NA - NA Tobacco Use/Smoking Question Answer Notes Patient is a nonsmoker Alcohol Screen Question Answer Notes Did you have a drink containing alcohol in the p ast year? 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 Plan Of Treatment No Information Insurance Providers Payer Name Payer Address Payer Phone Subscriber Number Group Number Insured Name Patient Relationship to Insured Coverage Start Date Coverage End Date MEDICARE OF [place] [address] [place] [id number] [phone] [id number] WILBERT CARRERO Self - patient is the insured MEDICAID OF [facility] [address] [place] [address] [id number] WILBERT CARRERO Self - patient is the insured Medical (General) History Medical History History ICD Code cerebral palsy chronic kidney disease hyperlipidemia dysphagia with G-tube placement nephrolithiasis neurogenic bladder with suprapubic ana m ter cervical disc disease visual impairment/legally blind anemia Surgical History Surgery Date(Month/Year) appendectomy 1996 stent placement, ureteral 2014,2015 cervical fusion/laminectomy 2010 G-Tube, suprapubic tube catheter 2014
--- OUTSIDE RECORDS SUMMARY | 2025-04-01 12:20 | XMS_ITS | Patient Health Record ---
Author Organization [facility] Address [address] [place] [address] Care Team Providers Care Release Specialist Name Role Phone Oni Alvarez MD Primary Care Provider Viri Jack Unavailable [phone] Allergies Allergen (clinical drug ingredient) Drug/Non Drug [...] Duration) Notes Start Date End Date Status tiZANidine HCl 4 MG 1 tablet at bedtime as needed Orally Once a day Active Aspirin 81 MG 1 tablet Orally Once a day Active tiZANidine HCl 2 MG 1 tablet at bedtime as needed Orally Once a day Active Bacitracin Active Vitamin D2 Active Pravastatin Sodium A ctive Valproic Acid Active Boost Smoothie Activ e Loperamide HCl Activ e Fluticasone Propionate Active Ear Drops Active Ketoconazole Active Zinc Oxide Active Omeprazole 40 MG 1 capsule 1/2 to 1 h our before morning meal Orally Once a day Active Amiodarone HCl Activ e Glucosamine Active QUEtiapine Fumarate Active LORazepam Active Cystex Active Tussin DM Active GNP Fish Oil Active Cetirizine HCl Activ e Tylenol Childrens Ac tive diazePAM Active Social History Tobacco Use: Social History Observation Description Date Details (start date - stop date) Never Smoker NA - NA Tobacco use other than smoking: Question Answer Notes Are you an other tobacco user? No Tobacco Control (Standard) Question Answer Notes Tobacco use: Nonsmoker Additional Findings: Tobacco non-user Current no nsmoker AUDIT-C (Standard) Question Answer Notes Did you have a drink containing alcohol in the p ast year? No Points 0 Interpretation Negative Vital Signs Height 5 ft in 01/22/2025 Weight 124 lbs 01/22/2025 BMI 24.21 kg/m2 01/22/2025 Procedures Procedure Date Ordered Date Performed Result Body Sit e 34871-ARONJZS NAIL, 6 OR MORE 01/22/2025 N/A Encounters Encounter Location Date Provider Diagnosis [facility] [address] [address] 08/07/2024 Viri Landis Pain in right toe(s) M79.674 ; Onychomycosis B35.1 ; Pain in left toe(s) M79.675 ; Nonverbal R47.01 and Wheelchair dependent Z99.[address] [facility] [address] 01/22/2025 Viri Landis Pain in right toe(s) M79.674 ; Onychomycosis B35.1 ; Pain in left toe(s) M79.675 ; Nonverbal R47.01 and Wheelchair dependent Z99.3 [facility] [place] [address] [place] [address] 07/17/2024 Viri Landis Assessments Encounter Date Diagnosis (ICD Code) Assessment Notes Treatment Notes Treatment Clinical Notes Section Notes 08/07/2024 Pain in right toe(s) (ICD-10 - M79.674) 08/07/2024 Onychomycosis (ICD-10 - B35.1) 01/22/2025 Pain in right toe(s) (ICD-10 - M79.674) 01/22/2025 Onychomycosis (ICD-10 - B35.1) 08/07/2024 Pain in left toe(s) (ICD-10 - M79.675) 01/22/2025 Pain in left toe(s) (ICD-10 - M79.675) 01/22/2025 Nonverbal (ICD-10 - R47.01) 08/07/2024 Nonverbal (ICD-10 - R47.01) 08/07/2024 Wheelchair dependent (ICD-10 - Z99.3) 01/22/2025 Wheelchair dependent (ICD-10 - Z99.3) Plan Of Treatment Pending Test Test Name Order Date [id number] NAIL, 6 OR MORE 01/22/2025 Next Appt Details Provider Name:Viri Orta gurvinder, 04/30/2025 11:00:00 AM, [address] [place] [address], [phone], Insurance Providers Payer Name Payer Address Payer Phone Subscriber Number Group Number Insured Name Patient Relationship to Insured Coverage Start Date Coverage End Date Medicare National [employer] [address] [place] [address] [id number] Clay Ross Self - patient is the [...]
--- OUTSIDE RECORDS SUMMARY | 2025-04-01 12:20 | XMS_ITS | Encounter Summary ---
Author Organization [facility] Address [address] [place] [address] Phone Care Team Providers Care Felt Checker Name Role Phone Oni Alvarez MD Primary Care Provider [phone] Encounter Details Date Type Department Care Team (Late st Contact Info) Description 12/28/2023 Orders Only [facility] [address] [place] [address] Jaime Navarro MD [address] [place] [address] Hypo-osmolality and hyponatremia Social History [...] Not Estab. mmol/L See order comments Urine specimen (specimen) Urine specimen obtained by clean catch procedure / Unknown 01/17/2024 10:05 AM EDT 01/17/2024 Narrative [facility] - 01/20/2024 12:05 AM EDT Performed at: - [facility] [id number] [employer]: Beatriz Cm MD, Phone: [phone] us Jaime Navarro MD LAB URINE ORDERABLES Final Resul t Performing Organization Address [facility] Co de Phone Number [email or web address] See order comments [place] [address] * Urine Osmolality (01/17/2024 10:05 AM EDT) Osmolality, Ur 270 mOsmol/kg See o rder comments Comment: 24 hr : 300 - 900 Random: 50 - 1400 After 12hr fluid restriction: >850 Urine specimen (specimen) Urine specimen obtained by clean catch procedure / Unknown 01/17/2024 10:05 AM EDT 01/17/2024 Narrative [facility] - 01/20/2024 12:05 AM EDT Performed at: - [address] [id number] [employer]: Fahad Pelletier MD, Phone: [phone] us Jaime Navarro MD LAB URINE ORDERABLES Final Resul t Performing Organization Address [facility] de Phone Number [facility] See order comments [place] [address] documented in this encounter Visit Diagnoses Diagnosis Hypo-osmolality and hyponatremia documented in this encounter Care Teams Felt Checker Relationship Specialty Start Date End Date Oni Alvarez MD [facility] [employer] [address] [place] [address] PCP - General Internal Medicine 02/17/25 documented as of this encounter
--- OUTSIDE RECORDS SUMMARY | 2025-04-01 12:21 | XMS_ITS | Data Portability ---
Author Organization [place] [facility], [facility] Address [address] [place] [phone] Care Team Providers Care Applications Developer Name Role Phone LEILA FUENTES Primary Care Provider [phone] Assessment No assessment recorded. Plan of Treatment Reminders Order Date Submit Date Provider Last Modified By Organization Details Last Modified Time Details Appointments None recorded . Lab None recorded . Referral None recorded . Procedures None recorded . Surgeries None recorded . Imaging US, abdomen, limited - usp staff number [phone] [facility] [employer] ([facility]), [address] [place] [address], [id number], 14:43:26 Medication Orders None recorded . Patient TargetsNo targets recorded. Patient Instructions Encounter Date Encounter Id Patient Instructions Last Modified By Organization Details Last Modified Time 12/14/2021 [id number] Thank you for yo ur visit with [facility] today. You were seen today for abdominal [...] in your condition between 8am-10pm, please call [facility] at [phone] to help navigate your care. [email or web address] Not available 12/14/2021 15:09:04 Reason for Referral None Reported. Medical Equipment None Reported. Allergies Allergen ID Allergen Name Allergen Category Reaction Reaction Severity Criticality Documentation Date Start Date Code Code System Note Provider Name and Address Organization Details Recorded Time 979164 Product containin g penicilli n (product) medicatio n Not available Not available Not available 12/14/2021 21778 8001 SNOMED NADEEN Roper [address], [place], [address], [place] [facility] 2 15:07:58 318937 Tricor medicatio n Not available Not available Not available 12/14/2021 52415 6 RxNorm NADEEN Roper [address], [place], [address], [place] [facility] 2 15:08:10 138506 Macrobid medicatio n Not available Not available Not available 12/14/2021 67984 1 RxNoNADEEN Michel [address], [place], [address], [place] [facility] 2 15:08:16 071123 cephalexi n medicatio n Not available Not available Not available 12/14/2021 2231 RxNoNADEEN Michel [address], [place], [address], [place] [facility] 2 [...] blood by Pulse oximetry Body temperature Systolic And Diastolic Provider Name and Address Organization Details Last Updated DateTime 2 106 /min 18 /min 97 % 97 % 96.7 [degF] 152/74 mm[Hg] Not Available [facility] 2 15:12:40 Social History None recorded. Functional Status None recorded. Mental Status None recorded. Family History Nothing Reported. Medical History No medical history recorded. Past Encounters Encounter ID Performer Location Encounter Start Date Encounter Closed Date Diagnosis/Indication Diagnosis SNOMED-CT Code Diagnosis ICD10 Code Diagnosis Note [id number] NADEEN Roper [facility] [address] [place] [phone] 12/14/2021 15:06:38 12/18/2021 19:09:38 Swelling of scrotum 655059808 N50.89 Proper Personal Protective Equipment (PPE), including gloves, eye protection and masks were donned and doffed brody rosen and all equipment cleaned using approved technique with germicidal disposable wipes prior to and after care of this patient according to [facility] infection prevention protocols. Overview/H istory: 66 yo male in [facility] with long hx (6yr) of scrotal enlargemen [...] exam-AVSS- nontoxic appearing- NAD-orderi ng scrotal U/S-the switch house operator is going to speak with Dr Fuentes (PCP)-the plan is for PCP followup with referral to urology-U/ S results will be sent to the PCP-if fever begins, signs of pain develops, urine or stool output decrease, they will call 911-dc instructio ns written on the house paperwork state to check temps and report >100.4 to a medical profession al Health Concerns Section Related Observation LastModified by Organization Detai ls LastModified Time None Recorded Concern Status LastModified by Organization Details LastModified Time None Recorded Advance Directives Directive None Recorded Payers Insurance Date Sequence Insurance Name Policy Number Policy Mtz Covered Member ID Mtz Member ID Guarantor Name 12/19/2021 1 [place] [employer] Clay Ross [id number] Clay Ross 12/14/2021 1 *SELF PAY* Clay Ross [id number] Clay Ross 12/14/2021 2 [place] [facility] Clay Ross [id number] Clay Ross Notes Date Note Type Note Provider Name and Address Organization Details Recorded Time 12/14/2021 text/html 66 yo male new t o DH and to providerlives in group homestaff reports two week of scrotal enlargementthey report its always mildly swollenJess the staff states its looked like this for 6 years another staff member agrees that there is no changethe hotel staff member reported this to the PCP [...] a provider NADEEN Roper [address], [place], [address], [place] [facility] 12/14/2021 16:10:28
--- NOTE | 2025-04-01 12:22 | PC.NURSE ---
patient noted to have healed sacral wound, patient has aprox 2cm redness on sacrum, appears to be from chaffing/linen rubbing. pink wound pad placed on sacrum and dated
[2025-04-01 13:15] LABS: Reflex Lactate? Lactic Acid Added
[2025-04-01 13:36] LABS: Osmolality, Serum 265 mosm/kg (281-305)
--- NOTE | 2025-04-01 14:08 | PHA.MEDREC ---
Addendum entered by Raheem Salazar PharmD 04/01/25 14:51: reviewed Original Note: Pharmacy Consult ? Medication Reconciliation Pharmacy has completed the medication reconciliation. Got list from pt [facility]; Eliquis, Amlodipine not on list despite recent claims. I spoke with director of group sales Eloisa (at pt bedside) and she confirmed the pt is taking Eliquis 5mg BID, pt no longer taking Amlodipine and now taking Metoprolol and the pt was taking Tizanidine 2mg Am, 4mg Pm but has since stopped taking those and is now on Baclofen 10m/2 tab (5mg) TID.
[2025-04-01 14:30] LABS: ~Lactic Acid-LAB USE ONLY 2.4 mmol/L (0.5-2.0)
[2025-04-01 14:31] LABS: Anion Gap 11 (12-20); Blood Urea Nitrogen 35 mg/dL (9-16); Calcium 8.9 mg/dL (8.4-10.2); Carbon Dioxide 22 mmol/L (22-29); Chloride 88 mmol/L (96-108); Creatinine Clr Calc Pharmacy 54.6; Estimated Glomerular Filt Rate > 60; Potassium 5.3 mmol/L (3.3-5.1); Sodium 116 mmol/L (135-145)
--- NOTE | 2025-04-01 14:35 | PC.NURSE ---
Lab called to report critical labs for ED 9 Clay Ross, sodium was 116 and lactic 2.4. notified via tiger text.
--- NOTE | 2025-04-01 15:40 | P.HPCC_ITS ---
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 Since around January patient has not been eating well, previously he was getting ground diet through mouth and medications through the PEG tube, he was admitted at [facility] in February for aspiration pneumonia, atrial fibrillation and was discharged. His diet was changed into pureed thickened diet, but he is not eating well for more than a month. 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 Navarro for chronic hyponatremia very sodium runs around 130. In the ED his sodium was found to be 116 so MICU was consulted for admission Review of Systems 2 Review of Systems: Unable to obtain as patient is altered PMFSH Past Medical History Medical History Bacteriuria Neurogenic bladder Legally blind Cerebral palsy Surgical History Surgical History S/P colostomy Social History Social History Household Members: Caregiver Housing: Other Housing Other:: [facility] Do you presently have visiting nurse or other home services: Yes (lives in [facility] with staff.) Unable to assess alcohol history related to: Unable to respond Patient Tobacco Use Status: Never used Tobacco Use of substances other than those prescribed or required for medical reasons: Unable to respond Advance Directives: No Advance Directives Information Provided: Yes Do you have a plan to hurt others: No Plan Nutrition Risks: Poor intake 0-25% >4 days and Receiving home tube feeding or CPN service: No Meds Allergies Allergy/AdvReac Type Severity Reaction Status Date / Time Cephalosporins Allergy Unknown UNKNOWN Verified 04/01/25 10:27 nitrofurantoin (From Allergy Unknown UNKNOWN Verified 04/01/25 10:27 MACROBID) NSAIDS (Non-Steroidal Allergy Unknown UNKNOWN Verified 04/01/25 10:27 Anti-Inflamma (Nsaids) Penicillins Allergy Unknown UNKNOWN Verified 04/01/25 10:27 pneumococcal vaccine (From Allergy Unknown UNKNOWN Verified 04/01/25 10:27 PNEUMOVAX 23) From Augmentin Allergy Unknown UNKNOWN Uncoded 01/03/25 09:12 From Tricor Allergy Unknown UNKNOWN Uncoded 01/03/25 09:12 Active Medications: Current Medications Sodium Chloride (Sodium Chloride 0.45 %) 1,000 mls @ 42 mls/hr IVCONT .[id number] SHUBHAM Last Infusion: 04/01/25 13:39 Dose: Infused Sodium Chloride (Ns) 1,000 mls @ 100 mls/hr IVCONT .Q10H SHUBHAM Last Admin: 04/01/25 13:40 Dose: 100 mls/hr Home Medications ?Medication ?Instructions ?Recorded ?Confirmed ?Last Taken ?Type acetaminophen 160 mg/5 mL oral 640 mg feeding tube Q6H PRN 01/02/25 04/01/25 Unknown History suspension (Children's pain/fever Acetaminophen) aspirin 81 mg chewable tablet 1 tab feeding tube DAILY 01/02/25 04/01/25 Unknown History bacitracin zinc 500 unit/gram 1 appl topical BID PRN a brasions, 01/02/25 04/01/25 Unknown History topical ointment GT irritated skin carbamide peroxide 6.5 % ear drops 4 drp otic (ears) B ID PRN for 5 01/02/25 04/01/25 Unknown History (Ear Wax Removal Drops) days monthly cetirizine 10 mg tablet 10 mg feeding tube DAILY 08/1804/01/25 Unknown History pnhxqcifk-nzfQ-ammqrpv-FOS-bromelain 3 ml PO BID 01/0204/01/25 Unknown History 1,937 mg-188 mg/15 mL oral liquid dextromethorphan-guaifenesin 10 10 ml feeding tube Q6H PRN Cough 01/02/25 04/01/25 Unknown History mg-100 mg/5 mL oral liquid (Tussin DM) diazepam 5 mg tablet 5 mg feeding tube DAILY PRN 1 hour 01/02/25 04/01/25 Unknown History prior to dental appointment ergocalciferol (vitamin D2) 1,250 1,250 mcg feeding tu be FR@2100 01/02/25 04/01/25 01/02/25 History mcg (50,000 unit) capsule fluticasone propionate 50 2 spray intranasal DAILY 08/1804/01/25 Unknown History mcg/actuation nasal spray,suspension wufimzjenam-skakkawww-nzc C-Mn 500 1 cap PO TID 04/01/25 Unknown History mg-400 mg capsule (Glucosamine Chondroitin Maximum Strength) lorazepam 1 mg tablet 1 mg feeding tube DAILY PRN 2 01/02/25 04/01/25 Unknown History hours prior to GT changes lorazepam 1 mg tablet 1 mg feeding tube DAILY PRN 2 01/02/25 04/01/25 Unknown History hours prior to podiatry foot care omeprazole 40 mg capsule,delayed 40 mg feeding tube BE DTIME 01/02/25 04/01/25 Unknown History release pravastatin 10 mg tablet 10 mg feeding tube BEDTIME 0 01/02/25 04/01/25 Unknown History simethicone 40 mg/0.6 mL oral 160 mg feeding tube TID 01/02/25 04/01/25 Unknown History drops,suspension (Infants Simethicone) valproic acid (as sodium salt) 250 1,000 mg feeding tu be Q12H 01/02/25 04/01/25 01/03/25 History mg/5 mL oral solution apixaban 5 mg tablet (Eliquis) 5 mg feeding tube BID 0 04/01/25 04/01/25 Unknown History baclofen 10 mg tablet 5 mg feeding tube TID 04/01/25 Unknown History ketoconazole 2 % topical cream 1 appl topical BID 06/1804/01/25 Unknown History loperamide 2 mg tablet 2 mg feeding tube BID PRN Lo ose 04/01/25 04/01/25 Unknown History Stool metformin 500 mg tablet 500 mg feeding tube BID 06/1804/01/25 Unknown History metoprolol tartrate 25 mg tablet 12.5 mg feeding tube BID 04/01/25 04/01/25 Unknown History nystatin 100,000 unit/gram topical 1 appl topical TID PRN Flare Up or 04/01/25 04/01/25 Unknown History ointment Rash omega-3 fatty acids 1,000 mg 1,000 mg feeding tube DAVE LY 04/01/25 04/01/25 Unknown History capsule pediatric multivitamin 1 tab feeding tube DAILY 06/1804/01/25 Unknown History zinc oxide 20 % topical ointment 1 appl topical 7XD 04/01/25 Unknown History Physical Exam 2 Vital Signs: Vital Signs: Last Vital Signs Temp 97.5 F 04/01/25 12:10 Pulse 78 04/01/25 15:21 Resp 27 H 04/01/25 15:21 BP 91/46 L 04/01/25 15:21 Pulse Ox 95 04/01/25 15:21 O2 Del Method Room Air 04/01/25 15:21 BMI result Body Mass Index 22.6 Results Labs 04/01/25 11:09 04/01/25 13:59 Labs: Laboratory Results - last 24 hr 04/01/25 04/01/25 04/01/25 11:09 11:56 13:01 MCV 79.9 L MCH 26.6 L MCHC 33.3 RDW 15.4 Plt Count 271 MPV 8.9 L Immature Gran % (Auto) 0.7 H Neut % (Auto) 69.6 Lymph % (Auto) 9.7 L Deuel % (Auto) 19.6 H Eos % (Auto) 0.3 Baso % (Auto) 0.1 Lymph # (Auto) 1.3 Deuel # (Auto) 2.7 H Eos # (Auto) 0.0 Baso # (Auto) 0.0 Abs Immat Gran (auto) 0.09 H Absolute Neuts (auto) 9.4 H Absolute Nucleated RBC 0.000 Nucleated RBC % (auto) 0.0 Smear Tech's Comments VERIFIED PT 14.1 H INR 1.2 H Anion Gap 12 Estim Creat Clear Calc 56.5 Estimated GFR > 60 Random Glucose 227 H Osmolality 265 L Lactic Acid 2.7 H* Lactic Acid F/U @ 2Hr Calcium 8.8 Phosphorus Magnesium 2.0 Total Bilirubin 0.3 AST 15 ALT < 6 Alkaline Phosphatase 86 Total Protein 7.8 Albumin 2.8 L Urine Color Yellow Urine Appearance Turbid Urine pH 6.5 Ur Specific [place] 1.015 Urine Protein 100 (2+) H Urine Glucose (UA) Negative Urine Ketones Trace Urine Blood Moderate (2+) H Urine Nitrite Negative Ur Leukocyte Esterase Large (3+) H Urine RBC 3-5 H Urine WBC >50 H Ur Squamous Epith Cells 0-2 Urine Bacteria 4+ Hyaline Casts 0-2 Urine Yeast Present Urine Osmolality 421 Ur Random Sodium < 20.0 Influenza Type A (PCR) NEGATIVE Influenza Type B (PCR) NEGATIVE RSV RNA Qual (PCR) NEGATIVE SARS-CoV-2 RNA (RT-PCR) NEGATIVE 04/01/25 13:59 MCV MCH MCHC RDW Plt Count MPV Immature Gran % (Auto) Neut % (Auto) Lymph % (Auto) Deuel % (Auto) Eos % (Auto) Baso % (Auto) Lymph # (Auto) Deuel # (Auto) Eos # (Auto) Baso # (Auto) Abs Immat Gran (auto) Absolute Neuts (auto) Absolute Nucleated RBC Nucleated RBC % (auto) Smear Tech's Comments PT INR Anion Gap 11 L Estim Creat Clear Calc 54.6 Estimated GFR > 60 Random Glucose 204 H Osmolality Lactic Acid Lactic Acid F/U @ 2Hr 2.4 H* Calcium 8.9 Phosphorus 3.6 Magnesium Total Bilirubin AST ALT Alkaline Phosphatase Total Protein Albumin Urine Color Urine Appearance Urine pH Ur Specific [place] Urine Protein Urine Glucose (UA) Urine Ketones Urine Blood Urine Nitrite Ur Leukocyte Esterase Urine RBC Urine WBC Ur Squamous Epith Cells Urine Bacteria Hyaline Casts Urine Yeast Urine Osmolality Ur Random Sodium Influenza Type A (PCR) Influenza Type B (PCR) RSV RNA Qual (PCR) SARS-CoV-2 RNA (RT-PCR) Imaging Radiologist's Impressions: Impressions Chest X-Ray 04/01/25 10:35 IMPRESSION: 1. Moderate cardiomegaly. 2. Small right pleural effusion. 3. Bibasilar parenchymal opacities, atelectasis versus pneumonia in the appropriate clinical setting. Electronically signed by: Eddi Ferreira MD 04/01/2025 10:56 AM EDT Assessment and Plan (1) Hypotension: Qualifiers: Hypotension type: unspecified hypotension type Qualified Code(s): I95.9 - Hypotension, unspecified Status: Acute (2) Atrial fibrillation with RVR: Status: Acute (3) Legally blind: Status: Acute (4) S/P colostomy: Status: Acute (5) Lactic acidosis: Status: Acute (6) Acute hyponatremia: Status: Acute (7) Cerebral palsy: Status: Acute Plan Acute hyponatremia: Possibly due to poor intake and volume depletion. Urine sodium less than 20, urine Osmo 400. Baseline sodium around 130 according to his nurse, today presenting with a sodium of 116. We will start the patient on normal saline at 100 cc/hour, we will closely monitor his sodium q.4 hours target sodium less than 125 by tomorrow morning. 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 We will get urinalysis and culture We will start on empiric Zosyn Atrial fibrillation: currently rate controlled will restart home apixaban for anticoagulation Respiratory: Has history of aspiration pneumonia, chest x-ray showing bilateral lung base opacities possibly atelectasis versus pneumonia Saturations are stable on room air GI: We will withhold on feeding for now, if his mentation does not improve we will start on tube feeding tomorrow Acute lactic acidosis: Secondary to volume depletion, lactate trend stable Can not give him fluid boluses due to risk of rapid correction of hyponatremia Acute hyperkalemia: Possibly due to decreased tubular flow due to hypovolemia Should improve with volume replacement Prophylaxis: apixaban
[2025-04-01 16:03] LABS: Reflex Lactate? 2 Y
--- NOTE | 2025-04-01 17:13 | PM.SEPBOLA4 ---
Sepsis Bolus Exclusion Sepsis Bolus Exclusion CHF/Renal Failure Date of Occurrence: 04/01/25 Time of Occurrence:: 12:00 This patient met severe sepsis criteria due to the following condition(s):: Hypotension In my clinical judgement the administration of 30 ml/kg of crystalloid would be detrimental to this patient due to the patient's following conditions:: Other Other (must be specific):: hyponatremia risk of rapid correction with fluid bolus Replace the 30 mls/kg with (Zero amount not acceptable and all fluids for severe sepsis must be given at GREATER than 125 mls/hr) *Note: One of the hoffmann must be documented Crystalloids amount given in mls: (rate must be at least 150cc/hr): 1,000 At a rate of (must be > 125 cchr):: 150
[2025-04-01 17:50] LABS: ~Lactic Acid-LAB USE ONLY 4.8 mmol/L (0.5-2.0)
[2025-04-01] MEDS: Valproic Acid Liquid 250 MG/5 ML SOLUTION 1000 MG G-TUBE (17:52)
[2025-04-01 18:18] LABS: Anion Gap 9 (12-20); Blood Urea Nitrogen 27 mg/dL (9-16); Calcium 7.1 mg/dL (8.4-10.2); Carbon Dioxide 19 mmol/L (22-29); Chloride 100 mmol/L (96-108); Creatinine Clr Calc Pharmacy 74.7; Estimated Glomerular Filt Rate > 60; Potassium 4.5 mmol/L (3.3-5.1); Sodium 123 mmol/L (135-145)
--- NOTE | 2025-04-01 19:20 | HO.SKINPHOTO ---
Location: Right Buttocks Category: Stage: 2 Length: Width: Depth: cm Location: Scrotal redness/discoloration Category: Stage: Length: Width: Depth: cm
--- NOTE | 2025-04-01 19:23 | PC.NURSE ---
Patient admitted from ER, nonverbal at base, meds given through PEG tube, placement auscultated, [facility] staff at bedside, Levophed started due to decreased MAP and BP as per provider at 0.02mcg/kg/min, second IV started per another RN.
[2025-04-01 21:43] LABS: Anion Gap 14 (12-20); Blood Urea Nitrogen 33 mg/dL (9-16); Calcium 8.4 mg/dL (8.4-10.2); Carbon Dioxide 17 mmol/L (22-29); Chloride 93 mmol/L (96-108); Creatinine Clr Calc Pharmacy 70.4; Estimated Glomerular Filt Rate > 60; Potassium 5.5 mmol/L (3.3-5.1); Sodium 118 mmol/L (135-145)
[2025-04-02] VITALS (43 sets, daily range): BP systolic 82–147; BP diastolic 41–82; PULSE 43–112; RESP 14–220; TEMP 36.1–37; O2SAT 90–100; BMI 22.7; BMI 21.2
[2025-04-02] MEDS: Valproic Acid Liquid 250 MG/5 ML SOLUTION 1000 MG G-TUBE ×2 (05:06→17:44)
[2025-04-02 05:25] LABS: Hematocrit 22.7 % (42.0-52.0); Hemoglobin 7.9 g/dl (14.0-18.0); Imm Gran Abs Auto 0.07 X10*3/uL (0.00-0.03); Imm Gran Pct Auto 0.6 % (0.0-0.4); Lymphocytes Absolute Auto 1.6 X10*3/uL (1.2-4.9); MANUAL DIFF FLAG SCAN; Mean Corpuscular HGB Conc 34.8 g/dl (31.0-36.0); Mean Corpuscular Hemoglobin 27.5 pg (27.0-33.0); Mean Corpuscular Volume 79.1 fL (80.0-98.0); NRBC Abs Auto 0.000 X10*3/uL (0.0-0.012); NRBC Pct Auto 0.0 /100WBC (0.0-0.2); Platelet Count 297 X10*3/uL (160-400); Red Blood Count 2.87 X10*6/uL (4.60-5.80); SCAN SMEAR FLAG 1; White Blood Count 11.9 X10*3/uL (4.8-10.8)
[2025-04-02 05:59] LABS: Alanine Aminotransferase < 6 U/L (0-40); Albumin Level 2.5 g/dL (3.5-5.0); Alkaline Phosphatase 69 U/L (39-117); Anion Gap 13 (12-20); Aspartate Amino Transferase 15 U/L (5-37); Blood Urea Nitrogen 26 mg/dL (9-16); Calcium 8.5 mg/dL (8.4-10.2); Carbon Dioxide 18 mmol/L (22-29); Chloride 96 mmol/L (96-108); Creatinine Clr Calc Pharmacy 70.4; Estimated Glomerular Filt Rate > 60; Magnesium 2.1 mg/dL (1.6-2.6); Potassium 4.7 mmol/L (3.3-5.1); Sodium 122 mmol/L (135-145); Total Protein 6.8 g/dL (6.5-8.0)
[2025-04-02] MEDS: Albumin Human 25 % 100 ML 133.33 ML IV ×2 (06:28→07:33)
--- NOTE | 2025-04-02 07:00 | CA_ITS ---
Transthoracic Echocardiogram Patient (Last, First, Middle): Clay Ross, Gender: Male Date of : 1955 Age: 69 Procedure Date: 04/02/2025 Procedure Type: Transthoracic Echocardiogram Location: ICU Height: 152.4 cm Weight: 52.62 kg BSA: 1.48 m2 Heart Rate: 113 bpm BP: 106 / 80 mmHg Manager Loss Prevention: SUGAR/DORINA Referring MD: Price Valdes MD Symptoms: pericardial effusion Study Quality: Adequate ECG Rhythm: Tachycardia Conclusions: - Normal left ventricular size, thickness, and systolic function. The visually estimated ejection fraction is between 60-65%. Abnormal diastolic function is noted. Elevated filling pressures. - Normal right ventricular cavity size. There is borderline right ventricular systolic function. - There is a large pericardial effusion. There are echocardiographic findings consistent with tamponade physiology. There is excessive respiratory variation of the mitral valve Doppler velocities. Findings Left Ventricle Normal left ventricular size, thickness, and systolic function. The visually estimated ejection fraction is between 60-65%. Abnormal diastolic function is noted. Elevated filling pressures. Right Ventricle Normal right ventricular cavity size. There is borderline right ventricular systolic function. Atria The left atrium is normal in size. The right atrium is normal in size. Aortic Valve The aortic valve was not well visualized. There is mild aortic valve stenosis. There is no aortic valve regurgitation. Mitral Valve Normal mitral valve structure and function. There is no mitral valve regurgitation. There is no mitral valve stenosis. Pulmonic Valve The pulmonic valve was not well visualized. Tricuspid Valve Likely normal tricuspid valve structure and function. Tricuspid regurgitation envelope is inadequate for calculation of right ventricular systolic pressure. Significantly elevated right atrial pressure. Great Vessels All visible segments of the aorta are normal in size. Venous The inferior vena cava is dilated and does not collapse with inspiration. Pericardium/Pleural There is a large pericardial effusion. There are echocardiographic findings consistent with tamponade physiology. There is excessive respiratory variation of the mitral valve Doppler velocities. Prior Study Comparison No prior study available for comparison. Measurements 2D Linear Measurements IVSd: 0.70 0.6-0.9/0.6-1.0 cm LVIDd: 2.42 3.9-5.3/4.2-5.9 cm LVIDd Index: 1.64 2.4-3.2/2.2-3.1 cm/m2 LVIDs: 1.57 2.0-3.6 cm LVPWd: 0.95 0.7-1.1 cm Ao Root: 3.10 2.1-3.5 cm LA Diam: 2.00 2.7-3.8/3.0-4.0 cm LAIDs Index: 1.35 1.5-2.3 cm/m2 LV Mass: 55.22 67-162/88-224 g LV Mass Index: 37.31 43-95/49-115 g/m2 LVOT Diam: 2.00 3.0+(-)1.3 cm 2D Systolic Function EF 4C: 61.00 >55% EF 2C: 68.40 >55% EF BiP: 64.50 >55% Mitral Valve MV Pk E: 1.13 MV PK A: 1.18 MV Decel Time: 245.00 E/A: 1.00 E'Lateral: 7.07 E'Medial: 6.20 E/E' Med: 18.20 E/E' Lat: 16.00 PHT: 72.00 MVA PHT: 3.06 Decel Magoffin: 4.63 Aortic Valve AoV Pk Jone: 2.21 AoV Mn Jone: 1.36 AoV VTI: 0.32 AoV Pk Grad: 20.00 Aov Mn Grad: 9.00 CINTIA Cont.VTI: 2.39 LVOT LVOT Pk Jone: 1.65 LVOT Mn Jone: 1.22 LVOT VTI: 0.25 LVOT Pk Grad: 11.00 LVOT Mn Grad: 7.00 LVOT Diam: 2.00 LVOT Area: 3.14 Diastolic Function MV Pk E: 1.13 MV Pk A: 1.18 E/A: 1.00 E'Medial: 6.20 E/E' Med: 18.20 E' Laterial: 7.07 E/E' Lat: 16.00 Great Vessels Aorta Ao Root-2D: 3.10 2.0-3.7 cm Ao Asc: 3.50 2.1-3.4 cm Pulmonary Valve PV Pk Jone: 0.95 Peak PV Grad: 4.00 Updated in Other Vendor System with Status of Final Issac Calvert MD electronically signed on 04/02/2025 2:37:36 PM with status of Final
--- NOTE | 2025-04-02 07:11 | PC.NURSE ---
Assumed care at 1900. Patient is nonverbal at baseline per care home staff, as well as legally blind and hard of hearing. Patient alert to self, occasionally grunting or moaning to stimuli. Able to weakly move extremities, although contractures to both BLE and BUE. SR/Afib on tele, frequently switching between the two rhythms. At approx 0200, patient noted to be Afib with RVR on tele (HR 140s-150s), NADEEN Perry notified. Patient converted without intervention initially. At approx 0330, patient once again in Afib with RVR (HR 150s-160s), 0.5mg digoxin IVP ordered and administered per MAR with good effect, patient converted to SR (HR 80s-90s). Levophed gtt infusing per MAR for BP support. Patient tachypneic, RR even and saturating well on 2L NC. Abdomen soft and round, colostomy present to right lower quadrant and G-tube present to left upper quadrant. Suprapubic catheter draining clear, pale yellow urine. Skin warm and dry, stage 2 pressure injury to right buttock present upon admission, evidence of previous pressure injury to bilateral buttocks. Patient does not tolerate being turned to the left d/t contractures, repositioned as tolerated Q2HR. Bed locked in lowest position, bed alarm on, 1-1 from care home at bedside.?
--- NOTE | 2025-04-02 08:59 | PM.CCPN ---
Subjective Subjective Date of Service: 04/02/25 Interval History: sodium slowly improving, 122 this morning Critical Care Time (minutes): 35 Physical Exam Vital Signs: Vital Signs: Last Vital Signs Temp 97.2 F 04/02/25 08:00 Pulse 105 H 04/02/25 08:29 Resp 18 04/02/25 08:00 BP 90/52 L 04/02/25 08:29 Pulse Ox 95 04/02/25 08:00 O2 Del Method Nasal Cannula 04/02/25 08:00 O2 Flow Rate 1 04/02/25 08:00 BMI result Body Mass Index 22.7 General: Elderly male, nauseated lying in the bed not in acute distress Nutritional Appearance: well nourished and overweight Eyes: appearance normal, both eyes and all related structures; Alignment and Position: alignment normal and position normal Neck: No lymphadenopathy, no thyromegaly Resp: bilateral air entry equal, occasional added sounds present Cardio: Regular rate, regular rhythm; Heart sounds: S1 normal heart sound present and S2 normal heart sound present GI: soft, nontender, no guarding, no hepatosplenomegaly : bladder normal to inspection, bladder normal to palpation, no renal angle tenderness Skin: no rashes or lesions noted and elasticity normal Neuro: Has chronic neuro deficits, abnormal movements Objective Data Labs 04/02/25 04:37 04/02/25 04:37 Labs: Laboratory Results - last 24 hr 04/01/25 04/01/25 04/01/25 11:09 11:56 13:01 WBC 13.5 H RBC 3.08 L Hgb 8.2 L Hct 24.6 L MCV 79.9 L MCH 26.6 L MCHC 33.3 RDW 15.4 Plt Count 271 MPV 8.9 L Immature Gran % (Auto) 0.7 H Neut % (Auto) 69.6 Lymph % (Auto) 9.7 L [place] % (Auto) 19.6 H Eos % (Auto) 0.3 Baso % (Auto) 0.1 Lymph # (Auto) 1.3 [place] # (Auto) 2.7 H Eos # (Auto) 0.0 Baso # (Auto) 0.0 Abs Immat Gran (auto) 0.09 H Absolute Neuts (auto) 9.4 H Absolute Nucleated RBC 0.000 Nucleated RBC % (auto) 0.0 Smear Tech's Comments VERIFIED PT 14.1 H INR 1.2 H Sodium 116 L* Potassium 5.1 D Chloride 87 L D Carbon Dioxide 22 Anion Gap 12 BUN 36 H Creatinine 0.86 Estim Creat Clear Calc 56.5 Estimated GFR > 60 Random Glucose 227 H Osmolality 265 L Lactic Acid 2.7 H* Lactic Acid F/U @ 2Hr Lactic Acid F/U @ 4Hr Calcium 8.8 Phosphorus Magnesium 2.0 Total Bilirubin 0.3 AST 15 ALT < 6 Alkaline Phosphatase 86 Troponin I High Sens < 2.7 Total Protein 7.8 Albumin 2.8 L Urine Color Yellow Urine Appearance Turbid Urine pH 6.5 Ur Specific [place] 1.015 Urine Protein 100 (2+) H Urine Glucose (UA) Negative Urine Ketones Trace Urine Blood Moderate (2+) H Urine Nitrite Negative Ur Leukocyte Esterase Large (3+) H Urine RBC 3-5 H Urine WBC >50 H Ur Squamous Epith Cells 0-2 Urine Bacteria 4+ Hyaline Casts 0-2 Urine Yeast Present Urine Osmolality 421 Ur Random Sodium < 20.0 Influenza Type A (PCR) NEGATIVE Influenza Type B (PCR) NEGATIVE RSV RNA Qual (PCR) NEGATIVE SARS-CoV-2 RNA (RT-PCR) NEGATIVE 04/01/25 04/01/25 04/01/25 13:59 17:11 17:50 WBC RBC Hgb Hct MCV MCH MCHC RDW Plt Count MPV Immature Gran % (Auto) Neut % (Auto) Lymph % (Auto) [place] % (Auto) Eos % (Auto) Baso % (Auto) Lymph # (Auto) [place] # (Auto) Eos # (Auto) Baso # (Auto) Abs Immat Gran (auto) Absolute Neuts (auto) Absolute Nucleated RBC Nucleated RBC % (auto) Smear Tech's Comments PT INR Sodium 116 L* 123 L Potassium 5.3 H 4.5 Chloride 88 L 100 Carbon Dioxide 22 19 L Anion Gap 11 L 9 L BUN 35 H 27 H Creatinine 0.89 0.65 Estim Creat Clear Calc 54.6 74.7 Estimated GFR > 60 > 60 Random Glucose 204 H 143 H Osmolality Lactic Acid Lactic Acid F/U @ 2Hr 2.4 H* Lactic Acid F/U @ 4Hr 4.8 H* Calcium 8.9 7.1 L D Phosphorus 3.6 Magnesium Total Bilirubin AST ALT Alkaline Phosphatase Troponin I High Sens Total Protein Albumin Urine Color Urine Appearance Urine pH Ur Specific [place] Urine Protein Urine Glucose (UA) Urine Ketones Urine Blood Urine Nitrite Ur Leukocyte Esterase Urine RBC Urine WBC Ur Squamous Epith Cells Urine Bacteria Hyaline Casts Urine Yeast Urine Osmolality Ur Random Sodium Influenza Type A (PCR) Influenza Type B (PCR) RSV RNA Qual (PCR) SARS-CoV-2 RNA (RT-PCR) 04/01/25 04/02/25 21:15 04:37 WBC 11.9 H RBC 2.87 L Hgb 7.9 L Hct 22.7 L MCV 79.1 L MCH 27.5 MCHC 34.8 RDW 15.6 Plt Count 297 MPV 9.0 L Immature Gran % (Auto) 0.6 H Neut % (Auto) 66.9 Lymph % (Auto) 13.6 L [place] % (Auto) 17.9 H Eos % (Auto) 0.8 Baso % (Auto) 0.2 Lymph # (Auto) 1.6 [place] # (Auto) 2.1 H Eos # (Auto) 0.1 Baso # (Auto) 0.0 Abs Immat Gran (auto) 0.07 H Absolute Neuts (auto) 8.0 Absolute Nucleated RBC 0.000 Nucleated RBC % (auto) 0.0 Smear Tech's Comments VERIFIED PT INR Sodium 118 L* 122 L Potassium 5.5 H D 4.7 Chloride 93 L 96 Carbon Dioxide 17 L 18 L Anion Gap 14 13 BUN 33 H 26 H Creatinine 0.69 0.69 Estim Creat Clear Calc 70.4 70.4 Estimated GFR > 60 > 60 Random Glucose 119 H 109 Osmolality Lactic Acid Lactic Acid F/U @ 2Hr Lactic Acid F/U @ 4Hr Calcium 8.4 D 8.5 Phosphorus 4.2 Magnesium 2.1 Total Bilirubin 0.2 AST 15 ALT < 6 Alkaline Phosphatase 69 Troponin I High Sens Total Protein 6.8 Albumin 2.5 L Urine Color Urine Appearance Urine pH Ur Specific [place] Urine Protein Urine Glucose (UA) Urine Ketones Urine Blood Urine Nitrite Ur Leukocyte Esterase Urine RBC Urine WBC Ur Squamous Epith Cells Urine Bacteria Hyaline Casts Urine Yeast Urine Osmolality Ur Random Sodium Influenza Type A (PCR) Influenza Type B (PCR) RSV RNA Qual (PCR) SARS-CoV-2 RNA (RT-PCR) Progress Note: A&P Assessment and plan (1) Hypotension: Status: Acute (2) Atrial fibrillation with RVR: Status: Acute (3) Acute hyponatremia: Status: Acute (4) Cerebral palsy: Status: Acute Plan Acute hyponatremia: Possibly due to poor intake and volume depletion as suggested by Urine sodium less than 20, urine Osmo 400. We will repeat urine sodium and osmolality Baseline sodium around 130 according to his nurse, presenting with a sodium of 116 yesterday, slowly improved to 122 this morning. 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 Pending urinalysis and culture on empiric Zosyn Atrial fibrillation: currently rate controlled will restart home apixaban for anticoagulation Respiratory: Has history of aspiration pneumonia, chest x-ray showing bilateral lung base opacities possibly atelectasis versus pneumonia Saturations are stable on room air GI: will start tube feeds, speech for swallow eval Acute lactic acidosis: Secondary to volume depletion, lactate trend stable Can not give him fluid boluses due to risk of rapid correction of hyponatremia Acute hyperkalemia: Possibly due to decreased tubular flow due to hypovolemia Should improve with volume replacement Prophylaxis: apixaban Quality Stroke Does the patient have a stroke diagnosis?: No VTE Prior VTE?: No VTE Risk Level:: Medical - moderate - high VTE Device Contraindication: N/A - Device Ordered VTE Drug Contraindication: N/A - Med Ordered
[2025-04-02 09:38] LABS: Anion Gap 11 (12-20); Blood Urea Nitrogen 22 mg/dL (9-16); Calcium 8.8 mg/dL (8.4-10.2); Carbon Dioxide 20 mmol/L (22-29); Chloride 98 mmol/L (96-108); Creatinine Clr Calc Pharmacy 70.4; Estimated Glomerular Filt Rate > 60; Potassium 4.4 mmol/L (3.3-5.1); Sodium 125 mmol/L (135-145)
--- NOTE | 2025-04-02 10:45 | MHC.CLN ---
NUTRITION CURRENTLY NPO. REPORTED THAT TAKES PUREE FOOD AT RESIDENTIAL WITH DECLINE IN INTAKE NOTED X 2 MONTHS. SIGNIFICANT WEIGHT LOSS -14.6% X 3 MONTHS. RECENT ASPIRATION PNEUMONIA 03/18. STAGE II PRESSURE INJURY TO RIGHT BUTTOCK. QUALIFIES MODERATELY MALNOURISHED IN THE CONTEXT OF CHRONIC ILLNESS BASED ON POOR PO AND WEIGHT LOSS. RECOMMEND CONTINUOUS TUBE FEEDING FOR NUTRITION/HYDRATION. JEVITY 1.0 AT 60 ML PER HOUR TO PROVIDE 1526 KCALS (29.0 KCALS/KG), 64 G PROTEIN (1.2 G/KG), 1202 ML FREE WATER FROM FORMULA. NO FLUSH RX AT THIS TIME DUE TO HYPONATREMIA. FOLLOW FOR TUBE FEED TOLERANCE, POSSIBLE PO INTAKE AND SKIN INTEGRITY. SEE CLINICAL NUTRITION ASSESSMENT 04/02/25.
--- NOTE | 2025-04-02 11:48 | P.CDIM_ITS ---
PROVIDER RESPONSE TEXT: To clarify, the appropriate diagnosis supported by the clinical indicators: Metabolic QUERY TEXT: PHYSICIAN'S DOCUMENTATION REQUEST Date of Query: 04/02/2025 11:10 AM EDT Patient Name: Clay Ross Admit Date: 04/01/2025 Dear Price Valdes MD, A review of the medical record indicates additional documentation may be needed. Please review below and update the documentation accordingly. Clinical Indicators: ICU progress note dated 04/02/25 : Acute encephalopathy Possibly secondary to hyponatremia and UTI. Based on the above, please further specify, in the Progress Notes, the known or suspected type of the documented encephalopathy: Metabolic Toxic Toxic metabolic Other specified Other (explain) Clinically unable to determine (explain) Thank you, Emma Caruso, CCS, CDIS Use of terms such as suspected, likely, concern for, or probable (associated with a specific diagnosis that is being evaluated, monitored, or treated as if it exists) are acceptable and can be coded in the inpatient setting, when documented at the time of discharge. Please use your independent medical judgment in providing your response. THIS QUERY IS PART OF THE PERMANENT MEDICAL RECORD
--- NOTE | 2025-04-02 11:53 | HO.WOUND ---
Wound Consult: Initial 69yr old? male admitted to [facility] [place] on 04/01/25 - See progress notes and H&P for detailed history.? Wound consult placed for Sacral wound present on admission.? Chart and photo review completed along with nurse discussion on 04/01/25. Sacrum Etiology: Stage 2 Pressure Injury ??Present on Admission Wound Bed: red clean wound bed Edges: ? attached and defined [place] wound: ?pink and hyperpigmented tissue noted - No Induration, Fluctuance or Warmth noted Goals of Treatment: ? Off Load Pressure and foam dressing to allow for protection from friction and moist wound healing. Recommendations: 1. Turn and Reposition every 2 hours and as needed for patient comfort.? Use pillows or wedges to support off loading positions. 2. Off Load all bony prominences with use of pillows and heel boots if needed.? Apply Preventative foams where needed. ? 3. Monitor for incontinence and moisture control, use barrier creams when needed for prevention and treatment. 4. Provide adequate and supplemental nutrition.? 5. Continue low air loss mattress. 6. When applicable maintain blood glucose levels per Providers order. Sacrum? - Off Load Pressure with Q2 hr turns and use of pillows - Routine cleansing.? Apply skin prep allow to dry.? Cover with foam dressing to aid in off loading and protection from friction. Change every 3 days and PRN. Re-consult wound care Nurse for wound deterioration or wound changes.
[2025-04-02] MEDS: dexmedeTOMIDine HCL/NS 400 MCG/100 ML PLAST..BAG 13.18 MCG IVCONT (12:15)
[2025-04-02 13:19] LABS: Anion Gap 11 (12-20); Blood Urea Nitrogen 25 mg/dL (9-16); Carbon Dioxide 19 mmol/L (22-29); Chloride 101 mmol/L (96-108); Creatinine Clr Calc Pharmacy 62.3; Estimated Glomerular Filt Rate > 60; Potassium 4.5 mmol/L (3.3-5.1); Sodium 126 mmol/L (135-145)
[2025-04-02 13:25] LABS: Calcium 7.9 mg/dL (8.4-10.2)
[2025-04-02] MEDS: iohexoL 350 MG/ML 100 ML INFUS..BTL IV (13:43)
[2025-04-02 14:47] LABS: Anion Gap 11 (12-20); Blood Urea Nitrogen 24 mg/dL (9-16); Calcium 8.3 mg/dL (8.4-10.2); Carbon Dioxide 20 mmol/L (22-29); Chloride 97 mmol/L (96-108); Creatinine Clr Calc Pharmacy 64.8; Estimated Glomerular Filt Rate > 60; Potassium 4.8 mmol/L (3.3-5.1); Sodium 123 mmol/L (135-145)
--- NOTE | 2025-04-02 14:47 | PM.CNCAR ---
History of Present Illness History of Present Illness Date of Service: 04/02/25 Requesting physician: Price Valdes Chief complaint: Pericardial tamponade Narrative: [age] year gentleman who we have been asked to see for pericardial effusion. He has background of cerebral palsy, legal blindness and nonverbal status at baseline. He is presenting with hyponatremia and was initially thought to have hypovolemic shock. He was fluid resuscitated and was on low-dose of Levophed. Apparently bedside echocardiogram was performed by household assistant which showed pericardial effusion which led to a formal echocardiogram showing large pericardial effusion with tamponade physiology. No history is possible from the patient. [facility] Past Medical History Medical History Bacteriuria Neurogenic bladder Legally blind Cerebral palsy Surgical History Surgical History S/P colostomy Social History Social History Household Members: Other Housing: Other Housing Other:: Care Home Do you presently have visiting nurse or other home services: Yes (lives in longterm with staff.) Unable to assess alcohol history related to: Unable to respond Comment: 1-1 longterm sitter Patient Tobacco Use Status: Never used Tobacco Use of substances other than those prescribed or required for medical reasons: Unable to respond Currently Displaying Signs/Symptoms of Drug Intoxication Withdrawal: No Advance Directives: No Advance Directives Information Provided: Yes Do you have a plan to hurt others: No Plan Eating poorly because of decreased appetite: Yes Nutrition Risks: Poor intake 0-25% >4 days and Receiving home tube feeding or CPN service: No Meds Allergies Allergy/AdvReac Type Severity Reaction Status Date / Time Cephalosporins Allergy Unknown UNKNOWN Verified 04/01/25 10:27 nitrofurantoin (From Allergy Unknown UNKNOWN Verified 04/01/25 10:27 MACROBID) NSAIDS (Non-Steroidal Allergy Unknown UNKNOWN Verified 04/01/25 10:27 Anti-Inflamma (Nsaids) Penicillins Allergy Unknown UNKNOWN Verified 04/01/25 10:27 pneumococcal vaccine (From Allergy Unknown UNKNOWN Verified 04/01/25 10:27 PNEUMOVAX 23) From Augmentin Allergy Unknown UNKNOWN Uncoded 01/03/25 09:12 From Tricor Allergy Unknown UNKNOWN Uncoded 01/03/25 09:12 Active Medications: Current Medications Acetaminophen (Acetaminophen Oral Liquid 650 Mg/20.3 Ml Solution) 640 mg G-TUBE Q6H PRN PRN Reason: pain/fever Apixaban (Apixaban 5 Mg Tablet) 5 mg G-TUBE BID [facility] Last Admin: 04/02/25 08:22 Dose: 5 mg Aspirin (Aspirin 81 Mg Tab.Chew) 81 mg G-TUBE DAILY SHUBHAM Last Admin: 04/02/25 08:22 Dose: 81 mg Baclofen (Baclofen 10 Mg Tablet) 5 mg G-TUBE TID [facility] Last Admin: 04/02/25 14:40 Dose: Not Given Sodium Chloride (Sodium Chloride 0.45 %) 1,000 mls @ 42 mls/hr IVCONT .[id number] [facility] Last Admin: 04/02/25 11:12 Dose: Not Given Norepinephrine Bitartrate (Levophed) 8 mg in 250 mls @ 0 mls/hr IVCONT .Q0M SHUBHAM; Protocol Last Titration: 04/02/25 13:20 Dose: 0.04 mcg/kg/min, 3.93 mls/hr Dexmedetomidine HCl (Precedex) 400 mcg in 100 mls @ 0 mls/hr IVCONT .Q0M SHUBHAM; Protocol Valproic Acid (Valproic Acid Liquid 250 Mg/5 Ml Solution) 1,000 mg G-TUBE Q12H [facility] Last Admin: 04/02/25 05:06 Dose: 1,000 mg Home Medications ?Medication ?Instructions ?Recorded ?Confirmed ?Last Taken ?Type acetaminophen 160 mg/5 mL oral 640 mg feeding tube Q6H PRN 01/02/25 04/01/25 Unknown History suspension (Children's pain/fever Acetaminophen) aspirin 81 mg chewable tablet 1 tab feeding tube DAILY 01/02/25 04/01/25 Unknown History bacitracin zinc 500 unit/gram 1 appl topical BID PRN abrasions, 01/02/25 04/01/25 Unknown History topical ointment GT irritated skin carbamide peroxide 6.5 % ear drops 4 drp otic (ears) BID PRN for 5 01/02/25 04/01/25 Unknown History (Ear Wax Removal Drops) days monthly cetirizine 10 mg tablet 10 mg feeding tube DAILY 01/02/25 04/01/25 Unknown History keotjsijv-sikW-knqqnos-FOS-bromelain 3 ml PO BID 01/02/25 04/01/25 Unknown History 1,937 mg-188 mg/15 mL oral liquid dextromethorphan-guaifenesin 10 10 ml feeding tube Q6H PRN Cough 01/02/25 04/01/25 Unknown History mg-100 mg/5 mL oral liquid (Tussin DM) diazepam 5 mg tablet 5 mg feeding tube DAILY PRN 1 hour 01/02/25 04/01/25 Unknown History prior to dental appointment ergocalciferol (vitamin D2) 1,250 1,250 mcg feeding tube FR@2100 01/02/25 04/01/25 01/02/25 History mcg (50,000 unit) capsule fluticasone propionate 50 2 spray intranasal DAILY 01/02/25 04/01/25 Unknown History mcg/actuation nasal spray,suspension [id number]-wbrxcqcqr-vvk C-Mn 500 1 cap PO TID 01/02/25 04/01/25 Unknown History mg-400 mg capsule (Glucosamine Chondroitin Maximum Strength) lorazepam 1 mg tablet 1 mg feeding tube DAILY PRN 2 01/02/25 04/01/25 Unknown History hours prior to GT changes lorazepam 1 mg tablet 1 mg feeding tube DAILY PRN 2 01/02/25 04/01/25 Unknown History hours prior to podiatry foot care omeprazole 40 mg capsule,delayed 40 mg feeding tube BEDTIME 01/02/25 04/01/25 Unknown History release pravastatin 10 mg tablet 10 mg feeding tube BEDTIME 01/02/25 04/01/25 Unknown History simethicone 40 mg/0.6 mL oral 160 mg feeding tube TID 01/02/25 04/01/25 Unknown History drops,suspension (Infants Simethicone) valproic acid (as sodium salt) 250 1,000 mg feeding tube Q12H 01/02/25 04/01/25 01/03/25 History mg/5 mL oral solution apixaban 5 mg tablet (Eliquis) 5 mg feeding tube BID 04/01/25 04/01/25 Unknown History baclofen 10 mg tablet 5 mg feeding tube TID 04/01/25 04/01/25 Unknown History ketoconazole 2 % topical cream 1 appl topical BID 04/01/25 04/01/25 Unknown History loperamide 2 mg tablet 2 mg feeding tube BID PRN Loose 04/01/25 04/01/25 Unknown History Stool metformin 500 mg tablet 500 mg feeding tube BID 04/01/25 04/01/25 Unknown History metoprolol tartrate 25 mg tablet 12.5 mg feeding tube BID 04/01/25 04/01/25 Unknown History nystatin 100,000 unit/gram topical 1 appl topical TID PRN Flare Up or 04/01/25 04/01/25 Unknown History ointment Rash omega-3 fatty acids 1,000 mg 1,000 mg feeding tube DAILY 04/01/25 04/01/25 Unknown History capsule pediatric multivitamin 1 tab feeding tube DAILY 04/01/25 04/01/25 Unknown History zinc oxide 20 % topical ointment 1 appl topical 7XD 04/01/25 04/01/25 Unknown History Physical Exam Vital Signs: Vital Signs: Last Vital Signs Temp 97.1 F 04/02/25 12:00 Pulse 78 04/02/25 14:00 Resp 22 H 04/02/25 14:00 BP 108/63 04/02/25 14:00 Pulse Ox 97 04/02/25 14:00 O2 Del Method Nasal Cannula 04/02/25 14:00 O2 Flow Rate 2 04/02/25 14:00 BMI result Body Mass Index 22.7 GENERAL APPEARANCE: Repetitive movements. Making incomprehensible sounds. Nonverbal at baseline. Tachypneic. NECK: no carotid bruit, no obvious jugular venous distention. SKIN: no suspicious lesions, warm and dry. HEART: no murmurs, regular rate and rhythm. Tachycardic. LUNGS: Mild expiratory wheezes. ABDOMEN: soft, nontender. EXTREMITIES: no edema. PERIPHERAL PULSES: equal. NEUROLOGIC: Nonverbal at baseline. Repetitive arm movements. Objective Labs and Meds 04/02/25 04:37 04/02/25 12:58 Lab results: Laboratory Results - last 24 hr 04/01/25 04/01/25 04/01/25 17:11 17:50 21:15 WBC RBC Hgb Hct MCV MCH MCHC RDW Plt Count MPV Immature Gran % (Auto) Neut % (Auto) Lymph % (Auto) [place] % (Auto) Eos % (Auto) Baso % (Auto) Lymph # (Auto) [place] # (Auto) Eos # (Auto) Baso # (Auto) Abs Immat Gran (auto) Absolute Neuts (auto) Absolute Nucleated RBC Nucleated RBC % (auto) Smear Tech's Comments Sodium 123 L 118 L* Potassium 4.5 5.5 H D Chloride 100 93 L Carbon Dioxide 19 L 17 L Anion Gap 9 L 14 BUN 27 H 33 H Creatinine 0.65 0.69 Estim Creat Clear Calc 74.7 70.4 Estimated GFR > 60 > 60 Random Glucose 143 H 119 H Lactic Acid F/U @ 4Hr 4.8 H* Calcium 7.1 L D 8.4 D Phosphorus Magnesium Total Bilirubin AST ALT Alkaline Phosphatase Total Protein Albumin Urine Osmolality Ur Random Sodium 04/02/25 04/02/25 04/02/25 04:37 09:13 12:58 WBC 11.9 H RBC 2.87 L Hgb 7.9 L Hct 22.7 L MCV 79.1 L MCH 27.5 MCHC 34.8 RDW 15.6 Plt Count 297 MPV 9.0 L Immature Gran % (Auto) 0.6 H Neut % (Auto) 66.9 Lymph % (Auto) 13.6 L [place] % (Auto) 17.9 H Eos % (Auto) 0.8 Baso % (Auto) 0.2 Lymph # (Auto) 1.6 [place] # (Auto) 2.1 H Eos # (Auto) 0.1 Baso # (Auto) 0.0 Abs Immat Gran (auto) 0.07 H Absolute Neuts (auto) 8.0 Absolute Nucleated RBC 0.000 Nucleated RBC % (auto) 0.0 Smear Tech's Comments VERIFIED Sodium 122 L 125 L 126 L Potassium 4.7 4.4 4.5 Chloride 96 98 101 Carbon Dioxide 18 L 20 L 19 L Anion Gap 13 11 L 11 L BUN 26 H 22 H 25 H Creatinine 0.69 0.69 0.78 Estim Creat Clear Calc 70.4 70.4 62.3 Estimated GFR > 60 > 60 > 60 Random Glucose 109 134 H 160 H Lactic Acid F/U @ 4Hr Calcium 8.5 8.8 7.9 L D Phosphorus 4.2 Magnesium 2.1 Total Bilirubin 0.2 AST 15 ALT < 6 Alkaline Phosphatase 69 Total Protein 6.8 Albumin 2.5 L Urine Osmolality 277 L Ur Random Sodium < 20.0 Imaging Radiologist's impression: Impressions Abdomen/Pelvis CT 04/02/25 12:26 IMPRESSION: 1. Large pericardial effusion. 2. Moderate bilateral pleural effusions with compressive atelectasis of both lungs. 3. No evidence of neoplasm. Electronically signed by: Clay Sung MD 04/02/2025 02:05 PM EDT RP Chest CT 04/02/25 13:26 IMPRESSION: 1. Large pericardial effusion. 2. Moderate bilateral pleural effusions with compressive atelectasis of both lungs. 3. No evidence of neoplasm. Electronically signed by: Clay Sung MD 04/02/2025 02:05 PM EDT RP Assessment and Plan (1) Pericardial tamponade: Status: Acute Plan 69 year gentleman with hyponatremia whose initial thought to have hypervolemic shock and was fluid resuscitated and has been on low-dose Levophed. He underwent echocardiography which showed large pericardial effusion with tamponade physiology. He needs pericardiocentesis. Please involve Interventional Radiology for that. Obviously if while waiting for radiology and hemodynamic compromise happens then we can do a bedside emergent pericardiocentesis on him. Send the pericardial fluid for cytology, glucose and protein levels. G stain should be done too. Etiology of pericardial effusion is unclear currently. We will workup further for that. He should have TSH drawn to make sure he is not hypothyroid. He is wheezing on examination and by echocardiography is filling pressures are elevated. In some circumstances as you relief the pericardial effusion and better left ventricular filling happens then filling pressures can increase significantly and patients can go into heart failure and sometimes right ventricular dysfunction can happen too. This should be monitor closely. Gentle fluids if needed. We will follow along with you. Thank you for allowing me to participate in the care of your patient. Please feel free to contact me if you have any questions. Procedures Date of Service Date of Service: 04/02/25
--- NOTE | 2025-04-02 15:20 | MHC.CM.PN ---
Pt admitted to ICU w/hyponatremia from [facility] detention. Pt is nonverbal and dependent for all ADL's at baseline. Information obtained from EMR and conversation w/detention staff. Pt has a legal guardian: message left requesting a call back for updates. [facility] is not a medical home meaning there is no RN 24/ only during the hours of 7-3pm. RN is able to manage pt's feeding tube and suprapubic catheter. [facility] states they require a 12 hour advance d/c notice in order to obtain any new/changed medications. They also are unable to accept resident returns on weekends d/t lack of traverse rod assembler. Pt will need BLS transport to home.
--- NOTE | 2025-04-02 15:27 | MHC.SLORD ---
Speech Language Pathology Order Status: Per RN, patient not appropriate today for swallow assessment (several procedures, medicated). Eval deferred to 04/03/25.
--- NOTE | 2025-04-02 16:55 | ECG_ITS ---
Test Reason : Bradycardia Blood Pressure : */* mmHG Vent. Rate : 52 BPM Atrial Rate : 52 BPM P-R Int : 126 ms QRS Dur : 96 ms QT Int : 418 ms P-R-T Axes : 37 15 39 degrees QTcB Int : 388 ms Sinus bradycardia Low voltage QRS Nonspecific T wave abnormality Abnormal ECG When compared with ECG of 01-Apr-2025 10:48, Premature supraventricular complexes are no longer Present Vent. rate has decreased by 36 bpm Nonspecific T wave abnormality now evident in Inferior leads Nonspecific T wave abnormality now evident in Anterior leads QT has shortened Referred By: Price Valdes Electronically Signed By: Issac Calvert
--- NOTE | 2025-04-02 17:41 | PC.NURSE ---
Patient accompanied to CT w/ this RN and IR RN at 1500 for pericardial drain placement without incident - initial drainage of 250cc serous in CT. Patient accompanied back to ICU at 1600 without incident - Dr Valdes @ bedside - DMITRI drain opened by for continuous drainage - additional 355cc serous ouput noted. Sample obtained at bedside from DMITRI drain by RONNIE Link - results pending. 1618 Precedex gtt paused per MD. 1636 - HR down to 47, sinus and BP 89/42 MAP 57 - Levophed titrated per NOV and Dr Valdes called to bedside for sustained HR in 40's. EKG ordered and obtained - see report. 1716 - Patient converted to AFib HR maintaining 90's - Dr Valdes notified. Lasix 40 IVP ordered and administered per NOV.
[2025-04-02] MEDS: Furosemide 40 MG/4 ML VIAL IVPUSH (17:44)
[2025-04-02 18:26] LABS: BF Shift QC OK YES; Man Diluent Bkgrd OK YES; WBC Pericardial Fluid 245 MM*3
[2025-04-02 18:39] LABS: Lymphs Pericardial Fl 4 %; Monocytes Pericard Fl 6 %; Neutrophils Pericardial Fluid 86 %; Other Pericard Fl 4 %
[2025-04-02 21:50] LABS: Anion Gap 13 (12-20); Blood Urea Nitrogen 23 mg/dL (9-16); Calcium 8.6 mg/dL (8.4-10.2); Carbon Dioxide 19 mmol/L (22-29); Chloride 102 mmol/L (96-108); Creatinine Clr Calc Pharmacy 65.6; Estimated Glomerular Filt Rate > 60; Potassium 6.5 mmol/L (3.3-5.1); Sodium 127 mmol/L (135-145)
[2025-04-02 22:27] LABS: Potassium 4.0 mmol/L (3.3-5.1)
[2025-04-03] VITALS (32 sets, daily range): BP systolic 87–156; BP diastolic 43–74; PULSE 81–128; RESP 17–33; TEMP 36.1–36.8; O2SAT 2–98; BMI 24.4
[2025-04-03 01:46] LABS: Anion Gap 16 (12-20); Blood Urea Nitrogen 21 mg/dL (9-16); Calcium 9.0 mg/dL (8.4-10.2); Carbon Dioxide 16 mmol/L (22-29); Chloride 102 mmol/L (96-108); Creatinine Clr Calc Pharmacy 63.9; Estimated Glomerular Filt Rate > 60; Potassium 4.4 mmol/L (3.3-5.1); Sodium 130 mmol/L (135-145)
[2025-04-03] MEDS: Valproic Acid Liquid 250 MG/5 ML SOLUTION 1000 MG G-TUBE ×2 (05:17→16:04)
[2025-04-03] MEDS: dexmedeTOMIDine HCL/NS 400 MCG/100 ML PLAST..BAG 7.91 MCG IVCONT (05:18)
[2025-04-03 05:51] LABS: Hematocrit 24.4 % (42.0-52.0); Hemoglobin 7.8 g/dl (14.0-18.0); Imm Gran Abs Auto 0.06 X10*3/uL (0.00-0.03); Imm Gran Pct Auto 0.6 % (0.0-0.4); Lymphocytes Absolute Auto 1.1 X10*3/uL (1.2-4.9); Mean Corpuscular HGB Conc 32.0 g/dl (31.0-36.0); Mean Corpuscular Hemoglobin 26.4 pg (27.0-33.0); Mean Corpuscular Volume 82.4 fL (80.0-98.0); NRBC Abs Auto 0.000 X10*3/uL (0.0-0.012); NRBC Pct Auto 0.0 /100WBC (0.0-0.2); Red Blood Count 2.96 X10*6/uL (4.60-5.80)
[2025-04-03 05:52] LABS: Platelet Count 256 X10*3/uL (160-400); White Blood Count 10.4 X10*3/uL (4.8-10.8)
[2025-04-03 05:53] LABS: MANUAL DIFF FLAG SCAN
[2025-04-03 06:01] LABS: Alanine Aminotransferase 7 U/L (0-40); Albumin Level 3.0 g/dL (3.5-5.0); Alkaline Phosphatase 75 U/L (39-117); Anion Gap 13 (12-20); Aspartate Amino Transferase 18 U/L (5-37); Blood Urea Nitrogen 22 mg/dL (9-16); Calcium 8.7 mg/dL (8.4-10.2); Carbon Dioxide 20 mmol/L (22-29); Chloride 102 mmol/L (96-108); Creatinine Clr Calc Pharmacy 74.7; Estimated Glomerular Filt Rate > 60; Magnesium 2.0 mg/dL (1.6-2.6); Potassium 4.2 mmol/L (3.3-5.1); Sodium 131 mmol/L (135-145); Total Protein 6.7 g/dL (6.5-8.0)
[2025-04-03 07:18] LABS: Albumin Pericardial Fluid 2.4
[2025-04-03 07:19] LABS: Glucose Pericardial Fluid 142; LDH Pericardial Fluid 143
[2025-04-03 07:20] LABS: Creatinine Pericardial Fluid 0.7
[2025-04-03 07:21] LABS: Amylase Pericardial Fluid 42
--- NOTE | 2025-04-03 09:01 | P.PNCC_ITS ---
Subjective Subjective Date of Service: 04/03/25 Interval History: drained 600cc of pericardial fluid yesterday after the drain placement on levophed support for hypotension Critical Care Time (minutes): 35 Physical Exam 2 Vital Signs: Vital Signs: Last Vital Signs Temp 96.9 F 04/03/25 08:00 Pulse 81 04/03/25 08:00 Resp 21 H 04/03/25 08:00 BP 101/54 L 04/03/25 08:00 Pulse Ox 95 04/03/25 08:00 O2 Del Method Nasal Cannula 04/03/25 08:00 O2 Flow Rate 2 04/03/25 08:00 BMI result Body Mass Index 24.4 General: Elderly male in acute distress, he is chronically ill appearing and tired appearing Nutritional Appearance: Poorly nourished and normal weight Eyes: appearance normal, both eyes and all related structures; Alignment and Position: alignment normal and position normal Neck: No lymphadenopathy, no thyromegaly Resp: bilateral air entry equal, occasional added sounds present Cardio: Regular rate, regular rhythm; Heart sounds: S1 normal heart sound present and S2 normal heart sound present GI: soft, nontender, no guarding, no hepatosplenomegaly : bladder normal to inspection, bladder normal to palpation, no renal angle tenderness Skin: no rashes or lesions noted and elasticity normal Neuro: Has chronic neuro deficits, legally blind Objective Data Labs 04/03/25 05:05 04/03/25 09:04 Labs: Laboratory Results - last 24 hr 04/02/25 04/02/25 04/02/25 09:13 12:58 14:27 WBC RBC Hgb Hct MCV MCH MCHC RDW Plt Count MPV Immature Gran % (Auto) Neut % (Auto) Lymph % (Auto) Clayton % (Auto) Eos % (Auto) Baso % (Auto) Lymph # (Auto) Clayton # (Auto) Eos # (Auto) Baso # (Auto) Abs Immat Gran (auto) Absolute Neuts (auto) Absolute Nucleated RBC Nucleated RBC % (auto) Smear Tech's Comments Sodium 125 L 126 L 123 L Potassium 4.4 4.5 4.8 Chloride 98 101 97 Carbon Dioxide 20 L 19 L 20 L Anion Gap 11 L 11 L 11 L BUN 22 H 25 H 24 H Creatinine 0.69 0.78 0.75 Estim Creat Clear Calc 70.4 62.3 64.8 Estimated GFR > 60 > 60 > 60 Random Glucose 134 H 160 H 192 H Calcium 8.8 7.9 L D 8.3 L Phosphorus Magnesium Total Bilirubin AST ALT Alkaline Phosphatase Total Protein Albumin Urine Osmolality 277 L Ur Random Sodium < 20.0 Pericard pH Pericard WBC Pericard RBC Pericard Neutrophils Pericard Lymphocytes Pericard Monocytes Pericard Other Cells Pericardial Creatinine Pericardial Albumin Pericardial LDH Pericardial Glucose Pericardial Amylase Peritoneal pH Blood Type B Negative Antibody Screen POSITIVE Antibody Identification Anti-K Crossmatch ([facility]) See Detail 04/02/25 04/02/25 04/02/25 16:28 20:51 22:08 WBC RBC Hgb Hct MCV MCH MCHC RDW Plt Count MPV Immature Gran % (Auto) Neut % (Auto) Lymph % (Auto) Clayton % (Auto) Eos % (Auto) Baso % (Auto) Lymph # (Auto) Clayton # (Auto) Eos # (Auto) Baso # (Auto) Abs Immat Gran (auto) Absolute Neuts (auto) Absolute Nucleated RBC Nucleated RBC % (auto) Smear Tech's Comments Sodium 127 L Potassium 6.5 H* D 4.0 D Chloride 102 Carbon Dioxide 19 L Anion Gap 13 BUN 23 H Creatinine 0.74 Estim Creat Clear Calc 65.6 Estimated GFR > 60 Random Glucose 216 H Calcium 8.6 Phosphorus Magnesium Total Bilirubin AST ALT Alkaline Phosphatase Total Protein Albumin Urine Osmolality Ur Random Sodium Pericard pH Cancelled Pericard WBC 245 Pericard RBC 2815 Pericard Neutrophils 86 Pericard Lymphocytes 4 Pericard Monocytes 6 Pericard Other Cells 4 Pericardial Creatinine 0.7 Pericardial Albumin 2.4 Pericardial LDH 143 Pericardial Glucose 142 Pericardial Amylase 42 Peritoneal pH Cancelled Blood Type Antibody Screen Antibody Identification Crossmatch ([facility]) 04/03/25 04/03/25 01:05 05:05 WBC 10.4 RBC 2.96 L Hgb 7.8 L Hct 24.4 L MCV 82.4 MCH 26.4 L MCHC 32.0 RDW 15.8 Plt Count 256 MPV 9.5 Immature Gran % (Auto) 0.6 H Neut % (Auto) 70.4 Lymph % (Auto) 10.6 L Clayton % (Auto) 17.6 H Eos % (Auto) 0.6 Baso % (Auto) 0.2 Lymph # (Auto) 1.1 L Clayton # (Auto) 1.8 H Eos # (Auto) 0.1 Baso # (Auto) 0.0 Abs Immat Gran (auto) 0.06 H Absolute Neuts (auto) 7.3 Absolute Nucleated RBC 0.000 Nucleated RBC % (auto) 0.0 Smear Tech's Comments VERIFIED Sodium 130 L 131 L Potassium 4.4 4.2 Chloride 102 102 Carbon Dioxide 16 L 20 L Anion Gap 16 13 BUN 21 H 22 H Creatinine 0.76 0.65 Estim Creat Clear Calc 63.9 74.7 Estimated GFR > 60 > 60 Random Glucose 188 H 200 H Calcium 9.0 8.7 Phosphorus 3.6 Magnesium 2.0 Total Bilirubin 0.2 AST 18 ALT 7 Alkaline Phosphatase 75 Total Protein 6.7 Albumin 3.0 L Urine Osmolality Ur Random Sodium Pericard pH Pericard WBC Pericard RBC Pericard Neutrophils Pericard Lymphocytes Pericard Monocytes Pericard Other Cells Pericardial Creatinine Pericardial Albumin Pericardial LDH Pericardial Glucose Pericardial Amylase Peritoneal pH Blood Type Antibody Screen Antibody Identification Crossmatch ([facility]) Microbiology Microbiology Results: Microbiology 04/01/25 11:18 Blood - Venous Blood Culture - Preliminary No growth after 24 hours. 04/01/25 11:09 Blood - Venous Blood Culture - Preliminary No growth after 24 hours. 04/01/25 Unknown Urine Other - Suprapubic Urine Culture - Preliminary Culture in progress. Progress Note: A&P Assessment and plan (1) Hypotension: Status: Acute (2) Pericardial tamponade: Status: Acute (3) Atrial fibrillation with RVR: Status: Acute Plan Acute hyponatremia: Possibly due to poor intake and volume depletion as suggested by Urine sodium less than 20, urine Osmo 400. Baseline sodium around 130 according to his nurse, presenting with a sodium of 116 2 days ago, slowly improved to 123 yesterday, 131 this morning. Normal saline discontinued yesterday. 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 Pending urinalysis and culture on empiric Zosyn Atrial fibrillation: currently rate controlled will restart home apixaban for anticoagulation Respiratory: Has history of aspiration pneumonia, chest x-ray showing bilateral lung base opacities possibly atelectasis versus pneumonia Saturations are stable on room air GI: will start tube feeds, speech for swallow eval Acute lactic acidosis: Secondary to volume depletion, lactate trend stable Can not give him fluid boluses due to risk of rapid correction of hyponatremia Acute hyperkalemia: Possibly due to decreased tubular flow due to hypovolemia Should improve with volume replacement Prophylaxis: apixaban Quality Stroke Does the patient have a stroke diagnosis?: No VTE Prior VTE?: No VTE Risk Level:: Medical - moderate - high VTE Device Contraindication: N/A - Device Ordered VTE Drug Contraindication: N/A - Med Ordered
[2025-04-03 09:27] LABS: Anion Gap 11 (12-20); Blood Urea Nitrogen 22 mg/dL (9-16); Calcium 8.6 mg/dL (8.4-10.2); Carbon Dioxide 23 mmol/L (22-29); Chloride 101 mmol/L (96-108); Creatinine Clr Calc Pharmacy 67.5; Estimated Glomerular Filt Rate > 60; Potassium 3.9 mmol/L (3.3-5.1); Sodium 131 mmol/L (135-145)
--- NOTE | 2025-04-03 10:15 | P.CDIM_ITS ---
PROVIDER RESPONSE TEXT: To clarify, the appropriate diagnosis supported by the clinical indicators: Other (explain): unsure QUERY TEXT: PHYSICIAN'S DOCUMENTATION REQUEST Date of Query: 04/03/2025 06:04 AM EDT Patient Name: Clay Ross Admit Date: 04/01/2025 Dear Price Valdes MD, A review of the medical record indicates additional documentation may be needed. Please review below and update the documentation accordingly. Clinical Indicators: Wound care notes 04/02/25 - Stage 2 Pressure injury sacrum - Present on Admission. Off load pressure and foam dressing to allow for protection and moist wound healing. Change every 3 days and PRN. Based on the above, could you please provide further information regarding the ulcer/wound/injury: Pressure Injury Stage 2 sacrum possible, suspected, probable, cannot rule out etc. Other specified Other (explain) Clinically unable to determine (explain) Thank you, Emma Caruso, CCS, CDIS Use of terms such as suspected, likely, concern for, or probable (associated with a specific diagnosis that is being evaluated, monitored, or treated as if it exists) are acceptable and can be coded in the inpatient setting, when documented at the time of discharge. Please use your independent medical judgment in providing your response. THIS QUERY IS PART OF THE PERMANENT MEDICAL RECORD
--- NOTE | 2025-04-03 10:18 | P.CDIM_ITS ---
PROVIDER RESPONSE TEXT: To clarify, the appropriate diagnosis supported by the clinical indicators: Malnutrition: moderate QUERY TEXT: PHYSICIAN'S DOCUMENTATION REQUEST Date of Query: 04/03/2025 08:18 AM EDT Patient Name: Clay Ross Admit Date: 04/01/2025 Dear Price Valdes MD, A review of the medical record indicates additional documentation may be needed. Please review below and update the documentation accordingly. Clinical Indicators: Clinical nutrition 04/02/25 - Non-severe malnutrition in the context of chronic illness. Nutritional diagnosis: Malnutrition Qualifies as moderately malnourished in the context of chronic illness based on poor po and weight loss. Recommend continuous tube feeding for nutrition/hydration. Based on the above, could you clarify the appropriate diagnosis, if significant, documented by the Clinical nutrition notes: Malnutrition mild, moderate, severe Other specified Other (explain) Clinically unable to determine (explain) Thank you, Emma Caruso, CCS, CDIS Use of terms such as suspected, likely, concern for, or probable (associated with a specific diagnosis that is being evaluated, monitored, or treated as if it exists) are acceptable and can be coded in the inpatient setting, when documented at the time of discharge. Please use your independent medical judgment in providing your response. THIS QUERY IS PART OF THE PERMANENT MEDICAL RECORD
--- NOTE | 2025-04-03 10:57 | MHC.SPEECHCO ---
Per RN, patient not medically appropriate this date for bedside swallow eval. Patient has G-tube, was recommended continuous TF for nutrition/hydration per RD. CREDIT BALANCE SPECIALIST will continue to follow.
[2025-04-03] MEDS: Furosemide 40 MG/4 ML VIAL IVPUSH (11:32)
[2025-04-03] MEDS: Albuterol Sulfate (0.083%) 2.5 MG/3 ML VIAL.NEB INHALE ×2 (11:59→16:57)
[2025-04-03] MEDS: Acetylcysteine 10 % 400 MG/4 ML VIAL INHALE ×2 (11:59→16:57)
--- NOTE | 2025-04-03 12:00 | CA_ITS ---
Transthoracic Echocardiogram Patient (Last, First, Middle): Clay Ross, Gender: Male Date of : 1955 Age: 69 Procedure Date: 04/03/2025 Procedure Type: Transthoracic Echocardiogram Location: ICU Height: 152.4 cm Weight: 56.25 kg BSA: 1.52 m2 Heart Rate: bpm BP: 98 / [address] Judge: [place] Referring MD: Price Valdes MD Symptoms: shock Study Quality: Technically Difficult/Limited per order ECG Rhythm: Sinus Conclusions: - Moderate to large pericardial effusion. - No obvious tamponade physiology. - Coagulum around the right ventricle noted. Findings Left Ventricle Normal left ventricular size and systolic function. The visually estimated ejection fraction is between 60-65%. There is no evidence of regional wall motion abnormalities. Right Ventricle Normal right ventricular cavity size and systolic function. Tricuspid Valve Normal right atrial pressure. Venous The inferior vena cava is normal in size and collapses greater than 50% with inspiration. Measurements 2D Systolic Function EF 4C: 72.10 >55% EF 2C: 65.00 >55% EF BiP: 69.50 >55% Updated in Other Vendor System with Status of Final Issac Calvert MD electronically signed on 04/04/2025 8:51:54 AM with status of Final
[2025-04-03 12:56] LABS: Chlamydia pneumoniae PCR Not Detected (Not Detect.); Coronavirus 229E PCR Not Detected (Not Detect.); Coronavirus HKU1 PCR Not Detected (Not Detect.); Coronavirus NL63 PCR Not Detected (Not Detect.); Coronavirus OC43 PCR Not Detected (Not Detect.); RSV PCR Not Detected (Not Detect.); Rhino/Enterovirus PCR Not Detected (Not Detect.)
[2025-04-03 12:59] LABS: SARS-CoV-2 PCR Not Detected (Not Detect.)
[2025-04-03 13:02] LABS: Influenza A H1 PCR Not Detected (Not Detect.); Influenza A H1-2009 PCR Not Detected (Not Detect.); Influenza A H3 PCR Not Detected (Not Detect.)
--- NOTE | 2025-04-03 13:18 | MHC.CLN ---
F/U CONTINUES NPO WITH NUTRITION/HYDRATION VIA PEG. STAGE II PRESSURE INJURY TO RIGHT BUTTOCK. RANDOM BLOOD GLUCOSE ELEVATED. CFRAJ=[id number]. CHANGING FORMULA TO GLUCERNA 1.0. RECOMMEND CONTINUOUS TUBE FEEDING FOR NUTRITION/HYDRATION. GLUCERNA 1.0 AT 65 ML PER HOUR TO PROVIDE 1560 KCALS (27.6 KCALS/KG), 65 G PROTEIN (1.1 G/KG), 1310 ML FREE WATER FROM FORMULA. HEIGHT=5'2 PER [facility] STAFF. WEIGHT TODAY=56.6 KG. NO FLUSH RX AT THIS TIME DUE TO HYPONATREMIA. FOLLOW FOR TUBE FEED TOLERANCE, POSSIBLE PO INTAKE AND SKIN INTEGRITY.
[2025-04-03 13:29] LABS: Anion Gap 12 (12-20); Blood Urea Nitrogen 22 mg/dL (9-16); Calcium 8.5 mg/dL (8.4-10.2); Carbon Dioxide 24 mmol/L (22-29); Chloride 100 mmol/L (96-108); Creatinine Clr Calc Pharmacy 63.1; Estimated Glomerular Filt Rate > 60; Potassium 3.7 mmol/L (3.3-5.1); Sodium 132 mmol/L (135-145)
--- NOTE | 2025-04-03 15:27 | PM.PNCARD ---
Subjective Subjective Date of Service: 04/03/25 Interval history: Seen examined at bedside. Short of breath and getting runs of atrial fibrillation. He is status post pericardiocentesis and has a pericardial drain in place. Physical Exam Vital Signs: Last Vital Signs Temp 97.1 F 04/03/25 12:00 Pulse 94 04/03/25 15:00 Resp 24 H 04/03/25 15:00 BP 114/60 04/03/25 15:00 Pulse Ox 93 04/03/25 15:00 O2 Del Method Nasal Cannula 04/03/25 15:00 O2 Flow Rate 2 04/03/25 15:00 BMI result Body Mass Index 24.4 GENERAL APPEARANCE: Repetitive movements. Short of breath. NECK: no carotid bruit, no obvious jugular venous distention. SKIN: no suspicious lesions, warm and dry. HEART: no murmurs, regular rate and rhythm. Tachycardic. LUNGS: No added sounds on auscultation. Tachypneic. ABDOMEN: soft, nontender. EXTREMITIES: no edema. PERIPHERAL PULSES: equal. NEUROLOGIC: Nonverbal at baseline. Repetitive arm movements. Objective Labs and Meds 04/03/25 05:05 04/03/25 13:04 Lab results: Laboratory Results - last 24 hr 04/02/25 04/02/25 04/02/25 14:27 16:28 20:51 WBC RBC Hgb Hct MCV MCH MCHC RDW Plt Count MPV Immature Gran % (Auto) Neut % (Auto) Lymph % (Auto) Bertie % (Auto) Eos % (Auto) Baso % (Auto) Lymph # (Auto) Bertie # (Auto) Eos # (Auto) Baso # (Auto) Abs Immat Gran (auto) Absolute Neuts (auto) Absolute Nucleated RBC Nucleated RBC % (auto) Smear Tech's Comments Sodium 127 L Potassium 6.5 H* D Chloride 102 Carbon Dioxide 19 L Anion Gap 13 BUN 23 H Creatinine 0.74 Estim Creat Clear Calc 65.6 Estimated GFR > 60 Random Glucose 216 H Calcium 8.6 Phosphorus Magnesium Total Bilirubin AST ALT Alkaline Phosphatase Total Protein Albumin Pericard pH Cancelled Pericard WBC 245 Pericard RBC 2815 Pericard Neutrophils 86 Pericard Lymphocytes 4 Pericard Monocytes 6 Pericard Other Cells 4 Pericardial Creatinine 0.7 Pericardial Albumin 2.4 Pericardial LDH 143 Pericardial Glucose 142 Pericardial Amylase 42 Peritoneal pH Cancelled Respiratory Panel Ramirez Adenovirus (Rapid PCR) B.pert (TEM-PCR) B.parapertussis DNA PCR C. pneumoniae DNA (PCR) Coronavirus OC43 (PCR) Coronavirus HKU1 (PCR) Coronavirus 229E (PCR) Coronavirus NL63 (PCR) Human Metapneumovir PCR Influenza A (RT-PCR) Influenza A (H1) PCR Influ A (H1/09) PCR Influenza A (H3) PCR Influenza B (RT-PCR) M. pneumoniae (PCR) Parainfluenza 1 (PCR) Parainfluenza 2 (PCR) Parainfluenza 3 (PCR) Parainfluenza 4 (PCR) RSV (PCR) Entero/Rhino (PCR) SARS-CoV-2 RNA (RT-PCR) Blood Type B Negative Antibody Screen POSITIVE Antibody Identification Anti-K Crossmatch ([facility]) See Detail 04/02/25 04/03/25 04/03/25 22:08 01:05 05:05 WBC 10.4 RBC 2.96 L Hgb 7.8 L Hct 24.4 L MCV 82.4 MCH 26.4 L MCHC 32.0 RDW 15.8 Plt Count 256 MPV 9.5 Immature Gran % (Auto) 0.6 H Neut % (Auto) 70.4 Lymph % (Auto) 10.6 L Bertie % (Auto) 17.6 H Eos % (Auto) 0.6 Baso % (Auto) 0.2 Lymph # (Auto) 1.1 L Bertie # (Auto) 1.8 H Eos # (Auto) 0.1 Baso # (Auto) 0.0 Abs Immat Gran (auto) 0.06 H Absolute Neuts (auto) 7.3 Absolute Nucleated RBC 0.000 Nucleated RBC % (auto) 0.0 Smear Tech's Comments VERIFIED Sodium 130 L 131 L Potassium 4.0 D 4.4 4.2 Chloride 102 102 Carbon Dioxide 16 L 20 L Anion Gap 16 13 BUN 21 H 22 H Creatinine 0.76 0.65 Estim Creat Clear Calc 63.9 74.7 Estimated GFR > 60 > 60 Random Glucose 188 H 200 H Calcium 9.0 8.7 Phosphorus 3.6 Magnesium 2.0 Total Bilirubin 0.2 AST 18 ALT 7 Alkaline Phosphatase 75 Total Protein 6.7 Albumin 3.0 L Pericard pH Pericard WBC Pericard RBC Pericard Neutrophils Pericard Lymphocytes Pericard Monocytes Pericard Other Cells Pericardial Creatinine Pericardial Albumin Pericardial LDH Pericardial Glucose Pericardial Amylase Peritoneal pH Respiratory Panel Ramirez Adenovirus (Rapid PCR) B.pert (TEM-PCR) B.parapertussis DNA PCR C. pneumoniae DNA (PCR) Coronavirus OC43 (PCR) Coronavirus HKU1 (PCR) Coronavirus 229E (PCR) Coronavirus NL63 (PCR) Human Metapneumovir PCR Influenza A (RT-PCR) Influenza A (H1) PCR Influ A (H1/09) PCR Influenza A (H3) PCR Influenza B (RT-PCR) M. pneumoniae (PCR) Parainfluenza 1 (PCR) Parainfluenza 2 (PCR) Parainfluenza 3 (PCR) Parainfluenza 4 (PCR) RSV (PCR) Entero/Rhino (PCR) SARS-CoV-2 RNA (RT-PCR) Blood Type Antibody Screen Antibody Identification Crossmatch ([facility]) 04/03/25 04/03/25 04/03/25 09:04 11:41 13:04 WBC RBC Hgb Hct MCV MCH MCHC RDW Plt Count MPV Immature Gran % (Auto) Neut % (Auto) Lymph % (Auto) Bertie % (Auto) Eos % (Auto) Baso % (Auto) Lymph # (Auto) Bertie # (Auto) Eos # (Auto) Baso # (Auto) Abs Immat Gran (auto) Absolute Neuts (auto) Absolute Nucleated RBC Nucleated RBC % (auto) Smear Tech's Comments Sodium 131 L 132 L Potassium 3.9 3.7 Chloride 101 100 Carbon Dioxide 23 24 Anion Gap 11 L 12 BUN 22 H 22 H Creatinine 0.72 0.77 Estim Creat Clear Calc 67.5 63.1 Estimated GFR > 60 > 60 Random Glucose 293 H 316 H Calcium 8.6 8.5 Phosphorus Magnesium Total Bilirubin AST ALT Alkaline Phosphatase Total Protein Albumin Pericard pH Pericard WBC Pericard RBC Pericard Neutrophils Pericard Lymphocytes Pericard Monocytes Pericard Other Cells Pericardial Creatinine Pericardial Albumin Pericardial LDH Pericardial Glucose Pericardial Amylase Peritoneal pH Respiratory Panel Ramirez See Note Adenovirus (Rapid PCR) Not Detected B.pert (TEM-PCR) Not Detected B.parapertussis DNA PCR Not Detected C. pneumoniae DNA (PCR) Not Detected Coronavirus OC43 (PCR) Not Detected Coronavirus HKU1 (PCR) Not Detected Coronavirus 229E (PCR) Not Detected Coronavirus NL63 (PCR) Not Detected Human Metapneumovir PCR Not Detected Influenza A (RT-PCR) Not Detected Influenza A (H1) PCR Not Detected Influ A (H1/09) PCR Not Detected Influenza A (H3) PCR Not Detected Influenza B (RT-PCR) Not Detected M. pneumoniae (PCR) Not Detected Parainfluenza 1 (PCR) Not Detected Parainfluenza 2 (PCR) Not Detected Parainfluenza 3 (PCR) Not Detected Parainfluenza 4 (PCR) Not Detected RSV (PCR) Not Detected Entero/Rhino (PCR) Not Detected SARS-CoV-2 RNA (RT-PCR) Not Detected Blood Type Antibody Screen Antibody Identification Crossmatch ([facility]) Imaging Radiologist's impression: Impressions CT Scanning Biopsy/Drainage 04/02/25 14:15 Impression: CT guided placement of pericardial drainage catheter. This procedure was performed by Nikolay Hubbard NP and supervised by Wil Cortez MD. Electronically signed by: Wil Cortez MD 04/02/2025 04:56 PM EDT Chest X-Ray 04/03/25 11:15 IMPRESSION: 1. Status post insertion of a pericardial drainage catheter with interval decrease in size of the cardiac silhouette. 2. Complete opacification of the right upper lung with associated volume loss, consistent with atelectasis. There may also be a small amount of pleural fluid. Electronically signed by: Clay Sung MD 04/03/2025 11:42 AM EDT RP Progress Note: A&P Assessment and plan (1) Pericardial tamponade: Status: Acute Plan [age] year gentleman who is presenting with pericardial tamponade. He underwent pericardiocentesis and currently has a drain in place. He has been getting runs of atrial fibrillation. He also has upper airway gurgling with shortness of breath. I am concerned that he may be aspirating. He has a G-tube in place and likely had issues with aspiration before. He is on empiric antibiotics. Chest x-ray to assess for pneumonia. He has been getting hypotension after removal of pericardial fluid. I think we should repeat the echocardiogram today. Thank you for allowing me to participate in the care of your patient. Please feel free to contact me if you have any questions. Time Spent With Patient Time: Total time managing care of this patient today ____ minutes. Progress Note: Quality Stroke Does the patient have a stroke diagnosis?: No Procedures Date of Service Date of Service: 04/03/25
--- NOTE | 2025-04-03 16:05 | MHC.CM.PN ---
Pt s/p DMITRI drain by IR for pericardial tamponade - making clinical progress: pt is from a [facility] long term (non medical - not staffed 16/04 w/RN) and will return via BLS when medically stable. staff w/pt at all times and updated on pt's progress. No call back from pt's guardian. CM to follow.
--- NOTE | 2025-04-03 17:07 | PC.NURSE ---
Assumed care at 0700 - Patient titrated off Precedex gtt - arousable, agitated at times, nonverbal, occasional moans/grunts, unable to follow commands. SR, HR maintaining 110's. 1040 AFib rvr maintaining 150-160's when providing oral suctioning - MD notified - patient converted back to SR @ 1047 - continue to monitor per MD. Unable to titrate levophed off at this time - MD aware. DMITRI drain to mid chest patent - unclamped by MD at 1045 - draining minimal serous - continue unclamped per MD. Concern for aspiration - HOB >35 degrees - CXR obtained - see report - O2 sat maintaining >90% on 2-3L NC. Abx ordered and administered per EMAR. Increased respiratory effort, LS fine crackles bilateral - Lasix 40 IVP ordered and administered w/ some effect. Tube feeds switched from Jevity to Glucerna - no s/s of intolerance. Patient repo q2hr, bathed, high fall risk precautions in place.
[2025-04-03] MEDS: Acetaminophen Oral Liquid 650 MG/20.3 ML SOLUTION 640 MG G-TUBE (23:46)
[2025-04-04] VITALS (39 sets, daily range): BP systolic 71–192; BP diastolic 5–85; PULSE 80–163; RESP 11–30; TEMP 34.3–36.3; O2SAT 87–100; BMI 23.4
[2025-04-04] MEDS: Valproic Acid Liquid 250 MG/5 ML SOLUTION 1000 MG G-TUBE ×2 (04:54→16:11)
[2025-04-04 05:42] LABS: VBG HCO3 26 mmol/L (22-26); VBG O2 % Saturation 87.0 %
[2025-04-04 05:59] LABS: Venous Blood Gas Refer to POC result
[2025-04-04 06:00] LABS: Hematocrit 23.9 % (42.0-52.0); Hemoglobin 7.9 g/dl (14.0-18.0); Imm Gran Abs Auto 0.06 X10*3/uL (0.00-0.03); Imm Gran Pct Auto 0.5 % (0.0-0.4); Lymphocytes Absolute Auto 1.3 X10*3/uL (1.2-4.9); MANUAL DIFF FLAG SCAN; Mean Corpuscular HGB Conc 33.1 g/dl (31.0-36.0); Mean Corpuscular Hemoglobin 26.6 pg (27.0-33.0); Mean Corpuscular Volume 80.5 fL (80.0-98.0); NRBC Abs Auto 0.000 X10*3/uL (0.0-0.012); NRBC Pct Auto 0.0 /100WBC (0.0-0.2); Platelet Count 373 X10*3/uL (160-400); Red Blood Count 2.97 X10*6/uL (4.60-5.80); SCAN SMEAR FLAG 1; White Blood Count 11.6 X10*3/uL (4.8-10.8)
[2025-04-04] MEDS: Albuterol Sulfate (0.083%) 2.5 MG/3 ML VIAL.NEB INHALE ×3 (06:07→15:39)
[2025-04-04] MEDS: Acetylcysteine 10 % 400 MG/4 ML VIAL INHALE ×3 (06:07→15:38)
[2025-04-04 06:14] LABS: Alanine Aminotransferase 7 U/L (0-40); Albumin Level 2.8 g/dL (3.5-5.0); Alkaline Phosphatase 88 U/L (39-117); Anion Gap 13 (12-20); Aspartate Amino Transferase 27 U/L (5-37); Blood Urea Nitrogen 21 mg/dL (9-16); Calcium 8.9 mg/dL (8.4-10.2); Carbon Dioxide 23 mmol/L (22-29); Chloride 100 mmol/L (96-108); Creatinine Clr Calc Pharmacy 63.9; Estimated Glomerular Filt Rate > 60; Magnesium 2.0 mg/dL (1.6-2.6); Potassium 3.9 mmol/L (3.3-5.1); Sodium 132 mmol/L (135-145); Total Protein 6.8 g/dL (6.5-8.0)
[2025-04-04] MEDS: Acetaminophen Oral Liquid 650 MG/20.3 ML SOLUTION 640 MG G-TUBE ×2 (08:40→16:53)
--- NOTE | 2025-04-04 11:34 | P.PNCC_ITS ---
Subjective Subjective Date of Service: 04/04/25 Interval History: Hypotensive on Levophed support Atrial fibrillation with RVR, is receiving amiodarone this morning Pericardial drain drained about 50 cc overnight Has right lung collapse with the effusion secondary to poor clearance of secretions Critical Care Time (minutes): 35 Physical Exam 2 Vital Signs: Vital Signs: Last Vital Signs Temp 96.6 F L 04/04/25 08:00 Pulse 86 04/04/25 11:08 Resp 20 04/04/25 10:00 BP 78/44 L 04/04/25 11:08 Pulse Ox 95 04/04/25 10:00 O2 Del Method Nasal Cannula 04/04/25 10:00 O2 Flow Rate 2 04/04/25 10:00 BMI result Body Mass Index 23.4 General: Elderly male in acute distress, he is chronically ill appearing and tired appearing Nutritional Appearance: Poorly nourished and under weight Eyes: appearance normal, both eyes and all related structures; Alignment and Position: alignment normal and position normal Neck: No lymphadenopathy, no thyromegaly Resp: bilateral air entry equal, decreased breath sounds on the right side when compared to the left Cardio: Regular rate, regular rhythm; Heart sounds: S1 normal heart sound present and S2 normal heart sound present GI: soft, nontender, no guarding, no hepatosplenomegaly : bladder normal to inspection, bladder normal to palpation, no renal angle tenderness Skin: no rashes or lesions noted and elasticity normal Neuro: Significant chronic neuro deficits present Objective Data Labs 04/04/25 05:34 04/04/25 05:34 Labs: Laboratory Results - last 24 hr 04/03/25 04/03/25 04/04/25 11:41 13:04 05:34 WBC 11.6 H RBC 2.97 L Hgb 7.9 L Hct 23.9 L MCV 80.5 MCH 26.6 L MCHC 33.1 RDW 15.8 Plt Count 373 D MPV 8.3 L Immature Gran % (Auto) 0.5 H Neut % (Auto) 70.8 Lymph % (Auto) 10.9 L [place] % (Auto) 16.6 H Eos % (Auto) 0.9 Baso % (Auto) 0.3 Lymph # (Auto) 1.3 [place] # (Auto) 1.9 H Eos # (Auto) 0.1 Baso # (Auto) 0.0 Abs Immat Gran (auto) 0.06 H Absolute Neuts (auto) 8.2 Absolute Nucleated RBC 0.000 Nucleated RBC % (auto) 0.0 Smear Tech's Comments VERIFIED VBG pH VBG pCO2 VBG pO2 VBG HCO3 VBG O2 Saturation VBG Base Excess Sodium 132 L 132 L Potassium 3.7 3.9 Chloride 100 100 Carbon Dioxide 24 23 Anion Gap 12 13 BUN 22 H 21 H Creatinine 0.77 0.76 Estim Creat Clear Calc 63.1 63.9 Estimated GFR > 60 > 60 Random Glucose 316 H 227 H Calcium 8.5 8.9 Phosphorus 4.2 Magnesium 2.0 Total Bilirubin 0.1 AST 27 ALT 7 Alkaline Phosphatase 88 Total Protein 6.8 Albumin 2.8 L Respiratory Panel Ramirez See Note Adenovirus (Rapid PCR) Not Detected B.pert (TEM-PCR) Not Detected B.parapertussis DNA PCR Not Detected C. pneumoniae DNA (PCR) Not Detected Coronavirus OC43 (PCR) Not Detected Coronavirus HKU1 (PCR) Not Detected Coronavirus 229E (PCR) Not Detected Coronavirus NL63 (PCR) Not Detected Human Metapneumovir PCR Not Detected Influenza A (RT-PCR) Not Detected Influenza A (H1) PCR Not Detected Influ A (H1/09) PCR Not Detected Influenza A (H3) PCR Not Detected Influenza B (RT-PCR) Not Detected M. pneumoniae (PCR) Not Detected Parainfluenza 1 (PCR) Not Detected Parainfluenza 2 (PCR) Not Detected Parainfluenza 3 (PCR) Not Detected Parainfluenza 4 (PCR) Not Detected RSV (PCR) Not Detected Entero/Rhino (PCR) Not Detected SARS-CoV-2 RNA (RT-PCR) Not Detected 04/04/25 05:38 WBC RBC Hgb Hct MCV MCH MCHC RDW Plt Count MPV Immature Gran % (Auto) Neut % (Auto) Lymph % (Auto) [place] % (Auto) Eos % (Auto) Baso % (Auto) Lymph # (Auto) [place] # (Auto) Eos # (Auto) Baso # (Auto) Abs Immat Gran (auto) Absolute Neuts (auto) Absolute Nucleated RBC Nucleated RBC % (auto) Smear Tech's Comments VBG pH 7.40 VBG pCO2 42 VBG pO2 63 VBG HCO3 26 VBG O2 Saturation 87.0 VBG Base Excess 1.7 Sodium Potassium Chloride Carbon Dioxide Anion Gap BUN Creatinine Estim Creat Clear Calc Estimated GFR Random Glucose Calcium Phosphorus Magnesium Total Bilirubin AST ALT Alkaline Phosphatase Total Protein Albumin Respiratory Panel Ramirez Adenovirus (Rapid PCR) B.pert (TEM-PCR) B.parapertussis DNA PCR C. pneumoniae DNA (PCR) Coronavirus OC43 (PCR) Coronavirus HKU1 (PCR) Coronavirus 229E (PCR) Coronavirus NL63 (PCR) Human Metapneumovir PCR Influenza A (RT-PCR) Influenza A (H1) PCR Influ A () PCR Influenza A (H3) PCR Influenza B (RT-PCR) M. pneumoniae (PCR) Parainfluenza 1 (PCR) Parainfluenza 2 (PCR) Parainfluenza 3 (PCR) Parainfluenza 4 (PCR) RSV (PCR) Entero/Rhino (PCR) SARS-CoV-2 RNA (RT-PCR) Microbiology Microbiology Results: Microbiology 04/01/25 Unknown Urine Other - Suprapubic Urine Culture - Final Escherichia coli Klebsiella pneumoniae 04/01/25 11:18 Blood - Venous Blood Culture - Preliminary No growth after 48 hours. 04/01/25 11:09 Blood - Venous Blood Culture - Preliminary No growth after 48 hours. Progress Note: A&P Assessment and plan (1) Hypotension: Status: Acute (2) Atrial fibrillation with RVR: Status: Acute (3) Pericardial tamponade: Status: Acute (4) Acute hyponatremia: Status: Acute Plan Cardiogenic Shock: Secondary to pericardial tamponade, status post pericardiocentesis drained about 700 cc. Repeat echo from yesterday showing presence of moderate to large pericardial effusion. Tamponade at fluid showing around 2400 RBCs with 240 WBCs. Normal LDH, glucose, albumin 2.4. CT chest abdomen and pelvis ruled out any malignancies, we will get KAYE. on levophed support, will titrate to keep MAP above 60mmHg Atrial fibrillation with RVR: will do bolus amiodarone followed by amiodarone drip. 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 Pending urinalysis and culture on empiric Zosyn Respiratory: Has history of aspiration pneumonia, chest Xray from yesterday showing atelectasis of the right upper lobe possibly secondary to poor ability to clear respiratory secretions Getting chest percussion therapy twice daily, Mucomyst nebulization 4 times a day Saturations are stable on 2 L nasal cannula oxygen GI: Continue tube feeds, we will hold off on oral feeds due to this for aspiration Prophylaxis: apixaban Quality Stroke Does the patient have a stroke diagnosis?: No VTE Prior VTE?: No VTE Risk Level:: Medical - moderate - high VTE Device Contraindication: N/A - Device Ordered VTE Drug Contraindication: N/A - Med Ordered
--- NOTE | 2025-04-04 11:40 | P.PNCA_ITS ---
Subjective Subjective Date of Service: 04/04/25 Interval history: Seen examined at bedside. Significant aspiration in the right lung with volume loss/atelectasis. He is in AFib with RVR. Physical Exam Vital Signs: Last Vital Signs Temp 96.6 F L 04/04/25 08:00 Pulse 86 04/04/25 11:08 Resp 20 04/04/25 10:00 BP 78/44 L 04/04/25 11:08 Pulse Ox 95 04/04/25 10:00 O2 Del Method Nasal Cannula 04/04/25 10:00 O2 Flow Rate 2 04/04/25 10:00 BMI result Body Mass Index 23.4 GENERAL APPEARANCE: Short of breath. NECK: no carotid bruit, no jugular venous distention. SKIN: no suspicious lesions, warm and dry. HEART: no murmurs, irregular rate and rhythm. Tachycardic. LUNGS: Tachypneic. ABDOMEN: soft, nontender. EXTREMITIES: no edema. PERIPHERAL PULSES: equal. NEUROLOGIC: Nonverbal at baseline. Repetitive arm movements. Objective Labs and Meds 04/04/25 05:34 04/04/25 05:34 Lab results: Laboratory Results - last 24 hr 04/03/25 04/03/25 04/04/25 11:41 13:04 05:34 WBC 11.6 H RBC 2.97 L Hgb 7.9 L Hct 23.9 L MCV 80.5 MCH 26.6 L MCHC 33.1 RDW 15.8 Plt Count 373 D MPV 8.3 L Immature Gran % (Auto) 0.5 H Neut % (Auto) 70.8 Lymph % (Auto) 10.9 L [place] % (Auto) 16.6 H Eos % (Auto) 0.9 Baso % (Auto) 0.3 Lymph # (Auto) 1.3 [place] # (Auto) 1.9 H Eos # (Auto) 0.1 Baso # (Auto) 0.0 Abs Immat Gran (auto) 0.06 H Absolute Neuts (auto) 8.2 Absolute Nucleated RBC 0.000 Nucleated RBC % (auto) 0.0 Smear Tech's Comments VERIFIED VBG pH VBG pCO2 VBG pO2 VBG HCO3 VBG O2 Saturation VBG Base Excess Sodium 132 L 132 L Potassium 3.7 3.9 Chloride 100 100 Carbon Dioxide 24 23 Anion Gap 12 13 BUN 22 H 21 H Creatinine 0.77 0.76 Estim Creat Clear Calc 63.1 63.9 Estimated GFR > 60 > 60 Random Glucose 316 H 227 H Calcium 8.5 8.9 Phosphorus 4.2 Magnesium 2.0 Total Bilirubin 0.1 AST 27 ALT 7 Alkaline Phosphatase 88 Total Protein 6.8 Albumin 2.8 L Respiratory Panel Ramirez See Note Adenovirus (Rapid PCR) Not Detected B.pert (TEM-PCR) Not Detected B.parapertussis DNA PCR Not Detected C. pneumoniae DNA (PCR) Not Detected Coronavirus OC43 (PCR) Not Detected Coronavirus HKU1 (PCR) Not Detected Coronavirus 229E (PCR) Not Detected Coronavirus NL63 (PCR) Not Detected Human Metapneumovir PCR Not Detected Influenza A (RT-PCR) Not Detected Influenza A (H1) PCR Not Detected Influ A (H1/09) PCR Not Detected Influenza A (H3) PCR Not Detected Influenza B (RT-PCR) Not Detected M. pneumoniae (PCR) Not Detected Parainfluenza 1 (PCR) Not Detected Parainfluenza 2 (PCR) Not Detected Parainfluenza 3 (PCR) Not Detected Parainfluenza 4 (PCR) Not Detected RSV (PCR) Not Detected Entero/Rhino (PCR) Not Detected SARS-CoV-2 RNA (RT-PCR) Not Detected 04/04/25 05:38 WBC RBC Hgb Hct MCV MCH MCHC RDW Plt Count MPV Immature Gran % (Auto) Neut % (Auto) Lymph % (Auto) [place] % (Auto) Eos % (Auto) Baso % (Auto) Lymph # (Auto) [place] # (Auto) Eos # (Auto) Baso # (Auto) Abs Immat Gran (auto) Absolute Neuts (auto) Absolute Nucleated RBC Nucleated RBC % (auto) Smear Tech's Comments VBG pH 7.40 VBG pCO2 42 VBG pO2 63 VBG HCO3 26 VBG O2 Saturation 87.0 VBG Base Excess 1.7 Sodium Potassium Chloride Carbon Dioxide Anion Gap BUN Creatinine Estim Creat Clear Calc Estimated GFR Random Glucose Calcium Phosphorus Magnesium Total Bilirubin AST ALT Alkaline Phosphatase Total Protein Albumin Respiratory Panel Ramirez Adenovirus (Rapid PCR) B.pert (TEM-PCR) B.parapertussis DNA PCR C. pneumoniae DNA (PCR) Coronavirus OC43 (PCR) Coronavirus HKU1 (PCR) Coronavirus 229E (PCR) Coronavirus NL63 (PCR) Human Metapneumovir PCR Influenza A (RT-PCR) Influenza A (H1) PCR Influ A (H1/09) PCR Influenza A (H3) PCR Influenza B (RT-PCR) M. pneumoniae (PCR) Parainfluenza 1 (PCR) Parainfluenza 2 (PCR) Parainfluenza 3 (PCR) Parainfluenza 4 (PCR) RSV (PCR) Entero/Rhino (PCR) SARS-CoV-2 RNA (RT-PCR) Imaging Radiologist's impression: Impressions Chest X-Ray 04/03/25 11:15 IMPRESSION: 1. Status post insertion of a pericardial drainage catheter with interval decrease in size of the cardiac silhouette. 2. Complete opacification of the right upper lung with associated volume loss, consistent with atelectasis. There may also be a small amount of pleural fluid. Electronically signed by: Clay Sung MD 04/03/2025 11:42 AM EDT Progress Note: A&P Assessment and plan (1) Pericardial tamponade: Status: Acute Plan [age] year gentleman who is presenting with pericardial tamponade. He underwent pericardiocentesis and currently has a drain in place. He is in AFib with RVR. Adding amiodarone. Give colchicine to decrease inflammation in the pericardium. Repeat echocardiography has shown some coagulum in the pericardial space next to the right ventricle. There are also small clot seen in the pericardial drain. He is still has [id number] effusion on echocardiography but does not have tamponade physiology anymore. IV fluids for hypotension and treat infection as you are. Thank you for allowing me to participate in the care of your patient. Please feel free to contact me if you have any questions. Time Spent With Patient Time: Total time managing care of this patient today ____ minutes. Progress Note: Quality Stroke Does the patient have a stroke diagnosis?: No Procedures Date of Service Date of Service: 04/04/25
[2025-04-04] MEDS: Amiodarone/Dextrose 150 MG/100 ML PLAST..BAG 600 MG IV (11:58)
[2025-04-04 16:40] LABS: Glucose, Whole Blood 193 mg/dL (60-115)
--- NOTE | 2025-04-04 18:07 | PC.NURSE ---
Assumed care at 0700. Pt remains on levophed drip. Pt active in bed, hitting L arm on bedrail; pillow placed for cushioning. [facility] RN given bedside update. After repositioning at approx 1000, pt?s heart rhythm changed to afib & hr madi to 150s-180s. MD made aware. Pt started on amiodarone drip. Pt?s hr under control at approx 1230. At 1300, pt showing signs of increased agitation: hitting self, calling out, wildly swinging arms. MD made aware. Pericardial drain appears to be clogged per MD and car repairman. Unable to administer alteplase into pericardial drain due to excessive clogging. Pt repositioned q2hr as tolerated. Fall/safety precautions in place. See MAR and assessments for further details.
[2025-04-04] MEDS: Albumin Human 25 % 100 ML 133.33 ML IV ×2 (20:31→22:00)
--- NOTE | 2025-04-04 21:04 | PM.CCN ---
Critical Care Event Note Summary Date of Service: 04/04/25 Code activated: No Narrative: This case had a high probability of a clinically significant, sudden, or life threatening deterioration of this patient's condition which required my full and direct attention, intervention and personal management. Critical Care Time (minutes): 30 Comment: At 20:45, patient's nurse asked me to see the patient for he was becoming hypoxic, upon arriving the patient seemed to be gasping for air, his breathing was agonal about 6 breaths per minute with an O2 sat as low as 82% on 4 L nasal cannula.? At this point I scoped his mouth to ensure there was no foreign body unknown found.? The patient was very close to a sudden respiratory arrest. The patient had received Dilaudid about 2 hours prior to, Narcan 0.4 mg IV push was ordered and given with minimal effect although the patient became more alert, his breathing pattern did not improve despite being on nasal cannula with full oxygen administration, I placed him on an Ambu bagging started bagging the patient, the patient's O2 sat improve with the Ambu bag ventilation after achieving good oxygenation their decision was made to intubate the patient. RSI protocol was followed with single pass intubation as documented on the patient's separate procedure note. ?The patient was placed on propofol for sedation, subsequently x-ray reviewed the tip of the tube about 3 cm above the tiffany, complete whiteout of the right lung.? The patient will need a bronchoscopy, he is likely experiencing the effects of a large mucus plug in the right lung.? Additionally I tried to manually drain the pericardium from the current drain line by using a syringe and 1 cc of saline to flush it but this was not successful as there is no further drainage obtained; and no further drainage is present in the DMITRI drain since this morning. Give him multiple drips, a left central line will be placed, please see separate note for the above-mentioned procedures.? I have tried calling the patient's power of litigation attorney associate but was not able to get a hold and a message was left. Critical care time used for critical evaluation of this patient, diagnosis, treatment and coordination of care, review her records and documentation TOTAL CRITICAL CARE TIME? 30? MIN . discussion and coordination with consultants, completely separate from any procedures performed. Patient's care was discussed in detail with Dr. Valdes.? He is aware of all the above as well as the plan of care for this patient.
--- NOTE | 2025-04-04 21:05 | W.PM.CCHP ---
Procedures Date of Service Date of Service: 04/04/25 <NADEEN Li - Last Filed: 04/04/25 22:17> 04/05/25 <Price Valdes MD - Last Filed: 04/05/25 10:12> Intubation Consent for Procedure: Emergent-no informed consent obtained <NADEEN Li - Last Filed: 04/04/25 22:17> Time out performed: Yes <NADEEN Li - Last Filed: 04/04/25 22:17> Sedative: propofol <NADEEN Li - Last Filed: 04/04/25 22:17> Mg given: 100 <NADEEN Li - Last Filed: 04/04/25 22:17> Paralytic: rocuronium <NADEEN Li - Last Filed: 04/04/25 22:17> Mg given: 30 <NADEEN Li - Last Filed: 04/04/25 22:17> Laryngoscope: fiber optic video scope <NADEEN Li - Last Filed: 04/04/25 22:17> ET tube size: 7.5 <NADEEN Li - Last Filed: 04/04/25 22:17> ET tube uncuffed: Yes <NADEEN Li - Last Filed: 04/04/25 22:17> Tube secured depth (cm): 23 <NADEEN Li - Last Filed: 04/04/25 22:17> Tube secured location: lips <NADEEN Li - Last Filed: 04/04/25 22:17> Tube placement confirmation: visualized tube passing through cords, equal breath sounds bilaterally, no breath sounds over epigastrium and confirmation by capnometry <NADEEN Li - Last Filed: 04/04/25 22:17> Patient tolerated procedure: well and other (Post intubation x-ray reveals the tip is about 3 cm above the tiffany) <NADEEN Li - Last Filed: 04/04/25 22:17> Intubation complications: none <NADEEN Li - Last Filed: 04/04/25 22:17>
--- NOTE | 2025-04-04 21:06 | W.PM.CCHP ---
Procedures Date of Service Date of Service: 04/04/25 <NADEEN Li - Last Filed: 04/04/25 22:16> 04/05/25 <Price Valdes MD - Last Filed: 04/05/25 10:12> Central Line Placement Left IJ: Consent for Procedure: Emergent-no informed consent obtained <NADEEN Li - Last Filed: 04/04/25 22:16> Time out performed: Yes <NADEEN Li - Last Filed: 04/04/25 22:16> Sterile Technique Used: Yes <NADEEN Li - Last Filed: 04/04/25 22:16> Patient placed on monitor/pulse ox: Yes <NADEEN Li - Last Filed: 04/04/25 22:16> prep: mask, gown, gloves and other (cap) <NADEEN Li - Last Filed: 04/04/25 22:16> Central line prep: Chlorhexidine scrub (x3) <NADEEN Li - Last Filed: 04/04/25 22:16> Ultrasound used for placement: Yes <NADEEN Li - Last Filed: 04/04/25 22:16> Central line lumen inserted: triple (16 cm) <NADEEN Li - Last Filed: 04/04/25 22:16> Post procedure: sutured in place, good blood return, all ports aspirated, flushed, capped and sterile dressing applied <NADEEN Li - Last Filed: 04/04/25 22:16> Post procedure x-ray: tip of catheter in good position and no pneumothorax seen <NADEEN Li - Last Filed: 04/04/25 22:16> Patient tolerated procedure: well <NADEEN Li - Last Filed: 04/04/25 22:16> Complications: none <NADEEN Li - Last Filed: 04/04/25 22:16>
[2025-04-05] VITALS (60 sets, daily range): BP systolic 84–158; BP diastolic 41–69; PULSE 57–161; RESP 20–25; TEMP 34.6–38.1; O2SAT 91–100; BMI 24.2
[2025-04-05] MEDS: Acetylcysteine 10 % 400 MG/4 ML VIAL INHALE ×5 (00:06→23:04)
[2025-04-05] MEDS: Albuterol Sulfate (0.083%) 2.5 MG/3 ML VIAL.NEB INHALE ×5 (00:06→23:04)
[2025-04-05 01:36] LABS: Glucose, Whole Blood 165 mg/dL (60-115)
[2025-04-05] MEDS: Valproic Acid Liquid 250 MG/5 ML SOLUTION 1000 MG G-TUBE ×2 (04:23→15:59)
[2025-04-05 05:34] LABS: MANUAL DIFF FLAG NO
[2025-04-05 05:37] LABS: VBG HCO3 25 mmol/L (22-26)
[2025-04-05 05:38] LABS: Imm Gran Abs Auto 0.07 X10*3/uL (0.00-0.03); Imm Gran Pct Auto 0.7 % (0.0-0.4); Lymphocytes Absolute Auto 1.5 X10*3/uL (1.2-4.9); Mean Corpuscular HGB Conc 31.8 g/dl (31.0-36.0); Mean Corpuscular Hemoglobin 26.7 pg (27.0-33.0); Mean Corpuscular Volume 83.9 fL (80.0-98.0); NRBC Abs Auto 0.020 X10*3/uL (0.0-0.012); NRBC Pct Auto 0.2 /100WBC (0.0-0.2); Platelet Count 353 X10*3/uL (160-400); Red Blood Count 2.36 X10*6/uL (4.60-5.80); White Blood Count 9.8 X10*3/uL (4.8-10.8)
[2025-04-05 05:40] LABS: Venous Blood Gas Refer to POC result
[2025-04-05 05:44] LABS: Hematocrit 19.8 % (42.0-52.0); Hemoglobin 6.3 g/dl (14.0-18.0)
[2025-04-05 05:54] LABS: Alanine Aminotransferase 6 U/L (0-40); Albumin Level 3.4 g/dL (3.5-5.0); Alkaline Phosphatase 71 U/L (39-117); Anion Gap 15 (12-20); Aspartate Amino Transferase 22 U/L (5-37); Blood Urea Nitrogen 22 mg/dL (9-16); Calcium 8.9 mg/dL (8.4-10.2); Carbon Dioxide 22 mmol/L (22-29); Chloride 104 mmol/L (96-108); Creatinine Clr Calc Pharmacy 52.8; Estimated Glomerular Filt Rate > 60; Magnesium 2.1 mg/dL (1.6-2.6); Potassium 4.1 mmol/L (3.3-5.1); Sodium 137 mmol/L (135-145); Total Protein 6.8 g/dL (6.5-8.0)
--- NOTE | 2025-04-05 07:31 | PC.NURSE ---
Upon initial assessment at approximately?1900- Patient obtunded, weakly opening eyes to painful stimuli, biting down during oral care, not following commands, flaccid extremities. Patient is blind and nonverbal at baseline. Per MAR patient had received PRN Dilaudid at approximately?1815 for pain. Patient on 4L NC with SpO2 >90%. Lungs diminished throughout with inspiratory rhonchi throughout the left side. NSR with occasional?PACs on tele, HR 80-90s. Levophed and Amiodarone gtts infusing per NOV. Tube feed infusing via PEG with no s/s of intolerance. Suprapubic catheter draining clear yellow urine.?? While at bedside at 2029, patient became hypoxic, SpO2 in the 80s on 4L NC. Patients respirations became agonal with respiratory rate decreasing to 6-8 breaths per minute. NADEEN Perry and RT called to bedside. Suctioned moderate amount of thick cream sputum from mouth, absent cough and gag noted. Narcan 0.5mg IVP administered per NOV with some effect, patient began fluttering eyes and weakly moving bilateral upper extremities. Despite this, no improvement in breathing pattern and decision was made to intubate by PA.?Tube feeds were paused. Total of Propofol 100 mg IVP and Rocuronium 30 mg IVP given for RSI. Propofol gtt started for sedation. Levophed gtt titrated per NOV. ETT #7.5, 23 cm at the lip. On ACVC settings. Left IJ TLC placed by PA. Tube and line placements confirmed by pCXR.? Bed locked in lowest position and bed alarm on.?Report given to oncoming RN at 0700. See EMR/flowsheet for further details.
[2025-04-05] MEDS: Sodium,Potassium Phosphates POWD.PACK 2 PACKET PO (07:42)
[2025-04-05] MEDS: Chlorhexidine Gluc Oral Rinse 15 ML MOUTHWASH BUCCAL ×3 (08:22→20:08)
[2025-04-05 08:47] LABS: OBS Int Ctl Valid YES; OBS1 POSITIVE (NEGATIVE)
--- NOTE | 2025-04-05 10:13 | P.PNCC_ITS ---
Subjective Subjective Date of Service: 04/05/25 Interval History: Intubated overnight for respiratory distress currently on ventilator support On Levophed for vasopressor support Critical Care Time (minutes): 35 Physical Exam 2 Vital Signs: Vital Signs: Last Vital Signs Temp 100.6 F H 04/05/25 10:12 Pulse 83 04/05/25 10:12 Resp 20 04/05/25 10:12 BP 123/57 L 04/05/25 10:12 Pulse Ox 100 04/05/25 10:00 O2 Del Method Mechanical Ventil ation 04/05/25 10:00 O2 Flow Rate 3.5 04/04/25 20:00 FiO2 25 04/05/25 10:00 BMI result Body Mass Index 24.2 General: Elderly male in acute distress, he is chronically ill appearing and tired appearing Nutritional Appearance: well nourished and overweight Eyes: appearance normal, both eyes and all related structures; Alignment and Position: alignment normal and position normal Neck: No lymphadenopathy, no thyromegaly Resp: bilateral air entry equal, decreased breath sounds in right lung area Cardio: Regular rate, regular rhythm; Heart sounds: S1 normal heart sound present and S2 normal heart sound present GI: soft, nontender, no guarding, no hepatosplenomegaly : bladder normal to inspection, bladder normal to palpation, no renal angle tenderness Skin: no rashes or lesions noted and elasticity normal Neuro: Has significant neuro deficit at baseline Objective Data Labs 04/05/25 05:24 04/05/25 05:24 Labs: Laboratory Results - last 24 hr 04/02/25 04/04/25 04/05/25 14:27 16:13 00:36 WBC RBC Hgb Hct MCV MCH MCHC RDW Plt Count MPV Immature Gran % (Auto) Neut % (Auto) Lymph % (Auto) Haines % (Auto) Eos % (Auto) Baso % (Auto) Lymph # (Auto) Haines # (Auto) Eos # (Auto) Baso # (Auto) Abs Immat Gran (auto) Absolute Neuts (auto) Absolute Nucleated RBC Nucleated RBC % (auto) VBG pH VBG pCO2 VBG pO2 VBG HCO3 VBG O2 Saturation VBG Base Excess Sodium Potassium Chloride Carbon Dioxide Anion Gap BUN Creatinine Estim Creat Clear Calc Estimated GFR POC Glucose 193 H 165 H Random Glucose Calcium Phosphorus Magnesium Total Bilirubin AST ALT Alkaline Phosphatase Total Protein Albumin Stool Occult Blood Blood Type B Negative Antibody Screen POSITIVE Antibody Identification Anti-K Crossmatch ([facility]) See Detail 04/05/25 04/05/25 04/05/25 05:24 05:34 08:16 WBC 9.8 RBC 2.36 L D Hgb 6.3 L* D Hct 19.8 L* MCV 83.9 MCH 26.7 L MCHC 31.8 RDW 16.0 Plt Count 353 MPV 8.3 L Immature Gran % (Auto) 0.7 H Neut % (Auto) 66.8 Lymph % (Auto) 15.2 L Haines % (Auto) 14.5 H Eos % (Auto) 2.7 Baso % (Auto) 0.1 Lymph # (Auto) 1.5 Haines # (Auto) 1.4 H Eos # (Auto) 0.3 Baso # (Auto) 0.0 Abs Immat Gran (auto) 0.07 H Absolute Neuts (auto) 6.6 Absolute Nucleated RBC 0.020 H Nucleated RBC % (auto) 0.2 VBG pH 7.51 H VBG pCO2 32 VBG pO2 64 VBG HCO3 25 VBG O2 Saturation Not Reportable VBG Base Excess 3.2 Sodium 137 Potassium 4.1 Chloride 104 Carbon Dioxide 22 Anion Gap 15 BUN 22 H Creatinine 0.92 Estim Creat Clear Calc 52.8 Estimated GFR > 60 POC Glucose Random Glucose 210 H Calcium 8.9 Phosphorus 2.1 L Magnesium 2.1 Total Bilirubin 0.2 AST 22 ALT 6 Alkaline Phosphatase 71 Total Protein 6.8 Albumin 3.4 L Stool Occult Blood POSITIVE Blood Type Antibody Screen Antibody Identification Crossmatch ([facility]) Microbiology Microbiology Results: Microbiology 04/01/25 Unknown Urine Other - Suprapubic Urine Culture - Final Escherichia coli Klebsiella pneumoniae 04/01/25 11:18 Blood - Venous Blood Culture - Preliminary No growth after 48 hours. 04/01/25 11:09 Blood - Venous Blood Culture - Preliminary No growth after 48 hours. 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 Bedside echo showed pericardial effusion, so official echo was obtained which showed pericardial effusion with tamponade. IR guided pericardiocentesis with pericardial drain was placed to initiate a draining 700 cc, currently does not have any output due to clogging of the catheter. Tried pushing alteplase but the catheter he is not flushing or withdrawing, needs to be reviewed again by IR on Sunday. Patient had difficulty in clearing secretions due to poor mental status leading to right upper lobe collapse, he was intubated overnight last night due to worsening respiratory status. Cardiogenic Shock: Secondary to pericardial tamponade, status post pericardiocentesis drained about 700 cc. Repeat echo from yesterday showing presence of moderate to large pericardial effusion. Pericardial catheter clogged, tried to push alteplase but the catheter could not be flushed or withdrawn. We we will ask Interventional Radiology to review of the case as the patient still has significant amount of pericardial effusion. Tamponade at fluid showing around 2400 RBCs with 240 WBCs. Normal LDH, glucose, albumin 2.4. CT chest abdomen and pelvis ruled out any malignancies, we will get KAYE. on levophed support, will titrate to keep MAP above 60mmHg Atrial fibrillation with RVR: Received bolus amiodarone currently on amiodarone drip. on apixaban for anticoagulation Acute hypoxemic respiratory failure: Secondary to collapse of the right upper lung and effusion in the right lower lung. Became dyspneic overnight, needing to be intubated. Currently on ventilator support, stable ventilator settings; FiO2 30%, peep 5, tidal volume 360, rate 20 Ventilator management protocol We will do a bronchoscopy and possibly a thoracentesis to ease the work of breathing. Acute encephalopathy: Secondary to metabolic encephalopathy, however has significant neuropsych issues at baseline On propofol for sedation Cerebral palsy: Is legally blind, nonverbal, bed-bound at baseline Acute hyponatremia: Possibly due to poor intake and volume depletion as suggested by Urine sodium less than 20, urine Osmo 400. Presented with a sodium of 116, Sodium slowly normalized over 3 days. 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 Urine culture positive for Klebsiella and E coli on empiric Zosyn GI: Continue tube feeds, we will hold off on oral feeds due to this for aspiration Acute anemia: Possibly secondary to acute blood loss anemia, stool for occult blood positive We will withhold apixaban Receiving 1 unit of PRBC transfusion this morning, hemoglobin 6.6 We will repeat a CBC this afternoon Prophylaxis: apixaban withheld due to drop in hemoglobin Total critical care time spent is about 45 minutes on managing this complex critically ill patient with multiple organ failure including cardiogenic shock, acute encephalopathy, acute respiratory failure on ventilator support, pericardial tamponade. Critical care time spent is mainly on ventilator management, sedation management, changing ventilator settings, close hemodynamic monitoring, vasopressor management, review of labs and images, coordinating care between different specialties at this time is excluding any procedural time Quality Stroke Does the patient have a stroke diagnosis?: No VTE Prior VTE?: No VTE Risk Level:: Medical - moderate - high VTE Device Contraindication: N/A - Device Ordered VTE Drug Contraindication: N/A - Med Ordered
--- NOTE | 2025-04-05 11:58 | P.PCNCC_ITS ---
Procedures Date of Service Date of Service: 04/05/25 Bronchoscopy Consent for Procedure: Elective - informed consent obtained Indication: atelectasis Procedure: Bronchoscope was passed through the ET tube and the airway was inspe cted, mucosal erythema was noted, no obstructive lesion was found. Lavage was performed in the right upper lobe and sent for cultures Route: endotracheal tube Sedation/Analgesia: fentanyl Monitor: EKG Complications: none
--- NOTE | 2025-04-05 12:01 | PC.RT ---
Bedside bronchoscopy performed ,pt hyperoxygenated, sputum spec obatins for cultures. pt tolerated well.
--- NOTE | 2025-04-05 12:05 | P.PNCA_ITS ---
Subjective Subjective Date of Service: 04/05/25 Interval history: Seen and examined at bedside. He had aspiration pneumonia and right upper lobe collapse and currently is intubated. He also was noticed to be anemic and is getting blood transfusion. He previously was on Eliquis which is on hold. Physical Exam Vital Signs: Last Vital Signs Temp 100.4 F 04/05/25 11:00 Pulse 75 04/05/25 11:16 Resp 20 04/05/25 11:16 BP 122/57 L 04/05/25 11:00 Pulse Ox 100 04/05/25 11:00 O2 Del Method Mechanical Ventilation 04/05/25 11:00 O2 Flow Rate 3.5 04/04/25 20:00 FiO2 25 04/05/25 11:16 BMI result Body Mass Index 24.2 GENERAL APPEARANCE: Sedated and intubated. NECK: no carotid bruit, no jugular venous distention. SKIN: no suspicious lesions, warm and dry. HEART: no murmurs, regular rate and rhythm. LUNGS: Equal air entry bilaterally. No added sounds anteriorly. ABDOMEN: soft, nontender. EXTREMITIES: no edema. PERIPHERAL PULSES: equal. NEUROLOGIC: Sedated. Objective Labs and Meds 04/05/25 05:24 04/05/25 05:24 Lab results: Laboratory Results - last 24 hr 04/02/25 04/04/25 04/05/25 14:27 16:13 00:36 WBC RBC Hgb Hct MCV MCH MCHC RDW Plt Count MPV Immature Gran % (Auto) Neut % (Auto) Lymph % (Auto) Caroline % (Auto) Eos % (Auto) Baso % (Auto) Lymph # (Auto) Caroline # (Auto) Eos # (Auto) Baso # (Auto) Abs Immat Gran (auto) Absolute Neuts (auto) Absolute Nucleated RBC Nucleated RBC % (auto) VBG pH VBG pCO2 VBG pO2 VBG HCO3 VBG O2 Saturation VBG Base Excess Sodium Potassium Chloride Carbon Dioxide Anion Gap BUN Creatinine Estim Creat Clear Calc Estimated GFR POC Glucose 193 H 165 H Random Glucose Calcium Phosphorus Magnesium Total Bilirubin AST ALT Alkaline Phosphatase Total Protein Albumin Stool Occult Blood Blood Type B Negative Antibody Screen POSITIVE Antibody Identification Anti-K Crossmatch ([facility]) See Detail 04/05/25 04/05/25 04/05/25 05:24 05:34 08:16 WBC 9.8 RBC 2.36 L D Hgb 6.3 L* D Hct 19.8 L* MCV 83.9 MCH 26.7 L MCHC 31.8 RDW 16.0 Plt Count 353 MPV 8.3 L Immature Gran % (Auto) 0.7 H Neut % (Auto) 66.8 Lymph % (Auto) 15.2 L Caroline % (Auto) 14.5 H Eos % (Auto) 2.7 Baso % (Auto) 0.1 Lymph # (Auto) 1.5 Caroline # (Auto) 1.4 H Eos # (Auto) 0.3 Baso # (Auto) 0.0 Abs Immat Gran (auto) 0.07 H Absolute Neuts (auto) 6.6 Absolute Nucleated RBC 0.020 H Nucleated RBC % (auto) 0.2 VBG pH 7.51 H VBG pCO2 32 VBG pO2 64 VBG HCO3 25 VBG O2 Saturation Not Reportable VBG Base Excess 3.2 Sodium 137 Potassium 4.1 Chloride 104 Carbon Dioxide 22 Anion Gap 15 BUN 22 H Creatinine 0.92 Estim Creat Clear Calc 52.8 Estimated GFR > 60 POC Glucose Random Glucose 210 H Calcium 8.9 Phosphorus 2.1 L Magnesium 2.1 Total Bilirubin 0.2 AST 22 ALT 6 Alkaline Phosphatase 71 Total Protein 6.8 Albumin 3.4 L Stool Occult Blood POSITIVE Blood Type Antibody Screen Antibody Identification Crossmatch ([facility]) Progress Note: A&P Assessment and plan (1) Pericardial tamponade: Status: Acute (2) Atrial fibrillation with RVR: Status: Acute Plan 69-year-old gentleman with cerebral palsy who presented with hyponatremia and was noticed to have a large pericardial effusion. Echocardiography showed tamponade physiology and he had pericardial drain placed. He aspirated and has pneumonia along with atelectasis of the right upper lobe and currently is intubated. He will be getting bronchoscopy today. He has anemia with guaiac-positive stools. Eliquis should be held. Also with a drain in place and coagulum around the right ventricle anticoagulation should be held till the drain comes out. Repeat echocardiography has shown [id number] effusion but no tamponade physiology was noted. On antibiotics and pressors currently. Overall prognosis is guarded which was discussed with the caregiver. Thank you for allowing me to participate in the care of your patient. Please feel free to contact me if you have any questions. Time Spent With Patient Time: Total time managing care of this patient today ____ minutes. Progress Note: Quality Stroke Does the patient have a stroke diagnosis?: No Procedures Date of Service Date of Service: 04/05/25
[2025-04-05 13:46] LABS: WBC Bronchial Washing 149 MM*3
[2025-04-05 13:47] LABS: Lymphocytes Bronchial 72 %; Monocytes Bronchial 9 %; Neutrophils Bronchial 9 %; Other Bronchial 10 %; RBC Bronchial Washing 17 MM*3
--- NOTE | 2025-04-05 15:02 | W.PM.CCHP ---
Procedures Date of Service Date of Service: 04/05/25 Thoracentesis Consent for Procedure: Elective - informed consent obtained Indication: right-sided pleural effusion Procedure: therapeutic thoracentesis Bedside ultrasound used: yes, real-time guidance Preparation: sterile prep and drape Amount of fluid obtained (mL): 1,200 Fluid: bloody Catheter size used: 18 Bengali Post procedure exam: normal BP, normal HR and normal SpO2 Patient tolerated procedure: well and no complications Complications: none
[2025-04-05 15:19] LABS: MANUAL DIFF FLAG NO
[2025-04-05 15:20] LABS: Hematocrit 28.8 % (42.0-52.0); Hemoglobin 9.7 g/dl (14.0-18.0); Imm Gran Abs Auto 0.12 X10*3/uL (0.00-0.03); Imm Gran Pct Auto 1.4 % (0.0-0.4); Lymphocytes Absolute Auto 1.1 X10*3/uL (1.2-4.9); Mean Corpuscular HGB Conc 33.7 g/dl (31.0-36.0); Mean Corpuscular Hemoglobin 27.2 pg (27.0-33.0); Mean Corpuscular Volume 80.9 fL (80.0-98.0); NRBC Abs Auto 0.000 X10*3/uL (0.0-0.012); NRBC Pct Auto 0.0 /100WBC (0.0-0.2); Platelet Count 306 X10*3/uL (160-400); Red Blood Count 3.56 X10*6/uL (4.60-5.80); White Blood Count 8.5 X10*3/uL (4.8-10.8)
[2025-04-05 16:00] LABS: MN% 72.4 %; PMN% 27.6 %; WBC Pleural Fluid 0.730 X10*3/uL
[2025-04-05 16:29] LABS: BF Shift QC OK YES; Lymphocytes Pleural Fluid 27 %; Monocytes Pleural Fluid 10 %; Neutrophils Pleural Fluid 30 %; Other Cells Plerual Fl 33 %
[2025-04-05] MEDS: Amiodarone/Dextrose 150 MG/100 ML PLAST..BAG 600 MG IV ×2 (16:55→18:04)
[2025-04-05] MEDS: Lactated Ringers 1,000 ML 100 ML IVCONT (17:36)
--- NOTE | 2025-04-05 18:27 | PC.NURSE ---
Assumed care at 0700. Pt remains intubated & on sedative and cardiac drips. Pt noted to have slightly elevated temp (100.2). Pt received 2 units of prbc. Bronchoscopy performed with RT at bedside at approx 1145. Washings sent to lab for culture. Pt tolerated procedure well.? Thoracentesis performed by MD at approx 1445. Pt tolerated procedure well. Approx 1.2L of fluid was removed. At approx 1445 pt?s hr madi to the 160s. MD made aware. Per MD Additional amio bolus was given with some positive effect: hr now in 130s. Per MD, LR was started at 100mL/hr. At approx 1800, pt?s hr noted to have risen back to 145-150. MD ordered another amio bolus be given. Pt converted to sinus rhythm with hr of 80 before additional bolus was started. Per MD, second bolus was administered. Pt repositioned q2hr as tolerated. Fall/safety precautions in place. See MAR and assessments for further details.
[2025-04-05 21:59] LABS: Hematocrit 28.5 % (42.0-52.0); Hemoglobin 9.8 g/dl (14.0-18.0)
[2025-04-06] VITALS (48 sets, daily range): BP systolic 97–153; BP diastolic 47–74; PULSE 53–147; RESP 20–30; TEMP 34.7–37.6; O2SAT 92–100; BMI 24.2
[2025-04-06] MEDS: Lactated Ringers 1,000 ML 100 ML IVCONT (02:52)
[2025-04-06 04:23] LABS: VBG HCO3 22 mmol/L (22-26); VBG O2 % Saturation 99.0 %
[2025-04-06 04:27] LABS: Venous Blood Gas Refer to POC result
[2025-04-06 04:36] LABS: Hematocrit 29.4 % (42.0-52.0); Hemoglobin 10.1 g/dl (14.0-18.0); Imm Gran Abs Auto 0.11 X10*3/uL (0.00-0.03); Imm Gran Pct Auto 1.2 % (0.0-0.4); Lymphocytes Absolute Auto 1.1 X10*3/uL (1.2-4.9); MANUAL DIFF FLAG SCAN; Mean Corpuscular HGB Conc 34.4 g/dl (31.0-36.0); Mean Corpuscular Hemoglobin 27.5 pg (27.0-33.0); Mean Corpuscular Volume 80.1 fL (80.0-98.0); NRBC Abs Auto 0.000 X10*3/uL (0.0-0.012); NRBC Pct Auto 0.0 /100WBC (0.0-0.2); Platelet Count 356 X10*3/uL (160-400); Red Blood Count 3.67 X10*6/uL (4.60-5.80); SCAN SMEAR FLAG 1; White Blood Count 9.0 X10*3/uL (4.8-10.8)
[2025-04-06] MEDS: Valproic Acid Liquid 250 MG/5 ML SOLUTION 1000 MG G-TUBE ×2 (04:39→15:56)
[2025-04-06 04:52] LABS: Alanine Aminotransferase 9 U/L (0-40); Albumin Level 2.8 g/dL (3.5-5.0); Alkaline Phosphatase 84 U/L (39-117); Anion Gap 12 (12-20); Aspartate Amino Transferase 31 U/L (5-37); Blood Urea Nitrogen 18 mg/dL (9-16); Calcium 8.4 mg/dL (8.4-10.2); Carbon Dioxide 21 mmol/L (22-29); Chloride 107 mmol/L (96-108); Creatinine Clr Calc Pharmacy 68.4; Estimated Glomerular Filt Rate > 60; Magnesium 2.0 mg/dL (1.6-2.6); Potassium 4.2 mmol/L (3.3-5.1); Sodium 136 mmol/L (135-145); Total Protein 6.4 g/dL (6.5-8.0)
[2025-04-06] MEDS: Albuterol Sulfate (0.083%) 2.5 MG/3 ML VIAL.NEB INHALE ×4 (05:08→22:54)
[2025-04-06] MEDS: Acetylcysteine 10 % 400 MG/4 ML VIAL INHALE (05:08)
[2025-04-06] MEDS: 0.9 % Sodium Chloride Flush 3 ML SYRINGE IVFLUSH ×3 (06:56→23:15)
[2025-04-06 07:26] LABS: Albumin Pleural Fluid 1.9
[2025-04-06 07:41] LABS: Glucose, Whole Blood 201 mg/dL (60-115)
[2025-04-06] MEDS: Sodium,Potassium Phosphates POWD.PACK 2 PACKET PO ×4 (08:06→19:49)
[2025-04-06] MEDS: Chlorhexidine Gluc Oral Rinse 15 ML MOUTHWASH BUCCAL ×3 (08:06→19:48)
--- NOTE | 2025-04-06 10:03 | PM.PNCARD ---
Subjective Subjective Date of Service: 04/06/25 Interval history: Patient is nonverbal. Intubated. Chart reviewed. Essentially patient had come in with large pericardial effusion/tamponade and that led to pericardiocentesis and seems he also had aspiration and led to intubation. Review of Systems Review of Systems Unable to obtain. Physical Exam Vital Signs: Last Vital Signs Temp 98.1 F 04/06/25 08:00 Pulse 75 04/06/25 09:00 Resp 20 04/06/25 09:00 BP 128/61 04/06/25 09:00 Pulse Ox 99 04/06/25 09:00 O2 Del Method Mechanical Ventilation 04/06/25 09:00 O2 Flow Rate 3.5 04/04/25 20:00 FiO2 25 04/06/25 09:00 BMI result Body Mass Index 24.2 Const Other: Intubated Orientation/consciousness: No patient oriented x3 HEENT Other: Unremarkable Head: Yes normal to inspection Neck Neck: Yes normal visual inspection Chest Chest palpation & inspection: normal inspection of the chest Resp Other: Difficult to auscultate but no obvious findings on the axillary regions. Cardio Palpation: normal PMI Heart sounds: S1 normal heart sound present, S2 normal heart sound present, no gallops, no murmurs and no rubs GI Palpation (GI): Soft to palpation Back/Spine/Pelvis Other: unremarkable Skin General skin exam: no rashes or lesions noted Neuro General: No patient oriented x3 Extrem General: Yes normal to inspection Psych Mental Status: mental status grossly abnormal Objective Labs and Meds 04/06/25 04:15 04/06/25 04:15 Lab results: Laboratory Results - last 24 hr 04/02/25 04/05/25 04/05/25 14:27 12:04 15:13 WBC 8.5 RBC 3.56 L D Hgb 9.7 L D Hct 28.8 L D MCV 80.9 MCH 27.2 MCHC 33.7 RDW 16.0 Plt Count 306 MPV 8.1 L Immature Gran % (Auto) 1.4 H Neut % (Auto) 63.6 Lymph % (Auto) 12.5 L Ponce % (Auto) 17.4 H Eos % (Auto) 4.7 H Baso % (Auto) 0.4 Lymph # (Auto) 1.1 L Ponce # (Auto) 1.5 H Eos # (Auto) 0.4 Baso # (Auto) 0.0 Abs Immat Gran (auto) 0.12 H Absolute Neuts (auto) 5.4 Absolute Nucleated RBC 0.000 Nucleated RBC % (auto) 0.0 Smear Tech's Comments VBG pH VBG pCO2 VBG pO2 VBG HCO3 VBG O2 Saturation VBG Base Excess Sodium Potassium Chloride Carbon Dioxide Anion Gap BUN Creatinine Estim Creat Clear Calc Estimated GFR POC Glucose Random Glucose Calcium Phosphorus Magnesium Total Bilirubin AST ALT Alkaline Phosphatase Total Protein Albumin Pleural pH Pleural WBC Pleural RBC Pleural Neutrophils Pleural Lymphocytes Pleural Monocytes Pleural Other Cells Pleural Total Protein Pleural Albumin Pleural LDH Pleural Glucose Pleural Amylase Bronchial Fluid WBC 149 Bronchial Fluid RBC 17 Bronchial Neutrophils 9 Bronchial Lymphocytes 72 Bronchial Monocytes 9 Bronchial Other Cells 10 Crossmatch ([facility]) See Detail 04/05/25 04/05/25 04/05/25 15:36 15:37 21:52 WBC RBC Hgb 9.8 L Hct 28.5 L MCV MCH MCHC RDW Plt Count MPV Immature Gran % (Auto) Neut % (Auto) Lymph % (Auto) Ponce % (Auto) Eos % (Auto) Baso % (Auto) Lymph # (Auto) Ponce # (Auto) Eos # (Auto) Baso # (Auto) Abs Immat Gran (auto) Absolute Neuts (auto) Absolute Nucleated RBC Nucleated RBC % (auto) Smear Tech's Comments VBG pH VBG pCO2 VBG pO2 VBG HCO3 VBG O2 Saturation VBG Base Excess Sodium Potassium Chloride Carbon Dioxide Anion Gap BUN Creatinine Estim Creat Clear Calc Estimated GFR POC Glucose Random Glucose Calcium Phosphorus Magnesium Total Bilirubin AST ALT Alkaline Phosphatase Total Protein Albumin Pleural pH 7.48 Pleural WBC 0.730 Pleural RBC 0.055 Pleural Neutrophils 30 Pleural Lymphocytes 27 Pleural Monocytes 10 Pleural Other Cells 33 Pleural Total Protein 4.6 Pleural Albumin 1.9 Pleural LDH 118 Pleural Glucose 232 Pleural Amylase 34 Bronchial Fluid WBC Bronchial Fluid RBC Bronchial Neutrophils Bronchial Lymphocytes Bronchial Monocytes Bronchial Other Cells Crossmatch ([facility]) 04/06/25 04/06/25 04/06/25 00:09 04:15 04:20 WBC 9.0 RBC 3.67 L Hgb 10.1 L Hct 29.4 L MCV 80.1 MCH 27.5 MCHC 34.4 RDW 16.2 H Plt Count 356 MPV 8.1 L Immature Gran % (Auto) 1.2 H Neut % (Auto) 61.9 Lymph % (Auto) 12.6 L Ponce % (Auto) 17.6 H Eos % (Auto) 6.5 H Baso % (Auto) 0.2 Lymph # (Auto) 1.1 L Ponce # (Auto) 1.6 H Eos # (Auto) 0.6 H Baso # (Auto) 0.0 Abs Immat Gran (auto) 0.11 H Absolute Neuts (auto) 5.6 Absolute Nucleated RBC 0.000 Nucleated RBC % (auto) 0.0 Smear Tech's Comments VERIFIED VBG pH 7.49 H VBG pCO2 29 VBG pO2 134 VBG HCO3 22 VBG O2 Saturation 99.0 VBG Base Excess 0.1 Sodium 136 Potassium 4.2 Chloride 107 Carbon Dioxide 21 L Anion Gap 12 BUN 18 H Creatinine 0.71 Estim Creat Clear Calc 68.4 Estimated GFR > 60 POC Glucose 201 H Random Glucose 239 H Calcium 8.4 Phosphorus 1.5 L Magnesium 2.0 Total Bilirubin 0.3 AST 31 ALT 9 Alkaline Phosphatase 84 Total Protein 6.4 L Albumin 2.8 L Pleural pH Pleural WBC Pleural RBC Pleural Neutrophils Pleural Lymphocytes Pleural Monocytes Pleural Other Cells Pleural Total Protein Pleural Albumin Pleural LDH Pleural Glucose Pleural Amylase Bronchial Fluid WBC Bronchial Fluid RBC Bronchial Neutrophils Bronchial Lymphocytes Bronchial Monocytes Bronchial Other Cells Crossmatch ([facility]) Progress Note: A&P Assessment and plan (1) Pericardial effusion: Status: Acute Assessment and Plan: Repeat echocardiogram from 04/04 had shown a moderate to large pericardial effusion preserved LVEF. In the earlier echocardiogram from 04/02-last pericardial effusion consistent with tamponade physiology. Still consider CT scan of chest for assessing the the pericardial effusion and see if any further drainage is possible. To discuss with IR. Plan discussed with Dr. Mccann, ICU. Time Spent With Patient Time: Total time managing care of this patient today ____ minutes. Progress Note: Quality Stroke Does the patient have a stroke diagnosis?: No Procedures Date of Service Date of Service: 04/06/25
--- NOTE | 2025-04-06 10:44 | MHC.CLN ---
F/U PT IS INTUBATED AND SEDATED DISCUSSED AT ROUNDS WITH PT RECEIVING GLUCERNA 1.0 AT MAX GOAL RATE OF 65 ML PER HOUR PROVIDES 1560 KCALS (1991 TOTAL KCALS WITH SEDATION; 35 KCALS/KG), 65 G PROTEIN (1.2 G/KG), 1310 ML FREE WATER FROM FORMULA RECOMMEND ADDING 120ML FREE WATER FLUSHES Q 8 HRS TO PROVIDE 1670ML TOTAL WATER FROM FORMULA AND FLUSHES (30ML/KG) MONITOR TOLERANCE AND LYTES
--- NOTE | 2025-04-06 10:47 | PM.CCPN ---
Subjective Subjective Date of Service: 04/06/25 Interval History: 69-year-old gentleman with underlying history of cerebral palsy, atomic megacolon status post colostomy, neurogenic bladder status post suprapubic catheter, chronic hyponatremia, legally blind, nonverbal at baseline, AFib on Eliquis, chronic kidney disease admitted on 04/01/2025 with alteration of mental status. On ER evaluation patient with significant hyponatremia requiring admission to the intensive care unit. Hospital course further complicated by pericardial effusion with tamponade, status post pericardial drainage placement, acute respiratory failure requiring intubation on 04/05/2025, now status post right-sided thoracentesis and bronchoscopic secretion clearance with improvement in respiratory status, however with pericardial drain occlusion not responsive to cath flow. No events overnight. Critical Care Time (minutes): 60 Physical Exam Vital Signs: Vital Signs: Last Vital Signs Temp 98.6 F 04/06/25 10:00 Pulse 68 04/06/25 10:00 Resp 20 04/06/25 10:00 BP 131/60 04/06/25 10:00 Pulse Ox 99 04/06/25 10:00 O2 Del Method Mechanical Ventil ation 04/06/25 10:00 O2 Flow Rate 3.5 04/04/25 20:00 FiO2 25 04/06/25 10:00 BMI result Body Mass Index 24.2 Const: General: no acute distress and other (Sedated on ventilatory support) Eyes: Sclerae: sclerae normal EOM: EOMs intact bilaterally Neck: Neck: Yes no lymphadenopathy, Yes trachea midline and Yes supple Resp: Auscultation: clear to auscultation bilaterally Cardio: Rate: regular rate Rhythm: regular rhythm Heart sounds: no gallops, no murmurs and no rubs GI: Other: PEG Palpation (GI): Soft to palpation and Other GI palpation findings present ( Nontender) Auscultation: normal bowel sounds Extrem: General: Yes no pedal edema, No clubbing and No cyanosis Objective Data Labs 04/06/25 04:15 04/06/25 04:15 Labs: Laboratory Results - last 24 hr 04/02/25 04/05/25 04/05/25 14:27 12:04 15:13 WBC 8.5 RBC 3.56 L D Hgb 9.7 L D Hct 28.8 L D MCV 80.9 MCH 27.2 MCHC 33.7 RDW 16.0 Plt Count 306 MPV 8.1 L Immature Gran % (Auto) 1.4 H Neut % (Auto) 63.6 Lymph % (Auto) 12.5 L [place] % (Auto) 17.4 H Eos % (Auto) 4.7 H Baso % (Auto) 0.4 Lymph # (Auto) 1.1 L [place] # (Auto) 1.5 H Eos # (Auto) 0.4 Baso # (Auto) 0.0 Abs Immat Gran (auto) 0.12 H Absolute Neuts (auto) 5.4 Absolute Nucleated RBC 0.000 Nucleated RBC % (auto) 0.0 Smear Tech's Comments VBG pH VBG pCO2 VBG pO2 VBG HCO3 VBG O2 Saturation VBG Base Excess Sodium Potassium Chloride Carbon Dioxide Anion Gap BUN Creatinine Estim Creat Clear Calc Estimated GFR POC Glucose Random Glucose Calcium Phosphorus Magnesium Total Bilirubin AST ALT Alkaline Phosphatase Total Protein Albumin Pleural pH Pleural WBC Pleural RBC Pleural Neutrophils Pleural Lymphocytes Pleural Monocytes Pleural Other Cells Pleural Total Protein Pleural Albumin Pleural LDH Pleural Glucose Pleural Amylase Bronchial Fluid WBC 149 Bronchial Fluid RBC 17 Bronchial Neutrophils 9 Bronchial Lymphocytes 72 Bronchial Monocytes 9 Bronchial Other Cells 10 Crossmatch ([facility]) See Detail 04/05/25 04/05/25 04/05/25 15:36 15:37 21:52 WBC RBC Hgb 9.8 L Hct 28.5 L MCV MCH MCHC RDW Plt Count MPV Immature Gran % (Auto) Neut % (Auto) Lymph % (Auto) [place] % (Auto) Eos % (Auto) Baso % (Auto) Lymph # (Auto) [place] # (Auto) Eos # (Auto) Baso # (Auto) Abs Immat Gran (auto) Absolute Neuts (auto) Absolute Nucleated RBC Nucleated RBC % (auto) Smear Tech's Comments VBG pH VBG pCO2 VBG pO2 VBG HCO3 VBG O2 Saturation VBG Base Excess Sodium Potassium Chloride Carbon Dioxide Anion Gap BUN Creatinine Estim Creat Clear Calc Estimated GFR POC Glucose Random Glucose Calcium Phosphorus Magnesium Total Bilirubin AST ALT Alkaline Phosphatase Total Protein Albumin Pleural pH 7.48 Pleural WBC 0.730 Pleural RBC 0.055 Pleural Neutrophils 30 Pleural Lymphocytes 27 Pleural Monocytes 10 Pleural Other Cells 33 Pleural Total Protein 4.6 Pleural Albumin 1.9 Pleural LDH 118 Pleural Glucose 232 Pleural Amylase 34 Bronchial Fluid WBC Bronchial Fluid RBC Bronchial Neutrophils Bronchial Lymphocytes Bronchial Monocytes Bronchial Other Cells Crossmatch ([facility]) 04/06/25 04/06/25 04/06/25 00:09 04:15 04:20 WBC 9.0 RBC 3.67 L Hgb 10.1 L Hct 29.4 L MCV 80.1 MCH 27.5 MCHC 34.4 RDW 16.2 H Plt Count 356 MPV 8.1 L Immature Gran % (Auto) 1.2 H Neut % (Auto) 61.9 Lymph % (Auto) 12.6 L [place] % (Auto) 17.6 H Eos % (Auto) 6.5 H Baso % (Auto) 0.2 Lymph # (Auto) 1.1 L [place] # (Auto) 1.6 H Eos # (Auto) 0.6 H Baso # (Auto) 0.0 Abs Immat Gran (auto) 0.11 H Absolute Neuts (auto) 5.6 Absolute Nucleated RBC 0.000 Nucleated RBC % (auto) 0.0 Smear Tech's Comments VERIFIED VBG pH 7.49 H VBG pCO2 29 VBG pO2 134 VBG HCO3 22 VBG O2 Saturation 99.0 VBG Base Excess 0.1 Sodium 136 Potassium 4.2 Chloride 107 Carbon Dioxide 21 L Anion Gap 12 BUN 18 H Creatinine 0.71 Estim Creat Clear Calc 68.4 Estimated GFR > 60 POC Glucose 201 H Random Glucose 239 H Calcium 8.4 Phosphorus 1.5 L Magnesium 2.0 Total Bilirubin 0.3 AST 31 ALT 9 Alkaline Phosphatase 84 Total Protein 6.4 L Albumin 2.8 L Pleural pH Pleural WBC Pleural RBC Pleural Neutrophils Pleural Lymphocytes Pleural Monocytes Pleural Other Cells Pleural Total Protein Pleural Albumin Pleural LDH Pleural Glucose Pleural Amylase Bronchial Fluid WBC Bronchial Fluid RBC Bronchial Neutrophils Bronchial Lymphocytes Bronchial Monocytes Bronchial Other Cells Crossmatch ([facility]) Microbiology Microbiology Results: Microbiology 04/05/25 12:04 Bronch Rul Gram Stain - Final 04/05/25 12:04 Bronch Rul - Preliminary No growth to date. 04/01/25 Unknown Urine Other - Suprapubic Urine Culture - Final Escherichia coli Klebsiella pneumoniae 04/01/25 11:18 Blood - Venous Blood Culture - Preliminary No growth after 48 hours. 04/01/25 11:09 Blood - Venous Blood Culture - Preliminary No growth after 48 hours. Progress Note: A&P Assessment and plan (1) Pericardial tamponade: Status: Acute (2) Acute hypoxic respiratory failure: Status: Acute (3) Cerebral palsy: Status: Acute (4) Urinary tract infection: Status: Resolved Plan Assessment: 69-year-old gentleman with underlying cerebral palsy admitted with hyponatremia further complicated by pericardial tamponade and acute hypoxic respiratory failure. Plan: Neuro: No acute issues. Underlying cerebral pulse. Cardiac: Pericardial tamponade status post pericardial drain placement, now with drain occlusion. Will repeat CT chest to assess for pericardial effusion reaccumulation. Cardiology service care appreciated. Underlying AFib with RVR. Pulmonary: No acute issues. Renal: No acute issues. Endo: No acute issues. GI: No acute issues. ID: Acute UTI versus colonization, continues on empiric Zosyn. Heme/Onc: No acute issues. Psych: No acute issues. Miscellaneous: No acute issues. Prophylaxis: Eliquis, ppi Diet: Tube feeds Critical care time spent: 60 minutes Quality Stroke Does the patient have a stroke diagnosis?: No VTE Prior VTE?: No VTE Risk Level:: Medical - moderate - high VTE Device Contraindication: N/A - Device Ordered VTE Drug Contraindication: N/A - Med Ordered
--- NOTE | 2025-04-06 11:10 | MHC.CM.PN ---
Pt had a decline in status over the weekend : chest imaging revealed a right lobe whiteout which necessitated a thoracentesis: he then had respiratory distress and needed urgent intubation. Pt still w/DMITRI drain for pericardial tamponade and is being followed by cardiology. Met w/pt's prison director Rosario who has spoken w/pt's guardian Sammie: both would like to pursue code status change to DNR/DNI/DIESEL TECHNICIAN through the court. CM spoke w/Sammie to confirm. Information given to ICU MD who will be available for a Zoom call when necessary. If DDS/guardian/MD are in agreement with status change, the court will be petitioned for an expedited hearing. CM to follow.
[2025-04-06 11:13] LABS: Glucose, Whole Blood 198 mg/dL (60-115)
--- NOTE | 2025-04-06 13:43 | P.CDIM_ITS ---
PROVIDER RESPONSE TEXT: To clarify, the appropriate diagnosis supported by the clinical indicators: Pressure Injury Stage 2 sacrum: Probable QUERY TEXT: PHYSICIAN'S DOCUMENTATION REQUEST Date of Query: 04/06/2025 12:40 PM EDT Patient Name: Clay Ross Admit Date: 04/01/2025 Dear Alejo Mccann MD, A review of the medical record indicates additional documentation may be needed. Please review below and update the documentation accordingly. Clinical Indicators: Wound care notes: Pressure injury Stage 2 sacrum - Present on Admission. Off load pressure and foam dressing to allow for protection from friction and moist wound healing. Based on the above, could you please provide further information regarding the ulcer/wound/injury: Pressure Injury Stage 2 sacrum Possible, probable, suspected, cannot rule out etc. Other etiology Other (explain) Clinically unable to determine (explain) Thank you, Emma Caruso, CCS, CDIS Use of terms such as suspected, likely, concern for, or probable (associated with a specific diagnosis that is being evaluated, monitored, or treated as if it exists) are acceptable and can be coded in the inpatient setting, when documented at the time of discharge. Please use your independent medical judgment in providing your response. THIS QUERY IS PART OF THE PERMANENT MEDICAL RECORD
[2025-04-06 17:10] LABS: Glucose, Whole Blood 155 mg/dL (60-115)
--- NOTE | 2025-04-06 17:27 | PC.NURSE ---
Assumed care at 0700 - pt remains intubated and sedated - no output to pericardial DMITRI drain - repeat chest CT ordered and obtained - see report. CT/IR consult placed to DMITRI drain intervention pending. No sedation vacation per MD.
[2025-04-07] VITALS (45 sets, daily range): BP systolic 84–164; BP diastolic 39–70; PULSE 46–93; RESP 16–53; TEMP 34.4–37.6; O2SAT 61–100; BMI 25.1
[2025-04-07 00:23] LABS: Glucose, Whole Blood 161 mg/dL (60-115)
[2025-04-07] MEDS: Valproic Acid Liquid 250 MG/5 ML SOLUTION 1000 MG G-TUBE ×2 (04:09→16:34)
[2025-04-07] MEDS: Albuterol Sulfate (0.083%) 2.5 MG/3 ML VIAL.NEB INHALE ×2 (05:14→11:17)
[2025-04-07 05:30] LABS: Hematocrit 29.2 % (42.0-52.0); Hemoglobin 9.9 g/dl (14.0-18.0); Imm Gran Abs Auto 0.13 X10*3/uL (0.00-0.03); Imm Gran Pct Auto 1.4 % (0.0-0.4); Lymphocytes Absolute Auto 1.7 X10*3/uL (1.2-4.9); MANUAL DIFF FLAG NO; Mean Corpuscular HGB Conc 33.9 g/dl (31.0-36.0); Mean Corpuscular Hemoglobin 27.5 pg (27.0-33.0); Mean Corpuscular Volume 81.1 fL (80.0-98.0); NRBC Abs Auto 0.000 X10*3/uL (0.0-0.012); NRBC Pct Auto 0.0 /100WBC (0.0-0.2); Platelet Count 367 X10*3/uL (160-400); Red Blood Count 3.60 X10*6/uL (4.60-5.80); White Blood Count 9.2 X10*3/uL (4.8-10.8)
[2025-04-07 05:30] LABS: VBG HCO3 25 mmol/L (22-26); VBG O2 % Saturation 82.0 %
[2025-04-07 05:47] LABS: Albumin Level 2.6 g/dL (3.5-5.0); Anion Gap 13 (12-20); Blood Urea Nitrogen 11 mg/dL (9-16); Calcium 8.3 mg/dL (8.4-10.2); Carbon Dioxide 21 mmol/L (22-29); Chloride 109 mmol/L (96-108); Creatinine Clr Calc Pharmacy 73.6; Estimated Glomerular Filt Rate > 60; Magnesium 1.9 mg/dL (1.6-2.6); Potassium 5.0 mmol/L (3.3-5.1); Sodium 138 mmol/L (135-145)
--- NOTE | 2025-04-07 07:00 | PC.NURSE ---
Assumed care at 1900. Patient continues on mechanical ventilation and sedation. Levophed and amio gtts running per NOV for BP support and rate control. Tube feeds paused at 0000 per RONNIE Hyde in preparation for procedure today. Patient repositioned Q2HR, bed locked in lowest possible position, bed alarm on.?
[2025-04-07 08:14] LABS: Venous Blood Gas Refer to POC result
[2025-04-07] MEDS: Chlorhexidine Gluc Oral Rinse 15 ML MOUTHWASH BUCCAL ×3 (08:16→21:27)
[2025-04-07] MEDS: Albumin Human 25 % 100 ML IV (08:16)
[2025-04-07] MEDS: 0.9 % Sodium Chloride Flush 3 ML SYRINGE IVFLUSH ×3 (08:16→23:39)
--- NOTE | 2025-04-07 09:43 | P.PNCC_ITS ---
Subjective Subjective Date of Service: 04/07/25 Interval History: 69-year-old gentleman with underlying history of cerebral palsy, atomic megacolon status post colostomy, neurogenic bladder status post suprapubic catheter, chronic hyponatremia, legally blind, nonverbal at baseline, AFib on Eliquis, chronic kidney disease admitted on 04/01/2025 with alteration of mental status. On ER evaluation patient with significant hyponatremia requiring admission to the intensive care unit. Hospital course further complicated by pericardial effusion with tamponade, status post pericardial drainage placement, acute respiratory failure requiring intubation on 04/05/2025, now status post right-sided thoracentesis and bronchoscopic secretion clearance with improvement in respiratory status, however with pericardial drain occlusion not responsive to cath flow. No events overnight. Critical Care Time (minutes): 60 Physical Exam 2 Vital Signs: Vital Signs: Last Vital Signs Temp 99.0 F 04/07/25 08:00 Pulse 77 04/07/25 09:11 Resp 20 04/07/25 09:00 BP 164/68 H 04/07/25 09:11 Pulse Ox 95 04/07/25 09:00 O2 Del Method Mechanical Ventil ation 04/07/25 09:00 O2 Flow Rate 3.5 04/04/25 20:00 FiO2 25 04/07/25 09:00 BMI result Body Mass Index 25.1 Const: General: no acute distress and other (Sedated on ventilatory support) Eyes: Sclerae: sclerae normal EOM: EOMs intact bilaterally Neck: Neck: Yes no lymphadenopathy, Yes trachea midline and Yes supple Resp: Auscultation: clear to auscultation bilaterally Cardio: Rate: regular rate Rhythm: regular rhythm Heart sounds: no gallops, no murmurs and no rubs GI: Palpation (GI): Soft to palpation and Other GI palpation findings present ( Nontender) Auscultation: normal bowel sounds Extrem: General: Yes no pedal edema, No clubbing and No cyanosis Objective Data Labs 04/07/25 05:05 04/07/25 05:05 Labs: Laboratory Results - last 24 hr 04/06/25 04/06/25 04/07/25 11:08 17:06 00:19 WBC RBC Hgb Hct MCV MCH MCHC RDW Plt Count MPV Immature Gran % (Auto) Neut % (Auto) Lymph % (Auto) [place] % (Auto) Eos % (Auto) Baso % (Auto) Lymph # (Auto) [place] # (Auto) Eos # (Auto) Baso # (Auto) Abs Immat Gran (auto) Absolute Neuts (auto) Absolute Nucleated RBC Nucleated RBC % (auto) VBG pH VBG pCO2 VBG pO2 VBG HCO3 VBG O2 Saturation VBG Base Excess Sodium Potassium Chloride Carbon Dioxide Anion Gap BUN Creatinine Estim Creat Clear Calc Estimated GFR POC Glucose 198 H 155 H 161 H Random Glucose Calcium Phosphorus Magnesium Albumin 04/07/25 04/07/25 05:05 05:25 WBC 9.2 RBC 3.60 L Hgb 9.9 L Hct 29.2 L MCV 81.1 MCH 27.5 MCHC 33.9 RDW 16.6 H Plt Count 367 MPV 8.3 L Immature Gran % (Auto) 1.4 H Neut % (Auto) 55.8 Lymph % (Auto) 19.0 L [place] % (Auto) 15.7 H Eos % (Auto) 7.9 H Baso % (Auto) 0.2 Lymph # (Auto) 1.7 [place] # (Auto) 1.4 H Eos # (Auto) 0.7 H Baso # (Auto) 0.0 Abs Immat Gran (auto) 0.13 H Absolute Neuts (auto) 5.1 Absolute Nucleated RBC 0.000 Nucleated RBC % (auto) 0.0 VBG pH 7.46 H VBG pCO2 34 VBG pO2 55 VBG HCO3 25 VBG O2 Saturation 82.0 VBG Base Excess 1.7 Sodium 138 Potassium 5.0 Chloride 109 H Carbon Dioxide 21 L Anion Gap 13 BUN 11 Creatinine 0.66 Estim Creat Clear Calc 73.6 Estimated GFR > 60 POC Glucose Random Glucose 157 H Calcium 8.3 L Phosphorus 2.8 Magnesium 1.9 Albumin 2.6 L Microbiology Microbiology Results: Microbiology 04/05/25 15:36 Thoracentesis Fluid Gram Stain - Final 04/05/25 15:36 Thoracentesis Fluid Anaerobic Culture - Preliminary No growth to date. 04/05/25 15:36 Thoracentesis Fluid Body Fluid Culture - Final No growth after 2 days 04/05/25 12:04 Bronch Rul Gram Stain - Final 04/05/25 12:04 Bronch Rul - Final No growth after 2 days 04/01/25 11:18 Blood - Venous Blood Culture - Final No growth after 5 days. 04/01/25 11:09 Blood - Venous Blood Culture - Final No growth after 5 days. 04/01/25 Unknown Urine Other - Suprapubic Urine Culture - Final Escherichia coli Klebsiella pneumoniae Progress Note: A&P Assessment and plan (1) Pericardial effusion: Status: Acute (2) Acute hypoxic respiratory failure: Status: Acute Plan Assessment: 69-year-old gentleman with underlying cerebral palsy admitted with hyponatremia further complicated by pericardial tamponade and acute hypoxic respiratory failure. Plan: Neuro: No acute issues. Underlying cerebral pulse. Cardiac: Pericardial tamponade status post pericardial drain placement, now with drain occlusion. Repeat CT chest with improved, but still persistent pericardial effusion. Discussed with Interventional Radiology, will plan for pericardial drain exchange later today. Cardiology service care appreciated. Underlying AFib with RVR. Pulmonary: No acute issues. Renal: No acute issues. Endo: No acute issues. GI: No acute issues. ID: Acute UTI versus colonization, continues on empiric Zosyn. Heme/Onc: No acute issues. Psych: No acute issues. Miscellaneous: No acute issues. Prophylaxis: Eliquis, ppi Diet: Tube feeds Critical care time spent: 60 minutes Quality Stroke Does the patient have a stroke diagnosis?: No VTE Prior VTE?: No VTE Risk Level:: Medical - moderate - high VTE Device Contraindication: N/A - Device Ordered VTE Drug Contraindication: N/A - Med Ordered
[2025-04-07 11:58] LABS: Glucose, Whole Blood 128 mg/dL (60-115)
[2025-04-07 13:29] LABS: Anti Nuclear Antibody Screen NEGATIVE (NEGATIVE)
--- NOTE | 2025-04-07 14:18 | MHC.CM.PN ---
Pt remains in ICU - vented, and will go to IR later today for a pericardial drain replacement. If this fails, pt may need to transfer to [facility] for further intervention. Received call from pt's detention director, Rosario Stewart at [phone] re: goals of care phone conference. She would like to have this call on 04/08 at 9:[address] Mccann aware and in agreement. Waiting for call information as well as confirmation of pt's guardian, Sammie, to be in attendance. Will await call back. Pt resides at a non medical detention and would not be able to return should he have medical needs.
--- NOTE | 2025-04-07 17:16 | PC.NURSE ---
Assumed care at 0700 - remains intubated and sedated. Unable to titrate off levophed gtt. Continued no output to pericardial DMITRI drain. Patient transported to CT for IR at 1400 w/o incident. No intervention at that time per IR MD - Patient transported back to ICU at 1450. Increased air noted to pericardial DMITRI drain - MD notified. HR 40-50's sinus, MAP maintaining >65 on levo gtt, 97% on 25% Fio2, Peak pressures low 20's, 150cc more in return volume noted - MD notified. TO Dr Mccann clamp pericardial DMITRI drain at 1715. Care ongoing.
[2025-04-07 19:13] LABS: Glucose, Whole Blood 158 mg/dL (60-115)
[2025-04-07 23:23] LABS: Glucose, Whole Blood 164 mg/dL (60-115)
[2025-04-08] VITALS (42 sets, daily range): BP systolic 94–165; BP diastolic 45–75; PULSE 49–99; RESP 16–38; TEMP 34.7–37.6; O2SAT 88–100; BMI 26.4
[2025-04-08] MEDS: Albuterol Sulfate (0.083%) 2.5 MG/3 ML VIAL.NEB INHALE ×5 (00:14→23:46)
[2025-04-08] MEDS: fentaNYL citrate/NS 1,000 MCG/100 ML PLAST..BAG 2.5 MCG IVCONT (04:19)
[2025-04-08] MEDS: Valproic Acid Liquid 250 MG/5 ML SOLUTION 1000 MG G-TUBE ×2 (04:19→15:37)
[2025-04-08 05:24] LABS: VBG HCO3 24 mmol/L (22-26); VBG O2 % Saturation 83.0 %
[2025-04-08 05:25] LABS: Venous Blood Gas Refer to POC result
[2025-04-08 05:35] LABS: Hematocrit 30.1 % (42.0-52.0); Hemoglobin 9.7 g/dl (14.0-18.0); Imm Gran Abs Auto 0.15 X10*3/uL (0.00-0.03); Imm Gran Pct Auto 1.5 % (0.0-0.4); Lymphocytes Absolute Auto 1.8 X10*3/uL (1.2-4.9); MANUAL DIFF FLAG SCAN; Mean Corpuscular HGB Conc 32.2 g/dl (31.0-36.0); Mean Corpuscular Hemoglobin 27.0 pg (27.0-33.0); Mean Corpuscular Volume 83.8 fL (80.0-98.0); NRBC Abs Auto 0.000 X10*3/uL (0.0-0.012); NRBC Pct Auto 0.0 /100WBC (0.0-0.2); Platelet Count 359 X10*3/uL (160-400); Red Blood Count 3.59 X10*6/uL (4.60-5.80); SCAN SMEAR FLAG 1; White Blood Count 10.0 X10*3/uL (4.8-10.8)
[2025-04-08 05:48] LABS: Albumin Level 2.6 g/dL (3.5-5.0); Anion Gap 12 (12-20); Blood Urea Nitrogen 7 mg/dL (9-16); Calcium 8.3 mg/dL (8.4-10.2); Carbon Dioxide 21 mmol/L (22-29); Chloride 109 mmol/L (96-108); Creatinine Clr Calc Pharmacy 78.4; Estimated Glomerular Filt Rate > 60; Magnesium 1.6 mg/dL (1.6-2.6); Potassium 4.5 mmol/L (3.3-5.1); Sodium 137 mmol/L (135-145)
--- NOTE | 2025-04-08 06:16 | PC.NURSE ---
Assumed care 1899 - pt remains?intubated and sedated on propofol gtt. Pt frequently biting on ET tube, CHAIN MAKER Barrett notified - Fentanyl gtt ordered and infusing per NOV.? On ACVC settings - see vent assessment. Levophed gtt titrated to maintain MAP > 65. HR 50-60s SB/SR on tele - Amiodarone gtt infusing per NOV.? Pericardial drain remains clamped per MD. PRN dilaudid administered for pain with good effect - see MAR/nonverbal pain assessment.?
[2025-04-08] MEDS: 0.9 % Sodium Chloride Flush 3 ML SYRINGE IVFLUSH ×2 (08:07→15:37)
[2025-04-08] MEDS: Chlorhexidine Gluc Oral Rinse 15 ML MOUTHWASH BUCCAL ×3 (08:08→20:39)
[2025-04-08] MEDS: Albumin Human 25 % 100 ML IV ×2 (08:08→14:03)
--- NOTE | 2025-04-08 09:30 | PM.CCPN ---
Subjective Subjective Date of Service: 04/08/25 Interval History: 69-year-old gentleman with underlying history of cerebral palsy, atomic megacolon status post colostomy, neurogenic bladder status post suprapubic catheter, chronic hyponatremia, legally blind, nonverbal at baseline, AFib on Eliquis, chronic kidney disease admitted on 04/01/2025 with alteration of mental status. On ER evaluation patient with significant hyponatremia requiring admission to the intensive care unit. Hospital course further complicated by pericardial effusion with tamponade, status post pericardial drainage placement, acute respiratory failure requiring intubation on 04/05/2025, now status post right-sided thoracentesis and bronchoscopic secretion clearance with improvement in respiratory status, however with pericardial drain occlusion not responsive to cath flow. Had pericardial drain check on 04/07/2025, showing essentially decompressed pericardium. After the drain check recorded drain was displaced and started draining air with no effect on patient's hemodynamics. No events overnight. Critical Care Time (minutes): 60 Physical Exam Vital Signs: Vital Signs: Last Vital Signs Temp 99.7 F 04/08/25 09:00 Pulse 55 04/08/25 09:00 Resp 18 04/08/25 09:00 BP 125/53 L 04/08/25 09:00 Pulse Ox 92 04/08/25 09:00 O2 Del Method Mechanical Ventil ation 04/08/25 09:00 O2 Flow Rate 3.5 04/04/25 20:00 FiO2 25 04/08/25 09:00 BMI result Body Mass Index 26.4 Const: General: no acute distress Eyes: Sclerae: sclerae normal EOM: EOMs intact bilaterally Neck: Neck: Yes no lymphadenopathy, Yes trachea midline and Yes supple Resp: Auscultation: clear to auscultation bilaterally Cardio: Rate: regular rate Rhythm: regular rhythm Heart sounds: no gallops, no murmurs and no rubs GI: Inspection: Yes G-tube present Palpation (GI): Soft to palpation and Other GI palpation findings present ( Nontender) Auscultation: normal bowel sounds Extrem: General: Yes no pedal edema, No clubbing and No cyanosis Objective Data Labs 04/08/25 05:12 04/08/25 05:12 Labs: Laboratory Results - last 24 hr 04/02/25 04/04/25 04/07/25 16:28 11:39 11:55 WBC RBC Hgb Hct MCV MCH MCHC RDW Plt Count MPV Immature Gran % (Auto) Neut % (Auto) Lymph % (Auto) [place] % (Auto) Eos % (Auto) Baso % (Auto) Lymph # (Auto) [place] # (Auto) Eos # (Auto) Baso # (Auto) Abs Immat Gran (auto) Absolute Neuts (auto) Absolute Nucleated RBC Nucleated RBC % (auto) Smear Tech's Comments VBG pH VBG pCO2 VBG pO2 VBG HCO3 VBG O2 Saturation VBG Base Excess Sodium Potassium Chloride Carbon Dioxide Anion Gap BUN Creatinine Estim Creat Clear Calc Estimated GFR POC Glucose 128 H Random Glucose Calcium Phosphorus Magnesium Albumin KAYE Screen NEGATIVE KAYE Titer TNP KAYE Titer 2 TNP KAYE Titer 3 TNP KAYE Pattern TNP KAYE Pattern 2 TNP KAYE Pattern 3 TNP Ref Lab Test Result SEE NOTE 04/07/25 04/07/25 04/08/25 17:18 23:16 05:12 WBC 10.0 RBC 3.59 L Hgb 9.7 L Hct 30.1 L MCV 83.8 MCH 27.0 MCHC 32.2 RDW 17.0 H Plt Count 359 MPV 8.2 L Immature Gran % (Auto) 1.5 H Neut % (Auto) 55.7 Lymph % (Auto) 18.1 L [place] % (Auto) 16.7 H Eos % (Auto) 7.7 H Baso % (Auto) 0.3 Lymph # (Auto) 1.8 [place] # (Auto) 1.7 H Eos # (Auto) 0.8 H Baso # (Auto) 0.0 Abs Immat Gran (auto) 0.15 H Absolute Neuts (auto) 5.6 Absolute Nucleated RBC 0.000 Nucleated RBC % (auto) 0.0 Smear Tech's Comments VERIFIED VBG pH VBG pCO2 VBG pO2 VBG HCO3 VBG O2 Saturation VBG Base Excess Sodium 137 Potassium 4.5 Chloride 109 H Carbon Dioxide 21 L Anion Gap 12 BUN 7 L Creatinine 0.62 Estim Creat Clear Calc 78.4 Estimated GFR > 60 POC Glucose 158 H 164 H Random Glucose 156 H Calcium 8.3 L Phosphorus 3.3 Magnesium 1.6 Albumin 2.6 L KAYE Screen KAYE Titer KAYE Titer 2 KAYE Titer 3 KAYE Pattern KAYE Pattern 2 KAYE Pattern 3 Ref Lab Test Result 04/08/25 05:18 WBC RBC Hgb Hct MCV MCH MCHC RDW Plt Count MPV Immature Gran % (Auto) Neut % (Auto) Lymph % (Auto) [place] % (Auto) Eos % (Auto) Baso % (Auto) Lymph # (Auto) [place] # (Auto) Eos # (Auto) Baso # (Auto) Abs Immat Gran (auto) Absolute Neuts (auto) Absolute Nucleated RBC Nucleated RBC % (auto) Smear Tech's Comments VBG pH 7.42 VBG pCO2 36 VBG pO2 55 VBG HCO3 24 VBG O2 Saturation 83.0 VBG Base Excess 0.3 Sodium Potassium Chloride Carbon Dioxide Anion Gap BUN Creatinine Estim Creat Clear Calc Estimated GFR POC Glucose Random Glucose Calcium Phosphorus Magnesium Albumin KAYE Screen KAYE Titer KAYE Titer 2 KAYE Titer 3 KAYE Pattern KAYE Pattern 2 KAYE Pattern 3 Ref Lab Test Result Microbiology Microbiology Results: Microbiology 04/05/25 15:36 Thoracentesis Fluid Gram Stain - Final 04/05/25 15:36 Thoracentesis Fluid Anaerobic Culture - Preliminary No growth to date. 04/05/25 15:36 Thoracentesis Fluid Body Fluid Culture - Final No growth after 2 days 04/05/25 12:04 Bronch Rul Gram Stain - Final 04/05/25 12:04 Bronch Rul - Final No growth after 2 days 04/01/25 11:18 Blood - Venous Blood Culture - Final No growth after 5 days. 04/01/25 11:09 Blood - Venous Blood Culture - Final No growth after 5 days. 04/01/25 Unknown Urine Other - Suprapubic Urine Culture - Final Escherichia coli Klebsiella pneumoniae Progress Note: A&P Assessment and plan (1) Pericardial effusion: Status: Acute (2) Atrial fibrillation with RVR: Status: Acute (3) Acute hypoxic respiratory failure: Status: Acute Plan Assessment: 69-year-old gentleman with underlying cerebral palsy admitted with hyponatremia further complicated by pericardial tamponade and acute hypoxic respiratory failure. Plan: Neuro: No acute issues. Underlying cerebral pulse. Cardiac: Pericardial tamponade status post pericardial drain placement, now with drain occlusion, status post drainage check and later drain displacement. Will discontinue pericardial drain. Cardiology service care appreciated. Underlying AFib with RVR. Pulmonary: Remains intubated, continue to titrate off ventilatory support as tolerated. Renal: No acute issues. Endo: No acute issues. GI: No acute issues. ID: Acute UTI versus colonization, continues on empiric Zosyn. Heme/Onc: No acute issues. Psych: No acute issues. Miscellaneous: No acute issues. Prophylaxis: Eliquis, ppi Diet: Tube feeds Critical care time spent: 60 minutes Quality Stroke Does the patient have a stroke diagnosis?: No VTE Prior VTE?: No VTE Risk Level:: Medical - moderate - high VTE Device Contraindication: N/A - Device Ordered VTE Drug Contraindication: N/A - Med Ordered
--- NOTE | 2025-04-08 10:38 | MHC.CLN ---
F/U PT EXTUBATED THIS AM PT RECEIVED GLUCERNA 1.0 AT MAX GOAL RATE OF 65 ML PER HOUR WITH 120ML FREE WATER FLUSHES Q 8 HRS PROVIDES 1560 KCALS (1991 TOTAL KCALS WITH SEDATION; 35 KCALS/KG), 65 G PROTEIN (1.2 G/KG), 1670 TOTAL ML FREE WATER FROM FORMULA AND FLUSHES (30ML/KG) TF FORMULA DISCONTINUED BY MOLDER SHOULDER PAD; SWITCHING TO GLUCERNA 1.2 (DISCUSSED WITH PT'S NURSE AT BEDSIDE) RECOMMEND GLUCERNA 1.2 TF AT MAX GOAL RATE OF 60 ML PER HOUR WITH 120ML FREE WATER FLUSHES Q 6 HRS TO PROVIDE 1728 KCALS (30 KCALS/KG), 86.4G PROTEIN (1.5 G/KG), 1639 TOTAL ML FREE WATER FROM FORMULA AND FLUSHES (28ML/KG) MONITOR TOLERANCE AND LYTES TF WILL PROMOTE WOUND HEALING
--- NOTE | 2025-04-08 10:47 | MHC.CM.ED ---
Patient remains in ICU. Per Dr Mccann, will attempt extubation today. Call with fpc and Dr Mccann planned for today to discuss plan of care. Continue to monitor for d/c needs.
[2025-04-08 11:30] LABS: Glucose, Whole Blood 140 mg/dL (60-115)
[2025-04-08] MEDS: Acetaminophen Oral Liquid 650 MG/20.3 ML SOLUTION 640 MG G-TUBE ×2 (12:01→21:32)
[2025-04-08 17:38] LABS: Glucose, Whole Blood 131 mg/dL (60-115)
--- NOTE | 2025-04-08 19:42 | PC.NURSE ---
09:18 Sedation vacation initiated. Per MD, Propofol reduced 50% to 25 mcg/kg/min. Fentanyl gtt off. 09:43 Propofol reduced to 10 mcg/kg/min. PSV trial started, 01/26, 25% 10:00 Propofol gtt off new CXR to confirm DMITRI drain placement before extubation. 10:08 Patient extubated to nasal cannula oxygen. Patient requiring 3L NC. Deep suctioning provided twice this shift with RT after extubation. Pt becoming more alert, improved management of secretions. DMITRI drain for pericardial window remains in place and clamped per MD. Patient repositioned Q2HR, high fall precautions in place. Full bed bath provided at 13:30.
[2025-04-09] VITALS (29 sets, daily range): BP systolic 87–157; BP diastolic 45–94; PULSE 82–109; RESP 15–34; TEMP 35.8–36.7; O2SAT 88–98; BMI 25.3
[2025-04-09] MEDS: 0.9 % Sodium Chloride Flush 3 ML SYRINGE IVFLUSH ×4 (00:21→22:47)
[2025-04-09 00:33] LABS: Glucose, Whole Blood 123 mg/dL (60-115)
--- NOTE | 2025-04-09 02:00 | HE.NUR.EV ---
Approximately?0100- Patient was repositioned to their right side. Shortly after, patient became hypoxic with SpO2 in the low 80s on 4L NC, RR 28-32. 15L Oxymask applied to patient. RT called to bedside. Upon auscultation, breath sounds diminished in the right lower lobe. Chest physiotherapy and deep nasopharygeal suctioned performed by RT with good effect. Moderate amount of thick cream colored secretions suctioned. SpO2 improved to >92% on 2L NC. FUEL INJECTION SERVICER Barrett cooper.
[2025-04-09] MEDS: Acetaminophen Oral Liquid 650 MG/20.3 ML SOLUTION 640 MG G-TUBE (04:48)
[2025-04-09] MEDS: Valproic Acid Liquid 250 MG/5 ML SOLUTION 1000 MG G-TUBE ×2 (04:49→16:33)
[2025-04-09] MEDS: Albuterol Sulfate (0.083%) 2.5 MG/3 ML VIAL.NEB INHALE ×3 (04:55→19:40)
[2025-04-09 05:22] LABS: VBG HCO3 23 mmol/L (22-26); VBG O2 % Saturation 75.0 %
[2025-04-09 05:23] LABS: Hematocrit 32.0 % (42.0-52.0); Hemoglobin 10.0 g/dl (14.0-18.0); Imm Gran Abs Auto 0.15 X10*3/uL (0.00-0.03); Imm Gran Pct Auto 1.3 % (0.0-0.4); Lymphocytes Absolute Auto 2.2 X10*3/uL (1.2-4.9); MANUAL DIFF FLAG SCAN; Mean Corpuscular HGB Conc 31.3 g/dl (31.0-36.0); Mean Corpuscular Hemoglobin 26.9 pg (27.0-33.0); Mean Corpuscular Volume 86.0 fL (80.0-98.0); NRBC Abs Auto 0.000 X10*3/uL (0.0-0.012); NRBC Pct Auto 0.0 /100WBC (0.0-0.2); Platelet Count 312 X10*3/uL (160-400); Red Blood Count 3.72 X10*6/uL (4.60-5.80); SCAN SMEAR FLAG 1; White Blood Count 11.7 X10*3/uL (4.8-10.8)
[2025-04-09 05:30] LABS: Venous Blood Gas Refer to POC result
[2025-04-09 05:37] LABS: Albumin Level 3.3 g/dL (3.5-5.0); Anion Gap 13 (12-20); Blood Urea Nitrogen 12 mg/dL (9-16); Calcium 8.6 mg/dL (8.4-10.2); Carbon Dioxide 21 mmol/L (22-29); Chloride 111 mmol/L (96-108); Creatinine Clr Calc Pharmacy 77.1; Estimated Glomerular Filt Rate > 60; Magnesium 1.7 mg/dL (1.6-2.6); Potassium 4.7 mmol/L (3.3-5.1); Sodium 140 mmol/L (135-145)
[2025-04-09] MEDS: Chlorhexidine Gluc Oral Rinse 15 ML MOUTHWASH BUCCAL ×3 (08:29→21:58)
--- NOTE | 2025-04-09 10:39 | PM.CCPN ---
Subjective Subjective Date of Service: 04/09/25 Interval History: 69-year-old gentleman with underlying history of cerebral palsy, atomic megacolon status post colostomy, neurogenic bladder status post suprapubic catheter, chronic hyponatremia, legally blind, nonverbal at baseline, AFib on Eliquis, chronic kidney disease admitted on 04/01/2025 with alteration of mental status. On ER evaluation patient with significant hyponatremia requiring admission to the intensive care unit. Hospital course further complicated by pericardial effusion with tamponade, status post pericardial drainage placement, acute respiratory failure requiring intubation on 04/05/2025, now status post right-sided thoracentesis and bronchoscopic secretion clearance with improvement in respiratory status, however with pericardial drain occlusion not responsive to cath flow. Had pericardial drain check on 04/07/2025, showing essentially decompressed pericardium. After the drain check recorded drain was displaced and started draining air with no effect on patient's hemodynamics. Extubated uneventfully on 04/08/2025. No events overnight. Critical Care Time (minutes): 0 Physical Exam Vital Signs: Vital Signs: Last Vital Signs Temp 97.0 F 04/09/25 08:00 Pulse 93 04/09/25 10:00 Resp 18 04/09/25 10:00 BP 128/76 04/09/25 10:00 Pulse Ox 90 L 04/09/25 10:00 O2 Del Method Nasal Cannula 04/09/25 10:00 O2 Flow Rate 4 04/09/25 10:00 FiO2 25 04/08/25 10:08 BMI result Body Mass Index 25.3 Const: General: no acute distress, alert and awake Eyes: Sclerae: sclerae normal EOM: EOMs intact bilaterally Neck: Neck: Yes no lymphadenopathy, Yes trachea midline and Yes supple Resp: Effort & Inspection: normal respiratory effort and no respiratory distress Auscultation: clear to auscultation bilaterally Cardio: Rate: regular rate Rhythm: regular rhythm Heart sounds: no gallops, no murmurs and no rubs GI: Inspection: Yes G-tube present Palpation (GI): Soft to palpation and Other GI palpation findings present ( Nontender) Auscultation: normal bowel sounds Extrem: General: Yes no pedal edema, No clubbing and No cyanosis Objective Data Labs 04/09/25 05:08 04/09/25 05:08 Labs: Laboratory Results - last 24 hr 04/08/25 04/08/25 04/09/25 11:23 17:34 00:28 WBC RBC Hgb Hct MCV MCH MCHC RDW Plt Count MPV Immature Gran % (Auto) Neut % (Auto) Lymph % (Auto) [place] % (Auto) Eos % (Auto) Baso % (Auto) Lymph # (Auto) [place] # (Auto) Eos # (Auto) Baso # (Auto) Abs Immat Gran (auto) Absolute Neuts (auto) Absolute Nucleated RBC Nucleated RBC % (auto) Smear Tech's Comments VBG pH VBG pCO2 VBG pO2 VBG HCO3 VBG O2 Saturation VBG Base Excess Sodium Potassium Chloride Carbon Dioxide Anion Gap BUN Creatinine Estim Creat Clear Calc Estimated GFR POC Glucose 140 H 131 H 123 H Random Glucose Calcium Phosphorus Magnesium Albumin 04/09/25 04/09/25 05:08 05:16 WBC 11.7 H RBC 3.72 L Hgb 10.0 L Hct 32.0 L MCV 86.0 MCH 26.9 L MCHC 31.3 RDW 17.2 H Plt Count 312 MPV 8.0 L Immature Gran % (Auto) 1.3 H Neut % (Auto) 54.9 Lymph % (Auto) 18.4 L [place] % (Auto) 19.6 H Eos % (Auto) 5.5 H Baso % (Auto) 0.3 Lymph # (Auto) 2.2 [place] # (Auto) 2.3 H Eos # (Auto) 0.6 H Baso # (Auto) 0.0 Abs Immat Gran (auto) 0.15 H Absolute Neuts (auto) 6.4 Absolute Nucleated RBC 0.000 Nucleated RBC % (auto) 0.0 Smear Tech's Comments VERIFIED VBG pH 7.33 VBG pCO2 42 VBG pO2 50 VBG HCO3 23 VBG O2 Saturation 75.0 VBG Base Excess -2.6 Sodium 140 Potassium 4.7 Chloride 111 H Carbon Dioxide 21 L Anion Gap 13 BUN 12 Creatinine 0.63 Estim Creat Clear Calc 77.1 Estimated GFR > 60 POC Glucose Random Glucose 170 H Calcium 8.6 Phosphorus 3.3 Magnesium 1.7 Albumin 3.3 L Microbiology Microbiology Results: Microbiology 04/05/25 15:36 Thoracentesis Fluid Gram Stain - Final 04/05/25 15:36 Thoracentesis Fluid Anaerobic Culture - Preliminary No growth to date. 04/05/25 15:36 Thoracentesis Fluid Body Fluid Culture - Final No growth after 2 days 04/05/25 12:04 Bronch Rul Gram Stain - Final 04/05/25 12:04 Bronch Rul - Final No growth after 2 days 04/01/25 11:18 Blood - Venous Blood Culture - Final No growth after 5 days. 04/01/25 11:09 Blood - Venous Blood Culture - Final No growth after 5 days. 04/01/25 Unknown Urine Other - Suprapubic Urine Culture - Final Escherichia coli Klebsiella pneumoniae Progress Note: A&P Assessment and plan (1) Atrial fibrillation with RVR: Status: Acute (2) Acute hypoxic respiratory failure: Status: Acute Plan Assessment: 69-year-old gentleman with underlying cerebral palsy admitted with hyponatremia further complicated by pericardial tamponade and acute hypoxic respiratory failure. Plan: Neuro: No acute issues. Underlying cerebral pulse. Cardiac: Pericardial tamponade status post pericardial drain placement, now with drain occlusion, status post drainage and discontinuation of pericardial drain. Cardiology service care appreciated. Underlying AFib with RVR, now on amiodarone. Pulmonary: Extubated uneventfully on 04/08/2025. Continue to titrate off supplemental oxygen as tolerated. Underlying recurrent pulmonary aspirations. Renal: No acute issues. Endo: No acute issues. GI: No acute issues. ID: Acute UTI versus colonization, continues on empiric Zosyn. Heme/Onc: No acute issues. Psych: No acute issues. Miscellaneous: No acute issues. Prophylaxis: Eliquis Diet: Tube feeds Quality Stroke Does the patient have a stroke diagnosis?: No VTE Prior VTE?: No VTE Risk Level:: Medical - moderate - high VTE Device Contraindication: N/A - Device Ordered VTE Drug Contraindication: N/A - Med Ordered
--- NOTE | 2025-04-09 12:46 | MHC.CM.PN ---
Pt extubated but experiencing aspiration. Pt's guardian has decided not to pursue code status change after extensive conversation w/. Phone conference scheduled for 04/08 at 0930 did not occur. Pt will likely transfer to the medical floor for continued care. Pt resides in a [facility] non medical halfway - unsure what his functional status is: PT eval ordered. Referrals will be made depending on eval. CM to follow.
[2025-04-09] MEDS: Albumin Human 25 % 100 ML IV ×2 (16:33→22:45)
[2025-04-09] MEDS: Furosemide 20 MG/2 ML VIAL IVPUSH (16:34)
[2025-04-09 17:20] LABS: Glucose, Whole Blood 112 mg/dL (60-115)
--- NOTE | 2025-04-09 19:04 | PC.NURSE ---
Assume care @ 0700 Neuro: Unable to assess mental status, Nonverbal at baseline.? Respiratory: 4-6 L NC,? fine crackles bilateral? lower lobes, 02 requirement increased through the shift, especially during? repositioning, deep suction x1 by RT. Dr. Mccann made aware. Chest x-ray ordered, Laxis 20mg IVP given per MAR. Cardiac: Sinus rhythm w. frequent? PAC on tele, S/p pericardial window, DMITRI drain removed today approx. @ [address] Mccann. GI/: Ostomy, PEG tube, tolerating tube feed without signs of intolerance, +bowel sounds, Suprapubic catheter patent/draining. Skin: Impaired skin integrity (see skin assessment) Temp: Afebrile Infectious: IV antibiotics? Lines: TLC L. IJ, peripheral IVs?
[2025-04-10] VITALS (47 sets, daily range): BP systolic 63–152; BP diastolic 32–76; PULSE 63–101; RESP 20–31; TEMP 34.3–39.2; O2SAT 84–100; BMI 25.4
[2025-04-10 00:04] LABS: Glucose, Whole Blood 143 mg/dL (60-115)
[2025-04-10 02:56] LABS: ABG HCO3 31 mmol/L (22-26); ABG O2 % Saturation 78.0 %
--- NOTE | 2025-04-10 03:03 | W.PM.CCHP ---
Procedures Date of Service Date of Service: 04/10/25 <Sade Hyde NP - Last Filed: 04/10/25 03:27> 04/10/25 <Alejo Mccann MD - Last Filed: 04/10/25 10:23> Intubation Intubation Comments: The patient developed progressive respiratory fatigue, and hypoxemia. Breathing agonal, no cough/no gag, Hypercapneic with metabolic acidosis requiring emergent intubation. He was preoxygenated with the Ambu-bag 100%. RSI was carried out with the meds below.? The glottis was easily visualized with 3 GlideScope, and the trachea was intubated with a 7.0 ETT via? indirect video visualization, atraumatic.? BSBE, +CO2, SpO2 maintained.? The tube was secured at 24 cm at the upper lip. The patient tolerated the procedure well with no complications.? Placement confirmed with chest x-ray <Sade Hyde NP - Last Filed: 04/10/25 03:27> Consent for Procedure: Emergent-no informed consent obtained <Sade Hyde NP - Last Filed: 04/10/25 03:27> Time out performed: Yes <RONNIE Tripp Last Filed: 04/10/25 03:27> Sedative: propofol <RONNIE Tripp Last Filed: 04/10/25 03:27> Mg given: 100 <Sade Hyde NP - Last Filed: 04/10/25 03:27> Laryngoscope: fiber optic video scope <RONNIE Tripp Last Filed: 04/10/25 03:27> ET tube size: 7 <RONNIE Tripp Last Filed: 04/10/25 03:27> ET tube uncuffed: Yes <RONNIE Tripp Last Filed: 04/10/25 03:27> Tube secured depth (cm): 24 <RONNIE Tripp Last Filed: 04/10/25 03:27> Tube secured location: lips <RONNIE Tripp Last Filed: 04/10/25 03:27> Tube placement confirmation: visualized tube passing through cords, equal breath sounds bilaterally, no breath sounds over epigastrium and confirmation by capnometry <Sade Hyde NP - Last Filed: 04/10/25 03:27> Patient tolerated procedure: well and no complications <Sade Hyde NP - Last Filed: 04/10/25 03:27> Intubation complications: none <Sade Hyde NP - Last Filed: 04/10/25 03:27>
[2025-04-10 03:13] LABS: ABG Refer to POC result
[2025-04-10] MEDS: Albuterol Sulfate (0.083%) 2.5 MG/3 ML VIAL.NEB INHALE ×4 (03:20→19:05)
[2025-04-10] MEDS: fentaNYL citrate/NS 1,000 MCG/100 ML PLAST..BAG 2.5 MCG IVCONT (03:43)
[2025-04-10] MEDS: Albumin Human 25 % 100 ML IV ×2 (04:06→11:02)
[2025-04-10] MEDS: Valproic Acid Liquid 250 MG/5 ML SOLUTION 1000 MG G-TUBE ×2 (05:06→16:36)
[2025-04-10 05:07] LABS: VBG HCO3 31 mmol/L (22-26); VBG O2 % Saturation 48.0 %
[2025-04-10 05:10] LABS: Venous Blood Gas Refer to POC result
[2025-04-10 05:17] LABS: Hematocrit 28.8 % (42.0-52.0); Hemoglobin 9.1 g/dl (14.0-18.0); Imm Gran Abs Auto 0.10 X10*3/uL (0.00-0.03); Imm Gran Pct Auto 1.0 % (0.0-0.4); Lymphocytes Absolute Auto 1.2 X10*3/uL (1.2-4.9); MANUAL DIFF FLAG SCAN; Mean Corpuscular HGB Conc 31.6 g/dl (31.0-36.0); Mean Corpuscular Hemoglobin 27.1 pg (27.0-33.0); Mean Corpuscular Volume 85.7 fL (80.0-98.0); NRBC Abs Auto 0.020 X10*3/uL (0.0-0.012); NRBC Pct Auto 0.2 /100WBC (0.0-0.2); Platelet Count 329 X10*3/uL (160-400); Red Blood Count 3.36 X10*6/uL (4.60-5.80); SCAN SMEAR FLAG 1; White Blood Count 9.8 X10*3/uL (4.8-10.8)
[2025-04-10 05:31] LABS: Albumin Level 4.5 g/dL (3.5-5.0); Anion Gap 13 (12-20); Blood Urea Nitrogen 19 mg/dL (9-16); Calcium 9.3 mg/dL (8.4-10.2); Carbon Dioxide 27 mmol/L (22-29); Chloride 110 mmol/L (96-108); Creatinine Clr Calc Pharmacy 64.8; Estimated Glomerular Filt Rate > 60; Magnesium 1.8 mg/dL (1.6-2.6); Potassium 4.7 mmol/L (3.3-5.1); Sodium 145 mmol/L (135-145)
--- NOTE | 2025-04-10 07:12 | PC.NURSE ---
Critical Care Nursing Note? Assumed care of the patient at 1900. Patient nonverbal and unable to assess orientation. Patient on 5L NC, weak cough and minimal gag. SR with PACs on telemetry.? After 2:00 repositioning patient with decreased oxygen saturation, increase O2 to 10L [place]. RT called to bedside and deep suctioning performed, small amount of thick secretions cleared. Patient with no cough or gag, agonal breathing. Serge Hyde, AIRLINE PILOT FLIGHT INSTRUCTOR notified, ABG obtained. At 0257, patient oxygenated with BVM, to achieve O2 sats 98-100%. Propofol administered for intubation, 7.0 ETT at 24 cm at the lip. Chest X-ray obtained. Patient sedated with propofol and fentanyl; levophed started (drip initiated at lower rate based on patient?s previous sensitivity to medication) see EMAR for titrations. Report given to oncoming RN.
[2025-04-10] MEDS: 0.9 % Sodium Chloride Flush 3 ML SYRINGE IVFLUSH ×2 (07:55→16:36)
[2025-04-10] MEDS: Chlorhexidine Gluc Oral Rinse 15 ML MOUTHWASH BUCCAL ×3 (09:45→21:02)
--- NOTE | 2025-04-10 09:53 | MHC.CLN ---
F/U PT RE-INTUBATED R/T ASPIRATION SEDATED REVIEWED LABS DISCUSSED AT ROUNDS WITH MD MCCORMACK GLUCERNA 1.2 TF AT MAX GOAL RATE OF 60 ML PER HOUR WITH 120ML FREE WATER FLUSHES Q 6 HRS PROVIDES 1728 KCALS (2100KCALS WITH SEDATION; 36 KCALS/KG), 86.4G PROTEIN (1.5 G/KG), 1639 TOTAL ML FREE WATER FROM FORMULA AND FLUSHES (28ML/KG) MONITOR TOLERANCE AND LYTES TF WILL PROMOTE WOUND HEALING
--- NOTE | 2025-04-10 10:23 | P.PNCC_ITS ---
Subjective Subjective Date of Service: 04/10/25 Interval History: 69-year-old gentleman with underlying history of cerebral palsy, atomic megacolon status post colostomy, neurogenic bladder status post suprapubic catheter, chronic hyponatremia, legally blind, nonverbal at baseline, AFib on Eliquis, chronic kidney disease admitted on 04/01/2025 with alteration of mental status. On ER evaluation patient with significant hyponatremia requiring admission to the intensive care unit. Hospital course further complicated by pericardial effusion with tamponade, status post pericardial drainage placement, acute respiratory failure requiring intubation on 04/05/2025, now status post right-sided thoracentesis and bronchoscopic secretion clearance with improvement in respiratory status, however with pericardial drain occlusion not responsive to cath flow. Had pericardial drain check on 04/07/2025, showing essentially decompressed pericardium. After the drain check recorded drain was displaced and started draining air with no effect on patient's hemodynamics. Extubated uneventfully on 04/08/2025. Overnight with another aspiration event requiring re-intubation and further ventilatory support. Critical Care Time (minutes): 60 Physical Exam 2 Vital Signs: Vital Signs: Last Vital Signs Temp 98.9 F 04/10/25 08:00 Pulse 85 04/10/25 09:57 Resp 20 04/10/25 09:57 BP 120/51 L 04/10/25 09:57 Pulse Ox 91 L 04/10/25 09:57 O2 Del Method Mechanical Ventil ation 04/10/25 09:57 O2 Flow Rate 35 04/10/25 09:00 FiO2 35 04/10/25 09:57 BMI result Body Mass Index 25.4 Const: General: no acute distress and other (Sedated on ventilatory support) Eyes: Sclerae: sclerae normal EOM: EOMs intact bilaterally Neck: Neck: Yes no lymphadenopathy, Yes trachea midline and Yes supple Resp: Auscultation: crackles (Mild bibasilar) Cardio: Rate: regular rate Rhythm: regular rhythm Heart sounds: no gallops, no murmurs and no rubs GI: Inspection: Yes G-tube present Palpation (GI): Soft to palpation and Other GI palpation findings present ( Nontender) Auscultation: normal bowel sounds Extrem: General: Yes no pedal edema, No clubbing and No cyanosis Objective Data Labs 04/10/25 04:57 04/10/25 04:57 Labs: Laboratory Results - last 24 hr 04/09/25 04/09/25 04/10/25 12:35 23:59 02:51 WBC RBC Hgb Hct MCV MCH MCHC RDW Plt Count MPV Immature Gran % (Auto) Neut % (Auto) Lymph % (Auto) [place] % (Auto) Eos % (Auto) Baso % (Auto) Lymph # (Auto) [place] # (Auto) Eos # (Auto) Baso # (Auto) Abs Immat Gran (auto) Absolute Neuts (auto) Absolute Nucleated RBC Nucleated RBC % (auto) Smear Tech's Comments O2 Saturation 78.0 ABG pH at Pt Temp 7.19 L* ABG pCO2 at Pt Temp 80 H* ABG pO2 at Pt Temp 56 L ABG HCO3 31 H ABG Base Excess (Actual) 1.1 VBG pH VBG pCO2 VBG pO2 VBG HCO3 VBG O2 Saturation VBG Base Excess Sodium Potassium Chloride Carbon Dioxide Anion Gap BUN Creatinine Estim Creat Clear Calc Estimated GFR POC Glucose 112 143 H Random Glucose Calcium Phosphorus Magnesium Albumin 04/10/25 04/10/25 04:57 05:02 WBC 9.8 RBC 3.36 L Hgb 9.1 L Hct 28.8 L MCV 85.7 MCH 27.1 MCHC 31.6 RDW 17.1 H Plt Count 329 MPV 8.3 L Immature Gran % (Auto) 1.0 H Neut % (Auto) 65.9 Lymph % (Auto) 12.[address] [place] % (Auto) 18.9 H Eos % (Auto) 1.5 Baso % (Auto) 0.2 Lymph # (Auto) 1.2 [place] # (Auto) 1.9 H Eos # (Auto) 0.2 Baso # (Auto) 0.0 Abs Immat Gran (auto) 0.10 H Absolute Neuts (auto) 6.4 Absolute Nucleated RBC 0.020 H Nucleated RBC % (auto) 0.2 Smear Tech's Comments VERIFIED O2 Saturation ABG pH at Pt Temp ABG pCO2 at Pt Temp ABG pO2 at Pt Temp ABG HCO3 ABG Base Excess (Actual) VBG pH 7.42 VBG pCO2 48 VBG pO2 31 VBG HCO3 31 H VBG O2 Saturation 48.0 VBG Base Excess 6.7 Sodium 145 Potassium 4.7 Chloride 110 H Carbon Dioxide 27 Anion Gap 13 BUN 19 H Creatinine 0.75 Estim Creat Clear Calc 64.8 Estimated GFR > 60 POC Glucose Random Glucose 119 H Calcium 9.3 D Phosphorus 3.1 Magnesium 1.8 Albumin 4.5 Microbiology Microbiology Results: Microbiology 04/05/25 15:36 Thoracentesis Fluid Gram Stain - Final 04/05/25 15:36 Thoracentesis Fluid Anaerobic Culture - Final NO GROWTH AFTER 5 DAYS 04/05/25 15:36 Thoracentesis Fluid Body Fluid Culture - Final No growth after 2 days 04/05/25 12:04 Bronch Rul Gram Stain - Final 04/05/25 12:04 Bronch Rul - Final No growth after 2 days 04/01/25 11:18 Blood - Venous Blood Culture - Final No growth after 5 days. 04/01/25 11:09 Blood - Venous Blood Culture - Final No growth after 5 days. 04/01/25 Unknown Urine Other - Suprapubic Urine Culture - Final Escherichia coli Klebsiella pneumoniae Progress Note: A&P Assessment and plan (1) Acute hypoxemic respiratory failure: Status: Acute (2) Pulmonary aspiration: Status: Acute (3) Cerebral palsy: Status: Acute Plan Assessment: 69-year-old gentleman with underlying cerebral palsy admitted with hyponatremia further complicated by pericardial tamponade and acute hypoxic respiratory failure. Plan: Neuro: No acute issues. Underlying cerebral pulse. Cardiac: Pericardial tamponade status post pericardial drain placement, now with drain occlusion, status post drainage and discontinuation of pericardial drain. Cardiology service care appreciated. Underlying AFib with RVR, now on amiodarone. Pulmonary: Extubated uneventfully on 04/08/2025. Five required re-intubation for another aspiration event on 04/10/2025. Continue to titrate off ventilatory support as tolerated. Renal: No acute issues. Endo: No acute issues. GI: No acute issues. ID: Acute UTI versus colonization, continues on empiric Zosyn. Heme/Onc: No acute issues. Psych: No acute issues. Miscellaneous: No acute issues. Prophylaxis: Eliquis, PPI Diet: Tube feeds Quality Stroke Does the patient have a stroke diagnosis?: No VTE Prior VTE?: No VTE Risk Level:: Medical - moderate - high VTE Device Contraindication: N/A - Device Ordered VTE Drug Contraindication: N/A - Med Ordered
[2025-04-10 12:16] LABS: Glucose, Whole Blood 170 mg/dL (60-115)
--- NOTE | 2025-04-10 14:57 | MHC.CM.PN ---
Pt reintubated for airway protection: No plans to extubate at this time. Clinical update given to guardian Sammie and to director Rosario. Pt is from a [facility] non medical longterm and will not be able to return should he have post d/c high acuity medical needs. CM to re-assess pt's d/c needs after the weekend.
[2025-04-10] MEDS: fentaNYL citrate/NS 1,000 MCG/100 ML PLAST..BAG 7.5 MCG IVCONT (16:07)
[2025-04-10 17:44] LABS: Glucose, Whole Blood 153 mg/dL (60-115)
--- NOTE | 2025-04-10 19:13 | PC.NURSE ---
Assumed care @ 0700? Neuro/Resp: Sedated/intubated, on? propofol gtt and fentanyl gtt per NOV, does not track, does not follow commands, Flaccid extremities (passive ROM performed).? Resp: Vent. support? Cardiac: Sinus rhythm w on tele, on Levophed gtt and amiodarone gtt per NOV, MAP goal >65. ?pericardial DMITRI drain removed on 04/09.?? GI/: Ostomy, PEG tube, tolerating tubefeed without signs of intolerance, +bowel sounds, Suprapubic catheter patent/draining. Skin: Impaired skin integrity (see skin assessment) Temp: Afebrile Infectious: IV antibiotics? Lines: TLC L. IJ, peripheral IVs?
[2025-04-11] VITALS (34 sets, daily range): BP systolic 93–149; BP diastolic 45–67; PULSE 61–79; RESP 20; TEMP 34.6–37.4; O2SAT 90–97; BMI 26.3
[2025-04-11] MEDS: 0.9 % Sodium Chloride Flush 3 ML SYRINGE IVFLUSH ×3 (00:05→15:38)
[2025-04-11 00:08] LABS: Glucose, Whole Blood 165 mg/dL (60-115)
[2025-04-11] MEDS: Albuterol Sulfate (0.083%) 2.5 MG/3 ML VIAL.NEB INHALE ×4 (03:43→19:00)
[2025-04-11] MEDS: fentaNYL citrate/NS 1,000 MCG/100 ML PLAST..BAG 7.5 MCG IVCONT ×2 (04:29→16:39)
[2025-04-11] MEDS: Valproic Acid Liquid 250 MG/5 ML SOLUTION 1000 MG G-TUBE ×2 (04:32→16:37)
[2025-04-11 05:22] LABS: VBG HCO3 28 mmol/L (22-26); VBG O2 % Saturation 88.0 %
[2025-04-11 05:25] LABS: Venous Blood Gas Refer to POC result
[2025-04-11 05:55] LABS: Hematocrit 27.4 % (42.0-52.0); Hemoglobin 8.8 g/dl (14.0-18.0); Imm Gran Abs Auto 0.14 X10*3/uL (0.00-0.03); Imm Gran Pct Auto 1.2 % (0.0-0.4); Lymphocytes Absolute Auto 1.9 X10*3/uL (1.2-4.9); MANUAL DIFF FLAG SCAN; Mean Corpuscular HGB Conc 32.1 g/dl (31.0-36.0); Mean Corpuscular Hemoglobin 27.2 pg (27.0-33.0); Mean Corpuscular Volume 84.6 fL (80.0-98.0); NRBC Abs Auto 0.020 X10*3/uL (0.0-0.012); NRBC Pct Auto 0.2 /100WBC (0.0-0.2); Platelet Count 417 X10*3/uL (160-400); Red Blood Count 3.24 X10*6/uL (4.60-5.80); SCAN SMEAR FLAG 1; White Blood Count 11.7 X10*3/uL (4.8-10.8)
[2025-04-11 06:12] LABS: Albumin Level 3.6 g/dL (3.5-5.0); Anion Gap 12 (12-20); Blood Urea Nitrogen 23 mg/dL (9-16); Calcium 8.8 mg/dL (8.4-10.2); Carbon Dioxide 24 mmol/L (22-29); Chloride 113 mmol/L (96-108); Creatinine Clr Calc Pharmacy 67.8; Estimated Glomerular Filt Rate > 60; Magnesium 1.8 mg/dL (1.6-2.6); Potassium 3.2 mmol/L (3.3-5.1); Sodium 146 mmol/L (135-145)
[2025-04-11] MEDS: Potassium Phosphate/NS 15 MMOL/250 ML PLAST..BAG 62.5 MMOL IV (07:49)
[2025-04-11] MEDS: Potassium Chloride/H20 40 MEQ/100 ML PIGGYBACK 100 MEQ IV (07:49)
[2025-04-11] MEDS: Chlorhexidine Gluc Oral Rinse 15 ML MOUTHWASH BUCCAL ×3 (07:59→21:00)
--- NOTE | 2025-04-11 09:57 | PM.CCPN ---
Subjective Subjective Date of Service: 04/11/25 Interval History: 69-year-old gentleman with underlying history of cerebral palsy, atomic megacolon status post colostomy, neurogenic bladder status post suprapubic catheter, chronic hyponatremia, legally blind, nonverbal at baseline, AFib on Eliquis, chronic kidney disease admitted on 04/01/2025 with alteration of mental status. On ER evaluation patient with significant hyponatremia requiring admission to the intensive care unit. Hospital course further complicated by pericardial effusion with tamponade, status post pericardial drainage placement, acute respiratory failure requiring intubation on 04/05/2025, now status post right-sided thoracentesis and bronchoscopic secretion clearance with improvement in respiratory status, however with pericardial drain occlusion not responsive to cath flow. Had pericardial drain check on 04/07/2025, showing essentially decompressed pericardium. After the drain check recorded drain was displaced and started draining air with no effect on patient's hemodynamics. Extubated uneventfully on 04/08/2025. However continued with recurrent aspirations requiring re-intubation on 04/10/2025 No events overnight. Critical Care Time (minutes): 60 Physical Exam Vital Signs: Vital Signs: Last Vital Signs Temp 99.0 F 04/11/25 09:00 Pulse 69 04/11/25 09:00 Resp 20 04/11/25 09:00 BP 102/57 L 04/11/25 09:00 Pulse Ox 94 04/11/25 09:00 O2 Del Method Mechanical Ventil ation 04/11/25 09:00 O2 Flow Rate 35 04/10/25 09:00 FiO2 50 04/11/25 09:00 BMI result Body Mass Index 26.3 Const: General: no acute distress and other (Sedated on the vent) Eyes: Sclerae: sclerae normal EOM: EOMs intact bilaterally Neck: Neck: Yes no lymphadenopathy, Yes trachea midline and Yes supple Resp: Effort & Inspection: normal respiratory effort and no respiratory distress Auscultation: crackles (Bibasilar) Cardio: Rate: regular rate Rhythm: regular rhythm Heart sounds: no gallops, no murmurs and no rubs GI: Inspection: Yes G-tube present Palpation (GI): Soft to palpation and Other GI palpation findings present ( Nontender) Auscultation: normal bowel sounds Extrem: General: Yes no pedal edema, No clubbing and No cyanosis Objective Data Labs 04/11/25 05:15 04/11/25 05:15 Labs: Laboratory Results - last 24 hr 04/10/25 04/10/25 04/10/25 12:12 17:32 23:55 WBC RBC Hgb Hct MCV MCH MCHC RDW Plt Count MPV Immature Gran % (Auto) Neut % (Auto) Lymph % (Auto) [place] % (Auto) Eos % (Auto) Baso % (Auto) Lymph # (Auto) [place] # (Auto) Eos # (Auto) Baso # (Auto) Abs Immat Gran (auto) Absolute Neuts (auto) Absolute Nucleated RBC Nucleated RBC % (auto) Smear Tech's Comments VBG pH VBG pCO2 VBG pO2 VBG HCO3 VBG O2 Saturation VBG Base Excess Sodium Potassium Chloride Carbon Dioxide Anion Gap BUN Creatinine Estim Creat Clear Calc Estimated GFR POC Glucose 170 H 153 H 165 H Random Glucose Calcium Phosphorus Magnesium Albumin 04/11/25 04/11/25 05:15 05:17 WBC 11.7 H RBC 3.24 L Hgb 8.8 L Hct 27.4 L MCV 84.6 MCH 27.2 MCHC 32.1 RDW 17.2 H Plt Count 417 H D MPV 8.7 L Immature Gran % (Auto) 1.2 H Neut % (Auto) 60.7 Lymph % (Auto) 16.1 L [place] % (Auto) 18.2 H Eos % (Auto) 3.5 Baso % (Auto) 0.3 Lymph # (Auto) 1.9 [place] # (Auto) 2.1 H Eos # (Auto) 0.4 Baso # (Auto) 0.0 Abs Immat Gran (auto) 0.14 H Absolute Neuts (auto) 7.1 Absolute Nucleated RBC 0.020 H Nucleated RBC % (auto) 0.2 Smear Tech's Comments VERIFIED VBG pH 7.45 H VBG pCO2 40 VBG pO2 57 VBG HCO3 28 H VBG O2 Saturation 88.0 VBG Base Excess 4.3 Sodium 146 H Potassium 3.2 L D Chloride 113 H Carbon Dioxide 24 Anion Gap 12 BUN 23 H Creatinine 0.78 Estim Creat Clear Calc 67.8 Estimated GFR > 60 POC Glucose Random Glucose 148 H Calcium 8.8 Phosphorus 2.0 L Magnesium 1.8 Albumin 3.6 Microbiology Microbiology Results: Microbiology 04/05/25 15:36 Thoracentesis Fluid Gram Stain - Final 04/05/25 15:36 Thoracentesis Fluid Anaerobic Culture - Final NO GROWTH AFTER 5 DAYS 04/05/25 15:36 Thoracentesis Fluid Body Fluid Culture - Final No growth after 2 days 04/05/25 12:04 Bronch Rul Gram Stain - Final 04/05/25 12:04 Bronch Rul - Final No growth after 2 days 04/01/25 11:18 Blood - Venous Blood Culture - Final No growth after 5 days. 04/01/25 11:09 Blood - Venous Blood Culture - Final No growth after 5 days. 04/01/25 Unknown Urine Other - Suprapubic Urine Culture - Final Escherichia coli Klebsiella pneumoniae Progress Note: A&P Assessment and plan (1) Cerebral palsy: Status: Acute (2) Acute hypoxic respiratory failure: Status: Acute (3) Pulmonary aspiration: Status: Acute Plan Assessment: 69-year-old gentleman with underlying cerebral palsy admitted with hyponatremia further complicated by pericardial tamponade and acute hypoxic respiratory failure. Plan: Neuro: No acute issues. Underlying cerebral palsy. Cardiac: Pericardial tamponade status post pericardial drain placement, now status post drainage and discontinuation of pericardial drain. Cardiology service care appreciated. Underlying AFib with RVR, now on amiodarone. Pulmonary: Extubated uneventfully on 04/08/2025. Required re-intubation for another aspiration event on 04/10/2025. Continue to titrate off ventilatory support as tolerated. Renal: No acute issues. Endo: No acute issues. GI: No acute issues. ID: Acute UTI versus colonization, also with pulmonary aspiration with aspiration pneumonitis versus pneumonia, continues on empiric Zosyn. Heme/Onc: No acute issues. Psych: No acute issues. Miscellaneous: No acute issues. Prophylaxis: Eliquis, PPI Diet: Tube feeds Quality Stroke Does the patient have a stroke diagnosis?: No VTE Prior VTE?: No VTE Risk Level:: Medical - moderate - high VTE Device Contraindication: N/A - Device Ordered VTE Drug Contraindication: N/A - Med Ordered
[2025-04-11 12:59] LABS: Glucose, Whole Blood 155 mg/dL (60-115)
[2025-04-11 18:33] LABS: Glucose, Whole Blood 156 mg/dL (60-115)
[2025-04-12] VITALS (43 sets, daily range): BP systolic 86–133; BP diastolic 42–68; PULSE 61–143; RESP 18–20; TEMP 34.5–37.9; O2SAT 89–99; BMI 26.0
[2025-04-12] MEDS: 0.9 % Sodium Chloride Flush 3 ML SYRINGE IVFLUSH ×3 (00:09→16:51)
[2025-04-12] MEDS: Albuterol Sulfate (0.083%) 2.5 MG/3 ML VIAL.NEB INHALE ×3 (01:04→20:09)
[2025-04-12 02:15] LABS: Glucose, Whole Blood 155 mg/dL (60-115)
[2025-04-12] MEDS: fentaNYL citrate/NS 1,000 MCG/100 ML PLAST..BAG 7.5 MCG IVCONT ×2 (03:54→16:53)
[2025-04-12 04:59] LABS: VBG HCO3 22 mmol/L (22-26); VBG O2 % Saturation 90.0 %
--- NOTE | 2025-04-12 05:03 | PC.NURSE ---
At approx 0300, RN was called to the room to respond to a vent alarm. High pressure alarm was noted, volumes noted to be low. This RN paged RT for assistance. RT came to room to lavage pts ETT. Moderate amount of thick white secretions. Pt tolerated this well, respiratory status improved. Pt remains on ACVC settings, see vent assessment for further details.
[2025-04-12 05:15] LABS: Hematocrit 28.2 % (42.0-52.0); Hemoglobin 8.9 g/dl (14.0-18.0); Imm Gran Abs Auto 0.14 X10*3/uL (0.00-0.03); Imm Gran Pct Auto 1.1 % (0.0-0.4); Lymphocytes Absolute Auto 1.9 X10*3/uL (1.2-4.9); MANUAL DIFF FLAG SCAN; Mean Corpuscular HGB Conc 31.6 g/dl (31.0-36.0); Mean Corpuscular Hemoglobin 26.8 pg (27.0-33.0); Mean Corpuscular Volume 84.9 fL (80.0-98.0); NRBC Abs Auto 0.000 X10*3/uL (0.0-0.012); NRBC Pct Auto 0.0 /100WBC (0.0-0.2); Platelet Count 454 X10*3/uL (160-400); Red Blood Count 3.32 X10*6/uL (4.60-5.80); SCAN SMEAR FLAG 1; White Blood Count 12.7 X10*3/uL (4.8-10.8)
[2025-04-12 05:29] LABS: Albumin Level 3.1 g/dL (3.5-5.0); Anion Gap 15 (12-20); Blood Urea Nitrogen 28 mg/dL (9-16); Calcium 8.7 mg/dL (8.4-10.2); Carbon Dioxide 21 mmol/L (22-29); Chloride 116 mmol/L (96-108); Creatinine Clr Calc Pharmacy 54.2; Estimated Glomerular Filt Rate > 60; Magnesium 1.8 mg/dL (1.6-2.6); Potassium 4.7 mmol/L (3.3-5.1); Sodium 147 mmol/L (135-145)
[2025-04-12] MEDS: Valproic Acid Liquid 250 MG/5 ML SOLUTION 1000 MG G-TUBE ×2 (05:53→16:51)
[2025-04-12 06:36] LABS: Venous Blood Gas Refer to POC result
[2025-04-12] MEDS: Chlorhexidine Gluc Oral Rinse 15 ML MOUTHWASH BUCCAL ×3 (07:31→20:09)
--- NOTE | 2025-04-12 11:25 | PM.CCPN ---
Subjective Subjective Date of Service: 04/12/25 Interval History: 69-year-old gentleman with underlying history of cerebral palsy, atomic megacolon status post colostomy, neurogenic bladder status post suprapubic catheter, chronic hyponatremia, legally blind, nonverbal at baseline, AFib on Eliquis, chronic kidney disease admitted on 04/01/2025 with alteration of mental status. On ER evaluation patient with significant hyponatremia requiring admission to the intensive care unit. Hospital course further complicated by pericardial effusion with tamponade, status post pericardial drainage placement, acute respiratory failure requiring intubation on 04/05/2025, now status post right-sided thoracentesis and bronchoscopic secretion clearance with improvement in respiratory status, however with pericardial drain occlusion not responsive to cath flow. Had pericardial drain check on 04/07/2025, showing essentially decompressed pericardium. After the drain check recorded drain was displaced and started draining air with no effect on patient's hemodynamics. Extubated uneventfully on 04/08/2025. However continued with recurrent aspirations requiring re-intubation on 04/10/[address] chest on 04/11/2025 with worsening bilateral pleural effusions and recurrence of pericardial effusion. Critical Care Time (minutes): 60 Physical Exam Vital Signs: Vital Signs: Last Vital Signs Temp 99.9 F 04/12/25 11:00 Pulse 79 04/12/25 11:00 Resp 20 04/12/25 11:00 BP 118/61 04/12/25 11:00 Pulse Ox 94 04/12/25 11:00 O2 Del Method Mechanical Ventil ation 04/12/25 11:00 O2 Flow Rate 35 04/10/25 09:00 FiO2 50 04/12/25 11:09 BMI result Body Mass Index 26.0 Const: General: no acute distress and other (Sedated on ventilatory support) Eyes: Sclerae: sclerae normal EOM: EOMs intact bilaterally Neck: Neck: Yes no lymphadenopathy, Yes trachea midline and Yes supple Resp: Auscultation: crackles (Bilateral) Cardio: Rate: regular rate Rhythm: regular rhythm Heart sounds: no gallops, no murmurs and no rubs GI: Inspection: Yes G-tube present Palpation (GI): Soft to palpation and Other GI palpation findings present ( Nontender) Auscultation: normal bowel sounds Extrem: General: Yes no pedal edema, No clubbing and No cyanosis Objective Data Labs 04/12/25 04:26 04/12/25 04:26 Labs: Laboratory Results - last 24 hr 04/11/25 04/11/25 04/12/25 12:56 18:26 00:37 WBC RBC Hgb Hct MCV MCH MCHC RDW Plt Count MPV Immature Gran % (Auto) Neut % (Auto) Lymph % (Auto) [place] % (Auto) Eos % (Auto) Baso % (Auto) Lymph # (Auto) [place] # (Auto) Eos # (Auto) Baso # (Auto) Abs Immat Gran (auto) Absolute Neuts (auto) Absolute Nucleated RBC Nucleated RBC % (auto) Smear Tech's Comments VBG pH VBG pCO2 VBG pO2 VBG HCO3 VBG O2 Saturation VBG Base Excess Sodium Potassium Chloride Carbon Dioxide Anion Gap BUN Creatinine Estim Creat Clear Calc Estimated GFR POC Glucose 155 H 156 H 155 H Random Glucose Calcium Phosphorus Magnesium Albumin 04/12/25 04/12/25 04:26 04:52 WBC 12.7 H RBC 3.32 L Hgb 8.9 L Hct 28.2 L MCV 84.9 MCH 26.8 L MCHC 31.6 RDW 17.6 H Plt Count 454 H MPV 8.5 L Immature Gran % (Auto) 1.1 H Neut % (Auto) 59.8 Lymph % (Auto) 15.1 L [place] % (Auto) 19.3 H Eos % (Auto) 4.5 H Baso % (Auto) 0.2 Lymph # (Auto) 1.9 [place] # (Auto) 2.5 H Eos # (Auto) 0.6 H Baso # (Auto) 0.0 Abs Immat Gran (auto) 0.14 H Absolute Neuts (auto) 7.6 Absolute Nucleated RBC 0.000 Nucleated RBC % (auto) 0.0 Smear Tech's Comments VERIFIED VBG pH 7.37 VBG pCO2 38 VBG pO2 64 VBG HCO3 22 VBG O2 Saturation 90.0 VBG Base Excess -1.8 Sodium 147 H Potassium 4.7 D Chloride 116 H Carbon Dioxide 21 L Anion Gap 15 BUN 28 H Creatinine 0.97 Estim Creat Clear Calc 54.2 Estimated GFR > 60 POC Glucose Random Glucose 157 H Calcium 8.7 Phosphorus 3.4 Magnesium 1.8 Albumin 3.1 L Microbiology Microbiology Results: Microbiology 04/05/25 15:36 Thoracentesis Fluid Gram Stain - Final 04/05/25 15:36 Thoracentesis Fluid Anaerobic Culture - Final NO GROWTH AFTER 5 DAYS 04/05/25 15:36 Thoracentesis Fluid Body Fluid Culture - Final No growth after 2 days 04/05/25 12:04 Bronch Rul Gram Stain - Final 04/05/25 12:04 Bronch Rul - Final No growth after 2 days 04/01/25 11:18 Blood - Venous Blood Culture - Final No growth after 5 days. 04/01/25 11:09 Blood - Venous Blood Culture - Final No growth after 5 days. 04/01/25 Unknown Urine Other - Suprapubic Urine Culture - Final Escherichia coli Klebsiella pneumoniae Progress Note: A&P Assessment and plan (1) Pericardial effusion: Status: Acute (2) Atrial fibrillation with RVR: Status: Acute (3) Acute hypoxic respiratory failure: Status: Acute (4) Pulmonary aspiration: Status: Acute (5) Bilateral pleural effusion: Status: Acute Plan Assessment: 69-year-old gentleman with underlying cerebral palsy admitted with hyponatremia further complicated by pericardial tamponade and acute hypoxic respiratory failure. Plan: Neuro: No acute issues. Underlying cerebral palsy. Cardiac: Pericardial tamponade status post pericardial drain placement, now status post drainage and discontinuation of pericardial drain. Cardiology service care appreciated. Underlying AFib with RVR, now on amiodarone. Now with recurrent bilateral pleural effusions and pericardial effusion, however also approximately 13 L positive from admission, will start on aggressive diuresis and reassess in 48 hours. Pulmonary: Extubated uneventfully on 04/08/2025. Required re-intubation for another aspiration event on 04/10/2025. Continue to titrate off ventilatory support as tolerated. Renal: No acute issues. Endo: No acute issues. GI: No acute issues. ID: Acute UTI versus colonization, also with pulmonary aspiration with aspiration pneumonitis versus pneumonia, continues on empiric Zosyn. Heme/Onc: No acute issues. Psych: No acute issues. Miscellaneous: No acute issues. Prophylaxis: Eliquis, PPI Diet: Tube feeds Quality Stroke Does the patient have a stroke diagnosis?: No VTE Prior VTE?: No VTE Risk Level:: Medical - moderate - high VTE Device Contraindication: N/A - Device Ordered VTE Drug Contraindication: N/A - Med Ordered
[2025-04-12] MEDS: Furosemide 200 MG in 0.9 % Sodium Chloride 80 ML IVCONT (12:04)
[2025-04-12] MEDS: Albumin Human 25 % 100 ML IV ×2 (12:20→16:51)
[2025-04-12 12:25] LABS: Glucose, Whole Blood 146 mg/dL (60-115)
--- NOTE | 2025-04-12 15:58 | HO.SKINPHOTO ---
Location: Right buttock Category: Pressure injury Stage: stage 2 (healing) surrounding skin: blanchable discoloration
--- NOTE | 2025-04-12 16:00 | PC.NURSE ---
Assumed care of patient 0700. At [address] in ED for CT chest w/o contrast. Approx 10:[address] report results[address] CT shows large pericardial effusion, bilateral pleural effusions. 12:10 Amiodarone gtt discontinued by MD. Plan to transition to PO Amiodarone at 21:00. Lasix gtt started @5 mg/hr per new orders, see NOV. Albumin IV administered per NOV. Approx 14:30 Patient had rhythm change from sinus rhythm to sinus tachycardia HR 130-150 and transitioned to Afib. MD notified. Per MD, resumed Amio gtt with plan to stop at 21:00 today with PO medication administration. Amio gtt started at 0.5 mg/min. Approx 15:13 patient tele rhythm SR HR 70s. Patient turned and repositioned Q2HR. High fall precautions in place. Plan for MD to speak with guardian regarding possible pericardial window, code status and goals of care discussion.
--- NOTE | 2025-04-12 16:26 | PC.NURSE ---
Assumed care of patient 0700. Patient lethargic, opens eyes to larger stimuli. Approx 10:00 bare hugger applied for temp 96.3 rectal. rectal temperature probe in place at this time. 10:30 POC glucose check 63 with recheck of 65. MD notified - new orders for D10W @30 ml/hr. POC glucose increased to 74. Rocephin 1G IVP given per MAR orders. approx 12:00 Patient having bradycardia with increasing pauses up to 2.9 seconds, HR down to 38 on tele. MD notified. Cardiology consult placed and cardio MD at bedside approx 12:15. At approx 12:45 new lab orders for Free T4 and Cortisol collected. New orders for echocardiogram. 15:00 Patient awake, sitting up, attempting to get OOB. Patient not answering questions, yelling what the hell! Patient reoriented to place, time, situation. Notified that daughter Brigid planning to visit per family update via phone in the morning. Patient calm and cooperative, repositioned. Approx 15:30 attempted to bladder scan patient. Patient refused, swinging arms to avoid care. MD notified, per MD continue to monitor voiding via external male purewick.
[2025-04-12 18:23] LABS: Anion Gap 15 (12-20); Blood Urea Nitrogen 29 mg/dL (9-16); Calcium 8.7 mg/dL (8.4-10.2); Carbon Dioxide 20 mmol/L (22-29); Chloride 115 mmol/L (96-108); Creatinine Clr Calc Pharmacy 54.2; Estimated Glomerular Filt Rate > 60; Potassium 4.3 mmol/L (3.3-5.1); Sodium 146 mmol/L (135-145)
[2025-04-12 18:23] LABS: Glucose, Whole Blood 150 mg/dL (60-115)
[2025-04-12 23:55] LABS: Glucose, Whole Blood 166 mg/dL (60-115)
[2025-04-13] VITALS (41 sets, daily range): BP systolic 94–119; BP diastolic 45–67; PULSE 74–142; RESP 20–21; TEMP 34.6–37.9; O2SAT 88–97; BMI 27.7
[2025-04-13] MEDS: Albumin Human 25 % 100 ML IV ×2 (00:11→05:21)
[2025-04-13] MEDS: 0.9 % Sodium Chloride Flush 3 ML SYRINGE IVFLUSH ×3 (00:45→16:10)
[2025-04-13] MEDS: Albuterol Sulfate (0.083%) 2.5 MG/3 ML VIAL.NEB INHALE ×4 (01:09→19:44)
[2025-04-13] MEDS: fentaNYL citrate/NS 1,000 MCG/100 ML PLAST..BAG 7.5 MCG IVCONT (05:18)
[2025-04-13] MEDS: Valproic Acid Liquid 250 MG/5 ML SOLUTION 1000 MG G-TUBE ×2 (05:32→16:05)
[2025-04-13 05:37] LABS: VBG HCO3 24 mmol/L (22-26); VBG O2 % Saturation 80.0 %
[2025-04-13 05:53] LABS: Venous Blood Gas Refer to POC result
[2025-04-13 06:05] LABS: Hematocrit 25.4 % (42.0-52.0); Hemoglobin 7.8 g/dl (14.0-18.0); Imm Gran Abs Auto 0.07 X10*3/uL (0.00-0.03); Imm Gran Pct Auto 0.6 % (0.0-0.4); Lymphocytes Absolute Auto 1.2 X10*3/uL (1.2-4.9); MANUAL DIFF FLAG SCAN; Mean Corpuscular HGB Conc 30.7 g/dl (31.0-36.0); Mean Corpuscular Hemoglobin 26.9 pg (27.0-33.0); Mean Corpuscular Volume 87.6 fL (80.0-98.0); NRBC Abs Auto 0.020 X10*3/uL (0.0-0.012); NRBC Pct Auto 0.2 /100WBC (0.0-0.2); Platelet Count 360 X10*3/uL (160-400); Red Blood Count 2.90 X10*6/uL (4.60-5.80); SCAN SMEAR FLAG 1; White Blood Count 10.9 X10*3/uL (4.8-10.8)
[2025-04-13 06:25] LABS: Albumin Level 3.7 g/dL (3.5-5.0); Anion Gap 13 (12-20); Blood Urea Nitrogen 28 mg/dL (9-16); Calcium 8.7 mg/dL (8.4-10.2); Carbon Dioxide 22 mmol/L (22-29); Chloride 115 mmol/L (96-108); Creatinine Clr Calc Pharmacy 44.0; Estimated Glomerular Filt Rate 58; Magnesium 1.6 mg/dL (1.6-2.6); Potassium 4.1 mmol/L (3.3-5.1); Sodium 146 mmol/L (135-145)
--- NOTE | 2025-04-13 07:09 | PC.NURSE ---
Pt was transitioned?to PGT amiodarone at approx 2014. Per RONNIE Hyde, d/c amio gtt 1 hour after administration of PGT Amio. Around 0230, pt went into rapid a-fib. HR in 120s-150s. RONNIE Hyde ordered to turn on amio gtt at 0.5mg/hr. At approx 0330, HR still elevated in 120s-130s. RONNIE Hyde ordered to turn amio gtt to 1mg/hr. At approx 0400 pt converted to NSR, HR 60s-80s.?Orders to continue gtt at 1mg/hr. See MAR for details.
[2025-04-13] MEDS: Chlorhexidine Gluc Oral Rinse 15 ML MOUTHWASH BUCCAL ×3 (09:17→21:10)
--- NOTE | 2025-04-13 09:41 | MHC.CLN ---
F/U PT REMAINS INTUBATED AND SEDATED REVIEWED LABS DISCUSSED AT ROUNDS WITH MD MCCORMACK GLUCERNA 1.2 TF AT MAX GOAL RATE OF 60 ML PER HOUR WITH 120ML FREE WATER FLUSHES Q 6 HRS PROVIDES 1728 KCALS (2100KCALS WITH SEDATION; 36 KCALS/KG), 86.4G PROTEIN (1.5 G/KG), 1639 TOTAL ML FREE WATER FROM FORMULA AND FLUSHES (28ML/KG) MONITOR TOLERANCE AND LYTES TF WILL PROMOTE WOUND HEALING
--- NOTE | 2025-04-13 09:47 | PM.CCPN ---
Subjective Subjective Date of Service: 04/13/25 Interval History: 69-year-old gentleman with underlying history of cerebral palsy, atomic megacolon status post colostomy, neurogenic bladder status post suprapubic catheter, chronic hyponatremia, legally blind, nonverbal at baseline, AFib on Eliquis, chronic kidney disease admitted on 04/01/2025 with alteration of mental status. On ER evaluation patient with significant hyponatremia requiring admission to the intensive care unit. Hospital course further complicated by pericardial effusion with tamponade, status post pericardial drainage placement, acute respiratory failure requiring intubation on 04/05/2025, now status post right-sided thoracentesis and bronchoscopic secretion clearance with improvement in respiratory status, however with pericardial drain occlusion not responsive to cath flow. Had pericardial drain check on 04/07/2025, showing essentially decompressed pericardium. After the drain check recorded drain was displaced and started draining air with no effect on patient's hemodynamics. Extubated uneventfully on 04/08/2025. However continued with recurrent aspirations requiring re-intubation on 04/10/2025. Repeat CT chest showing recurrent bilateral pleural effusions and pericardial effusion. No events overnight. Poor response to IV diuresis. Critical Care Time (minutes): 60 Physical Exam Vital Signs: Vital Signs: Last Vital Signs Temp 100.0 F 04/13/25 09:00 Pulse 83 04/13/25 09:00 Resp 20 04/13/25 09:00 BP 105/49 L 04/13/25 09:00 Pulse Ox 89 L 04/13/25 09:00 O2 Del Method Mechanical Ventil ation 04/13/25 09:00 O2 Flow Rate 35 04/10/25 09:00 FiO2 70 04/13/25 09:00 BMI result Body Mass Index 27.7 Const: General: no acute distress and other (Sedated on ventilatory support) Eyes: Sclerae: sclerae normal EOM: EOMs intact bilaterally Neck: Neck: Yes no lymphadenopathy, Yes trachea midline and Yes supple Resp: Auscultation: crackles (Bilateral) Cardio: Rate: regular rate Rhythm: regular rhythm Heart sounds: no gallops, no murmurs and no rubs GI: Inspection: Yes G-tube present Palpation (GI): Soft to palpation and Other GI palpation findings present ( Nontender) Auscultation: normal bowel sounds Extrem: General: No clubbing, No cyanosis and Yes edema (1+ bilateral) Objective Data Labs 04/13/25 05:25 04/13/25 05:25 Labs: Laboratory Results - last 24 hr 04/12/25 04/12/25 04/12/25 12:23 17:53 18:20 WBC RBC Hgb Hct MCV MCH MCHC RDW Plt Count MPV Immature Gran % (Auto) Neut % (Auto) Lymph % (Auto) [place] % (Auto) Eos % (Auto) Baso % (Auto) Lymph # (Auto) [place] # (Auto) Eos # (Auto) Baso # (Auto) Abs Immat Gran (auto) Absolute Neuts (auto) Absolute Nucleated RBC Nucleated RBC % (auto) Smear Tech's Comments VBG pH VBG pCO2 VBG pO2 VBG HCO3 VBG O2 Saturation VBG Base Excess Sodium 146 H Potassium 4.3 Chloride 115 H Carbon Dioxide 20 L Anion Gap 15 BUN 29 H Creatinine 0.97 Estim Creat Clear Calc 54.2 Estimated GFR > 60 POC Glucose 146 H 150 H Random Glucose 162 H Calcium 8.7 Phosphorus Magnesium Albumin 04/12/25 04/13/25 04/13/25 23:51 05:25 05:32 WBC 10.9 H RBC 2.90 L Hgb 7.8 L Hct 25.4 L MCV 87.6 MCH 26.9 L MCHC 30.7 L RDW 17.7 H Plt Count 360 MPV 8.7 L Immature Gran % (Auto) 0.6 H Neut % (Auto) 67.1 Lymph % (Auto) 10.7 L [place] % (Auto) 16.9 H Eos % (Auto) 4.4 H Baso % (Auto) 0.3 Lymph # (Auto) 1.2 [place] # (Auto) 1.8 H Eos # (Auto) 0.5 H Baso # (Auto) 0.0 Abs Immat Gran (auto) 0.07 H Absolute Neuts (auto) 7.3 Absolute Nucleated RBC 0.020 H Nucleated RBC % (auto) 0.2 Smear Tech's Comments VERIFIED VBG pH 7.33 VBG pCO2 45 VBG pO2 53 VBG HCO3 24 VBG O2 Saturation 80.0 VBG Base Excess -1.7 Sodium 146 H Potassium 4.1 Chloride 115 H Carbon Dioxide 22 Anion Gap 13 BUN 28 H Creatinine 1.23 Estim Creat Clear Calc 44.0 Estimated GFR 58 POC Glucose 166 H Random Glucose 170 H Calcium 8.7 Phosphorus 3.4 Magnesium 1.6 Albumin 3.7 Microbiology Microbiology Results: Microbiology 04/05/25 15:36 Thoracentesis Fluid Gram Stain - Final 04/05/25 15:36 Thoracentesis Fluid Anaerobic Culture - Final NO GROWTH AFTER 5 DAYS 04/05/25 15:36 Thoracentesis Fluid Body Fluid Culture - Final No growth after 2 days 04/05/25 12:04 Bronch Rul Gram Stain - Final 04/05/25 12:04 Bronch Rul - Final No growth after 2 days 04/01/25 11:18 Blood - Venous Blood Culture - Final No growth after 5 days. 04/01/25 11:09 Blood - Venous Blood Culture - Final No growth after 5 days. 04/01/25 Unknown Urine Other - Suprapubic Urine Culture - Final Escherichia coli Klebsiella pneumoniae Progress Note: A&P Assessment and plan (1) Pericardial effusion: Status: Acute (2) Atrial fibrillation with RVR: Status: Acute (3) Cerebral palsy: Status: Acute (4) Acute hypoxemic respiratory failure: Status: Acute (5) Bilateral pleural effusion: Status: Acute (6) Pulmonary aspiration: Status: Acute Plan Assessment: 69-year-old gentleman with underlying cerebral palsy admitted with hyponatremia further complicated by pericardial tamponade and acute hypoxic respiratory failure. Plan: Neuro: No acute issues. Underlying cerebral palsy. Cardiac: Pericardial tamponade status post pericardial drain placement, now status post drainage and discontinuation of pericardial drain. Cardiology service care appreciated. Underlying AFib with RVR, now on amiodarone. Now with recurrent bilateral pleural effusions and pericardial effusion, however also approximately 13 L positive from admission, tried on diuretic challenge, with poor response. Will likely require pericardial window. Pulmonary: Extubated uneventfully on 04/08/2025. Required re-intubation for another aspiration event on 04/10/2025. Continue to titrate off ventilatory support as tolerated. Underlying pulmonary aspirations. Renal: No acute issues. Endo: No acute issues. GI: No acute issues. ID: Acute UTI versus colonization, also with pulmonary aspiration with aspiration pneumonitis versus pneumonia, continues on empiric Zosyn. Heme/Onc: No acute issues. Psych: No acute issues. Miscellaneous: Will discuss plan of care with patient's guardian, whether to proceed with pericardial window or with changes in goals of care. Prophylaxis: Eliquis, PPI Diet: Tube feeds Quality Stroke Does the patient have a stroke diagnosis?: No VTE Prior VTE?: No VTE Risk Level:: Medical - moderate - high VTE Device Contraindication: N/A - Device Ordered VTE Drug Contraindication: N/A - Med Ordered
--- NOTE | 2025-04-13 09:56 | PC.NURSE ---
Assumed care @ 0700? Neuro/Resp: Sedated/intubated, on? propofol gtt and fentanyl gtt per NOV, does not track, does not follow commands, Flaccid extremities (passive ROM performed).? Resp: Vent. support? Cardiac: Sinus rhythm on tele, Levophed gtt and amiodarone gtt per NOV, MAP goal >65. Laxis gtt DC.? GI/: Ostomy, PEG tube, tolerating tubefeed without signs of intolerance, +bowel sounds, Suprapubic catheter patent/draining. Skin: Impaired skin integrity (see skin assessment) Temp: febrile low 100s Infectious: IV antibiotics? Lines: TLC L. IJ, peripheral IVs?
[2025-04-13 12:22] LABS: Glucose, Whole Blood 170 mg/dL (60-115)
--- NOTE | 2025-04-13 12:24 | MHC.CM.PN ---
Pt reintubated last week: continues to experience decline: CT of chest from the weekend revealed bilat pleural effusions and recurrence of pericardial effusion. MD to contact pt's guardian to discuss goals of care. Pt may need to transfer to [facility] for cardiac intervention versus status change to DNR/DNI/SOFTWARE QUALITY TESTER which would require guardianship expansion. Pt is a [facility] al[facility] resident. Awaiting MD's direction.
[2025-04-13] MEDS: fentaNYL citrate/NS 1,000 MCG/100 ML PLAST..BAG 5 MCG IVCONT (17:31)
[2025-04-14] VITALS (43 sets, daily range): BP systolic 91–140; BP diastolic 46–68; PULSE 77–95; RESP 20–21; TEMP 34.9–38.2; O2SAT 89–94; BMI 28.4
[2025-04-14 00:11] LABS: Glucose, Whole Blood 198 mg/dL (60-115)
[2025-04-14] MEDS: 0.9 % Sodium Chloride Flush 3 ML SYRINGE IVFLUSH ×4 (00:15→23:45)
[2025-04-14] MEDS: Albuterol Sulfate (0.083%) 2.5 MG/3 ML VIAL.NEB INHALE ×4 (02:42→19:36)
[2025-04-14] MEDS: Valproic Acid Liquid 250 MG/5 ML SOLUTION 1000 MG G-TUBE ×2 (05:20→16:30)
[2025-04-14 05:55] LABS: Venous Blood Gas Refer to POC result
[2025-04-14 05:56] LABS: VBG HCO3 19 mmol/L (22-26); VBG O2 % Saturation 100.0 %
[2025-04-14 06:04] LABS: Hematocrit 26.4 % (42.0-52.0); Hemoglobin 8.1 g/dl (14.0-18.0); Mean Corpuscular HGB Conc 30.7 g/dl (31.0-36.0); Mean Corpuscular Hemoglobin 27.1 pg (27.0-33.0); Mean Corpuscular Volume 88.3 fL (80.0-98.0); NRBC Abs Auto 0.000 X10*3/uL (0.0-0.012); NRBC Pct Auto 0.0 /100WBC (0.0-0.2); Platelet Count 353 X10*3/uL (160-400); Red Blood Count 2.99 X10*6/uL (4.60-5.80); White Blood Count 12.7 X10*3/uL (4.8-10.8)
[2025-04-14 06:27] LABS: Albumin Level 3.3 g/dL (3.5-5.0); Anion Gap 14 (12-20); Blood Urea Nitrogen 35 mg/dL (9-16); Calcium 8.6 mg/dL (8.4-10.2); Carbon Dioxide 18 mmol/L (22-29); Chloride 116 mmol/L (96-108); Creatinine Clr Calc Pharmacy 28.9; Estimated Glomerular Filt Rate 35; Magnesium 1.6 mg/dL (1.6-2.6); Potassium 4.3 mmol/L (3.3-5.1); Sodium 144 mmol/L (135-145)
[2025-04-14 06:37] LABS: Band Neutrophils Percent 10 % (3-5); Eosinophils Absolute Manual 0.3 X10*3/uL (0.0-0.4); Eosinophils Percent Manual 2 % (0-4); Lymphocytes Absolute Manual 0.8 X10*3/uL (1.2-4.9); Lymphocytes Percent Manual 6 % (20-40); Monocytes Absolute Manual 2.5 X10*3/uL (0.1-1.2); Monocytes Percent Manual 20 % (2-11); Neutrophils Absolute Manual 9.1 X10*3/uL (2.0-8.3); Neutrophils Percent Manual 62 % (45-73)
[2025-04-14 06:38] LABS: RBC Morphology NOTED
[2025-04-14 06:39] LABS: Ovalocytes 1+ (5-14) /OIF
[2025-04-14 06:40] LABS: Hypochromasia 1+ (5-14) /OIF; Polychromasia 1+ (0-2) /OIF; Tear Drop Cells 1+ (0-2) /OIF
[2025-04-14] MEDS: Albumin Human 25 % 100 ML IV ×2 (07:17→14:41)
--- NOTE | 2025-04-14 07:29 | PC.NURSE ---
Critical Care Nursing Note? Assumed care of the patient at 1900. Patient nonverbal and unable to assess orientation. Patient remained on ventilator support.? Upon initial assessment, the patient?s abdomen was firm and distended, tube feeding shut off, Heidy Leblanc NP notified, tube feeding held until midnight. Feeding reassessed at midnight, residual greater than 550ml, residual discarded, tube feeding on hold, reglan administered. Report given to oncoming RN.
[2025-04-14] MEDS: Chlorhexidine Gluc Oral Rinse 15 ML MOUTHWASH BUCCAL ×3 (09:26→20:58)
--- NOTE | 2025-04-14 10:03 | P.CDIM_ITS ---
PROVIDER RESPONSE TEXT: To clarify, the appropriate diagnosis supported by the clinical indicators: Acute on chronic kidney injury: 3a QUERY TEXT: PHYSICIAN'S DOCUMENTATION REQUEST Date of Query: 04/14/2025 09:37 AM EDT Patient Name: Clay Ross Admit Date: 04/01/2025 Dear Alejo Mccann MD, A review of the medical record indicates additional documentation may be needed. Please review below and update the documentation accordingly. Clinical Indicators: ED 04/01 - PMH of renal insufficiency/failure. ICU progress notes 04/06 - : Underlying history neurogenic bladder, Chronic kidney disease. GFR > 60 35 CR 0.65 1.89 BUN 27 35 Fluids Please clarify which of the following accurately represents the patient's renal status: Acute on chronic kidney injury Stage 1, 2, 3a, 3b, 4 CKD, please provide stage 1, 2, 3a, 3b, 4 etc. Other (explain) Clinically unable to determine (explain) Thank you, Emma Caruso, CCS, CDIS Use of terms such as suspected, likely, concern for, or probable (associated with a specific diagnosis that is being evaluated, monitored, or treated as if it exists) are acceptable and can be coded in the inpatient setting, when documented at the time of discharge. Please use your independent medical judgment in providing your response. THIS QUERY IS PART OF THE PERMANENT MEDICAL RECORD
--- NOTE | 2025-04-14 10:10 | P.PNCC_ITS ---
Subjective Subjective Date of Service: 04/14/25 Interval History: 1-year-old gentleman with underlying history of cerebral palsy, atomic megacolon status post colostomy, neurogenic bladder status post suprapubic catheter, chronic hyponatremia, legally blind, nonverbal at baseline, AFib on Eliquis, chronic kidney disease admitted on 04/01/2025 with alteration of mental status. On ER evaluation patient with significant hyponatremia requiring admission to the intensive care unit. Hospital course further complicated by pericardial effusion with tamponade, status post pericardial drainage placement, acute respiratory failure requiring intubation on 04/05/2025, now status post right- sided thoracentesis and bronchoscopic secretion clearance with improvement in respiratory status, however with pericardial drain occlusion not responsive to cath flow. Had pericardial drain check on 04/07/2025, showing essentially decompressed pericardium. After the drain check recorded drain was displaced and started draining air with no effect on patient's hemodynamics. Extubated uneventfully on 04/08/2025. However continued with recurrent aspirations requiring re-intubation on 04/10/2025. Repeat CT chest showing recurrent bilateral pleural effusions and pericardial effusion. Patient with poor response to IV diuresis. No events overnight. Critical Care Time (minutes): 60 Physical Exam 2 Vital Signs: Vital Signs: Last Vital Signs Temp 100.6 F H 04/14/25 09:00 Pulse 86 04/14/25 09:00 Resp 20 04/14/25 09:00 BP 105/60 04/14/25 09:00 Pulse Ox 90 L 04/14/25 09:00 O2 Del Method Mechanical Ventil ation 04/14/25 09:00 O2 Flow Rate 35 04/10/25 09:00 FiO2 70 04/14/25 09:00 BMI result Body Mass Index 28.4 Const: General: no acute distress and other (Sedated on ventilatory support) Eyes: Sclerae: sclerae normal EOM: EOMs intact bilaterally Neck: Neck: Yes no lymphadenopathy, Yes trachea midline and Yes supple Resp: Auscultation: crackles (Diffuse bilateral) Cardio: Rate: regular rate Rhythm: regular rhythm Heart sounds: no gallops, no murmurs and no rubs GI: Inspection: Yes G-tube present Palpation (GI): Soft to palpation and Other GI palpation findings present ( Nontender) Auscultation: normal bowel sounds Extrem: General: No clubbing, No cyanosis and Yes edema (1+ bilateral) Objective Data Labs 04/14/25 05:23 04/14/25 05:23 Labs: Laboratory Results - last 24 hr 04/13/25 04/14/25 04/14/25 12:16 00:08 05:23 WBC 12.7 H RBC 2.99 L Hgb 8.1 L Hct 26.4 L MCV 88.3 MCH 27.1 MCHC 30.7 L RDW 18.0 H Plt Count 353 MPV 8.7 L Immature Gran % (Auto) Cancelled Neut % (Auto) Cancelled Lymph % (Auto) Cancelled [place] % (Auto) Cancelled Eos % (Auto) Cancelled Baso % (Auto) Cancelled Lymph # (Auto) Cancelled [place] # (Auto) Cancelled Eos # (Auto) Cancelled Baso # (Auto) Cancelled Abs Immat Gran (auto) Cancelled Absolute Neuts (auto) Cancelled Absolute Nucleated RBC 0.000 Nucleated RBC % (auto) 0.0 Neutrophils % (Manual) 62 Band Neutrophils % 10 H Lymphocytes % (Manual) 6 L Monocytes % (Manual) 20 H Eosinophils % (Manual) 2 Abs Neuts (Manual) 9.1 H Lymphocytes # (Manual) 0.8 L Monocytes # (Manual) 2.5 H Eosinophils # (Manual) 0.3 Platelet Estimate NORMAL Plt Morphology Comment NORMAL RBC Morphology NOTED Polychromasia 1+ (0-2) Hypochromasia 1+ (5-14) Tear Drop Cells 1+ (0-2) Ovalocytes 1+ (5-14) VBG pH VBG pCO2 VBG pO2 VBG HCO3 VBG O2 Saturation VBG Base Excess Sodium 144 Potassium 4.3 Chloride 116 H Carbon Dioxide 18 L Anion Gap 14 BUN 35 H Creatinine 1.89 H Estim Creat Clear Calc 28.9 Estimated GFR 35 POC Glucose 170 H 198 H Random Glucose 148 H Calcium 8.6 Phosphorus 3.7 Magnesium 1.6 Albumin 3.3 L 04/14/25 05:52 WBC RBC Hgb Hct MCV MCH MCHC RDW Plt Count MPV Immature Gran % (Auto) Neut % (Auto) Lymph % (Auto) [place] % (Auto) Eos % (Auto) Baso % (Auto) Lymph # (Auto) [place] # (Auto) Eos # (Auto) Baso # (Auto) Abs Immat Gran (auto) Absolute Neuts (auto) Absolute Nucleated RBC Nucleated RBC % (auto) Neutrophils % (Manual) Band Neutrophils % Lymphocytes % (Manual) Monocytes % (Manual) Eosinophils % (Manual) Abs Neuts (Manual) Lymphocytes # (Manual) Monocytes # (Manual) Eosinophils # (Manual) Platelet Estimate Plt Morphology Comment RBC Morphology Polychromasia Hypochromasia Tear Drop Cells Ovalocytes VBG pH 7.33 VBG pCO2 36 VBG pO2 185 VBG HCO3 19 L VBG O2 Saturation 100.0 VBG Base Excess -5.5 Sodium Potassium Chloride Carbon Dioxide Anion Gap BUN Creatinine Estim Creat Clear Calc Estimated GFR POC Glucose Random Glucose Calcium Phosphorus Magnesium Albumin Microbiology Microbiology Results: Microbiology 04/05/25 15:36 Thoracentesis Fluid Gram Stain - Final 04/05/25 15:36 Thoracentesis Fluid Anaerobic Culture - Final NO GROWTH AFTER 5 DAYS 04/05/25 15:36 Thoracentesis Fluid Body Fluid Culture - Final No growth after 2 days 04/05/25 12:04 Bronch Rul Gram Stain - Final 04/05/25 12:04 Bronch Rul - Final No growth after 2 days 04/01/25 11:18 Blood - Venous Blood Culture - Final No growth after 5 days. 04/01/25 11:09 Blood - Venous Blood Culture - Final No growth after 5 days. 04/01/25 Unknown Urine Other - Suprapubic Urine Culture - Final Escherichia coli Klebsiella pneumoniae Progress Note: A&P Assessment and plan (1) Pericardial effusion: Status: Acute (2) Atrial fibrillation with RVR: Status: Acute (3) Cerebral palsy: Status: Acute (4) Acute hypoxic respiratory failure: Status: Acute (5) Pulmonary aspiration: Status: Acute (6) Bilateral pleural effusion: Status: Acute Plan Assessment: 69-year-old gentleman with underlying cerebral palsy admitted with hyponatremia further complicated by pericardial tamponade and acute hypoxic respiratory failure. Plan: Neuro: No acute issues. Underlying cerebral palsy. Cardiac: Pericardial tamponade status post pericardial drain placement, now status post drainage and discontinuation of pericardial drain. Cardiology service care appreciated. Underlying AFib with RVR, now on amiodarone. Now with recurrent bilateral pleural effusions and pericardial effusion, however also approximately 13 L positive from admission, tried on diuretic challenge, with poor response. Will likely require pericardial window. Pulmonary: Extubated uneventfully on 04/08/2025. Required re-intubation for another aspiration event on 04/10/2025. Continue to titrate off ventilatory support as tolerated. Underlying pulmonary aspirations will likely require tracheostomy. Renal: No acute issues. Endo: No acute issues. GI: No acute issues. ID: Acute UTI versus colonization, also with pulmonary aspiration with aspiration pneumonitis versus pneumonia, continues on empiric Zosyn. Heme/Onc: No acute issues. Psych: No acute issues. Miscellaneous: Goals of care discussed with patient's guardian who wants to pursue court application for change of code status. Prophylaxis: Eliquis, PPI Diet: Tube feeds Quality Stroke Does the patient have a stroke diagnosis?: No VTE Prior VTE?: No VTE Risk Level:: Medical - moderate - high VTE Device Contraindication: N/A - Device Ordered VTE Drug Contraindication: N/A - Med Ordered
[2025-04-14 11:30] LABS: Glucose, Whole Blood 172 mg/dL (60-115)
--- NOTE | 2025-04-14 14:17 | PC.NURSE ---
Assumed care @ 0700? Neuro/Resp: Sedated/intubated, on? propofol gtt per NOV, does not track, does not follow commands, Flaccid extremities (passive ROM performed).? Resp: Vent. support? Cardiac: Sinus rhythm w on tele, Levophed gtt and amiodarone gtt per NOV, MAP goal >65.? GI: Ostomy, PEG tube, Tube feeds on hold per providers order,? hypoactive bowel sounds, Relistor SQ given per NOV. : Suprapubic catheter patent/draining. Skin: Impaired skin integrity (see skin assessment) Temp: febrile low 100s Infectious: IV antibiotics? Lines: TLC L. IJ, peripheral IVs?
--- NOTE | 2025-04-14 15:43 | MHC.CM.PN ---
Patient remains intubated/vented in ICU. Per Dr Mccann, guardian Alexa, would like to have plan of care meeting with DDS for possible transition to [employer]. Spoke with Rosario of [facility]. Plan of care meeting arranged for 04/15 at 1030am. Meeting information provided to Dr Mccann. Continue to monitor for d/c needs.
[2025-04-14 18:00] LABS: Glucose, Whole Blood 201 mg/dL (60-115)
[2025-04-15] VITALS (45 sets, daily range): BP systolic 92–134; BP diastolic 42–61; PULSE 73–139; RESP 20–30; TEMP 34.3–37.9; O2SAT 88–95; BMI 28.7
[2025-04-15 00:02] LABS: Glucose, Whole Blood 146 mg/dL (60-115)
[2025-04-15] MEDS: Albuterol Sulfate (0.083%) 2.5 MG/3 ML VIAL.NEB INHALE ×3 (02:32→19:35)
[2025-04-15 05:02] LABS: VBG HCO3 16 mmol/L (22-26); VBG O2 % Saturation 96.0 %
[2025-04-15 05:04] LABS: Venous Blood Gas Refer to POC result
[2025-04-15 05:12] LABS: Hematocrit 23.1 % (42.0-52.0); Hemoglobin 7.6 g/dl (14.0-18.0); Imm Gran Abs Auto 0.05 X10*3/uL (0.00-0.03); Imm Gran Pct Auto 0.5 % (0.0-0.4); Lymphocytes Absolute Auto 1.1 X10*3/uL (1.2-4.9); MANUAL DIFF FLAG SCAN; Mean Corpuscular HGB Conc 32.9 g/dl (31.0-36.0); Mean Corpuscular Hemoglobin 27.8 pg (27.0-33.0); Mean Corpuscular Volume 84.6 fL (80.0-98.0); NRBC Abs Auto 0.000 X10*3/uL (0.0-0.012); NRBC Pct Auto 0.0 /100WBC (0.0-0.2); Platelet Count 282 X10*3/uL (160-400); Red Blood Count 2.73 X10*6/uL (4.60-5.80); SCAN SMEAR FLAG 1; White Blood Count 10.7 X10*3/uL (4.8-10.8)
[2025-04-15 05:34] LABS: Albumin Level 3.3 g/dL (3.5-5.0); Anion Gap 15 (12-20); Blood Urea Nitrogen 44 mg/dL (9-16); Calcium 8.5 mg/dL (8.4-10.2); Carbon Dioxide 17 mmol/L (22-29); Chloride 114 mmol/L (96-108); Creatinine Clr Calc Pharmacy 26.4; Estimated Glomerular Filt Rate 32; Magnesium 1.6 mg/dL (1.6-2.6); Potassium 3.6 mmol/L (3.3-5.1); Sodium 142 mmol/L (135-145)
[2025-04-15] MEDS: Valproic Acid Liquid 250 MG/5 ML SOLUTION 1000 MG G-TUBE ×2 (05:37→16:31)
--- NOTE | 2025-04-15 07:14 | PC.NURSE ---
At approx 0545 pt went into rapid a-fib, sustaining HR in 120s-130s. RONNIE Leblanc notified, new order for digoxin given per NOV. Little effect on HR, no new orders at this time.
[2025-04-15] MEDS: Chlorhexidine Gluc Oral Rinse 15 ML MOUTHWASH BUCCAL ×3 (07:51→20:05)
[2025-04-15] MEDS: 0.9 % Sodium Chloride Flush 3 ML SYRINGE IVFLUSH ×2 (07:52→16:31)
[2025-04-15] MEDS: Albumin Human 25 % 100 ML IV ×2 (07:52→14:35)
--- NOTE | 2025-04-15 09:59 | MHC.CLN ---
F/U PT REMAINS INTUBATED AND SEDATED DISCUSSED AT ROUNDS WITH MD WESLEY CURRENTLY ON HOLD R/T [employer] FAMILY MEETING TO DISCUSS GOALS OF CARE AT 10:30AM TODAY; POSSIBLE PROCUREMENT CONSULTANT TRANSITION IF TF TO RE-START; RECOMMEND GLUCERNA 1.2 AT MAX GOAL RATE OF 60 ML PER HOUR WITH 120ML FREE WATER FLUSHES Q 6 HRS PROVIDES 1728 KCALS (2100KCALS WITH SEDATION; 36 KCALS/KG), 86.4G PROTEIN (1.5 G/KG), 1639 TOTAL ML FREE WATER FROM FORMULA AND FLUSHES (28ML/KG) MONITOR TOLERANCE AND LYTES FOLLOWING WITH TEAM
--- NOTE | 2025-04-15 10:23 | PM.CCPN ---
Subjective Subjective Date of Service: 04/15/25 Interval History: 69-year-old gentleman with underlying history of cerebral palsy, atomic megacolon status post colostomy, neurogenic bladder status post suprapubic catheter, chronic hyponatremia, legally blind, nonverbal at baseline, AFib on Eliquis, chronic kidney disease admitted on 04/01/2025 with alteration of mental status. On ER evaluation patient with significant hyponatremia requiring admission to the intensive care unit. Hospital course further complicated by pericardial effusion with tamponade, status post pericardial drainage placement, acute respiratory failure requiring intubation on 04/05/2025, now status post right-sided thoracentesis and bronchoscopic secretion clearance with improvement in respiratory status, however with pericardial drain occlusion not responsive to cath flow. Had pericardial drain check on 04/07/2025, showing essentially decompressed pericardium. After the drain check recorded drain was displaced and started draining air with no effect on patient's hemodynamics. Extubated uneventfully on 04/08/2025. However continued with recurrent aspirations requiring re-intubation on 04/10/2025. Repeat CT chest showing recurrent bilateral pleural effusions and pericardial effusion. Patient with poor response to IV diuresis. No events overnight. Critical Care Time (minutes): 60 Physical Exam Vital Signs: Vital Signs: Last Vital Signs Temp 100.0 F 04/15/25 09:00 Pulse 130 H 04/15/25 09:00 Resp 23 H 04/15/25 09:00 BP 108/52 L 04/15/25 09:00 Pulse Ox 94 04/15/25 09:00 O2 Del Method Mechanical Ventil ation 04/15/25 09:00 O2 Flow Rate 35 04/10/25 09:00 FiO2 70 04/15/25 09:00 BMI result Body Mass Index 28.7 Const: General: no acute distress Eyes: Sclerae: sclerae normal EOM: EOMs intact bilaterally Neck: Neck: Yes no lymphadenopathy, Yes trachea midline and Yes supple Resp: Auscultation: crackles (Bilateral) Cardio: Rate: tachycardic Rhythm: regular rhythm Heart sounds: no gallops, no murmurs and no rubs GI: Palpation (GI): Soft to palpation and Other GI palpation findings present ( Nontender) Auscultation: normal bowel sounds Extrem: General: No clubbing, No cyanosis and Yes edema (1+ bilateral) Objective Data Labs 04/15/25 04:44 04/15/25 04:44 Labs: Laboratory Results - last 24 hr 04/14/25 04/14/25 04/14/25 11:27 17:56 23:57 WBC RBC Hgb Hct MCV MCH MCHC RDW Plt Count MPV Immature Gran % (Auto) Neut % (Auto) Lymph % (Auto) [place] % (Auto) Eos % (Auto) Baso % (Auto) Lymph # (Auto) [place] # (Auto) Eos # (Auto) Baso # (Auto) Abs Immat Gran (auto) Absolute Neuts (auto) Absolute Nucleated RBC Nucleated RBC % (auto) Smear Tech's Comments VBG pH VBG pCO2 VBG pO2 VBG HCO3 VBG O2 Saturation VBG Base Excess Sodium Potassium Chloride Carbon Dioxide Anion Gap BUN Creatinine Estim Creat Clear Calc Estimated GFR POC Glucose 172 H 201 H 146 H Random Glucose Calcium Phosphorus Magnesium Albumin 04/15/25 04/15/25 04:44 04:57 WBC 10.7 RBC 2.73 L Hgb 7.6 L Hct 23.1 L MCV 84.6 MCH 27.8 MCHC 32.9 RDW 18.2 H Plt Count 282 MPV 8.4 L Immature Gran % (Auto) 0.5 H Neut % (Auto) 72.3 Lymph % (Auto) 10.[address] [place] % (Auto) 14.1 H Eos % (Auto) 2.7 Baso % (Auto) 0.2 Lymph # (Auto) 1.[address] [place] # (Auto) 1.5 H Eos # (Auto) 0.3 Baso # (Auto) 0.0 Abs Immat Gran (auto) 0.05 H Absolute Neuts (auto) 7.7 Absolute Nucleated RBC 0.000 Nucleated RBC % (auto) 0.0 Smear Tech's Comments VERIFIED VBG pH 7.42 VBG pCO2 25 VBG pO2 71 VBG HCO3 16 L VBG O2 Saturation 96.0 VBG Base Excess -6.2 Sodium 142 Potassium 3.6 Chloride 114 H Carbon Dioxide 17 L Anion Gap 15 BUN 44 H Creatinine 2.07 H Estim Creat Clear Calc 26.4 Estimated GFR 32 POC Glucose Random Glucose 140 H Calcium 8.5 Phosphorus 4.3 Magnesium 1.6 Albumin 3.3 L Microbiology Microbiology Results: Microbiology 04/05/25 15:36 Thoracentesis Fluid Gram Stain - Final 04/05/25 15:36 Thoracentesis Fluid Anaerobic Culture - Final NO GROWTH AFTER 5 DAYS 04/05/25 15:36 Thoracentesis Fluid Body Fluid Culture - Final No growth after 2 days 04/05/25 12:04 Bronch Rul Gram Stain - Final 04/05/25 12:04 Bronch Rul - Final No growth after 2 days 04/01/25 11:18 Blood - Venous Blood Culture - Final No growth after 5 days. 04/01/25 11:09 Blood - Venous Blood Culture - Final No growth after 5 days. 04/01/25 Unknown Urine Other - Suprapubic Urine Culture - Final Escherichia coli Klebsiella pneumoniae Progress Note: A&P Assessment and plan (1) Pericardial effusion: Status: Acute (2) Cerebral palsy: Status: Acute (3) Acute hypoxic respiratory failure: Status: Acute (4) Bilateral pleural effusion: Status: Acute (5) Pulmonary aspiration: Status: Acute Plan Assessment: 69-year-old gentleman with underlying cerebral palsy admitted with hyponatremia further complicated by pericardial tamponade and acute hypoxic respiratory failure. Plan: Neuro: No acute issues. Underlying cerebral palsy. Cardiac: Pericardial tamponade status post pericardial drain placement, now status post drainage and discontinuation of pericardial drain. Cardiology service care appreciated. Underlying AFib with RVR, now on amiodarone. Now with recurrent bilateral pleural effusions and pericardial effusion, however also approximately 15 L positive from admission, tried on diuretic challenge, with poor response. Will likely require pericardial window. Pulmonary: Extubated uneventfully on 04/08/2025. Required re-intubation for another aspiration event on 04/10/2025. Continue to titrate off ventilatory support as tolerated. Underlying pulmonary aspirations will likely require tracheostomy. Renal: No acute issues. Endo: No acute issues. GI: No acute issues. ID: Acute UTI versus colonization, also with pulmonary aspiration with aspiration pneumonitis versus pneumonia, continues on empiric Zosyn. Heme/Onc: No acute issues. Psych: No acute issues. Miscellaneous: Goals of care discussed with patient's guardian who wants to pursue court application for change of code status, now pending discussion with DDS. Prophylaxis: Eliquis, PPI Diet: Tube feeds Quality Stroke Does the patient have a stroke diagnosis?: No VTE Prior VTE?: No VTE Risk Level:: Medical - moderate - high VTE Device Contraindication: N/A - Device Ordered VTE Drug Contraindication: N/A - Med Ordered
[2025-04-15 11:37] LABS: Glucose, Whole Blood 160 mg/dL (60-115)
[2025-04-15] MEDS: Alteplase Cath Clear 2 MG/2 ML VIAL 1 MG INTRACATH ×3 (12:02→14:30)
--- NOTE | 2025-04-15 12:48 | HO.WOUND ---
Wound Consult: Follow up 69yr old? male admitted to [facility] – [place] on 04/01/25 - See progress notes and H&P for detailed history.? Wound consult placed for Sacral wound present on admission.? Chart and photo review completed along with nurse discussion on 04/01/25. 04/02/25 04/15/25 Sacrum Etiology: Resurfaced Stage 2 Pressure Injury ??Present on Admission Wound Bed: intact blanchable light purple tissue - closed at this time [place] wound: ?pink and hyperpigmented tissue noted - No Induration, Fluctuance or Warmth noted Goals of Treatment: ? Off Load Pressure and foam dressing to allow for protection from friction and moist wound healing. Direct care nurse notes the stoma to be of concern - appears prolapsed. The stoma was assessed and does appear mildly prolapsed at this time. There are pigmentation changes noted to the tissue - maroon darkened tissue color - Provider Aware. Of importance the patient abdomen is significantly distended there appears to be pressure exerted on the abdominal wall which maybe the result of the prolapse and significant scrotal and penial swelling. Goals of care discussion is on going meeting scheduled for today with provider, guardian and state. Pending the results of this meeting I would suggest imaging to determine etiology of prolapse given the pigmentation changes and distension of the abdomen concern for blood supply changes. The end of the stoma has some necrotic tissue noted however remains viable at this time. The pouch was cut to accommodate the mushroom end of the stoma and a barrier strip / ring was used to create a seal around the stoma and the pouch given the size the opening needed to be cut too. Template left at bedside for future use along with barrier strip paste. He was placed in a coloplast #[id number] cut to approximately 38mm round. Barrier strip paste used around the stoma. Recommendations: 1. Turn and Reposition every 2 hours and as needed for patient comfort.? Use pillows or wedges to support off loading positions. 2. Off Load all bony prominences with use of pillows and heel boots if needed.? Apply Preventative foams where needed. ? 3. Monitor for incontinence and moisture control, use barrier creams when needed for prevention and treatment. 4. Provide adequate and supplemental nutrition.? 5. Continue low air loss mattress. 6. When applicable maintain blood glucose levels per Providers order. Sacrum? - Off Load Pressure with Q2 hr turns and use of pillows - Routine cleansing.? Apply skin prep allow to dry.? Cover with foam dressing to aid in off loading and protection from friction. Change every 3 days and PRN. Re-consult wound care Nurse for wound deterioration or wound changes.
--- NOTE | 2025-04-15 13:49 | PM.CNGS ---
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 His hospital course has been significant for pericardial effusion with tamponade requiring pericardial drainage placement, acute respiratory failure requiring intubation, b/l pleural effusions with right-sided thoracentesis. He was extubated uneventfully on 04/08/2025 however continued with recurrent aspirations and requiring reintubation on 04/10/2025. Repeat CT chest showing recurrent bilateral pleural effusions and pericardial effusion. General surgery was consulted for possible ostomy necrosis. Today he was noticed to be increasingly distended with question of prolapse of his ostomy. He has been having less flatus and stool output. He has been on tube feeds however this has been held due to high residuals yesterday. Per chart review and RN, ostomy was performed multiple years prior. <Althea Husain PA-C - Last Filed: 04/15/25 14:13> Review of Systems Review of Systems: Yes Unobtainable due to mental condition <Althea Husain PA-C - Last Filed: 04/15/25 14:13> [facility] Past Medical History Medical History: Medical History (Updated 04/15/25 @ 16:09 by Jason Preston MD) Intestinal stoma prolapse Bacteriuria Neurogenic bladder Legally blind Cerebral palsy <Althea Husain PA-C - Last Filed: 04/15/25 14:13> Surgical History Surgical History: Surgical History S/P colostomy <OLIVIA Marrufo Last Filed: 04/15/25 14:13> Social History Social History: Social History Household Members: Other Housing: Other Housing Other:: Intermediate Do you presently have visiting nurse or other home services: Yes (lives in skilled nursing with staff.) Unable to assess alcohol history related to: Unable to respond Comment: skilled nursing staff in room Patient Tobacco Use Status: Never used Tobacco Use of substances other than those prescribed or required for medical reasons: Unable to respond Currently Displaying Signs/Symptoms of Drug Intoxication Withdrawal: No Advance Directives: No Advance Directives Information Provided: Yes Do you have a plan to hurt others: No Plan Eating poorly because of decreased appetite: Yes Nutrition Risks: Poor intake 0-25% >4 days and Receiving home tube feeding or CPN service: No <Althea Husain PA-C - Last Filed: 04/15/25 14:13> Meds Allergies/Adverse reactions: Allergies Allergy/AdvReac Type Severity Reaction Status Date / Time Cephalosporins Allergy Unknown UNKNOWN Verified 04/01/25 10:27 nitrofurantoin (From Allergy Unknown UNKNOWN Verified 04/01/25 10:27 MACROBID) NSAIDS (Non-Steroidal Allergy Unknown UNKNOWN Verified 04/01/25 10:27 Anti-Inflamma (Nsaids) Penicillins Allergy Unknown UNKNOWN Verified 04/01/25 10:27 pneumococcal vaccine (From Allergy Unknown UNKNOWN Verified 04/01/25 10:27 PNEUMOVAX 23) From Augmentin Allergy Unknown UNKNOWN Uncoded 01/03/25 09:12 From Tricor Allergy Unknown UNKNOWN Uncoded 01/03/25 09:12 <Althea Husain PA-C - Last Filed: 04/15/25 14:13> Active Medications: Current Medications Acetaminophen (Acetaminophen Oral Liquid 650 Mg/20.3 Ml Solution) 640 mg G-TUBE Q6H PRN PRN Reason: pain/fever Last Admin: 04/09/25 04:48 Dose: 640 mg Albuterol Sulfate (Albuterol Sulfate (0.083%) 2.5 Mg/3 Ml Vial.Neb) 2.5 mg INHALE Q6H [facility]HAM Last Admin: 04/15/25 08:19 Dose: Not Given Amiodarone HCl (Amiodarone Hcl 200 Mg Tablet) 400 mg PO BID SH[facility]HAM Last Admin: 04/15/25 09:26 Dose: Not Given Apixaban (Apixaban 5 Mg Tablet) 5 mg G-TUBE BID [facility] On Hold: 04/05/25 05:50 Last Admin: 04/04/25 23:24 Dose: 5 mg Aspirin (Aspirin 81 Mg Tab.Chew) 81 mg G-TUBE DAILY [facility]AM On Hold: 04/05/25 05:50 Last Admin: 04/04/25 08:33 Dose: 81 mg Baclofen (Baclofen 10 Mg Tablet) 5 mg G-TUBE TID SH[facility]HAM On Hold: 04/05/25 05:50 Last Admin: 04/04/25 23:23 Dose: 5 mg Chlorhexidine Gluconate (Chlorhexidine Gluc Oral Rinse 15 Ml Mouthwash) 15 ml BUCCAL TID [facility] Last Admin: 04/15/25 07:51 Dose: 15 ml Propofol (Diprivan) 1,000 mg in 100 mls @ 0 mls/hr IVCONT .Q0M [facility]; Protocol Last Admin: 04/15/25 08:33 Dose: 40 mcg/kg/min, 14.11 mls/hr Norepinephrine Bitartrate (Levophed) 8 mg in 250 mls @ 0 mls/hr IVCONT .Q0M [facility]; Protocol Last Admin: 04/15/25 05:36 Dose: 0.24 mcg/kg/min, 26.46 mls/hr Amiodarone HCl 900 mg/ Sodium (Chloride) 518 mls @ 17.267 mls/hr IVCONT .Q24H [facility]; Protocol Last Admin: 04/15/25 07:50 Dose: 0.5 mg/min, 17.27 mls/hr Albumin Human (Kedbumin 25 %) 100 mls @ 100 mls/hr IV Q6H [facility] Stop: 04/15/25 14:59 Last Infusion: 04/15/25 09:26 Dose: Infused Naloxone HCl (Naloxone Hcl 0.4 Mg/Ml Vial) 0.2 mg IVPUSH Q2M PRN PRN Reason: Excessive sedation or RR < 8 Pantoprazole Sodium (Pantoprazole Sodium 40 Mg/10 Ml Vial) 40 mg IVPUSH DAILY@0630 [facility] Last Admin: 04/15/25 05:37 Dose: 40 mg Sodium Chloride (0.9 % Sodium Chloride Flush 3 Ml Syringe) 3 ml IVFLUSH QSHIFT [facility] Last Admin: 04/15/25 07:52 Dose: 3 ml Valproic Acid (Valproic Acid Liquid 250 Mg/5 Ml Solution) 1,000 mg G-TUBE Q12H [facility] Last Admin: 04/15/25 05:37 Dose: 1,000 mg <Althea Husain PA-C - Last Filed: 04/15/25 14:13> Home medications: Home Medications ?Medication ?Instructions ?Recorded ?Confirmed ?Last Taken ?Type acetaminophen 160 mg/5 mL oral 640 mg feeding tube Q6H PRN 01/02/25 04/01/25 Unknown History suspension (Children's pain/fever Acetaminophen) aspirin 81 mg chewable tablet 1 tab feeding tube DAILY 01/02/25 04/01/25 Unknown History bacitracin zinc 500 unit/gram 1 appl topical BID PRN abrasions, 01/02/25 04/01/25 Unknown History topical ointment GT irritated skin carbamide peroxide 6.5 % ear drops 4 drp otic (ears) BID PRN for 5 01/02/25 04/01/25 Unknown History (Ear Wax Removal Drops) days monthly cetirizine 10 mg tablet 10 mg feeding tube DAILY 01/02/25 04/01/25 Unknown History fsyuvjizw-dwvV-hwakcob-FOS-bromelain 3 ml PO BID 01/02/25 04/01/25 Unknown History 1,937 mg-188 mg/15 mL oral liquid dextromethorphan-guaifenesin 10 10 ml feeding tube Q6H PRN Cough 01/02/25 04/01/25 Unknown History mg-100 mg/5 mL oral liquid (Tussin DM) diazepam 5 mg tablet 5 mg feeding tube DAILY PRN 1 hour 01/02/25 04/01/25 Unknown History prior to dental appointment ergocalciferol (vitamin D2) 1,250 1,250 mcg feeding tube FR@2100 01/02/25 04/01/25 01/02/25 History mcg (50,000 unit) capsule fluticasone propionate 50 2 spray intranasal DAILY 01/02/25 04/01/25 Unknown History mcg/actuation nasal spray,suspension ccynaxhelxt-cwywqkoyq-tra C-Mn 500 1 cap PO TID 01/02/25 04/01/25 Unknown History mg-400 mg capsule (Glucosamine Chondroitin Maximum Strength) lorazepam 1 mg tablet 1 mg feeding tube DAILY PRN 2 01/02/25 04/01/25 Unknown History hours prior to GT changes lorazepam 1 mg tablet 1 mg feeding tube DAILY PRN 2 01/02/25 04/01/25 Unknown History hours prior to podiatry foot care omeprazole 40 mg capsule,delayed 40 mg feeding tube BEDTIME 01/02/25 04/01/25 Unknown History release pravastatin 10 mg tablet 10 mg feeding tube BEDTIME 01/02/25 04/01/25 Unknown History simethicone 40 mg/0.6 mL oral 160 mg feeding tube TID 01/02/25 04/01/25 Unknown History drops,suspension (Infants Simethicone) valproic acid (as sodium salt) 250 1,000 mg feeding tube Q12H 01/02/25 04/01/25 01/03/25 History mg/5 mL oral solution apixaban 5 mg tablet (Eliquis) 5 mg feeding tube BID 04/01/25 04/01/25 Unknown History baclofen 10 mg tablet 5 mg feeding tube TID 04/01/25 04/01/25 Unknown History ketoconazole 2 % topical cream 1 appl topical BID 04/01/25 04/01/25 Unknown History loperamide 2 mg tablet 2 mg feeding tube BID PRN Loose 04/01/25 04/01/25 Unknown History Stool metformin 500 mg tablet 500 mg feeding tube BID 04/01/25 04/01/25 Unknown History metoprolol tartrate 25 mg tablet 12.5 mg feeding tube BID 04/01/25 04/01/25 Unknown History nystatin 100,000 unit/gram topical 1 appl topical TID PRN Flare Up or 04/01/25 04/01/25 Unknown History ointment Rash omega-3 fatty acids 1,000 mg 1,000 mg feeding tube DAILY 04/01/25 04/01/25 Unknown History capsule pediatric multivitamin 1 tab feeding tube DAILY 04/01/25 04/01/25 Unknown History zinc oxide 20 % topical ointment 1 appl topical 7XD 04/01/25 04/01/25 Unknown History <Althea Husain PA-C - Last Filed: 04/15/25 14:13> Physical Exam Vital Signs: Vital Signs: Last Vital Signs Temp 99.3 F 04/15/25 13:00 Pulse 74 04/15/25 13:00 Resp 25 H 04/15/25 13:00 BP 98/47 L 04/15/25 13:00 Pulse Ox 91 L 04/15/25 13:00 O2 Del Method Mechanical Ventil ation 04/15/25 13:00 O2 Flow Rate 35 04/10/25 09:00 FiO2 70 04/15/25 13:00 BMI result Body Mass Index 28.7 <OLIVIA Marrufo Last Filed: 04/15/25 14:13> Resp: Other: intubated on vent <OLIVIA Marrufo Last Filed: 04/15/25 14:13> GI: Other: distended abdomen, tympanitic abd soft ostomy edematous with very small amount of dusky appearing mucosa scant stool in appliance <OLIVIA Marrufo Last Filed: 04/15/25 14:13> Palpation (GI): no guarding and not rigid <OLIVIA Marrufo Last Filed: 04/15/25 14:13> : Other: scrotal edema <OLIVIA Marrufo Last Filed: 04/15/25 14:13> Results Labs Result diagrams: 04/15/25 04:44 04/15/25 04:44 <OLIVIA Marrufo Last Filed: 04/15/25 14:13> Labs: Abnormal lab results 04/14/25 04/14/25 04/15/25 Range/Units 17:56 23:57 04:44 RBC 2.73 L (4.60-5.80) X10*6/uL Hgb 7.6 L (14.0-18.0) g/dl Hct 23.1 L (42.0-52.0) % RDW 18.2 H (11.0-16.0) % MPV 8.4 L (9.4-12.4) fL Immature Gran % (Auto) 0.5 H (0.0-0.4) % Lymph % (Auto) 10.2 L (20-40) % [place] % (Auto) 14.1 H (2-11) % Lymph # (Auto) 1.1 L (1.2-4.9) X10*3/uL [place] # (Auto) 1.5 H (0.1-1.2) X10*3/uL Abs Immat Gran (auto) 0.05 H (0.00-0.03) X10*3/uL VBG HCO3 (22-26) mmol/L Chloride 114 H (96-108) mmol/L Carbon Dioxide 17 L (22-29) mmol/L BUN 44 H (9-16) mg/dL Creatinine 2.07 H (0.5-1.4) mg/dL POC Glucose 201 H 146 H (60-115) mg/dL Random Glucose 140 H (60-115) mg/dL Albumin 3.3 L (3.5-5.0) g/dL 04/15/25 04/15/25 Range/Units 04:57 11:34 RBC (4.60-5.80) X10*6/uL Hgb (14.0-18.0) g/dl Hct (42.0-52.0) % RDW (11.0-16.0) % MPV (9.4-12.4) fL Immature Gran % (Auto) (0.0-0.4) % Lymph % (Auto) (20-40) % [place] % (Auto) (2-11) % Lymph # (Auto) (1.2-4.9) X10*3/uL [place] # (Auto) (0.1-1.2) X10*3/uL Abs Immat Gran (auto) (0.00-0.03) X10*3/uL VBG HCO3 16 L (22-26) mmol/L Chloride (96-108) mmol/L Carbon Dioxide (22-29) mmol/L BUN (9-16) mg/dL Creatinine (0.5-1.4) mg/dL POC Glucose 160 H (60-115) mg/dL Random Glucose (60-115) mg/dL Albumin (3.5-5.0) g/dL Short CBC 04/15/25 Range/Units 04:44 WBC 10.7 (4.8-10.8) X10*3/uL Hgb 7.6 L (14.0-18.0) g/dl Hct 23.1 L (42.0-52.0) % Plt Count 282 (160-400) X10*3/uL BMP 04/15/25 04:44 Sodium 142 Potassium 3.6 Chloride 114 H Carbon Dioxide 17 L BUN 44 H Creatinine 2.07 H Calcium 8.5 Liver Function 04/15/25 Range/Units 04:44 Albumin 3.3 L (3.5-5.0) g/dL Urine 04/01/25 Range/Units 11:56 Urine Color Yellow Urine Appearance Turbid Urine pH 6.5 (5.0-9.0) Ur Specific [place] 1.015 (1.005-1.025) Urine Protein 100 (2+) H (Neg-Trace) mg/dL Urine Glucose (UA) Negative (Negative) mg/dL All other labs normal. <Alteha Hsuain PA-C - Last Filed: 04/15/25 14:13> Assessment and Plan (1) S/P colostomy: Status: Acute <Althea Husain PA-C - Last Filed: 04/15/25 14:13> (2) Intestinal stoma prolapse: Status: Acute <Althea Husain PA-C - Last Filed: 04/15/25 14:13> 69-year-old male with multiple medical problems described above He had been in the ICU since 04/01/2025 after being admitted for altered mental status He had hyponatremia at that time He has also been managed for pleural effusions, pericardial effusion, and has been on pressors He also has a PEG tube an old stoma for toxic megacolon His abdomen was described to be more distended than usual and he had some high output from his stoma There were also note of prolapse of this stoma was surgery was consulted He remains on pressors Abdomen is distended but soft with no guarding or rebound There is some prolapse of his stoma but this is viable and not necrotic He has good output this afternoon and examination Currently, there is no surgical intervention necessary for her stoma He also presents with perioperative risks for surgery According to staff, comfort measures being discussed with his court-appointed healthcare proxy Continue current supportive care Seen and examined independently <Jason Preston MD - Last Filed: 04/15/25 16:13> 69 year old male with multiple medical comorbidities admitted with AMS found to have severe hyponatremia, large pericardial effusion and tamponade, b/l pleural effusions. He has ostomy in place for chronic atonic megacolon which was performed years ago. General surgery was consulted for change in ostomy today. There is a very small amount of dusky appearing tissue however ostomy viable appearing centrally and continues to function. He has diffise significant edema and ostomy itself is also edematous. He is distended and may have an ileus given the high residuals. Can continue to hold tube feeds. Will continue to follow but no surgical intervention currently necessary in this acutely ill patient. <Althea Husain PA-C - Last Filed: 04/15/25 14:13> Procedures Date of Service Date of Service: 04/15/25 <Althea Husain PA-C - Last Filed: 04/15/25 14:13> 04/15/25 <Jason Preston MD - Last Filed: 04/15/25 16:13>
--- NOTE | 2025-04-15 15:29 | MHC.CM.ED ---
Patient remains in ICU. Plan of care meeting completed with Dr Mccann, guardian and DDS. 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 Tanesha Gallegos, director aware. Continue to monitor for d/c needs.
--- NOTE | 2025-04-15 17:50 | PC.NURSE ---
Assumed care of patient 0700. Per MD in 0900 rounds, continue to told tube feeds for patient. Patient has increasing levophed needs. Wound/program rep notified of change in patient ostomy appearance, slight prolapse, dusky color to distal aspect. 09:45 This RN and Wound RN together at bedside to assess pt skin and ostomy. Ostomy bag changed, see skin photo of site. Skin inspected and total bed bath provided with bath and CHG wipes. 10:30 Goals of care meeting took place with ICU MD, individual small group instructor and RN, Legal guardian, DDS. Plan to petition to court to change code status to Comfort Measures Only. Patient continued with Full Code status this shift. Approx 12:00 General surgery consult PA to patient bedside to assess abdomen and ostomy. Per PA, continue to hold tube feeds, monitor stool output volume. Reported to MD that white and blue ports of TLC have sluggish flow, sluggish blood return to blue port, no blood return to white port. CathFlow ordered and administered 1mg per lumen. White and blue ports instilled approx 12:04 and 12:20 until 13:40. Red port Cath flow instilled approx 14:30-15:30. Cath flow aspirated from each lumen. Positive blood return on all 3 lumens. White and red ports flush smoothly. Blue port remains sluggish with flush. supervisor print line and several visitors at bedside approx 17:00 to visit patient. Patient repositioned Q2HR, high fall precautions in place.
[2025-04-15 17:51] LABS: Glucose, Whole Blood 150 mg/dL (60-115)
[2025-04-15] MEDS: Acetaminophen Oral Liquid 650 MG/20.3 ML SOLUTION 640 MG G-TUBE (18:27)
--- NOTE | 2025-04-15 19:09 | PC.NURSE ---
NEDS Case Opened Plan of care to petition to court for code status change to Comfort Measures. Legal guardian is Sammie Rodriguez. NEDS Referral # [id number] Name: Rocio WASHBURN please call if patient becomes more unstable or if move forward with code status change. Call prior to changes in ventilator support.
[2025-04-15 19:51] LABS: GASOB Int Neg Ctl Valid YES; GASOB Int Pos Ctl Valid YES
[2025-04-15 19:52] LABS: GASOB Lot 20632
[2025-04-15 19:57] LABS: Hematocrit 23.8 % (42.0-52.0); Hemoglobin 7.7 g/dl (14.0-18.0); Mean Corpuscular HGB Conc 32.4 g/dl (31.0-36.0); Mean Corpuscular Hemoglobin 27.3 pg (27.0-33.0); Mean Corpuscular Volume 84.4 fL (80.0-98.0); NRBC Abs Auto 0.000 X10*3/uL (0.0-0.012); NRBC Pct Auto 0.0 /100WBC (0.0-0.2); Platelet Count 270 X10*3/uL (160-400); Red Blood Count 2.82 X10*6/uL (4.60-5.80); White Blood Count 14.2 X10*3/uL (4.8-10.8)
[2025-04-15 20:03] LABS: Anion Gap 13 (12-20); Blood Urea Nitrogen 47 mg/dL (9-16); Calcium 8.6 mg/dL (8.4-10.2); Carbon Dioxide 18 mmol/L (22-29); Chloride 114 mmol/L (96-108); Creatinine Clr Calc Pharmacy 25.1; Estimated Glomerular Filt Rate 30; Magnesium 1.5 mg/dL (1.6-2.6); Potassium 3.2 mmol/L (3.3-5.1); Sodium 142 mmol/L (135-145)
[2025-04-15] MEDS: Potassium Chloride/H20 40 MEQ/100 ML PIGGYBACK 50 MEQ IV (20:22)
[2025-04-15] MEDS: Vasopressin 20 UNIT/100 ML INFUS..BTL 12 UNIT IVCONT (20:29)
[2025-04-15 21:01] LABS: Band Neutrophils Percent 24 % (3-5); Eosinophils Absolute Manual 0.3 X10*3/uL (0.0-0.4); Eosinophils Percent Manual 2 % (0-4); Lymphocytes Absolute Manual 0.7 X10*3/uL (1.2-4.9); Lymphocytes Percent Manual 5 % (20-40); Metamyelocytes Absolute 0.3 X10*3/uL; Metamyelocytes Percent 2 %; Monocytes Absolute Manual 1.8 X10*3/uL (0.1-1.2); Monocytes Percent Manual 13 % (2-11); Myelocytes Absolute 0.1 X10*/uL; Myelocytes Percent 1 %; Neutrophils Absolute Manual 10.9 X10*3/uL (2.0-8.3); Neutrophils Percent Manual 53 % (45-73)
[2025-04-15 21:03] LABS: Ovalocytes 1+ (5-14) /OIF; RBC Morphology NOTED; Tear Drop Cells 1+ (0-2) /OIF
[2025-04-15 21:04] LABS: Dohle Bodies PRESENT; Polychromasia 1+ (0-2) /OIF
[2025-04-15] MEDS: Furosemide 20 MG/2 ML VIAL IVPUSH (22:13)
[2025-04-15 23:25] LABS: Glucose, Whole Blood 170 mg/dL (60-115)
[2025-04-16] VITALS (51 sets, daily range): BP systolic 101–130; BP diastolic 43–65; PULSE 55–71; RESP 15–30; TEMP 34.9–37.4; O2SAT 90–97; BMI 30.2
[2025-04-16] MEDS: 0.9 % Sodium Chloride Flush 3 ML SYRINGE IVFLUSH ×3 (00:30→15:06)
[2025-04-16] MEDS: Albuterol Sulfate (0.083%) 2.5 MG/3 ML VIAL.NEB INHALE ×3 (01:18→15:24)
[2025-04-16] MEDS: Vasopressin 20 UNIT/100 ML INFUS..BTL 12 UNIT IVCONT ×4 (02:00→23:51)
--- NOTE | 2025-04-16 02:43 | PC.NURSE ---
CARE ASSUMED 7PM..REMAINS INTUBATED/VCV VENT SUPPORT....AC 20/TV 300...FIO2 TITRATED FROM 70% TO 80% FOR SAO2 87% FOLLOWED BY PEEP INCREASED FROM 8CM TO 10CM PER PROVIDER..SAO2 GOAL 88% OR GREATER PER PROVIDER..SAO2 IMPROVED TO 91-92%..SUCTIONED SCANT WHITE SPUTUM VIA ETT...REMAINS SEDATED WITH PROPOFOL DRIP PER NOV...SBP/MAP MARGINAL..LEVOPHED TITRATED FROM 0.28 MCG/KG/MIN TO 0.3 MCG/KG/MIN W/O IMPROVEMENT..VASOPRESSIN DRIP INITIATED AT 0.04 UNITS/MIN WITH IMPROVED BP WITH SBP 120'S-130'S...MAP70'S-80'S..SUPRAPUBIC OUTPUT DECREASED ON PREVIOUS SHIFT PER REPORT..URINE OUTPUT DOWN TO 8 CC 8PM..LASIX 20MG IV X1 PER PROVIDER....ABDOMEN REMAINS DISTENDED AND FORM..NO BOWEL SOUNDS AUSCULTATED..COLOSTOMY STOMA REMAINS PROLAPSED AND SOMEWHAT DISCOLOURED PER REPORT...COLOSTOMY WITH SMALL AMOUNT BROWN LIQUIED DRAINAGE...TUBE FEEDS REMAIN ON HOLD...PEG ASPIRATED FOR 450ML BROWN DRAINAGE..GUIAC (+)..PROVIDER AWARE..STARTED PROTONIX IV BID...ADDITIONAL BILIOUS COLOURED DRAINAGE ASPIRATED OVERNIGHT..PER PROVIDER TO HOLD PO/PEG MEDS..URINE OUTPUT IMPROVED TO APPROX 50 CC/HR..STARTING TO WEAN LEVOPHED DRIP PER PROVIDER..REMAINS NSR..NO ECTOPY..AMIODARONE DRIP REMAINS 0.5 MG/MIN...KCL AND MgSO4 IV GIVEN PER NOV...HS LABS DRAWN AND REVIEWED BY PROVIDER...NEW IVA ORGAN BANK PREVIOUSLY UPDATED BY DAY SHIFT RN PER REPORT
[2025-04-16 04:59] LABS: VBG HCO3 16 mmol/L (22-26); VBG O2 % Saturation 76.0 %
[2025-04-16 05:00] LABS: Venous Blood Gas Refer to POC result
[2025-04-16 05:09] LABS: Hematocrit 24.5 % (42.0-52.0); Hemoglobin 8.1 g/dl (14.0-18.0); Mean Corpuscular HGB Conc 33.1 g/dl (31.0-36.0); Mean Corpuscular Hemoglobin 27.8 pg (27.0-33.0); Mean Corpuscular Volume 84.2 fL (80.0-98.0); NRBC Abs Auto 0.000 X10*3/uL (0.0-0.012); NRBC Pct Auto 0.0 /100WBC (0.0-0.2); Platelet Count 262 X10*3/uL (160-400); Red Blood Count 2.91 X10*6/uL (4.60-5.80); White Blood Count 15.7 X10*3/uL (4.8-10.8)
[2025-04-16 05:29] LABS: Albumin Level 3.4 g/dL (3.5-5.0); Anion Gap 17 (12-20); Atypical Lymph Absolute Manual 0.2 x10*3/uL; Atypical Lymphs Percent Manual 1 % (0-6); Band Neutrophils Percent 22 % (3-5); Blood Urea Nitrogen 47 mg/dL (9-16); Calcium 8.5 mg/dL (8.4-10.2); Carbon Dioxide 16 mmol/L (22-29); Chloride 111 mmol/L (96-108); Creatinine Clr Calc Pharmacy 25.5; Estimated Glomerular Filt Rate 30; Lymphocytes Absolute Manual 0.6 X10*3/uL (1.2-4.9); Lymphocytes Percent Manual 4 % (20-40); Magnesium 1.8 mg/dL (1.6-2.6); Monocytes Absolute Manual 1.3 X10*3/uL (0.1-1.2); Monocytes Percent Manual 8 % (2-11); Neutrophils Absolute Manual 13.7 X10*3/uL (2.0-8.3); Neutrophils Percent Manual 65 % (45-73); Potassium 4.1 mmol/L (3.3-5.1); Sodium 140 mmol/L (135-145)
[2025-04-16 05:30] LABS: Hypochromasia 1+ (5-14) /OIF; Ovalocytes 1+ (5-14) /OIF; Polychromasia 1+ (0-2) /OIF; RBC Morphology NOTED; Tear Drop Cells 1+ (0-2) /OIF; Toxic Vacuolation PRESENT
[2025-04-16] MEDS: Chlorhexidine Gluc Oral Rinse 15 ML MOUTHWASH BUCCAL ×3 (08:47→21:54)
--- NOTE | 2025-04-16 09:52 | PM.CCPN ---
Subjective Subjective Date of Service: 04/16/25 Interval History: 69-year-old gentleman with underlying history of cerebral palsy, atomic megacolon status post colostomy, neurogenic bladder status post suprapubic catheter, chronic hyponatremia, legally blind, nonverbal at baseline, AFib on Eliquis, chronic kidney disease admitted on 04/01/2025 with alteration of mental status. On ER evaluation patient with significant hyponatremia requiring admission to the intensive care unit. Hospital course further complicated by pericardial effusion with tamponade, status post pericardial drainage placement, acute respiratory failure requiring intubation on 04/05/2025, now status post right-sided thoracentesis and bronchoscopic secretion clearance with improvement in respiratory status, however with pericardial drain occlusion not responsive to cath flow. Had pericardial drain check on 04/07/2025, showing essentially decompressed pericardium. After the drain check recorded drain was displaced and started draining air with no effect on patient's hemodynamics. Extubated uneventfully on 04/08/2025. However continued with recurrent aspirations requiring re-intubation on 04/10/2025. Repeat CT chest showing recurrent bilateral pleural effusions and pericardial effusion. Patient with poor response to IV diuresis. No events overnight. Now with worsening renal function, development of metabolic acidosis, and increased feculent output through the PEG tube. Critical Care Time (minutes): 60 Physical Exam Vital Signs: Vital Signs: Last Vital Signs Temp 98.1 F 04/16/25 09:00 Pulse 63 04/16/25 09:00 Resp 24 H 04/16/25 09:00 BP 116/49 L 04/16/25 09:00 Pulse Ox 93 04/16/25 09:00 O2 Del Method Mechanical Ventil ation 04/16/25 09:00 O2 Flow Rate 35 04/10/25 09:00 FiO2 80 04/16/25 09:00 BMI result Body Mass Index 30.2 Const: General: no acute distress and other (Sedated on ventilatory support) Eyes: Sclerae: sclerae normal EOM: EOMs intact bilaterally Neck: Neck: Yes no lymphadenopathy, Yes trachea midline and Yes supple Resp: Auscultation: crackles (Diffuse bilateral) Cardio: Rate: regular rate Rhythm: regular rhythm Heart sounds: no gallops, no murmurs and no rubs GI: Inspection: Yes G-tube present Palpation (GI): Soft to palpation and Other GI palpation findings present ( Nontender) Auscultation: Hypoactive bowel sounds present Extrem: General: No clubbing, No cyanosis and Yes edema (2+ bilateral) Objective Data Labs 04/16/25 04:49 04/16/25 04:49 Labs: Laboratory Results - last 24 hr 04/15/25 04/15/25 04/15/25 11:34 17:47 19:35 WBC RBC Hgb Hct MCV MCH MCHC RDW Plt Count MPV Immature Gran % (Auto) Neut % (Auto) Lymph % (Auto) Franklin % (Auto) Eos % (Auto) Baso % (Auto) Lymph # (Auto) Franklin # (Auto) Eos # (Auto) Baso # (Auto) Abs Immat Gran (auto) Absolute Neuts (auto) Absolute Nucleated RBC Nucleated RBC % (auto) Neutrophils % (Manual) Band Neutrophils % Lymphocytes % (Manual) Atypical Lymphs % (Man) Monocytes % (Manual) Eosinophils % (Manual) Metamyelocytes % Myelocytes % Abs Neuts (Manual) Lymphocytes # (Manual) Atyp Lymphs # (Manual) Monocytes # (Manual) Eosinophils # (Manual) Metamyelocytes # Myelocytes # Toxic Vacuolation Dohle Bodies Platelet Estimate Plt Morphology Comment RBC Morphology Polychromasia Hypochromasia Tear Drop Cells Ovalocytes Smear Tech's Comments VBG pH VBG pCO2 VBG pO2 VBG HCO3 VBG O2 Saturation VBG Base Excess Sodium Potassium Chloride Carbon Dioxide Anion Gap BUN Creatinine Estim Creat Clear Calc Estimated GFR POC Glucose 160 H 150 H Random Glucose Lactic Acid Calcium Phosphorus Magnesium Albumin Gastric Occult Blood POSITIVE 04/15/25 04/15/25 04/16/25 19:40 23:22 04:49 WBC 14.2 H 15.7 H RBC 2.82 L 2.91 L Hgb 7.7 L 8.1 L Hct 23.8 L 24.5 L MCV 84.4 84.2 MCH 27.3 27.8 MCHC 32.4 33.1 RDW 18.0 H 18.2 H Plt Count 270 262 MPV 8.9 L 9.1 L Immature Gran % (Auto) Cancelled Cancelled Neut % (Auto) Cancelled Cancelled Lymph % (Auto) Cancelled Cancelled Franklin % (Auto) Cancelled Cancelled Eos % (Auto) Cancelled Cancelled Baso % (Auto) Cancelled Cancelled Lymph # (Auto) Cancelled Cancelled Franklin # (Auto) Cancelled Cancelled Eos # (Auto) Cancelled Cancelled Baso # (Auto) Cancelled Cancelled Abs Immat Gran (auto) Cancelled Cancelled Absolute Neuts (auto) Cancelled Cancelled Absolute Nucleated RBC 0.000 0.000 Nucleated RBC % (auto) 0.0 0.0 Neutrophils % (Manual) 53 65 Band Neutrophils % 24 H 22 H Lymphocytes % (Manual) 5 L 4 L Atypical Lymphs % (Man) 1 Monocytes % (Manual) 13 H 8 Eosinophils % (Manual) 2 Metamyelocytes % 2 Myelocytes % 1 Abs Neuts (Manual) 10.9 H 13.7 H Lymphocytes # (Manual) 0.7 L 0.6 L Atyp Lymphs # (Manual) 0.2 Monocytes # (Manual) 1.8 H 1.3 H Eosinophils # (Manual) 0.3 Metamyelocytes # 0.3 Myelocytes # 0.1 Toxic Vacuolation PRESENT Dohle Bodies PRESENT Platelet Estimate NORMAL NORMAL Plt Morphology Comment NORMAL NORMAL RBC Morphology NOTED NOTED Polychromasia 1+ (0-2) 1+ (0-2) Hypochromasia 1+ (5-14) Tear Drop Cells 1+ (0-2) 1+ (0-2) Ovalocytes 1+ (5-14) 1+ (5-14) Smear Tech's Comments MANUAL DIFF VBG pH VBG pCO2 VBG pO2 VBG HCO3 VBG O2 Saturation VBG Base Excess Sodium 142 140 Potassium 3.2 L 4.1 D Chloride 114 H 111 H Carbon Dioxide 18 L 16 L Anion Gap 13 17 BUN 47 H 47 H Creatinine 2.19 H 2.21 H Estim Creat Clear Calc 25.1 25.5 Estimated GFR 30 30 POC Glucose 170 H Random Glucose 166 H 185 H Lactic Acid Calcium 8.6 8.5 Phosphorus 3.9 4.5 Magnesium 1.5 L 1.8 Albumin 3.4 L Gastric Occult Blood 04/16/25 04/16/25 04:54 09:18 WBC RBC Hgb Hct MCV MCH MCHC RDW Plt Count MPV Immature Gran % (Auto) Neut % (Auto) Lymph % (Auto) Franklin % (Auto) Eos % (Auto) Baso % (Auto) Lymph # (Auto) Franklin # (Auto) Eos # (Auto) Baso # (Auto) Abs Immat Gran (auto) Absolute Neuts (auto) Absolute Nucleated RBC Nucleated RBC % (auto) Neutrophils % (Manual) Band Neutrophils % Lymphocytes % (Manual) Atypical Lymphs % (Man) Monocytes % (Manual) Eosinophils % (Manual) Metamyelocytes % Myelocytes % Abs Neuts (Manual) Lymphocytes # (Manual) Atyp Lymphs # (Manual) Monocytes # (Manual) Eosinophils # (Manual) Metamyelocytes # Myelocytes # Toxic Vacuolation Dohle Bodies Platelet Estimate Plt Morphology Comment RBC Morphology Polychromasia Hypochromasia Tear Drop Cells Ovalocytes Smear Tech's Comments VBG pH 7.30 L VBG pCO2 33 VBG pO2 51 VBG HCO3 16 L VBG O2 Saturation 76.0 VBG Base Excess -8.7 Sodium Potassium Chloride Carbon Dioxide Anion Gap BUN Creatinine Estim Creat Clear Calc Estimated GFR POC Glucose Random Glucose Lactic Acid 1.1 Calcium Phosphorus Magnesium Albumin Gastric Occult Blood Microbiology Microbiology Results: Microbiology 04/05/25 15:36 Thoracentesis Fluid Gram Stain - Final 04/05/25 15:36 Thoracentesis Fluid Anaerobic Culture - Final NO GROWTH AFTER 5 DAYS 04/05/25 15:36 Thoracentesis Fluid Body Fluid Culture - Final No growth after 2 days 04/05/25 12:04 Bronch Rul Gram Stain - Final 04/05/25 12:04 Bronch Rul - Final No growth after 2 days 04/01/25 11:18 Blood - Venous Blood Culture - Final No growth after 5 days. 04/01/25 11:09 Blood - Venous Blood Culture - Final No growth after 5 days. 04/01/25 Unknown Urine Other - Suprapubic Urine Culture - Final Escherichia coli Klebsiella pneumoniae Progress Note: A&P Assessment and plan (1) Pericardial effusion: Status: Acute (2) Intestinal stoma prolapse: Status: Acute (3) Cerebral palsy: Status: Acute (4) Acute hypoxic respiratory failure: Status: Acute (5) Pulmonary aspiration: Status: Acute (6) Bilateral pleural effusion: Status: Acute (7) ARPIT (acute kidney injury): Status: Acute Plan Assessment: 69-year-old gentleman with underlying cerebral palsy admitted with hyponatremia further complicated by pericardial tamponade and acute hypoxic respiratory failure. Plan: Neuro: No acute issues. Underlying cerebral palsy. Cardiac: Pericardial tamponade status post pericardial drain placement, now status post drainage and discontinuation of pericardial drain. Cardiology service care appreciated. Underlying AFib with RVR, now on amiodarone. Now with recurrent bilateral pleural effusions and pericardial effusion, however also approximately 15 L positive from admission, tried on diuretic challenge, with poor response. Will likely require pericardial window. Pulmonary: Extubated uneventfully on 04/08/2025. Required re-intubation for another aspiration event on 04/10/2025. Continue to titrate off ventilatory support as tolerated. Underlying pulmonary aspirations will likely require tracheostomy. Renal: Worsening renal failure now with metabolic acidosis. Non oliguric. Continue to monitor renal indices and urine output. Endo: No acute issues. GI: Unable to tolerate tube feeds, now with feculent output through the PEG tube. General surgery service care appreciated. ID: Acute UTI versus colonization, also with pulmonary aspiration with aspiration pneumonitis versus pneumonia, continues on empiric Zosyn. Heme/Onc: No acute issues. Psych: No acute issues. Miscellaneous: Meeting with DDS representatives/mcc/patient is guarding held in overall poor clinical prognosis discussed including need for tracheostomy and possible additional invasive procedures. At that time mcc/patient guardian expressed believe that that would be inconsistent with patient's wishes and would significantly worsen patient quality of life that he would not have wanted at that time patient's guarding/group on/DTS representatives agree that pursuing an alteration in goals of care to comfort measures would be in patient's best interest. Application to expand guardians ability to change code status is pending filing with court. Prophylaxis: Eliquis, PPI Diet: NPO Quality Stroke Does the patient have a stroke diagnosis?: No VTE Prior VTE?: No VTE Risk Level:: Medical - moderate - high VTE Device Contraindication: N/A - Device Ordered VTE Drug Contraindication: N/A - Med Ordered
[2025-04-16 11:45] LABS: Glucose, Whole Blood 166 mg/dL (60-115)
--- NOTE | 2025-04-16 14:14 | MHC.CM.PN ---
Pt remains intubated: now with worsening renal function, not responsive to diuresing (+16 liters) and feculent peg tube drainage. 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 Awaiting court date for hearing at this time. CM to follow.
--- NOTE | 2025-04-16 14:31 | P.PNGS_ITS ---
Subjective Subjective Date of Service: 04/16/25 Interval history: Remains intubated On pressors Reported to have a high peg tube output overnight Physical Exam 2 Vital Signs: Vital Signs: Last Vital Signs Temp 97.9 F 04/16/25 14:00 Pulse 59 04/16/25 14:00 Resp 20 04/16/25 14:00 BP 109/54 L 04/16/25 14:00 Pulse Ox 92 04/16/25 14:00 O2 Del Method Mechanical Ventil ation 04/16/25 14:00 O2 Flow Rate 35 04/10/25 09:00 FiO2 70 04/16/25 14:00 BMI result Body Mass Index 30.2 Const: Other: Intubated on ventilator, sedated Resp: Other: On ventilator Cardio: Rate: regular rate GI: Other: Distended but soft no guarding no rebound peg tube in place Objective Data Active Medications Acetaminophen (Acetaminophen Oral Liquid 650 Mg/20.3 Ml Solution) 640 mg G-TUBE Q6H PRN PRN Reason: pain/fever Last Admin: 04/15/25 18:27 Dose: 640 mg Documented By: MONICA Albuterol Sulfate (Albuterol Sulfate (0.083%) 2.5 Mg/3 Ml Vial.Neb) 2.5 mg INHALE Q6H [facility] Last Admin: 04/16/25 07:48 Dose: 2.5 mg Documented By: ANGIE Amiodarone HCl (Amiodarone Hcl 200 Mg Tablet) 400 mg PO BID [facility] Last Admin: 04/16/25 08:17 Dose: Not Given Documented By: MARCO Non-Admin Reason: NPO Apixaban (Apixaban 5 Mg Tablet) 5 mg G-TUBE BID [facility] On Hold: 04/05/25 05:50 Last Admin: 04/04/25 23:24 Dose: 5 mg Documented By: REBECCA Comments: Late administration due to emergent intubation with use of paralytic Aspirin (Aspirin 81 Mg Tab.Chew) 81 mg G-TUBE DAILY [facility] On Hold: 04/05/25 05:50 Last Admin: 04/04/25 08:33 Dose: 81 mg Documented By: KIMO Baclofen (Baclofen 10 Mg Tablet) 5 mg G-TUBE TID [facility] On Hold: 04/05/25 05:50 Last Admin: 04/04/25 23:23 Dose: 5 mg Documented By: REBECCA Comments: Late administration due to emergent intubation with use of paralytic Chlorhexidine Gluconate (Chlorhexidine Gluc Oral Rinse 15 Ml Mouthwash) 15 ml BUCCAL TID [facility] Last Admin: 04/16/25 08:47 Dose: 15 ml Documented By: MARCO Propofol (Diprivan) 1,000 mg in 100 mls @ 0 mls/hr IVCONT .Q0M [facility]; Protocol Last Admin: 04/16/25 08:50 Dose: 30 mcg/kg/min, 10.58 mls/hr Documented By: MARCO Norepinephrine Bitartrate (Levophed) 8 mg in 250 mls @ 0 mls/hr IVCONT .Q0M [facility]; Protocol Last Admin: 04/16/25 13:23 Dose: 0.16 mcg/kg/min, 17.64 mls/hr Documented By: MARCO Amiodarone HCl 900 mg/ Sodium (Chloride) 518 mls @ 17.267 mls/hr IVCONT .Q24H [facility]; Protocol Last Admin: 04/16/25 02:28 Dose: 0.5 mg/min, 17.27 mls/hr Documented By: FELIX Vasopressin (Vasostrict) 20 unit in 100 mls @ 12 mls/hr IVCONT .Q8H20M [facility]; Protocol Last Admin: 04/16/25 10:19 Dose: Not Given Documented By: MARCO Non-Admin Reason: IV Running Naloxone HCl (Naloxone Hcl 0.4 Mg/Ml Vial) 0.2 mg IVPUSH Q2M PRN PRN Reason: Excessive sedation or RR < 8 Pantoprazole Sodium (Pantoprazole Sodium 40 Mg/10 Ml Vial) 40 mg IVPUSH BID@0630,1630 [facility] Last Admin: 04/16/25 05:46 Dose: 40 mg Documented By: FELIX Sodium Chloride (0.9 % Sodium Chloride Flush 3 Ml Syringe) 3 ml IVFLUSH QSHIFT [facility] Last Admin: 04/16/25 08:00 Dose: 3 ml Documented By: MARCO Valproic Acid (Valproic Acid Liquid 250 Mg/5 Ml Solution) 1,000 mg G-TUBE Q12H [facility] Last Admin: 04/16/25 04:12 Dose: Not Given Documented By: FELIX Non-Admin Reason: Physician Held Med Labs 04/16/25 04:49 04/16/25 04:49 Labs: Laboratory Results - last 24 hr 04/15/25 04/15/25 04/15/25 17:47 19:35 19:40 MCV 84.4 MCH 27.3 MCHC 32.4 RDW 18.0 H Plt Count 270 MPV 8.9 L Immature Gran % (Auto) Cancelled Neut % (Auto) Cancelled Lymph % (Auto) Cancelled Becker % (Auto) Cancelled Eos % (Auto) Cancelled Baso % (Auto) Cancelled Lymph # (Auto) Cancelled Becker # (Auto) Cancelled Eos # (Auto) Cancelled Baso # (Auto) Cancelled Abs Immat Gran (auto) Cancelled Absolute Neuts (auto) Cancelled Absolute Nucleated RBC 0.000 Nucleated RBC % (auto) 0.0 Neutrophils % (Manual) 53 Band Neutrophils % 24 H Lymphocytes % (Manual) 5 L Atypical Lymphs % (Man) Monocytes % (Manual) 13 H Eosinophils % (Manual) 2 Metamyelocytes % 2 Myelocytes % 1 Abs Neuts (Manual) 10.9 H Lymphocytes # (Manual) 0.7 L Atyp Lymphs # (Manual) Monocytes # (Manual) 1.8 H Eosinophils # (Manual) 0.3 Metamyelocytes # 0.3 Myelocytes # 0.1 Toxic Vacuolation Dohle Bodies PRESENT Platelet Estimate NORMAL Plt Morphology Comment NORMAL RBC Morphology NOTED Polychromasia 1+ (0-2) Hypochromasia Tear Drop Cells 1+ (0-2) Ovalocytes 1+ (5-14) Smear Tech's Comments MANUAL DIFF VBG pH VBG pCO2 VBG pO2 VBG HCO3 VBG O2 Saturation VBG Base Excess Anion Gap 13 Estim Creat Clear Calc 25.1 Estimated GFR 30 POC Glucose 150 H Random Glucose 166 H Lactic Acid Calcium 8.6 Phosphorus 3.9 Magnesium 1.5 L Albumin Gastric Occult Blood POSITIVE 04/15/25 04/16/25 04/16/25 23:22 04:49 04:54 MCV 84.2 MCH 27.8 MCHC 33.1 RDW 18.2 H Plt Count 262 MPV 9.1 L Immature Gran % (Auto) Cancelled Neut % (Auto) Cancelled Lymph % (Auto) Cancelled Becker % (Auto) Cancelled Eos % (Auto) Cancelled Baso % (Auto) Cancelled Lymph # (Auto) Cancelled Becker # (Auto) Cancelled Eos # (Auto) Cancelled Baso # (Auto) Cancelled Abs Immat Gran (auto) Cancelled Absolute Neuts (auto) Cancelled Absolute Nucleated RBC 0.000 Nucleated RBC % (auto) 0.0 Neutrophils % (Manual) 65 Band Neutrophils % 22 H Lymphocytes % (Manual) 4 L Atypical Lymphs % (Man) 1 Monocytes % (Manual) 8 Eosinophils % (Manual) Metamyelocytes % Myelocytes % Abs Neuts (Manual) 13.7 H Lymphocytes # (Manual) 0.6 L Atyp Lymphs # (Manual) 0.2 Monocytes # (Manual) 1.3 H Eosinophils # (Manual) Metamyelocytes # Myelocytes # Toxic Vacuolation PRESENT Dohle Bodies Platelet Estimate NORMAL Plt Morphology Comment NORMAL RBC Morphology NOTED Polychromasia 1+ (0-2) Hypochromasia 1+ (5-14) Tear Drop Cells 1+ (0-2) Ovalocytes 1+ (5-14) Smear Tech's Comments VBG pH 7.30 L VBG pCO2 33 VBG pO2 51 VBG HCO3 16 L VBG O2 Saturation 76.0 VBG Base Excess -8.7 Anion Gap 17 Estim Creat Clear Calc 25.5 Estimated GFR 30 POC Glucose 170 H Random Glucose 185 H Lactic Acid Calcium 8.5 Phosphorus 4.5 Magnesium 1.8 Albumin 3.4 L Gastric Occult Blood 04/16/25 04/16/25 09:18 11:42 MCV MCH MCHC RDW Plt Count MPV Immature Gran % (Auto) Neut % (Auto) Lymph % (Auto) Becker % (Auto) Eos % (Auto) Baso % (Auto) Lymph # (Auto) Becker # (Auto) Eos # (Auto) Baso # (Auto) Abs Immat Gran (auto) Absolute Neuts (auto) Absolute Nucleated RBC Nucleated RBC % (auto) Neutrophils % (Manual) Band Neutrophils % Lymphocytes % (Manual) Atypical Lymphs % (Man) Monocytes % (Manual) Eosinophils % (Manual) Metamyelocytes % Myelocytes % Abs Neuts (Manual) Lymphocytes # (Manual) Atyp Lymphs # (Manual) Monocytes # (Manual) Eosinophils # (Manual) Metamyelocytes # Myelocytes # Toxic Vacuolation Dohle Bodies Platelet Estimate Plt Morphology Comment RBC Morphology Polychromasia Hypochromasia Tear Drop Cells Ovalocytes Smear Tech's Comments VBG pH VBG pCO2 VBG pO2 VBG HCO3 VBG O2 Saturation VBG Base Excess Anion Gap Estim Creat Clear Calc Estimated GFR POC Glucose 166 H Random Glucose Lactic Acid 1.1 Calcium Phosphorus Magnesium Albumin Gastric Occult Blood Procedures Date of Service Date of Service: 04/16/25 Progress Note: A&P Assessment and plan (1) Intestinal stoma prolapse: Status: Acute Assessment and Plan: No significant changes in clinical status overall Stoma remains viable, with prolapse Had high PEG tube output overnight Likely ileus Being transitioned to comfort care Surgical intervention Continue current care in the ICU for now Time Spent With Patient Time: Total time managing care of this patient today ____ minutes. Quality Stroke Does the patient have a stroke diagnosis?: No VTE Prior VTE?: No VTE Risk Level:: Medical - moderate - high VTE Device Contraindication: N/A - Device Ordered VTE Drug Contraindication: N/A - Med Ordered
[2025-04-16] MEDS: Valproic Acid Liquid 250 MG/5 ML SOLUTION 1000 MG G-TUBE (16:09)
[2025-04-16 17:41] LABS: Glucose, Whole Blood 157 mg/dL (60-115)
--- NOTE | 2025-04-16 18:13 | PC.NURSE ---
Assumed care at 0700 - remains intubated and sedated - awaiting code status change. 400cc bilious output noted from peg tube - placed to low intermittent suction VO Dr Mccann. Levo gtt titrated per EMAR. Care ongoing.
[2025-04-16 20:09] LABS: VBG HCO3 16 mmol/L (22-26); VBG O2 % Saturation 81.0 %
[2025-04-16 20:13] LABS: MANUAL DIFF FLAG NO
[2025-04-16 20:15] LABS: Hematocrit 24.2 % (42.0-52.0); Hemoglobin 7.7 g/dl (14.0-18.0); Imm Gran Abs Auto 0.09 X10*3/uL (0.00-0.03); Imm Gran Pct Auto 0.8 % (0.0-0.4); Lymphocytes Absolute Auto 1.1 X10*3/uL (1.2-4.9); Mean Corpuscular HGB Conc 31.8 g/dl (31.0-36.0); Mean Corpuscular Hemoglobin 26.7 pg (27.0-33.0); Mean Corpuscular Volume 84.0 fL (80.0-98.0); NRBC Abs Auto 0.000 X10*3/uL (0.0-0.012); NRBC Pct Auto 0.0 /100WBC (0.0-0.2); Platelet Count 227 X10*3/uL (160-400); Red Blood Count 2.88 X10*6/uL (4.60-5.80); White Blood Count 11.4 X10*3/uL (4.8-10.8)
[2025-04-16 20:26] LABS: Albumin Level 3.1 g/dL (3.5-5.0); Anion Gap 15 (12-20); Blood Urea Nitrogen 54 mg/dL (9-16); Calcium 8.5 mg/dL (8.4-10.2); Carbon Dioxide 17 mmol/L (22-29); Chloride 111 mmol/L (96-108); Creatinine Clr Calc Pharmacy 26.2; Estimated Glomerular Filt Rate 31; Magnesium 1.7 mg/dL (1.6-2.6); Potassium 3.6 mmol/L (3.3-5.1); Sodium 139 mmol/L (135-145)
[2025-04-16 20:28] LABS: Venous Blood Gas Refer to POC result
[2025-04-16] MEDS: Albumin Human 25 % 100 ML 133.33 ML IV ×2 (21:54→22:42)
[2025-04-17] VITALS (43 sets, daily range): BP systolic 92–143; BP diastolic 44–59; PULSE 24–60; RESP 20–28; TEMP 34.1–36.6; O2SAT 88–92; BMI 30.4
[2025-04-17] MEDS: 0.9 % Sodium Chloride Flush 3 ML SYRINGE IVFLUSH ×4 (00:40→23:48)
[2025-04-17] MEDS: Furosemide 20 MG/2 ML VIAL IVPUSH (00:41)
--- NOTE | 2025-04-17 04:12 | PC.NURSE ---
CARE ASSUMED 7PM...REMAINS INTUBATED/VCV VENT SUPPORT..SEDATED WITH PROPOFOL DRIP PER NOV...AMIODARONE 0.5 MG/MIN..NSR/S.COREY HR 58-62..NO ECTOPY..LEVOPHED DRIP PER NOV..VASOPRESSIN DRIP 0.04 UNITS/MIN...ABDOMEN REMAINS DISTENDED/FIRM/SILENT..PEG TUBE DRAINED BILIOUS DRAINAGE..COLOSTOMY MINIMAL LIQUIED BROWN DRAINAGE...CASTILLO WITH DECREASED OUTPUT ANABELLA TO 10 CC/HR...ALBUMEN 25 GRAMS/100ML X2 DOSES...LASIX 20MG IV X1 PER PROVIDER WITH OUTPUT ONLY 20 CC/HR...INCREASED O2 NEE TO MAINTAIN SAO2 >88%..FIO2 TITRATED FROM 65% TO 90% OVERNIGHT WITH SAO2 CURRENTLY 91%..PROVIDER AWARE
[2025-04-17 05:05] LABS: VBG HCO3 16 mmol/L (22-26); VBG O2 % Saturation 76.0 %
[2025-04-17 05:11] LABS: Venous Blood Gas Refer to POC result
[2025-04-17 05:16] LABS: MANUAL DIFF FLAG NO
[2025-04-17 05:17] LABS: Hematocrit 21.8 % (42.0-52.0); Hemoglobin 7.2 g/dl (14.0-18.0); Imm Gran Abs Auto 0.11 X10*3/uL (0.00-0.03); Imm Gran Pct Auto 1.0 % (0.0-0.4); Lymphocytes Absolute Auto 1.4 X10*3/uL (1.2-4.9); Mean Corpuscular HGB Conc 33.0 g/dl (31.0-36.0); Mean Corpuscular Hemoglobin 27.6 pg (27.0-33.0); Mean Corpuscular Volume 83.5 fL (80.0-98.0); NRBC Abs Auto 0.020 X10*3/uL (0.0-0.012); NRBC Pct Auto 0.2 /100WBC (0.0-0.2); Platelet Count 187 X10*3/uL (160-400); Red Blood Count 2.61 X10*6/uL (4.60-5.80); White Blood Count 10.5 X10*3/uL (4.8-10.8)
[2025-04-17 05:31] LABS: Alanine Aminotransferase 9 U/L (0-40); Albumin Level 4.2 g/dL (3.5-5.0); Alkaline Phosphatase 59 U/L (39-117); Anion Gap 15 (12-20); Aspartate Amino Transferase 49 U/L (5-37); Blood Urea Nitrogen 56 mg/dL (9-16); Calcium 8.9 mg/dL (8.4-10.2); Carbon Dioxide 16 mmol/L (22-29); Chloride 112 mmol/L (96-108); Creatinine Clr Calc Pharmacy 26.4; Estimated Glomerular Filt Rate 31; Magnesium 1.8 mg/dL (1.6-2.6); Potassium 3.4 mmol/L (3.3-5.1); Sodium 140 mmol/L (135-145); Total Protein 7.9 g/dL (6.5-8.0)
[2025-04-17] MEDS: Vasopressin 20 UNIT/100 ML INFUS..BTL 12 UNIT IVCONT ×3 (07:36→22:18)
[2025-04-17] MEDS: Potassium Chloride/H20 40 MEQ/100 ML PIGGYBACK 50 MEQ IV (07:37)
[2025-04-17] MEDS: Chlorhexidine Gluc Oral Rinse 15 ML MOUTHWASH BUCCAL ×3 (07:37→21:02)
--- NOTE | 2025-04-17 09:42 | MHC.CLN ---
F/U PT REMAINS INTUBATED AND SEDATED DISCUSSED AT ROUNDS WITH MD WESLEY CURRENTLY ON HOLD R/T HIGH RESIDUALS SURGICAL MD NOTED INTESTINAL STOMA PROLAPSE LIKELY ILEUS PT TO REMAIN NPO AWAITING COURT TO CHANGE CODE STATUS FOLLOWING WITH TEAM AND WILL PROVIDE SUPPORT NEEDED
--- NOTE | 2025-04-17 09:56 | PM.PNGS ---
Subjective Subjective Date of Service: 04/17/25 Interval history: Requiring higher doses of vasopressors Overall, clinically worse with both hemodynamic and pulmonary functions Good stoma output with air and stool Physical Exam Vital Signs: Vital Signs: Last Vital Signs Temp 97.2 F 04/17/25 09:00 Pulse 54 04/17/25 09:00 Resp 26 H 04/17/25 09:00 BP 116/53 L 04/17/25 09:00 Pulse Ox 89 L 04/17/25 09:00 O2 Del Method Mechanical Ventil ation 04/17/25 09:00 O2 Flow Rate 35 04/10/25 09:00 FiO2 90 04/17/25 09:00 BMI result Body Mass Index 30.4 Const: Other: Remains on the ventilator Resp: Other: Vent dependent GI: Other: Distended but soft with no obvious guarding, stoma with good output he had stool and gas, viable Objective Data Active Medications Acetaminophen (Acetaminophen Oral Liquid 650 Mg/20.3 Ml Solution) 640 mg G-TUBE Q6H PRN PRN Reason: pain/fever Last Admin: 04/15/25 18:27 Dose: 640 mg Documented By: MONICA Amiodarone HCl (Amiodarone Hcl 200 Mg Tablet) 400 mg PO BID COUNTS INCLUDE 234 BEDS AT THE [facility] Last Admin: 04/17/25 07:59 Dose: Not Given Documented By: MARCO Non-Admin Reason: NPO Apixaban (Apixaban 5 Mg Tablet) 5 mg G-TUBE BID COUNTS INCLUDE 234 BEDS AT THE [facility] On Hold: 04/05/25 05:50 Last Admin: 04/04/25 23:24 Dose: 5 mg Documented By: REBECCA Comments: Late administration due to emergent intubation with use of paralytic Aspirin (Aspirin 81 Mg Tab.Chew) 81 mg G-TUBE DAILY [facility] On Hold: 04/05/25 05:50 Last Admin: 04/04/25 08:33 Dose: 81 mg Documented By: KIMO Baclofen (Baclofen 10 Mg Tablet) 5 mg G-TUBE TID [facility] On Hold: 04/05/25 05:50 Last Admin: 04/04/25 23:23 Dose: 5 mg Documented By: REBECCA Comments: Late administration due to emergent intubation with use of paralytic Chlorhexidine Gluconate (Chlorhexidine Gluc Oral Rinse 15 Ml Mouthwash) 15 ml BUCCAL TID COUNTS INCLUDE 234 BEDS AT THE [facility] Last Admin: 04/17/25 07:37 Dose: 15 ml Documented By: MARCO Propofol (Diprivan) 1,000 mg in 100 mls @ 0 mls/hr IVCONT .Q0M SH[facility]; Protocol Last Titration: 04/17/25 09:37 Dose: 40 mcg/kg/min, 14.11 mls/hr Documented By: MARCO Norepinephrine Bitartrate (Levophed) 8 mg in 250 mls @ 0 mls/hr IVCONT .Q0M [facility]; Protocol Last Titration: 04/17/25 08:56 Dose: 0.16 mcg/kg/min, 17.64 mls/hr Documented By: MARCO Amiodarone HCl 900 mg/ Sodium (Chloride) 518 mls @ 17.267 mls/hr IVCONT .Q24H [facility]; Protocol Last Admin: 04/16/25 23:57 Dose: 0.5 mg/min, 17.27 mls/hr Documented By: FELIX Vasopressin (Vasostrict) 20 unit in 100 mls @ 12 mls/hr IVCONT .Q8H20M [facility]; Protocol Last Admin: 04/17/25 07:36 Dose: 0.04 unit/min, 12 mls/hr Documented By: MARCO Potassium Chloride (Potassium Chloride/H20) 40 meq in 100 mls @ 50 mls/hr IV ONCE ONE Stop: 04/17/25 09:59 Last Infusion: 04/17/25 09:37 Dose: Infused Documented By: MARCO Naloxone HCl (Naloxone Hcl 0.4 Mg/Ml Vial) 0.2 mg IVPUSH Q2M PRN PRN Reason: Excessive sedation or RR < 8 Pantoprazole Sodium (Pantoprazole Sodium 40 Mg/10 Ml Vial) 40 mg IVPUSH BID@0630,1630 COUNTS INCLUDE 234 BEDS AT THE [facility] Last Admin: 04/17/25 06:05 Dose: 40 mg Documented By: FELIX Sodium Chloride (0.9 % Sodium Chloride Flush 3 Ml Syringe) 3 ml IVFLUSH QSHIFT COUNTS INCLUDE 234 BEDS AT THE [facility] Last Admin: 04/17/25 07:37 Dose: 3 ml Documented By: MARCO Valproic Acid (Valproic Acid Liquid 250 Mg/5 Ml Solution) 1,000 mg G-TUBE Q12H [facility] Last Admin: 04/17/25 04:33 Dose: Not Given Documented By: FELIX Non-Admin Reason: Physician Held Med Labs 04/17/25 05:00 04/17/25 05:00 Labs: Laboratory Results - last 24 hr 04/16/25 04/16/25 04/16/25 11:42 17:38 20:03 MCV 84.0 MCH 26.7 L MCHC 31.8 RDW 18.3 H Plt Count 227 MPV 9.4 Immature Gran % (Auto) 0.8 H Neut % (Auto) 75.6 H Lymph % (Auto) 9.8 L [place] % (Auto) 12.3 H Eos % (Auto) 1.1 Baso % (Auto) 0.4 Lymph # (Auto) 1.1 L [place] # (Auto) 1.4 H Eos # (Auto) 0.1 Baso # (Auto) 0.0 Abs Immat Gran (auto) 0.09 H Absolute Neuts (auto) 8.6 H Absolute Nucleated RBC 0.000 Nucleated RBC % (auto) 0.0 VBG pH VBG pCO2 VBG pO2 VBG HCO3 VBG O2 Saturation VBG Base Excess Anion Gap 15 Estim Creat Clear Calc 26.2 Estimated GFR 31 POC Glucose 166 H 157 H Random Glucose 177 H Calcium 8.5 Phosphorus 4.6 H Magnesium 1.7 Total Bilirubin AST ALT Alkaline Phosphatase Total Protein Albumin 3.1 L 04/16/25 04/17/25 04/17/25 20:05 05:00 05:01 MCV 83.5 MCH 27.6 MCHC 33.0 RDW 18.6 H Plt Count 187 MPV 9.0 L Immature Gran % (Auto) 1.0 H Neut % (Auto) 71.2 Lymph % (Auto) 13.0 L [place] % (Auto) 13.4 H Eos % (Auto) 1.1 Baso % (Auto) 0.3 Lymph # (Auto) 1.4 [place] # (Auto) 1.4 H Eos # (Auto) 0.1 Baso # (Auto) 0.0 Abs Immat Gran (auto) 0.11 H Absolute Neuts (auto) 7.5 Absolute Nucleated RBC 0.020 H Nucleated RBC % (auto) 0.2 VBG pH 7.32 7.27 L VBG pCO2 30 34 VBG pO2 55 52 VBG HCO3 16 L 16 L VBG O2 Saturation 81.0 76.0 VBG Base Excess -8.9 -9.6 Anion Gap 15 Estim Creat Clear Calc 26.4 Estimated GFR 31 POC Glucose Random Glucose 167 H Calcium 8.9 Phosphorus 5.4 H Magnesium 1.8 Total Bilirubin 1.3 H AST 49 H ALT 9 Alkaline Phosphatase 59 Total Protein 7.9 Albumin 4.2 Procedures Date of Service Date of Service: 04/17/25 Progress Note: A&P Assessment and plan (1) Intestinal stoma prolapse: Status: Acute Assessment and Plan: Stoma functioning well with good output of air and stool, appearing viable Patient worsening clinically overall Requiring increasing vasopressor support Pulmonary function appears worsening as well abdomen remained soft with good output from the stoma No surgical intervention Patient also with prohibitive perioperative risks Prognosis grim Ongoing process for transitioning level of care for patient Time Spent With Patient Time: Total time managing care of this patient today ____ minutes. Quality Stroke Does the patient have a stroke diagnosis?: No VTE Prior VTE?: No VTE Risk Level:: Medical - moderate - high VTE Device Contraindication: N/A - Device Ordered VTE Drug Contraindication: N/A - Med Ordered
--- NOTE | 2025-04-17 10:32 | PM.CCPN ---
Subjective Subjective Date of Service: 04/17/25 Interval History: 69-year-old gentleman with underlying history of cerebral palsy, atomic megacolon status post colostomy, neurogenic bladder status post suprapubic catheter, chronic hyponatremia, legally blind, nonverbal at baseline, AFib on Eliquis, chronic kidney disease admitted on 04/01/2025 with alteration of mental status. On ER evaluation patient with significant hyponatremia requiring admission to the intensive care unit. Hospital course further complicated by pericardial effusion with tamponade, status post pericardial drainage placement, acute respiratory failure requiring intubation on 04/05/2025, now status post right-sided thoracentesis and bronchoscopic secretion clearance with improvement in respiratory status, however with pericardial drain occlusion not responsive to cath flow. Had pericardial drain check on 04/07/2025, showing essentially decompressed pericardium. After the drain check recorded drain was displaced and started draining air with no effect on patient's hemodynamics. Extubated uneventfully on 04/08/2025. However continued with recurrent aspirations requiring re-intubation on 04/10/2025. Repeat CT chest showing recurrent bilateral pleural effusions and pericardial effusion. Patient with poor response to IV diuresis. Now with feculent output through the PEG tube. No events overnight. Critical Care Time (minutes): 60 Physical Exam Vital Signs: Vital Signs: Last Vital Signs Temp 97.3 F 04/17/25 10:00 Pulse 54 04/17/25 10:00 Resp 28 H 04/17/25 10:00 BP 114/53 L 04/17/25 10:00 Pulse Ox 89 L 04/17/25 10:00 O2 Del Method Mechanical Ventil ation 04/17/25 10:00 O2 Flow Rate 35 04/10/25 09:00 FiO2 90 04/17/25 10:00 BMI result Body Mass Index 30.4 Const: General: no acute distress and other (Sedated on ventilatory support) Eyes: Sclerae: sclerae normal EOM: EOMs intact bilaterally Neck: Neck: Yes no lymphadenopathy, Yes trachea midline and Yes supple Resp: Auscultation: crackles bilateral and diffuse Cardio: Rate: regular rate Rhythm: regular rhythm Heart sounds: no gallops, no murmurs and no rubs GI: Inspection: Yes G-tube present Palpation (GI): Soft to palpation and Other GI palpation findings present ( Nontender) Auscultation: normal bowel sounds Extrem: General: No clubbing, No cyanosis and Yes edema (2+ bilateral) Objective Data Labs 04/17/25 05:00 04/17/25 05:00 Labs: Laboratory Results - last 24 hr 04/16/25 04/16/25 04/16/25 11:42 17:38 20:03 WBC 11.4 H RBC 2.88 L Hgb 7.7 L Hct 24.2 L MCV 84.0 MCH 26.7 L MCHC 31.8 RDW 18.3 H Plt Count 227 MPV 9.4 Immature Gran % (Auto) 0.8 H Neut % (Auto) 75.6 H Lymph % (Auto) 9.8 L [place] % (Auto) 12.3 H Eos % (Auto) 1.1 Baso % (Auto) 0.4 Lymph # (Auto) 1.1 L [place] # (Auto) 1.4 H Eos # (Auto) 0.1 Baso # (Auto) 0.0 Abs Immat Gran (auto) 0.09 H Absolute Neuts (auto) 8.6 H Absolute Nucleated RBC 0.000 Nucleated RBC % (auto) 0.0 VBG pH VBG pCO2 VBG pO2 VBG HCO3 VBG O2 Saturation VBG Base Excess Sodium 139 Potassium 3.6 Chloride 111 H Carbon Dioxide 17 L Anion Gap 15 BUN 54 H Creatinine 2.15 H Estim Creat Clear Calc 26.2 Estimated GFR 31 POC Glucose 166 H 157 H Random Glucose 177 H Calcium 8.5 Phosphorus 4.6 H Magnesium 1.7 Total Bilirubin AST ALT Alkaline Phosphatase Total Protein Albumin 3.1 L 04/16/25 04/17/25 04/17/25 20:05 05:00 05:01 WBC 10.5 RBC 2.61 L Hgb 7.2 L Hct 21.8 L MCV 83.5 MCH 27.6 MCHC 33.0 RDW 18.6 H Plt Count 187 MPV 9.0 L Immature Gran % (Auto) 1.0 H Neut % (Auto) 71.2 Lymph % (Auto) 13.0 L [place] % (Auto) 13.4 H Eos % (Auto) 1.1 Baso % (Auto) 0.3 Lymph # (Auto) 1.4 [place] # (Auto) 1.4 H Eos # (Auto) 0.1 Baso # (Auto) 0.0 Abs Immat Gran (auto) 0.11 H Absolute Neuts (auto) 7.5 Absolute Nucleated RBC 0.020 H Nucleated RBC % (auto) 0.2 VBG pH 7.32 7.27 L VBG pCO2 30 34 VBG pO2 55 52 VBG HCO3 16 L 16 L VBG O2 Saturation 81.0 76.0 VBG Base Excess -8.9 -9.6 Sodium 140 Potassium 3.4 Chloride 112 H Carbon Dioxide 16 L Anion Gap 15 BUN 56 H Creatinine 2.14 H Estim Creat Clear Calc 26.4 Estimated GFR 31 POC Glucose Random Glucose 167 H Calcium 8.9 Phosphorus 5.4 H Magnesium 1.8 Total Bilirubin 1.3 H AST 49 H ALT 9 Alkaline Phosphatase 59 Total Protein 7.9 Albumin 4.2 Microbiology Microbiology Results: Microbiology 04/05/25 15:36 Thoracentesis Fluid Gram Stain - Final 04/05/25 15:36 Thoracentesis Fluid Anaerobic Culture - Final NO GROWTH AFTER 5 DAYS 04/05/25 15:36 Thoracentesis Fluid Body Fluid Culture - Final No growth after 2 days 04/05/25 12:04 Bronch Rul Gram Stain - Final 04/05/25 12:04 Bronch Rul - Final No growth after 2 days 04/01/25 11:18 Blood - Venous Blood Culture - Final No growth after 5 days. 04/01/25 11:09 Blood - Venous Blood Culture - Final No growth after 5 days. 04/01/25 Unknown Urine Other - Suprapubic Urine Culture - Final Escherichia coli Klebsiella pneumoniae Progress Note: A&P Assessment and plan (1) Pericardial effusion: Status: Acute (2) Intestinal stoma prolapse: Status: Acute (3) ARPIT (acute kidney injury): Status: Acute (4) Cerebral palsy: Status: Acute (5) Acute hypoxic respiratory failure: Status: Acute (6) Pulmonary aspiration: Status: Acute (7) Bilateral pleural effusion: Status: Acute Plan Assessment: 69-year-old gentleman with underlying cerebral palsy admitted with hyponatremia further complicated by pericardial tamponade and acute hypoxic respiratory failure. Plan: Neuro: No acute issues. Underlying cerebral palsy. Cardiac: Pericardial tamponade status post pericardial drain placement, now status post drainage and discontinuation of pericardial drain. Cardiology service care appreciated. Underlying AFib with RVR, now on amiodarone. Now with recurrent bilateral pleural effusions and pericardial effusion, however also approximately 18 L positive from admission, tried on diuretic challenge, with poor response. Will likely require pericardial window. Pulmonary: Extubated uneventfully on 04/08/2025. Required re-intubation for another aspiration event on 04/10/2025. Continue to titrate off ventilatory support as tolerated. Underlying pulmonary aspirations will likely require tracheostomy. Renal: Worsening renal failure now with metabolic acidosis. Non oliguric. Continue to monitor renal indices and urine output. Endo: No acute issues. GI: Unable to tolerate tube feeds, now with feculent output through the PEG tube. General surgery service care appreciated. ID: Acute UTI versus colonization, also with pulmonary aspiration with aspiration pneumonitis versus pneumonia, continues on empiric Zosyn. Heme/Onc: No acute issues. Psych: No acute issues. Miscellaneous: Application to expand guardians ability to change code status is pending filing with court. Prophylaxis: Eliquis, PPI Diet: NPO Quality Stroke Does the patient have a stroke diagnosis?: No VTE Prior VTE?: No VTE Risk Level:: Medical - moderate - high VTE Device Contraindication: N/A - Device Ordered VTE Drug Contraindication: N/A - Med Ordered
--- NOTE | 2025-04-17 16:11 | MHC.CM.PN ---
Pt is awaiting a court hearing for guardianship expansion for code status change to DNR/DNI/[employer]. Pt remains vented and in multisystem failure. [facility] staff at bedside. CM to follow
--- NOTE | 2025-04-17 17:40 | PC.NURSE ---
Assumed care at 0700 - pt remains intubated and sedate. Levo gtt titrated down per EMAR. Abdomen firm, absent bowel sounds, 50cc bilious output suctioned from PEG tube - MD aware, no new orders at this time. Pending code status change. Care ongoing.
[2025-04-18] VITALS (41 sets, daily range): BP systolic 103–139; BP diastolic 45–76; PULSE 55–64; RESP 17–29; TEMP 34.7–36.9; O2SAT 91–98; BMI 29.0
[2025-04-18 05:21] LABS: VBG HCO3 14 mmol/L (22-26); VBG O2 % Saturation 78.0 %
[2025-04-18 05:45] LABS: MANUAL DIFF FLAG NO
[2025-04-18 05:52] LABS: Hematocrit 23.5 % (42.0-52.0); Hemoglobin 7.8 g/dl (14.0-18.0); Imm Gran Abs Auto 0.31 X10*3/uL (0.00-0.03); Imm Gran Pct Auto 2.7 % (0.0-0.4); Lymphocytes Absolute Auto 1.7 X10*3/uL (1.2-4.9); Mean Corpuscular HGB Conc 33.2 g/dl (31.0-36.0); Mean Corpuscular Hemoglobin 27.5 pg (27.0-33.0); Mean Corpuscular Volume 82.7 fL (80.0-98.0); NRBC Abs Auto 0.030 X10*3/uL (0.0-0.012); NRBC Pct Auto 0.3 /100WBC (0.0-0.2); Platelet Count 200 X10*3/uL (160-400); Red Blood Count 2.84 X10*6/uL (4.60-5.80); White Blood Count 11.7 X10*3/uL (4.8-10.8)
[2025-04-18 06:08] LABS: Albumin Level 3.4 g/dL (3.5-5.0); Anion Gap 18 (12-20); Blood Urea Nitrogen 57 mg/dL (9-16); Calcium 8.8 mg/dL (8.4-10.2); Carbon Dioxide 14 mmol/L (22-29); Chloride 110 mmol/L (96-108); Creatinine Clr Calc Pharmacy 27.6; Estimated Glomerular Filt Rate 33; Magnesium 1.8 mg/dL (1.6-2.6); Potassium 3.8 mmol/L (3.3-5.1); Sodium 138 mmol/L (135-145)
[2025-04-18] MEDS: Vasopressin 20 UNIT/100 ML INFUS..BTL 12 UNIT IVCONT ×3 (06:32→21:32)
--- NOTE | 2025-04-18 07:27 | PC.NURSE ---
Critical Care Nursing Note? Assumed care of the patient at 1900. Patient remained on ventilator support, sedate on propofol gtt. Abdomen firm and distended, PEG tube to LIWS, per provider, patient remains NPO.? Ileostomy with 50 ml dark liquid stool at midnight. ? See eMAR for levophed gtt titrations.? Report given to oncoming RN.
[2025-04-18] MEDS: Chlorhexidine Gluc Oral Rinse 15 ML MOUTHWASH BUCCAL ×3 (09:41→20:58)
[2025-04-18] MEDS: 0.9 % Sodium Chloride Flush 3 ML SYRINGE IVFLUSH ×2 (09:41→15:16)
--- NOTE | 2025-04-18 11:17 | PM.CCPN ---
Subjective Subjective Date of Service: 04/18/25 Interval History: 69-year-old gentleman with underlying history of cerebral palsy, atomic megacolon status post colostomy, neurogenic bladder status post suprapubic catheter, chronic hyponatremia, legally blind, nonverbal at baseline, AFib on Eliquis, chronic kidney disease admitted on 04/01/2025 with alteration of mental status. On ER evaluation patient with significant hyponatremia requiring admission to the intensive care unit. Hospital course further complicated by pericardial effusion with tamponade, status post pericardial drainage placement, acute respiratory failure requiring intubation on 04/05/2025, now status post right-sided thoracentesis and bronchoscopic secretion clearance with improvement in respiratory status, however with pericardial drain occlusion not responsive to cath flow. Had pericardial drain check on 04/07/2025, showing essentially decompressed pericardium. After the drain check recorded drain was displaced and started draining air with no effect on patient's hemodynamics. Extubated uneventfully on 04/08/2025. However continued with recurrent aspirations requiring re-intubation on 04/10/2025. Repeat CT chest showing recurrent bilateral pleural effusions and pericardial effusion. Patient with poor response to IV diuresis. Now with feculent output through the PEG tube. No events overnight. Critical Care Time (minutes): 60 Physical Exam Vital Signs: Vital Signs: Last Vital Signs Temp 97.5 F 04/18/25 10:00 Pulse 58 04/18/25 10:00 Resp 23 H 04/18/25 10:00 BP 131/59 L 04/18/25 10:00 Pulse Ox 93 04/18/25 10:00 O2 Del Method Mechanical Ventil ation 04/18/25 10:00 O2 Flow Rate 35 04/10/25 09:00 FiO2 50 04/18/25 11:09 BMI result Body Mass Index 29.0 Const: General: no acute distress and other (Sedated on ventilatory support) Eyes: Sclerae: sclerae normal EOM: EOMs intact bilaterally Neck: Neck: Yes no lymphadenopathy, Yes trachea midline and Yes supple Resp: Auscultation: crackles (Bilateral) Cardio: Rate: regular rate Rhythm: regular rhythm Heart sounds: no gallops, no murmurs and no rubs GI: Inspection: Yes G-tube present Palpation (GI): Soft to palpation and Other GI palpation findings present ( Nontender) Auscultation: normal bowel sounds Extrem: General: No clubbing, No cyanosis and Yes edema (2+ bilateral) Objective Data Labs 04/18/25 05:10 04/18/25 05:10 Labs: Laboratory Results - last 24 hr 04/18/25 04/18/25 05:10 05:15 WBC 11.7 H RBC 2.84 L Hgb 7.8 L Hct 23.5 L MCV 82.7 MCH 27.5 MCHC 33.2 RDW 18.6 H Plt Count 200 MPV 9.6 Immature Gran % (Auto) 2.7 H Neut % (Auto) 72.1 Lymph % (Auto) 14.6 L [place] % (Auto) 9.1 Eos % (Auto) 0.9 Baso % (Auto) 0.6 Lymph # (Auto) 1.7 [place] # (Auto) 1.1 Eos # (Auto) 0.1 Baso # (Auto) 0.1 Abs Immat Gran (auto) 0.31 H Absolute Neuts (auto) 8.4 H Absolute Nucleated RBC 0.030 H Nucleated RBC % (auto) 0.3 H VBG pH 7.30 L VBG pCO2 29 VBG pO2 54 VBG HCO3 14 L VBG O2 Saturation 78.0 VBG Base Excess -10.4 Sodium 138 Potassium 3.8 Chloride 110 H Carbon Dioxide 14 L Anion Gap 18 BUN 57 H Creatinine 2.00 H Estim Creat Clear Calc 27.6 Estimated GFR 33 Random Glucose 156 H Calcium 8.8 Phosphorus 5.1 H Magnesium 1.8 Albumin 3.4 L Microbiology Microbiology Results: Microbiology 04/05/25 15:36 Thoracentesis Fluid Gram Stain - Final 04/05/25 15:36 Thoracentesis Fluid Anaerobic Culture - Final NO GROWTH AFTER 5 DAYS 04/05/25 15:36 Thoracentesis Fluid Body Fluid Culture - Final No growth after 2 days 04/05/25 12:04 Bronch Rul Gram Stain - Final 04/05/25 12:04 Bronch Rul - Final No growth after 2 days 04/01/25 11:18 Blood - Venous Blood Culture - Final No growth after 5 days. 04/01/25 11:09 Blood - Venous Blood Culture - Final No growth after 5 days. 04/01/25 Unknown Urine Other - Suprapubic Urine Culture - Final Escherichia coli Klebsiella pneumoniae Progress Note: A&P Assessment and plan (1) Pericardial effusion: Status: Acute (2) Intestinal stoma prolapse: Status: Acute (3) ARPIT (acute kidney injury): Status: Acute (4) Atrial fibrillation with RVR: Status: Acute (5) Cerebral palsy: Status: Acute (6) Acute hypoxic respiratory failure: Status: Acute (7) Pulmonary aspiration: Status: Acute (8) Bilateral pleural effusion: Status: Acute Plan Assessment: 69-year-old gentleman with underlying cerebral palsy admitted with hyponatremia further complicated by pericardial tamponade and acute hypoxic respiratory failure. Plan: Neuro: No acute issues. Underlying cerebral palsy. Cardiac: Pericardial tamponade status post pericardial drain placement, now status post drainage and discontinuation of pericardial drain. Cardiology service care appreciated. Underlying AFib with RVR, now on amiodarone. Now with recurrent bilateral pleural effusions and pericardial effusion, however also approximately 18 L positive from admission, tried on diuretic challenge, with poor response. Will likely require pericardial window. Pulmonary: Extubated uneventfully on 04/08/2025. Required re-intubation for another aspiration event on 04/10/2025. Continue to titrate off ventilatory support as tolerated. Underlying pulmonary aspirations will likely require tracheostomy. Renal: Worsening renal failure now with metabolic acidosis. Non oliguric. Continue to monitor renal indices and urine output. Endo: No acute issues. GI: Unable to tolerate tube feeds, now with feculent output through the PEG tube. General surgery service care appreciated. Likely partial SBO versus ileus. ID: Acute UTI versus colonization, also with pulmonary aspiration with aspiration pneumonitis versus pneumonia, continues on empiric Zosyn. Heme/Onc: No acute issues. Psych: No acute issues. Miscellaneous: Application to expand guardians ability to change code status is pending filing with court. Prophylaxis: Eliquis, PPI Diet: NPO Quality Stroke Does the patient have a stroke diagnosis?: No VTE Prior VTE?: No VTE Risk Level:: Medical - moderate - high VTE Device Contraindication: N/A - Device Ordered VTE Drug Contraindication: N/A - Med Ordered
[2025-04-18 11:35] LABS: Venous Blood Gas Refer to POC result
[2025-04-18 12:12] LABS: Glucose, Whole Blood 145 mg/dL (60-115)
--- NOTE | 2025-04-18 19:29 | PC.NURSE ---
Neuro: patient sedated on Propofol, min cough no gag, grimaces with oral care, right eye dilated and left fogged, legally blind. Resp: lung sounds Dim TA, absent gag, cough minimal, decreases FiO2 down to 60% but needed to increase towards end of shift. Cardiac: SB with times of SR, edema noted to bilateral arms, scrotal and sacral? area. compression boots in place GI/: Strict NPO, PEG tube to intermittent low wall suction, suprapubic draining well. Intigumentary: pink foam to coccyx, see skin assessment for full details.
[2025-04-18 19:59] LABS: Anion Gap 17 (12-20); Blood Urea Nitrogen 56 mg/dL (9-16); Calcium 8.5 mg/dL (8.4-10.2); Carbon Dioxide 13 mmol/L (22-29); Chloride 111 mmol/L (96-108); Creatinine Clr Calc Pharmacy 32.0; Estimated Glomerular Filt Rate 39; Magnesium 1.8 mg/dL (1.6-2.6); Potassium 4.9 mmol/L (3.3-5.1); Sodium 136 mmol/L (135-145)
[2025-04-19] VITALS (37 sets, daily range): BP systolic 100–117; BP diastolic 46–58; PULSE 57–65; RESP 20–23; TEMP 33.8–36.9; O2SAT 88–95; BMI 28.9
[2025-04-19] MEDS: 0.9 % Sodium Chloride Flush 3 ML SYRINGE IVFLUSH ×3 (00:17→15:10)
[2025-04-19] MEDS: Vasopressin 20 UNIT/100 ML INFUS..BTL 12 UNIT IVCONT ×3 (03:45→19:12)
[2025-04-19 05:40] LABS: VBG HCO3 14 mmol/L (22-26); VBG O2 % Saturation 91.0 %
[2025-04-19 05:45] LABS: Hematocrit 22.0 % (42.0-52.0); MANUAL DIFF FLAG NO; Mean Corpuscular Volume 82.7 fL (80.0-98.0); PLT CLUMP 1; Red Blood Count 2.66 X10*6/uL (4.60-5.80); SCAN SMEAR FLAG 1
[2025-04-19 05:47] LABS: Hemoglobin 7.4 g/dl (14.0-18.0); Imm Gran Abs Auto 0.34 X10*3/uL (0.00-0.03); Imm Gran Pct Auto 4.1 % (0.0-0.4); Lymphocytes Absolute Auto 1.3 X10*3/uL (1.2-4.9); Mean Corpuscular HGB Conc 33.6 g/dl (31.0-36.0); Mean Corpuscular Hemoglobin 27.8 pg (27.0-33.0); NRBC Abs Auto 0.070 X10*3/uL (0.0-0.012); NRBC Pct Auto 0.8 /100WBC (0.0-0.2)
[2025-04-19 06:18] LABS: White Blood Count 8.4 X10*3/uL (4.8-10.8)
[2025-04-19 06:19] LABS: Platelet Count 132 X10*3/uL (160-400)
[2025-04-19 06:23] LABS: Albumin Level 2.7 g/dL (3.5-5.0); Anion Gap 14 (12-20); Blood Urea Nitrogen 57 mg/dL (9-16); Calcium 8.5 mg/dL (8.4-10.2); Carbon Dioxide 14 mmol/L (22-29); Chloride 113 mmol/L (96-108); Creatinine Clr Calc Pharmacy 35.1; Estimated Glomerular Filt Rate 44; Magnesium 1.8 mg/dL (1.6-2.6); Potassium 3.2 mmol/L (3.3-5.1); Sodium 138 mmol/L (135-145)
[2025-04-19] MEDS: Albumin Human 25 % 100 ML IV ×3 (07:30→19:36)
[2025-04-19] MEDS: Potassium Chloride/H20 40 MEQ/100 ML PIGGYBACK 50 MEQ IV (07:30)
[2025-04-19] MEDS: Chlorhexidine Gluc Oral Rinse 15 ML MOUTHWASH BUCCAL ×3 (08:06→21:56)
--- NOTE | 2025-04-19 11:21 | P.PNCC_ITS ---
Subjective Subjective Date of Service: 04/19/25 Interval History: 69-year-old gentleman with underlying history of cerebral palsy, atomic megacolon status post colostomy, neurogenic bladder status post suprapubic catheter, chronic hyponatremia, legally blind, nonverbal at baseline, AFib on Eliquis, chronic kidney disease admitted on 04/01/2025 with alteration of mental status. On ER evaluation patient with significant hyponatremia requiring admission to the intensive care unit. Hospital course further complicated by pericardial effusion with tamponade, status post pericardial drainage placement, acute respiratory failure requiring intubation on 04/05/2025, now status post right-sided thoracentesis and bronchoscopic secretion clearance with improvement in respiratory status, however with pericardial drain occlusion not responsive to cath flow. Had pericardial drain check on 04/07/2025, showing essentially decompressed pericardium. After the drain check recorded drain was displaced and started draining air with no effect on patient's hemodynamics. Extubated uneventfully on 04/08/2025. However continued with recurrent aspirations requiring re-intubation on 04/10/2025. Repeat CT chest showing recurrent bilateral pleural effusions and pericardial effusion. Patient with poor response to IV diuresis. Peg tube output improving, no longer feculent, now bilious. No events overnight. Critical Care Time (minutes): 60 Physical Exam 2 Vital Signs: Vital Signs: Last Vital Signs Temp 97.9 F 04/19/25 11:00 Pulse 61 04/19/25 11:00 Resp 20 04/19/25 11:00 BP 113/55 L 04/19/25 11:00 Pulse Ox 89 L 04/19/25 11:00 O2 Del Method Mechanical Ventil ation 04/19/25 11:00 O2 Flow Rate 80 04/18/25 18:00 FiO2 80 04/19/25 11:05 BMI result Body Mass Index 28.9 Const: General: no acute distress and other (Sedated on ventilatory support) Eyes: Sclerae: sclerae normal EOM: EOMs intact bilaterally Neck: Neck: Yes no lymphadenopathy, Yes trachea midline and Yes supple Resp: Auscultation: crackles (Bilateral) Cardio: Rate: regular rate Rhythm: regular rhythm Heart sounds: no gallops, no murmurs and no rubs GI: Inspection: Yes G-tube present Palpation (GI): Soft to palpation and Other GI palpation findings present ( Nontender) Auscultation: Hypoactive bowel sounds present Extrem: General: No clubbing, No cyanosis and Yes edema (2+ bilateral) Objective Data Labs 04/19/25 05:32 04/19/25 05:32 Labs: Laboratory Results - last 24 hr 04/18/25 04/18/25 04/19/25 12:02 19:23 05:32 WBC 8.4 RBC 2.66 L Hgb 7.4 L Hct 22.0 L MCV 82.7 MCH 27.8 MCHC 33.6 RDW 18.6 H Plt Count 132 L D MPV 9.3 L Immature Gran % (Auto) 4.1 H Neut % (Auto) 68.7 Lymph % (Auto) 15.8 L [place] % (Auto) 9.7 Eos % (Auto) 1.1 Baso % (Auto) 0.6 Lymph # (Auto) 1.3 [place] # (Auto) 0.8 Eos # (Auto) 0.1 Baso # (Auto) 0.1 Abs Immat Gran (auto) 0.34 H Absolute Neuts (auto) 5.7 Absolute Nucleated RBC 0.070 H Nucleated RBC % (auto) 0.8 H VBG pH VBG pCO2 VBG pO2 VBG HCO3 VBG O2 Saturation VBG Base Excess Sodium 136 138 Potassium 4.9 D 3.2 L D Chloride 111 H 113 H Carbon Dioxide 13 L 14 L Anion Gap 17 14 BUN 56 H 57 H Creatinine 1.73 H 1.57 H Estim Creat Clear Calc 32.0 35.1 Estimated GFR 39 44 POC Glucose 145 H Random Glucose 158 H 144 H Calcium 8.5 8.5 Phosphorus 4.5 4.5 Magnesium 1.8 1.8 Albumin 2.7 L 04/19/25 05:35 WBC RBC Hgb Hct MCV MCH MCHC RDW Plt Count MPV Immature Gran % (Auto) Neut % (Auto) Lymph % (Auto) [place] % (Auto) Eos % (Auto) Baso % (Auto) Lymph # (Auto) [place] # (Auto) Eos # (Auto) Baso # (Auto) Abs Immat Gran (auto) Absolute Neuts (auto) Absolute Nucleated RBC Nucleated RBC % (auto) VBG pH 7.46 H VBG pCO2 19 VBG pO2 60 VBG HCO3 14 L VBG O2 Saturation 91.0 VBG Base Excess -7.9 Sodium Potassium Chloride Carbon Dioxide Anion Gap BUN Creatinine Estim Creat Clear Calc Estimated GFR POC Glucose Random Glucose Calcium Phosphorus Magnesium Albumin Microbiology Microbiology Results: Microbiology 04/05/25 15:36 Thoracentesis Fluid Gram Stain - Final 04/05/25 15:36 Thoracentesis Fluid Anaerobic Culture - Final NO GROWTH AFTER 5 DAYS 04/05/25 15:36 Thoracentesis Fluid Body Fluid Culture - Final No growth after 2 days 04/05/25 12:04 Bronch Rul Gram Stain - Final 04/05/25 12:04 Bronch Rul - Final No growth after 2 days 04/01/25 11:18 Blood - Venous Blood Culture - Final No growth after 5 days. 04/01/25 11:09 Blood - Venous Blood Culture - Final No growth after 5 days. 04/01/25 Unknown Urine Other - Suprapubic Urine Culture - Final Escherichia coli Klebsiella pneumoniae Progress Note: A&P Assessment and plan (1) Ileus: Status: Acute (2) Atrial fibrillation with RVR: Status: Acute (3) Pericardial effusion: Status: Acute (4) ARPIT (acute kidney injury): Status: Acute (5) Cerebral palsy: Status: Acute (6) Acute hypoxic respiratory failure: Status: Acute (7) Pulmonary aspiration: Status: Acute (8) Bilateral pleural effusion: Status: Acute Plan Assessment: 69-year-old gentleman with underlying cerebral palsy admitted with hyponatremia further complicated by pericardial tamponade and acute hypoxic respiratory failure. Plan: Neuro: No acute issues. Underlying cerebral palsy. Cardiac: Pericardial tamponade status post pericardial drain placement, now status post drainage and discontinuation of pericardial drain. Cardiology service care appreciated. Underlying AFib with RVR, now on amiodarone. Now with recurrent bilateral pleural effusions and pericardial effusion, however also approximately 18 L positive from admission, tried on diuretic challenge, with poor response. At this time guardian is not interested in proceeding with pericardial window. Pulmonary: Extubated uneventfully on 04/08/2025. Required re-intubation for another aspiration event on 04/10/2025. Continue to titrate off ventilatory support as tolerated. Underlying pulmonary aspirations will likely require tracheostomy. Renal: Worsening renal failure now with metabolic acidosis. Non oliguric. Continue to monitor renal indices and urine output. Endo: No acute issues. GI: Unable to tolerate tube feeds, initial with feculent output through the PEG tube, now I am approved in volume and also turned to bilious. General surgery service care appreciated. Likely partial SBO versus ileus. ID: Acute UTI versus colonization, also with pulmonary aspiration with aspiration pneumonitis versus pneumonia, completed course of Zosyn. Will monitor off antibiotics Heme/Onc: No acute issues. Psych: No acute issues. Miscellaneous: Application to expand guardians ability to change code status is pending filing with court. Prophylaxis: Eliquis, PPI Diet: NPO Quality Stroke Does the patient have a stroke diagnosis?: No VTE Prior VTE?: No VTE Risk Level:: Medical - moderate - high VTE Device Contraindication: N/A - Device Ordered VTE Drug Contraindication: N/A - Med Ordered
--- NOTE | 2025-04-19 12:13 | MHC.CLN ---
Addendum entered by Viridiana Del Rio, GUTIERREZ 04/19/25 12:15: 961KCALS WITH SEDATION Original Note: CONSULT PT TO START TPN DAY 7 NPO REVIEWED LABS DISCUSSED WITH PHARMACY RECOMMEND TPN AT 40ML/HR TO PROVIDE 682KCALS, 144G DEXTROSE, 48G PROTEIN REPLETE LYTES NEEDED MONITOR MG, PHOS AND K+ CLOSELY PT IS AT RISK FOR RE-FEEDING FULL NUTRITION ASSESSMENT TO FOLLOW
--- NOTE | 2025-04-19 19:23 | PC.NURSE ---
Neuro: patient sedated on Propofol, min cough no gag, grimaces with oral care, right eye dilated and left fogged, legally blind. Resp: lung sounds Dim TA,? insp rhonchi resolved with suctioning, absent gag, cough minimal, FiO2 80%, patient needed RT for lavage and chest PT, tolerated well and O2 sat increased to 90%. Cardiac: SB with times of SR, edema noted to bilateral arms, legs, scrotal and sacral? area. compression boots in place GI/: Strict NPO, PEG tube to intermittent low wall suction, suprapubic draining well. Intigumentary: pink foam to coccyx, see skin assessment for full details.?
[2025-04-19] MEDS: Parenteral Nutrition 960 ML 40 ML IV (21:53)
[2025-04-19] MEDS: Furosemide 40 MG/4 ML VIAL IVPUSH (22:50)
[2025-04-20] VITALS (38 sets, daily range): BP systolic 102–145; BP diastolic 43–63; PULSE 21–63; RESP 20–23; TEMP 34.4–36.4; O2SAT 88–96; BMI 28.7
[2025-04-20] MEDS: 0.9 % Sodium Chloride Flush 3 ML SYRINGE IVFLUSH ×3 (00:03→15:45)
[2025-04-20 01:28] LABS: Venous Blood Gas Refer to POC result
[2025-04-20] MEDS: Vasopressin 20 UNIT/100 ML INFUS..BTL 12 UNIT IVCONT ×3 (02:59→18:37)
[2025-04-20] MEDS: Albumin Human 25 % 100 ML IV (02:59)
[2025-04-20 05:50] LABS: VBG HCO3 14 mmol/L (22-26); VBG O2 % Saturation 85.0 %
[2025-04-20 05:51] LABS: Venous Blood Gas Refer to POC result
[2025-04-20 05:55] LABS: Mean Corpuscular HGB Conc 32.0 g/dl (31.0-36.0); Mean Corpuscular Hemoglobin 26.9 pg (27.0-33.0); Mean Corpuscular Volume 84.1 fL (80.0-98.0); NRBC Abs Auto 0.180 X10*3/uL (0.0-0.012); Platelet Count 134 X10*3/uL (160-400); Red Blood Count 2.45 X10*6/uL (4.60-5.80); White Blood Count 9.3 X10*3/uL (4.8-10.8)
[2025-04-20 05:56] LABS: NRBC Pct Auto 1.9 /100WBC (0.0-0.2)
[2025-04-20 05:58] LABS: Hemoglobin 6.6 g/dl (14.0-18.0)
[2025-04-20 05:59] LABS: Hematocrit 20.6 % (42.0-52.0)
[2025-04-20 06:12] LABS: Albumin Level 4.2 g/dL (3.5-5.0); Anion Gap 15 (12-20); Blood Urea Nitrogen 61 mg/dL (9-16); Calcium 9.0 mg/dL (8.4-10.2); Carbon Dioxide 15 mmol/L (22-29); Chloride 113 mmol/L (96-108); Creatinine Clr Calc Pharmacy 32.5; Estimated Glomerular Filt Rate 40; Magnesium 2.0 mg/dL (1.6-2.6); Potassium 3.7 mmol/L (3.3-5.1); Sodium 139 mmol/L (135-145)
[2025-04-20 07:08] LABS: Atypical Lymph Absolute Manual 0.1 x10*3/uL; Atypical Lymphs Percent Manual 1 % (0-6); Band Neutrophils Percent 5 % (3-5); Lymphocytes Absolute Manual 0.9 X10*3/uL (1.2-4.9); Lymphocytes Percent Manual 10 % (20-40); Metamyelocytes Absolute 0.1 X10*3/uL; Metamyelocytes Percent 1 %; Monocytes Absolute Manual 0.7 X10*3/uL (0.1-1.2); Monocytes Percent Manual 7 % (2-11); Myelocytes Absolute 0.1 X10*/uL; Myelocytes Percent 1 %; Neutrophils Absolute Manual 7.4 X10*3/uL (2.0-8.3); Neutrophils Percent Manual 75 % (45-73)
[2025-04-20 07:10] LABS: Basophilic Stippling 1+ (0-2) /OIF; Large Platelet PRESENT; RBC Morphology NOTED; Schistocytes 1+ (0-2) /OIF; Smudge Cells PRESENT; Tear Drop Cells 2+ (3-5) /OIF; Toxic Vacuolation PRESENT
--- NOTE | 2025-04-20 09:00 | PM.CCPN ---
Subjective Subjective Date of Service: 04/20/25 Interval History: continues to be on ventilator support increase in FiO2 to 100% this morning Critical Care Time (minutes): 35 Physical Exam Exam: Exam: General: Elderly male in severe acute distress, ill appearing and tired appearing Nutritional Appearance: Poor nourished and underweight Eyes: appearance normal, both eyes and all related structures; Alignment and Position: alignment normal and position normal Neck: No lymphadenopathy, no thyromegaly Resp: bilateral air entry equal, bilateral crackles heard Cardio: Regular rate, regular rhythm; Heart sounds: S1 normal heart sound present and S2 normal heart sound present GI: soft, nontender, no guarding, no hepatosplenomegaly : bladder normal to inspection, bladder normal to palpation, no renal angle tenderness Skin: no rashes or lesions noted and elasticity normal Neuro: Sedated Vital Signs: Vital Signs: Last Vital Signs Temp 96.6 F L 04/20/25 08:00 Pulse 59 04/20/25 08:00 Resp 20 04/20/25 08:00 BP 102/49 L 04/20/25 08:00 Pulse Ox 90 L 04/20/25 08:00 O2 Del Method Mechanical Ventil ation 04/20/25 08:00 O2 Flow Rate 80 04/18/25 18:00 FiO2 80 04/20/25 08:00 BMI result Body Mass Index 28.7 Objective Data Labs 04/20/25 05:40 04/20/25 05:40 Labs: Laboratory Results - last 24 hr 04/20/25 04/20/25 04/20/25 05:40 05:46 08:17 WBC 9.3 RBC 2.45 L Hgb 6.6 L* Hct 20.6 L* MCV 84.1 MCH 26.9 L MCHC 32.0 RDW 18.9 H Plt Count 134 L MPV 10.6 Immature Gran % (Auto) Cancelled Neut % (Auto) Cancelled Lymph % (Auto) Cancelled [place] % (Auto) Cancelled Eos % (Auto) Cancelled Baso % (Auto) Cancelled Lymph # (Auto) Cancelled [place] # (Auto) Cancelled Eos # (Auto) Cancelled Baso # (Auto) Cancelled Abs Immat Gran (auto) Cancelled Absolute Neuts (auto) Cancelled Absolute Nucleated RBC 0.180 H Nucleated RBC % (auto) 1.9 H Neutrophils % (Manual) 75 H Band Neutrophils % 5 Lymphocytes % (Manual) 10 L Atypical Lymphs % (Man) 1 Monocytes % (Manual) 7 Metamyelocytes % 1 Myelocytes % 1 Abs Neuts (Manual) 7.4 Lymphocytes # (Manual) 0.9 L Atyp Lymphs # (Manual) 0.1 Monocytes # (Manual) 0.7 Metamyelocytes # 0.1 Myelocytes # 0.1 Smudge Cells PRESENT Toxic Vacuolation PRESENT Platelet Estimate SLIGHTLY DECREASED Large Platelets PRESENT Giant Platelets PRESENT Plt Morphology Comment NOTED RBC Morphology NOTED Basophilic Stippling 1+ (0-2) Tear Drop Cells 2+ (3-5) Schistocytes 1+ (0-2) VBG pH 7.27 L VBG pCO2 31 VBG pO2 61 VBG HCO3 14 L VBG O2 Saturation 85.0 VBG Base Excess -11.1 Sodium 139 Potassium 3.7 Chloride 113 H Carbon Dioxide 15 L Anion Gap 15 BUN 61 H Creatinine 1.70 H Estim Creat Clear Calc 32.5 Estimated GFR 40 Random Glucose 203 H Calcium 9.0 Phosphorus 5.3 H Magnesium 2.0 Albumin 4.2 Crossmatch (AHG) See Detail Microbiology Microbiology Results: Microbiology 04/05/25 15:36 Thoracentesis Fluid Gram Stain - Final 04/05/25 15:36 Thoracentesis Fluid Anaerobic Culture - Final NO GROWTH AFTER 5 DAYS 04/05/25 15:36 Thoracentesis Fluid Body Fluid Culture - Final No growth after 2 days 04/05/25 12:04 Bronch Rul Gram Stain - Final 04/05/25 12:04 Bronch Rul - Final No growth after 2 days 04/01/25 11:18 Blood - Venous Blood Culture - Final No growth after 5 days. 04/01/25 11:09 Blood - Venous Blood Culture - Final No growth after 5 days. 04/01/25 Unknown Urine Other - Suprapubic Urine Culture - Final Escherichia coli Klebsiella pneumoniae Progress Note: A&P Assessment and plan (1) Hypotension: Status: Acute (2) ARPIT (acute kidney injury): Status: Acute (3) Acute hypoxic respiratory failure: Status: Acute (4) Pneumonia: Status: Acute (5) Pericardial tamponade: Status: Acute (6) Bilateral pleural effusion: Status: Acute Plan 69-year-old gentleman with underlying history of cerebral palsy, atomic megacolon status post colostomy, neurogenic bladder status post suprapubic catheter, chronic hyponatremia, legally blind, nonverbal at baseline, AFib on Eliquis, chronic kidney disease admitted on 04/01/2025 with alteration of mental status. On ER evaluation patient with significant hyponatremia requiring admission to the intensive care unit. Hospital course further complicated by pericardial effusion with tamponade, status post pericardial drainage placement, acute respiratory failure requiring intubation on 04/05/2025, now status post right-sided thoracentesis and bronchoscopic secretion clearance with improvement in respiratory status, however with pericardial drain occlusion not responsive to cath flow. Had pericardial drain check on 04/07/2025, showing essentially decompressed pericardium. After the drain check recorded drain was displaced and started draining air with no effect on patient's hemodynamics. Extubated uneventfully on 04/08/2025. However continued with recurrent aspirations requiring re-intubation on 04/10/2025. Repeat CT chest showing recurrent bilateral pleural effusions and pericardial effusion. Neuro: Acute encephalopathy possibly due to metabolic encephalopathy due to ongoing multiple issues On propofol for sedation, as needed fentanyl for analgesia Close neurological status monitoring in the ICU every hour Cardiac: Cardiogenic Shock: Possibly secondary to pericardial tamponade. He had a pericardial drain placed, which clogged and had to be removed. The next step would be a pericardial window placement which would be a very invasive step given his multiple comorbidities. On Levophed support, titrate Levophed to keep map above 65 mm Hg Atrial fibrillation: currently rate controlled on amiodarone drip on apixaban for anticoagulation Respiratory: Acute hypoxemic respiratory failure due to aspiration pneumonia, bilateral effusions and atelectasis. Previously did a bronchoscopy for right upper lobe atelectasis. Bronch cultures negative. Will repeat CXR. Currently on ventilator support On PRVC mode FiO2 increased to 100%, PEEP 5, TV 360, RR 20 Peak pressures and plateau pressures are under the curve Ventilator management bundle with head end elevation, aspiration precaution, chlorhexidine mouthwash, daily awakening trials, daily spontaneous breathing trials GI: on tube feeds Renal: Acute kidney injury possibly secondary to ATN Baseline creatinine normal, creatinine today is 1.7; will assess volume status with bedside ultrasound. We will closely monitor I's and O's Avoid nephrotoxic medications Heme: Chronic anemia, closely monitor H&H, transfuse for hemoglobin less than 7 grams/deciliter Endocrine: Blood sugars under control Sliding scale insulin as needed Infectious disease: completed course of Zosyn for aspiration pneumonia and E.Coli and Klebsiella UTI. currently off antibiotics Musculoskeletal: Decubitus ulcer prevention protocol Lines: peripheral Prophylaxis: apixaban, pantoprazole Quality Stroke Does the patient have a stroke diagnosis?: No VTE Prior VTE?: No VTE Risk Level:: Medical - moderate - high VTE Device Contraindication: N/A - Device Ordered VTE Drug Contraindication: N/A - Med Ordered
[2025-04-20] MEDS: Chlorhexidine Gluc Oral Rinse 15 ML MOUTHWASH BUCCAL ×3 (09:47→21:17)
[2025-04-20] MEDS: Furosemide 40 MG/4 ML VIAL IVPUSH ×2 (09:48→17:44)
--- NOTE | 2025-04-20 10:14 | MHC.CLN ---
PT REMAINS INTUBATED AND SEDATED DISCUSSED AT ROUNDS WITH MD TPN STARTED YESTERDAY REVIEWED LABS DISCUSSED WITH PHARMACY RECOMMEND INCREASING TPN TO 55ML/HR TO PROVIDE 937KCALS (1216KCALS TOTAL WITH SEDATION), 198G DEXTROSE, 66G PROTEIN (.98G/KG) REPLETE LYTES NEEDED SEE FULL NUTRITION ASSESSMENT
--- NOTE | 2025-04-20 15:11 | MHC.CM.PN ---
Pt remains intubated in ICU with multi system failure: Zoom court hearing on 04/21 at 11am for guardian expansion to allow for DNR/DNI/DENTAL COORDINATOR status. senior care, guardian and ICU MD/RN aware of plan.
[2025-04-20 16:33] LABS: Hematocrit 27.1 % (42.0-52.0); Hemoglobin 9.1 g/dl (14.0-18.0); Mean Corpuscular HGB Conc 33.6 g/dl (31.0-36.0); Mean Corpuscular Hemoglobin 29.1 pg (27.0-33.0); Mean Corpuscular Volume 86.6 fL (80.0-98.0); NRBC Abs Auto 0.300 X10*3/uL (0.0-0.012); Platelet Count 146 X10*3/uL (160-400); Red Blood Count 3.13 X10*6/uL (4.60-5.80); White Blood Count 12.4 X10*3/uL (4.8-10.8)
[2025-04-20 16:35] LABS: NRBC Pct Auto 2.4 /100WBC (0.0-0.2)
--- NOTE | 2025-04-20 19:58 | PC.NURSE ---
Assumed care of patient at 0700 Neuro: patient sedated on Propofol, no cough or gag, grimaces with oral care, right eye dilated and left fogged, legally blind. Resp: lung sounds Dim TA,? insp rhonchi resolved with suctioning, absent gag, cough minimal, FiO2 80% at beginning of shift, increased to 100%, O2 sat 88-90% most of the shift, at end of shift very difficult to turn on washing patient, respiratory at bedside to assist, patient increased to 91% at end of shift.? Cardiac: SR, edema noted to bilateral arms, legs, scrotal and sacral? area. compression boots in place GI/: Strict NPO, PEG tube to intermittent low wall suction, Ostomy appliance changed suprapubic draining well but noted Oliguria, started on Lasix BID, slight improvement noted. Intigumentary: pink foam to coccyx changed , see skin assessment for full details.?
[2025-04-20] MEDS: Parenteral Nutrition 1,320 ML 55 ML IV (21:54)
[2025-04-21] VITALS (37 sets, daily range): BP systolic 95–128; BP diastolic 43–56; PULSE 60–73; RESP 16–20; TEMP 34.7–37.5; O2SAT 89–97; BMI 29.9
[2025-04-21] MEDS: 0.9 % Sodium Chloride Flush 3 ML SYRINGE IVFLUSH ×4 (00:15→23:46)
[2025-04-21] MEDS: Vasopressin 20 UNIT/100 ML INFUS..BTL 12 UNIT IVCONT ×4 (02:17→23:45)
[2025-04-21 04:57] LABS: VBG HCO3 13 mmol/L (22-26); VBG O2 % Saturation 97.0 %
[2025-04-21 04:59] LABS: Venous Blood Gas Refer to POC result
[2025-04-21 05:36] LABS: Hemoglobin 9.2 g/dl (14.0-18.0); PLT CLUMP 1
[2025-04-21 05:37] LABS: Hematocrit 27.6 % (42.0-52.0); Mean Corpuscular HGB Conc 33.3 g/dl (31.0-36.0); Mean Corpuscular Hemoglobin 28.8 pg (27.0-33.0); Mean Corpuscular Volume 86.3 fL (80.0-98.0); NRBC Abs Auto 0.400 X10*3/uL (0.0-0.012); Red Blood Count 3.20 X10*6/uL (4.60-5.80)
[2025-04-21 05:50] LABS: NRBC Pct Auto 3.0 /100WBC (0.0-0.2); WBC ABN SCTR FOR CBC 1
[2025-04-21 05:55] LABS: Anion Gap 13 (12-20); Blood Urea Nitrogen 67 mg/dL (9-16); Calcium 8.9 mg/dL (8.4-10.2); Carbon Dioxide 14 mmol/L (22-29); Chloride 112 mmol/L (96-108); Creatinine Clr Calc Pharmacy 30.1; Estimated Glomerular Filt Rate 37; Magnesium 2.1 mg/dL (1.6-2.6); Potassium 4.0 mmol/L (3.3-5.1); Sodium 135 mmol/L (135-145); Triglycerides 275 mg/dL (<150)
[2025-04-21 06:22] LABS: Atypical Lymphs Percent Manual 2 % (0-6); Band Neutrophils Percent 9 % (3-5); Lymphocytes Percent Manual 4 % (20-40); Monocytes Percent Manual 5 % (2-11); Neutrophils Percent Manual 79 % (45-73); Promyelocytes Percent 1 %
[2025-04-21 06:23] LABS: RBC Morphology NORMAL
[2025-04-21 06:25] LABS: Burr Cells 1+ (0-2) /OIF; Polychromasia 1+ (0-2) /OIF; Schistocytes 1+ (0-2) /OIF; Target Cells 1+ (5-14) /OIF; Toxic Granulation PRESENT; Toxic Vacuolation PRESENT
[2025-04-21 06:26] LABS: Atypical Lymph Absolute Manual 0.3 x10*3/uL; Lymphocytes Absolute Manual 0.5 X10*3/uL (1.2-4.9); Monocytes Absolute Manual 0.7 X10*3/uL (0.1-1.2); Neutrophils Absolute Manual 11.7 X10*3/uL (2.0-8.3); Platelet Count 148 X10*3/uL (160-400); Promyelocytes Absolute 0.1 X10*3/uL; White Blood Count 13.3 X10*3/uL (4.8-10.8)
[2025-04-21] MEDS: Chlorhexidine Gluc Oral Rinse 15 ML MOUTHWASH BUCCAL ×3 (08:28→20:42)
[2025-04-21] MEDS: Furosemide 40 MG/4 ML VIAL IVPUSH ×2 (08:29→17:04)
--- NOTE | 2025-04-21 08:31 | P.PNCC_ITS ---
Subjective Subjective Date of Service: 04/21/25 Interval History: Continues to be on ventilator support And Levophed and vasopressin for vasopressor support Propofol for sedation Critical Care Time (minutes): 35 Physical Exam 2 Exam: Exam: General: Elderly male in severe acute distress, ill appearing and tired appearing Nutritional Appearance: Poorly nourished, normal weight Eyes: appearance normal, both eyes and all related structures; Alignment and Position: alignment normal and position normal Neck: No lymphadenopathy, no thyromegaly Resp: bilateral air entry equal, occasional added sounds present Cardio: Regular rate, regular rhythm; Heart sounds: S1 normal heart sound present and S2 normal heart sound present GI: soft, nontender, no guarding, no hepatosplenomegaly : bladder normal to inspection, bladder normal to palpation, no renal angle tenderness Skin: no rashes or lesions noted and elasticity normal Neuro: Sedated, has chronic neuro deficits Vital Signs: Vital Signs: Last Vital Signs Temp 98.6 F 04/21/25 08:00 Pulse 69 04/21/25 08:00 Resp 20 04/21/25 08:00 BP 109/50 L 04/21/25 08:00 Pulse Ox 91 L 04/21/25 08:00 O2 Del Method Mechanical Ventil ation 04/21/25 08:00 O2 Flow Rate 80 04/18/25 18:00 FiO2 100 04/21/25 08:00 BMI result Body Mass Index 29.9 Objective Data Labs 04/21/25 04:50 04/21/25 04:50 Labs: Laboratory Results - last 24 hr 04/20/25 04/20/25 04/21/25 08:17 16:24 04:50 WBC 12.4 H 13.3 H RBC 3.13 L D 3.20 L Hgb 9.1 L D 9.2 L Hct 27.1 L D 27.6 L MCV 86.6 86.3 MCH 29.1 28.8 MCHC 33.6 33.3 RDW 18.1 H 17.7 H Plt Count 146 L 148 L MPV 10.3 10.9 Immature Gran % (Auto) Cancelled Neut % (Auto) Cancelled Lymph % (Auto) Cancelled Mercer % (Auto) Cancelled Eos % (Auto) Cancelled Baso % (Auto) Cancelled Lymph # (Auto) Cancelled Mercer # (Auto) Cancelled Eos # (Auto) Cancelled Baso # (Auto) Cancelled Abs Immat Gran (auto) Cancelled Absolute Neuts (auto) Cancelled Absolute Nucleated RBC 0.300 H 0.400 H Nucleated RBC % (auto) 2.4 H 3.0 H Neutrophils % (Manual) 79 H Band Neutrophils % 9 H Lymphocytes % (Manual) 4 L Atypical Lymphs % (Man) 2 Monocytes % (Manual) 5 Promyelocytes % 1 Abs Neuts (Manual) 11.7 H Lymphocytes # (Manual) 0.5 L Atyp Lymphs # (Manual) 0.3 Monocytes # (Manual) 0.7 Promyelocytes # 0.1 Nucleated RBCs 3 H Toxic Granulation PRESENT Toxic Vacuolation PRESENT Platelet Estimate SLIGHTLY DECREASED Giant Platelets PRESENT Plt Morphology Comment NOTED RBC Morphology NORMAL Polychromasia 1+ (0-2) Target Cells 1+ (5-14) [place] Cells 1+ (0-2) Schistocytes 1+ (0-2) VBG pH VBG pCO2 VBG pO2 VBG HCO3 VBG O2 Saturation VBG Base Excess Sodium 135 Potassium 4.0 Chloride 112 H Carbon Dioxide 14 L Anion Gap 13 BUN 67 H Creatinine 1.83 H Estim Creat Clear Calc 30.1 Estimated GFR 37 Random Glucose 281 H Calcium 8.9 Phosphorus 5.0 H Magnesium 2.1 Triglycerides 275 H Blood Type B Negative Antibody Screen POSITIVE Antibody Identification Anti-K Crossmatch (AHG) See Detail 04/21/25 04:53 WBC RBC Hgb Hct MCV MCH MCHC RDW Plt Count MPV Immature Gran % (Auto) Neut % (Auto) Lymph % (Auto) Mercer % (Auto) Eos % (Auto) Baso % (Auto) Lymph # (Auto) Mercer # (Auto) Eos # (Auto) Baso # (Auto) Abs Immat Gran (auto) Absolute Neuts (auto) Absolute Nucleated RBC Nucleated RBC % (auto) Neutrophils % (Manual) Band Neutrophils % Lymphocytes % (Manual) Atypical Lymphs % (Man) Monocytes % (Manual) Promyelocytes % Abs Neuts (Manual) Lymphocytes # (Manual) Atyp Lymphs # (Manual) Monocytes # (Manual) Promyelocytes # Nucleated RBCs Toxic Granulation Toxic Vacuolation Platelet Estimate Giant Platelets Plt Morphology Comment RBC Morphology Polychromasia Target Cells Randy Cells Schistocytes VBG pH 7.25 L VBG pCO2 30 VBG pO2 84 VBG HCO3 13 L VBG O2 Saturation 97.0 VBG Base Excess -12.2 Sodium Potassium Chloride Carbon Dioxide Anion Gap BUN Creatinine Estim Creat Clear Calc Estimated GFR Random Glucose Calcium Phosphorus Magnesium Triglycerides Blood Type Antibody Screen Antibody Identification Crossmatch ([facility]) Microbiology Microbiology Results: Microbiology 04/05/25 15:36 Thoracentesis Fluid Gram Stain - Final 04/05/25 15:36 Thoracentesis Fluid Anaerobic Culture - Final NO GROWTH AFTER 5 DAYS 04/05/25 15:36 Thoracentesis Fluid Body Fluid Culture - Final No growth after 2 days 04/05/25 12:04 Bronch Rul Gram Stain - Final 04/05/25 12:04 Bronch Rul - Final No growth after 2 days 04/01/25 11:18 Blood - Venous Blood Culture - Final No growth after 5 days. 04/01/25 11:09 Blood - Venous Blood Culture - Final No growth after 5 days. 04/01/25 Unknown Urine Other - Suprapubic Urine Culture - Final Escherichia coli Klebsiella pneumoniae Progress Note: A&P Assessment and plan (1) Pericardial tamponade: Status: Acute (2) Cardiogenic shock: Status: Acute (3) Atrial fibrillation with RVR: Status: Acute (4) ARPIT (acute kidney injury): Status: Acute (5) Cerebral palsy: Status: Acute (6) Acute hypoxemic respiratory failure: Status: Acute (7) Pneumonia: Status: Acute Plan 69-year-old gentleman with underlying history of cerebral palsy, atomic megacolon status post colostomy, neurogenic bladder status post suprapubic catheter, chronic hyponatremia, legally blind, nonverbal at baseline, AFib on Eliquis, chronic kidney disease admitted on 04/01/2025 with alteration of mental status. On ER evaluation patient with significant hyponatremia requiring admission to the intensive care unit. Hospital course further complicated by pericardial effusion with tamponade, status post pericardial drainage placement, acute respiratory failure requiring intubation on 04/05/2025, now status post right-sided thoracentesis and bronchoscopic secretion clearance with improvement in respiratory status, however with pericardial drain occlusion not responsive to cath flow. Had pericardial drain check on 04/07/2025, showing essentially decompressed pericardium. After the drain check recorded drain was displaced and started draining air with no effect on patient's hemodynamics. Extubated uneventfully on 04/08/2025. However continued with recurrent aspirations requiring re-intubation on 04/10/2025. Repeat CT chest showing recurrent bilateral pleural effusions and pericardial effusion. Neuro: Acute encephalopathy possibly due to metabolic encephalopathy due to ongoing multiple issues On propofol for sedation, as needed fentanyl for analgesia Close neurological status monitoring in the ICU every hour Cardiac: Cardiogenic Shock: Possibly secondary to pericardial tamponade. He had a pericardial drain placed, which clogged and had to be removed. The next step would be a pericardial window placement which would be a very invasive step given his multiple comorbidities. On Levophed and vasopressin for vasopressor support, titrate Levophed to keep map above 65 mm Hg Atrial fibrillation: currently rate controlled on amiodarone drip on apixaban for anticoagulation Respiratory: Acute hypoxemic respiratory failure due to aspiration pneumonia, bilateral effusions and atelectasis. Previously did a bronchoscopy for right upper lobe atelectasis. Bronch cultures negative. Repeat chest x-ray shows bilateral lung infiltrates and pleural effusions Currently on ventilator support On PRVC mode FiO2 increased to 100%, PEEP 5, TV 360, RR 20 Peak pressures and plateau pressures are under the curve Ventilator management bundle with head end elevation, aspiration precaution, chlorhexidine mouthwash, daily awakening trials, daily spontaneous breathing trials GI: on TPN for nutrition due to concerns for aspiration. Renal: Acute kidney injury possibly secondary to poor perfusion from worsening pericardial effusion vs ATN from shock. Baseline creatinine normal, creatinine increased to 1.8. We will closely monitor I's and O's Avoid nephrotoxic medications Heme: Chronic anemia, closely monitor H&H, transfuse for hemoglobin less than 7 grams/deciliter Endocrine: Blood sugars under control Sliding scale insulin as needed Infectious disease: completed course of Zosyn for aspiration pneumonia and E.Coli and Klebsiella UTI. currently off antibiotics Musculoskeletal: Decubitus ulcer prevention protocol Lines: peripheral Prophylaxis: apixaban, pantoprazole Has court hearing regarding his code status at 11AM this morning. Quality Stroke Does the patient have a stroke diagnosis?: No VTE Prior VTE?: No VTE Risk Level:: Medical - moderate - high VTE Device Contraindication: N/A - Device Ordered VTE Drug Contraindication: N/A - Med Ordered
--- NOTE | 2025-04-21 10:04 | MHC.CLN ---
F/U PT REMAINS INTUBATED AND SEDATED DISCUSSED AT ROUNDS WITH MD REVIEWED LABS-NOTED TRIGS 275 DISCUSSED WITH PHARMACY RECOMMEND CONTINUING TPN AT 55ML/HR PROVIDES 937KCALS (1123KCALS TOTAL WITH SEDATION), 198G DEXTROSE, 66G PROTEIN (.98G/KG) HOLD LIPIDS REPLETE LYTES NEEDED COURT DATE PENDING TODAY 11AM FOLLOWING WITH TEAM
--- NOTE | 2025-04-21 15:10 | MHC.CM.PN ---
Pt remains intubated in ICU: guardian has been granted expansion to make code status change to DNR/DNI/[employer]. Copy of order in pt's chart. ICU MD aware and will discuss goals/plans of care with guardian
[2025-04-21] MEDS: Parenteral Nutrition 1,320 ML 55 ML IV (20:16)
[2025-04-22] VITALS (27 sets, daily range): BP systolic 0–123; BP diastolic 0–79; PULSE 0–112; RESP 20; TEMP 34.7–38.2; O2SAT 71–95; BMI 29.9
--- NOTE | 2025-04-22 03:09 | PC.NURSE ---
Addendum entered by Janice Gutierrez RN 04/22/25 06:11: At approx 0600, pt hypoxic at 82%. NADEEN Perry in room to assess pt. Pt was repositioned and lavaged. No improvement, RT called to room. Neb given per MD order with little improvement. MD order for 30 mg Rocuronium IV given per NOV. Pt O2 sat 86%. PA aware. Original Note: Assumed care of pt at 1900. At approx 0130, it was noted that there was no urine in suprapubic catheter bag. NADEEN Li was notified of this, no new orders at this time. at approx 0200, cosistantly high peak pressure and low tidal volumes. RT called to room. Pt was lavaged and suctioned. Sedation adjusted per NOV. Provider aware. Pt currently synchronous with vent, O2 sat 94, RR 20.
[2025-04-22] MEDS: Albuterol Sulfate (0.083%) 2.5 MG/3 ML VIAL.NEB INHALE (06:02)
[2025-04-22 06:16] LABS: Anion Gap 13 (12-20); Blood Urea Nitrogen 88 mg/dL (9-16); Calcium 9.2 mg/dL (8.4-10.2); Carbon Dioxide 15 mmol/L (22-29); Chloride 106 mmol/L (96-108); Creatinine Clr Calc Pharmacy 24.2; Estimated Glomerular Filt Rate 28; Magnesium 2.2 mg/dL (1.6-2.6); Potassium 4.5 mmol/L (3.3-5.1); Sodium 129 mmol/L (135-145)
[2025-04-22] MEDS: Vasopressin 20 UNIT/100 ML INFUS..BTL 12 UNIT IVCONT ×2 (06:40→14:59)
[2025-04-22] MEDS: 0.9 % Sodium Chloride Flush 3 ML SYRINGE IVFLUSH (08:00)
--- NOTE | 2025-04-22 08:30 | P.PNCC_ITS ---
Subjective Subjective Date of Service: 04/22/25 Interval History: Has a court order DNI DNR and comfort care orders yesterday Needs notified, we will follow up with guardian today Critical Care Time (minutes): 35 Physical Exam 2 Exam: Exam: General: Elderly male in severe acute distress, ill appearing and tired appearing Nutritional Appearance: Poorly nourished and underweight Eyes: appearance normal, both eyes and all related structures; Alignment and Position: alignment normal and position normal Neck: No lymphadenopathy, no thyromegaly Resp: bilateral air entry equal, bilateral significant crackles heard Cardio: Regular rate, regular rhythm; Heart sounds: S1 normal heart sound present and S2 normal heart sound present GI: soft, nontender, no guarding, no hepatosplenomegaly : bladder normal to inspection, bladder normal to palpation, no renal angle tenderness Skin: no rashes or lesions noted and elasticity normal Neuro: Sedated, chronic neuro deficits Vital Signs: Vital Signs: Last Vital Signs Temp 99.3 F 04/22/25 08:00 Pulse 78 04/22/25 08:00 Resp 20 04/22/25 08:00 BP 105/51 L 04/22/25 08:00 Pulse Ox 86 L 04/22/25 08:00 O2 Del Method Mechanical Ventil ation 04/22/25 08:00 O2 Flow Rate 80 04/18/25 18:00 FiO2 100 04/22/25 08:00 BMI result Body Mass Index 29.9 Objective Data Labs 04/21/25 04:50 04/22/25 05:27 Labs: Laboratory Results - last 24 hr 04/21/25 04/22/25 04:50 05:27 Smear Path Review SEE NOTE Hold Purple Top SEE NOTE Sodium 129 L Potassium 4.5 Chloride 106 Carbon Dioxide 15 L Anion Gap 13 BUN 88 H Creatinine 2.32 H Estim Creat Clear Calc 24.2 Estimated GFR 28 Random Glucose 289 H Calcium 9.2 Phosphorus 4.9 H Magnesium 2.2 Microbiology Microbiology Results: Microbiology 04/05/25 15:36 Thoracentesis Fluid Gram Stain - Final 04/05/25 15:36 Thoracentesis Fluid Anaerobic Culture - Final NO GROWTH AFTER 5 DAYS 04/05/25 15:36 Thoracentesis Fluid Body Fluid Culture - Final No growth after 2 days 04/05/25 12:04 Bronch Rul Gram Stain - Final 04/05/25 12:04 Bronch Rul - Final No growth after 2 days 04/01/25 11:18 Blood - Venous Blood Culture - Final No growth after 5 days. 04/01/25 11:09 Blood - Venous Blood Culture - Final No growth after 5 days. 04/01/25 Unknown Urine Other - Suprapubic Urine Culture - Final Escherichia coli Klebsiella pneumoniae Progress Note: A&P Assessment and plan (1) Hypotension: Status: Acute (2) Cardiogenic shock: Status: Acute (3) Atrial fibrillation with RVR: Status: Acute (4) ARPIT (acute kidney injury): Status: Acute (5) Acute hypoxic respiratory failure: Status: Acute (6) Pulmonary aspiration: Status: Acute (7) Bilateral pleural effusion: Status: Acute Plan 69-year-old gentleman with underlying history of cerebral palsy, atomic megacolon status post colostomy, neurogenic bladder status post suprapubic catheter, chronic hyponatremia, legally blind, nonverbal at baseline, AFib on Eliquis, chronic kidney disease admitted on 04/01/2025 with alteration of mental status. On ER evaluation patient with significant hyponatremia requiring admission to the intensive care unit. Hospital course further complicated by pericardial effusion with tamponade, status post pericardial drainage placement, acute respiratory failure requiring intubation on 04/05/2025, now status post right-sided thoracentesis and bronchoscopic secretion clearance with improvement in respiratory status, however with pericardial drain occlusion not responsive to cath flow. Had pericardial drain check on 04/07/2025, showing essentially decompressed pericardium. After the drain check recorded drain was displaced and started draining air with no effect on patient's hemodynamics. Extubated uneventfully on 04/08/2025. However continued with recurrent aspirations requiring re-intubation on 04/10/2025. Repeat CT chest showing recurrent bilateral pleural effusions and pericardial effusion. Neuro: Acute encephalopathy possibly due to metabolic encephalopathy due to ongoing multiple issues On propofol for sedation, as needed fentanyl for analgesia Cardiac: Cardiogenic Shock: Possibly secondary to pericardial tamponade. He had a pericardial drain placed, which clogged and had to be removed. On Levophed and vasopressin for vasopressor support, titrate Levophed to keep map above 65 mm Hg Atrial fibrillation: currently rate controlled on amiodarone drip on apixaban for anticoagulation Respiratory: Acute hypoxemic respiratory failure due to aspiration pneumonia, bilateral effusions and atelectasis. Previously did a bronchoscopy for right upper lobe atelectasis. Bronch cultures negative. Repeat chest x-ray shows bilateral lung infiltrates and pleural effusions Currently on ventilator support On PRVC mode FiO2 increased to 100%, PEEP 5, TV 360, RR 20 Peak pressures and plateau pressures are under the curve Ventilator management bundle with head end elevation, aspiration precaution, chlorhexidine mouthwash, daily awakening trials, daily spontaneous breathing trials GI: on TPN for nutrition due to concerns for aspiration. Renal: Acute kidney injury possibly secondary to poor perfusion from worsening pericardial effusion vs ATN from shock. Baseline creatinine normal, creatinine increased to 2.32. We will closely monitor I's and O's Avoid nephrotoxic medications Heme: Chronic anemia, closely monitor H&H, transfuse for hemoglobin less than 7 grams/deciliter Endocrine: Blood sugars under control Sliding scale insulin as needed Infectious disease: completed course of Zosyn for aspiration pneumonia and E.Coli and Klebsiella UTI. currently off antibiotics Musculoskeletal: Decubitus ulcer prevention protocol Lines: peripheral Prophylaxis: apixaban, pantoprazole Has court ordered DNI DNR and comfort care orders. [place] [facility] has been consulted yesterday. We will follow up with the guardian and possibly withdraw care. Quality Stroke Does the patient have a stroke diagnosis?: No VTE Prior VTE?: No VTE Risk Level:: Medical - moderate - high VTE Device Contraindication: N/A - Device Ordered VTE Drug Contraindication: N/A - Med Ordered
[2025-04-22] MEDS: Furosemide 40 MG/4 ML VIAL IVPUSH (09:29)
[2025-04-22] MEDS: Chlorhexidine Gluc Oral Rinse 15 ML MOUTHWASH BUCCAL (09:31)
--- NOTE | 2025-04-22 10:45 | MHC.CLN ---
F/U PT REMAINS INTUBATED AND SEDATED DISCUSSED AT ROUNDS WITH MD-PT TO TRANSITION TO DNI/DNR STEM SHAPER DISCUSSED WITH PHARMACY CONTINUE TPN AT 55ML/HR PROVIDES 937KCALS (1123KCALS TOTAL WITH SEDATION), 198G DEXTROSE, 66G PROTEIN (.98G/KG) HOLD LIPIDS REPLETE LYTES NEEDED FOLLOWING WITH TEAM
[2025-04-22 12:14] LABS: Glucose, Whole Blood 269 mg/dL (60-115)
--- NOTE | 2025-04-22 15:28 | MHC.CM.PN ---
PER MD ROUNDS, MD WILL SPEAK WITH GUARDIAN REGARDING WISHES, [facility] FOLLOWING.
[2025-04-22] MEDS: fentaNYL citrate/NS 1,000 MCG/100 ML PLAST..BAG 5 MCG IVCONT (15:40)
--- NOTE | 2025-04-22 16:36 | P.DN_ITS ---
Discharge Sum: Prov Provider Primary care physician: Oni Alvarez MD Consults: 04/01/25 18:43 Consult to Wound Care Routine Reason for consultation: stage 2 right buttocks 04/02/25 14:46 Consult to Cardiology Routine Consulting Provider: [facility] Reason for consultation: tamponade 04/15/25 11:31 Consult to General Surgery Routine Consulting Provider: [facility] General Surgeons Reason for consultation: ?Ostomy necrosis Has provider been notified: No 04/15/25 21:20 Consult to [facility] ([facility]) Stat Consulting Provider: [facility] Discharge Sum: Diag Contributing Factors (1) Hypotension: (2) Cardiogenic shock: (3) Atrial fibrillation with RVR: (4) ARPIT (acute kidney injury): (5) Acute hypoxic respiratory failure: (6) Pulmonary aspiration: (7) Bilateral pleural effusion: Discharge Sum: Summary Date and Time Date of admission: 04/01/25 13:03 Date of : 04/22/25 Time of : 16:27 Summary Details: 69-year-old gentleman with underlying history of cerebral palsy, atomic megacolon status post colostomy, neurogenic bladder status post suprapubic catheter, chronic hyponatremia, legally blind, nonverbal at baseline, AFib on Eliquis, chronic kidney disease admitted on 04/01/2025 with alteration of mental status. On ER evaluation patient with significant hyponatremia requiring admission to the intensive care unit. Hospital course further complicated by pericardial effusion with tamponade, status post pericardial drainage placement, acute respiratory failure requiring intubation on 04/05/2025, now status post right-sided thoracentesis and bronchoscopic secretion clearance with improvement in respiratory status, however with pericardial drain occlusion not responsive to cath flow. Had pericardial drain check on 04/07/2025, showing essentially decompressed pericardium. After the drain check recorded drain was displaced and started draining air with no effect on patient's hemodynamics. Extubated uneventfully on 04/08/2025. However continued with recurrent aspirations requiring re-intubation on 04/10/2025. Repeat CT chest showing recurrent bilateral pleural effusions and pericardial effusion. The next step would have been placing in a pericardial window but given his comorbidities and other organ failures he would not have been a great candidate for the procedure and guardian decided to go to the code for DNI DNR and comfort orders. Over the past 2 days patient's oxygenation were sent requiring 100% FiO2 and his saturations were in high 70s and low 80s. We received a DNI DNR and comfort orders from the court yesterday, [facility] donor Services were notified. Family decided against organ donation, patient was terminally extubated and comfort care was initiated around 16:15 and he peacefully at 16:27 Additional Data Confirmation of as documented by pronouncing clinician: no pulse, no respirations and no heart sounds Family: contacted Attending physician: Alejo Mccann MD Was code activated?: No Autopsy requested?: No certified fraud examiner notified?: No Organ bank notified?: Yes Advance directives: Yes Hospice patient?: Yes
== END 2025-04-22 17:00 | disposition expired | DRG 640 ==
LOC: HO.ED 12:20 → HO.EDOVER 13:23 → HO.ICU 14:07
PROVIDERS: Nurse Practitioner Family; Physician Assistant Medical; Registered Nurse Community Health; Admitting Provider Internal Medicine Critical Care Medicine; Emergency Provider Emergency Medicine; PCP Internal Medicine; Visit Provider Internal Medicine Pulmonary Disease
DX: E87.1 Hypo-osmolality and hyponatremia (principal); G93.41 Metabolic encephalopathy; J69.0 Pneumonitis due to inhalation of food and vomit; J96.01 Acute respiratory failure with hypoxia; E44.0 Moderate protein-calorie malnutrition; N17.9 Acute kidney failure, unspecified; I31.39 Other pericardial effusion (noninflammatory); I31.4 Cardiac tamponade; J98.11 Atelectasis; J98.19 Other pulmonary collapse; J91.8 Pleural effusion in other conditions classified elsewhere; K94.09 Other complications of colostomy; K56.7 Ileus, unspecified; N39.0 Urinary tract infection, site not specified; G80.9 Cerebral palsy, unspecified; E87.21 Acute metabolic acidosis; E87.5 Hyperkalemia; E86.1 Hypovolemia; Z96.0 Presence of urogenital implants; N18.31 Chronic kidney disease, stage 3a; R57.1 Hypovolemic shock; Z66 Do not resuscitate; Z51.5 Encounter for palliative care; I48.91 Unspecified atrial fibrillation; R57.0 Cardiogenic shock; N31.9 Neuromuscular dysfunction of bladder, unspecified; L89.152 Pressure ulcer of sacral region, stage 2; H54.8 Legal blindness, as defined in USA; Z20.822 Contact with and (suspected) exposure to COVID-19; Z68.29 Body mass index [BMI] 29.0-29.9, adult; Z74.01 Bed confinement status; Z79.01 Long term (current) use of anticoagulants; Z79.82 Long term (current) use of aspirin; Z79.899 Other long term (current) drug therapy
CPT/HCPCS: 33016; 36415; 36600; 71045; 71250; 71260; 74177; 80048; 80053; 81001; 81003; 82040; 82042; 82150; 82271; 82272; 82570; 82803; 82945; 82947; 83605; 83615; 83735; 83930; 83935; 83986; 84100; 84132; 84157; 84300; 84478; 84484; 85007; 85014; 85018; 85025; 85027; 85610; 86038; 86850; 86870; 86900; 86901; 86902; 86920; 86922; 87040; 87070; 87071; 87073; 87086; 87088; 87186; 87205; 87633; 87637; 89051; 93005; 93306; 93308; 94002; 94003; 94640; 94799; 99285; C1729; J0282; J0283; J0616; J0692; J1160; J1171; J1938; J2212; J2250; J2312; J2470; J2543; J2598; J2704; J2765; J2997; J3010; J3475; J3480; J7120; P9016; P9047; Q9957; Q9967

== ENCOUNTER → 2025-04-01 10:32 | Outpatient (BNV) | payer MEDICARE, MEDICAID, SELFPAY | PROVIDERS: Visit Provider Radiology Diagnostic Radiology | DX: I51.7 Cardiomegaly (principal); J90 Pleural effusion, not elsewhere classified; R91.8 Other nonspecific abnormal finding of lung field | CPT/HCPCS: 71045 ==

== ENCOUNTER → 2025-04-01 10:33 | Outpatient (BNV) | payer MEDICARE, MEDICAID, SELFPAY | PROVIDERS: Admitting Provider Internal Medicine Critical Care Medicine; Emergency Provider Emergency Medicine; Visit Provider Internal Medicine Cardiovascular Disease | DX: R94.31 Abnormal electrocardiogram [ECG] [EKG] (principal) | CPT/HCPCS: 93010 ==

== ENCOUNTER 2025-04-01 13:03 | Outpatient (BNV) | payer MEDICARE, MEDICAID, SELFPAY | END 2025-04-02 13:26 | PROVIDERS: Admitting Provider Internal Medicine Critical Care Medicine; Emergency Provider Emergency Medicine; Visit Provider Radiology Diagnostic Radiology | DX: I31.39 Other pericardial effusion (noninflammatory) (principal) | CPT/HCPCS: 33016 ==

== ENCOUNTER 2025-04-01 13:03 | Outpatient (BNV) | payer MEDICARE, MEDICAID, SELFPAY | END 2025-04-05 15:00 | PROVIDERS: Admitting Provider Internal Medicine Critical Care Medicine; Emergency Provider Emergency Medicine; PCP Internal Medicine; Visit Provider Radiology Diagnostic Radiology | DX: J90 Pleural effusion, not elsewhere classified (principal) | CPT/HCPCS: 71045 ==

== ENCOUNTER 2025-04-01 13:03 | Outpatient (BNV) | payer MEDICARE, MEDICAID, SELFPAY | END 2025-04-09 15:50 | PROVIDERS: Admitting Provider Internal Medicine Critical Care Medicine; Emergency Provider Emergency Medicine; PCP Internal Medicine; Visit Provider Radiology Diagnostic Radiology | DX: J90 Pleural effusion, not elsewhere classified (principal) | CPT/HCPCS: 71045 ==

== ENCOUNTER 2025-04-01 13:03 | Outpatient (BNV) | payer MEDICARE, MEDICAID, SELFPAY | END 2025-04-12 08:00 | PROVIDERS: Admitting Provider Internal Medicine Critical Care Medicine; Emergency Provider Emergency Medicine; PCP Internal Medicine; Visit Provider Radiology Vascular & Interventional Radiology | DX: J98.11 Atelectasis (principal) | CPT/HCPCS: 71250 ==

== ENCOUNTER 2025-04-01 13:03 | Outpatient (BNV) | payer MEDICARE, MEDICAID, SELFPAY | END 2025-04-03 12:00 | PROVIDERS: Admitting Provider Internal Medicine Critical Care Medicine; Emergency Provider Emergency Medicine; PCP Internal Medicine; Visit Provider Internal Medicine Cardiovascular Disease | DX: I31.39 Other pericardial effusion (noninflammatory) (principal); I51.3 Intracardiac thrombosis, not elsewhere classified | CPT/HCPCS: 93308 ==

== ENCOUNTER 2025-04-01 13:03 | Outpatient (BNV) | payer MEDICARE, MEDICAID, SELFPAY | END 2025-04-06 10:29 | PROVIDERS: Admitting Provider Internal Medicine Critical Care Medicine; Emergency Provider Emergency Medicine; PCP Internal Medicine; Visit Provider Radiology Diagnostic Radiology | DX: J90 Pleural effusion, not elsewhere classified (principal) | CPT/HCPCS: 71250 ==

== ENCOUNTER 2025-04-01 13:03 | Outpatient (BNV) | payer MEDICARE, MEDICAID, SELFPAY | END 2025-04-04 11:40 | PROVIDERS: Admitting Provider Internal Medicine Critical Care Medicine; Emergency Provider Emergency Medicine; PCP Internal Medicine; Visit Provider Radiology Diagnostic Radiology | DX: J98.11 Atelectasis (principal) | CPT/HCPCS: 71045 ==

== ENCOUNTER 2025-04-01 13:03 | Outpatient (BNV) | payer MEDICARE, MEDICAID, SELFPAY | END 2025-04-08 08:55 | PROVIDERS: Admitting Provider Internal Medicine Critical Care Medicine; Emergency Provider Emergency Medicine; PCP Internal Medicine; Visit Provider Radiology Diagnostic Radiology | DX: J98.11 Atelectasis (principal) | CPT/HCPCS: 71045 ==

== ENCOUNTER 2025-04-01 13:03 | Outpatient (BNV) | payer MEDICARE, MEDICAID, SELFPAY | END 2025-04-07 14:14 | PROVIDERS: Admitting Provider Internal Medicine Critical Care Medicine; Emergency Provider Emergency Medicine; PCP Internal Medicine; Visit Provider Student in an Organized Health Care Education/Training Program | DX: I31.39 Other pericardial effusion (noninflammatory) (principal) | CPT/HCPCS: 71250 ==

== ENCOUNTER 2025-04-01 13:03 | Outpatient (BNV) | payer MEDICARE, MEDICAID, SELFPAY | END 2025-04-02 07:00 | PROVIDERS: Admitting Provider Internal Medicine Critical Care Medicine; Emergency Provider Emergency Medicine; Visit Provider Internal Medicine Cardiovascular Disease | DX: I50.30 Unspecified diastolic (congestive) heart failure (principal); I31.39 Other pericardial effusion (noninflammatory) | CPT/HCPCS: 93306 ==

== ENCOUNTER 2025-04-01 13:03 | Outpatient (BNV) | payer MEDICARE, MEDICAID, SELFPAY | END 2025-04-10 02:10 | PROVIDERS: Admitting Provider Internal Medicine Critical Care Medicine; Emergency Provider Emergency Medicine; PCP Internal Medicine; Visit Provider Radiology Diagnostic Radiology | DX: J98.11 Atelectasis (principal) | CPT/HCPCS: 71045 ==

== ENCOUNTER 2025-04-01 13:03 | Outpatient (BNV) | payer MEDICARE, MEDICAID, SELFPAY | END 2025-04-03 11:07 | PROVIDERS: Admitting Provider Internal Medicine Critical Care Medicine; Emergency Provider Emergency Medicine; Visit Provider Radiology Diagnostic Radiology | DX: J90 Pleural effusion, not elsewhere classified (principal) | CPT/HCPCS: 71045 ==

== ENCOUNTER 2025-04-01 13:03 | Outpatient (BNV) | payer MEDICARE, MEDICAID, SELFPAY | END 2025-04-20 13:36 | PROVIDERS: Admitting Provider Internal Medicine Critical Care Medicine; Emergency Provider Emergency Medicine; PCP Internal Medicine; Visit Provider Radiology Diagnostic Radiology | DX: J90 Pleural effusion, not elsewhere classified (principal) | CPT/HCPCS: 71045 ==

== ENCOUNTER → 2025-04-01 13:03 | Outpatient (BNV) | payer MEDICARE, MEDICAID, SELFPAY | PROVIDERS: Admitting Provider Internal Medicine Critical Care Medicine; Emergency Provider Emergency Medicine; Visit Provider Internal Medicine Cardiovascular Disease | DX: I31.39 Other pericardial effusion (noninflammatory) (principal) | CPT/HCPCS: 99233 ==

== ENCOUNTER → 2025-04-01 13:03 | Outpatient (BNV) | payer MEDICARE, MEDICAID, SELFPAY | PROVIDERS: Admitting Provider Internal Medicine Critical Care Medicine; Emergency Provider Emergency Medicine; Visit Provider Internal Medicine Critical Care Medicine | DX: I48.91 Unspecified atrial fibrillation (principal); I95.9 Hypotension, unspecified; I31.4 Cardiac tamponade; E87.1 Hypo-osmolality and hyponatremia | CPT/HCPCS: 99291 ==

== ENCOUNTER → 2025-04-01 13:03 | Outpatient (BNV) | payer MEDICARE, MEDICAID, SELFPAY | PROVIDERS: Admitting Provider Internal Medicine Critical Care Medicine; Emergency Provider Emergency Medicine; PCP Internal Medicine; Visit Provider Physician Assistant Surgical | DX: K94.19 Other complications of enterostomy (principal) | CPT/HCPCS: 99222 ==

== ENCOUNTER → 2025-04-01 13:03 | Outpatient (BNV) | payer MEDICARE, MEDICAID, SELFPAY | PROVIDERS: Admitting Provider Internal Medicine Critical Care Medicine; Emergency Provider Emergency Medicine; PCP Internal Medicine; Visit Provider Internal Medicine Pulmonary Disease | DX: J96.01 Acute respiratory failure with hypoxia (principal); I31.4 Cardiac tamponade; G80.9 Cerebral palsy, unspecified; N39.0 Urinary tract infection, site not specified | CPT/HCPCS: 99291 ==